=== PATIENT | female | born 1970 | race Caucasian/White ===

== ENCOUNTER 2022-06-24 16:17 | Outpatient (REF) | payer OTHER, MEDICAID, SELFPAY ==
[2022-06-24 16:35] LABS: MANUAL DIFF FLAG NO
[2022-06-24 17:33] LABS: Basophils Absolute Auto 0.1 X10*3/uL (0.0-0.2); Basophils Percent Auto 0.3 % (0-2); Eosinophils Absolute Auto 0.7 X10*3/uL (0.0-0.4); Eosinophils Percent Auto 4.9 % (0-4); Hematocrit 45.5 % (37.0-47.0); Hemoglobin 15.4 g/dl (12.0-16.0); Imm Gran Abs Auto 0.06 X10*3/uL (0.00-0.03); Imm Gran Pct Auto 0.4 % (0.0-0.4); Lymphocytes Percent Auto 20.5 % (20-40); Mean Corpuscular HGB Conc 33.8 g/dl (31.0-35.0); Mean Corpuscular Hemoglobin 30.1 pg (27.0-33.0); Mean Platelet Volume 10.8 fL (9.4-12.3); Monocytes Percent Auto 6.5 % (2-11); Neutrophils Absolute Auto 9.8 x10*3/uL (2.0-8.3); Neutrophils Percent Auto 67.4 % (45-73); Platelet Count 353 X10*3/uL (160-400); Red Blood Count 5.11 X10*6/uL (4.20-5.50); Red Cell Distribution Width 13.1 % (11.0-16.0); White Blood Count 14.6 X10*3/uL (4.8-10.8)
[2022-06-24 17:51] LABS: Alanine Aminotransferase 17 U/L (0-31); Albumin Level 4.6 g/dL (3.5-5.0); Alkaline Phosphatase 121 U/L (39-117); Anion Gap 20 (12-20); Aspartate Amino Transferase 21 U/L (5-31); Bilirubin Total 0.3 mg/dL (0.0-1.0); Blood Urea Nitrogen 13 mg/dL (9-16); Calcium 9.6 mg/dL (8.4-10.2); Carbon Dioxide 20 mmol/L (22-29); Chloride 105 mmol/L (96-108); Estimated Glomerular Filt Rate > 60; Glucose Random 93 mg/dL (60-115); Potassium 4.5 mmol/L (3.3-5.1); Sodium 140 mmol/L (135-145); Total Protein 7.5 g/dL (6.5-8.0)
== END 2022-06-24 16:18 | disposition home or self-care (01) ==
LOC: HO.LAB 16:17
PROVIDERS: PCP Registered Nurse; Visit Provider Nurse Practitioner
DX: Z12.11 Encounter for screening for malignant neoplasm of colon (principal)
CPT/HCPCS: 36415; 80053; 85025

== ENCOUNTER 2023-10-23 10:53 | Outpatient (AMB) | payer OTHER, MEDICAID, SELFPAY ==
[2023-10-23 10:59] VITALS: BMI 27.4
--- NOTE | 2023-10-23 10:59 | HO.NEPHOV_ITS ---
HPI HPI Comments History of Present Illness Details Padmaja was seen in follow-up by [facility] or nephrolithiasis. She has history of complex regional pain syndrome. She had a spinal cord stimulator put in. She does not have any blood in the urine, fever, loin pain, chills, rigor or dysuria. She has not passed any later gravel in the urine. She maintains good hydration. She tries to minimize his salt in the diet. [facility] Medical History (Updated 10/23/23 @ 11:22 by Amauri Vasquez MD) Primary insomnia Osteoarthritis Nerve injury Nephrolithiasis Migraine Fibromyositis Fibromyalgia Depressive disorder Anxiety Smoker Chronic knee pain GERD (gastroesophageal reflux disease) Closed left ankle fracture Surgical History Hx of repair of left rotator cuff Hx of repair of right rotator cuff History of total right knee replacement S/P rotator cuff repair History of hysterectomy Social History Alcohol intake: never Patient Tobacco Use Status: Current everyday Tobacco user Vital Signs 10/23/23 10:59 Height 5 ft 6 in Weight 170 lb BMI 27.4 Physical Exam Vital Signs: BMI result Body Mass Index 27.4 Assessment & Plan Assessment & Plan (1) Nephrolithiasis: Code(s): N20.0 - Calculus of kidney Plan Padmaja has longstanding nephrolithiasis. She has family history of renal calculus. She claims to be taking adequate amount of fluid. Her 24 hour urine collection in the past has shown a low citrate. She is on potassium citrate. She should minimize sodium in the diet and continue to maintain good hydration. She should cut back animal protein, increase fruits and vegetables in the diet. She should avoid nonsteroidal inflammatory medications. She may need hydrochlorothiazide and/or increase in potassium citrate. I did not make any medication changes today. Lab work ordered. Answered all questions. Follow-up given. Orders: Orders Electrolytes 10/23/23 N20.0 - Calculus of kidney Blood Urea Nitrogen 10/23/23 N20.0 - Calculus of kidney Calcium 10/23/23 N20.0 - Calculus of kidney Protein Creatinine Ratio, Ur 10/23/23 N20.0 - Calculus of kidney UA and rflx microscopic 10/23/23 N20.0 - Calculus of kidney Creatinine 10/23/23 N20.0 - Calculus of kidney Telehealth Telehealth Location of provider rendering services: practice address Location of patient: address on file Patient Identification confirmed using: Name, : Yes Telehealth method: voice only Patient verbally consented to treatment: Yes Patient verbally consented to billing insurance company: Yes Patient informed of any privacy concerns related to visit: No Minutes spent on Phone/Video with Pt.: 10 Coding Level of Care Code Tele Est Pt Level 2 (65669) Diagnoses Nephrolithiasis N20.0 Results Reviewed Nephrology Results: Hgb 15.4 g/dl (12.0-16.0) 06/24/22 WBC 14.6 X10*3/uL (4.8-10.8) H 06/24/22 Plt Count 353 X10*3/uL (160-400) 06/24/22 Sodium 140 mmol/L (135-145) 06/24/22 Potassium 4.5 mmol/L (3.3-5.1) 06/24/22 Chloride 105 mmol/L (96-108) 06/24/22 Carbon Dioxide 20 mmol/L (22-29) L 06/24/22 BUN 13 mg/dL (9-16) 06/24/22 Creatinine 0.94 mg/dL (0.5-1.4) 06/24/22 Calcium 9.6 mg/dL (8.4-10.2) 06/24/22
== END 2023-10-23 11:30 | disposition home or self-care (01) ==
PROVIDERS: PCP Registered Nurse; Visit Provider Internal Medicine Nephrology
DX: N20.0 Calculus of kidney (principal)
CPT/HCPCS: 99212

== ENCOUNTER → 2023-10-23 10:53 | Outpatient (BNVA) | payer OTHER, MEDICAID, SELFPAY | PROVIDERS: PCP Registered Nurse; Visit Provider Internal Medicine Nephrology ==

== ENCOUNTER 2024-04-26 16:00 | Outpatient (AMB) | payer OTHER, MEDICAID, SELFPAY ==
--- NOTE | 2024-04-26 16:08 | HO.NEPHOV ---
Vital Signs 04/26/24 16:10 Height 5 ft 6 in Weight 186 lb 8 oz BMI 30.1 BP 122/80 Blood Pressure Location Lt brachial Position Sitting Pulse 68 Pulse Source Pulse Oximeter Pulse Oximetry (%) 97 Oxygen Delivery Method Room Air Intake Visit Reasons: 6M follow up/ Conf Insurance Licensing Supervisor Required: No Accompanied by: Spouse Allergies amoxicillin Allergy (Mild, Verified 04/26/24 16:13) unknown cat dander Allergy (Mild, Verified 04/26/24 16:13) Unknown pollen extracts Allergy (Mild, Verified 04/26/24 16:13) unknown cephalexin [From Keflex] Allergy (Verified 04/26/24 16:13) Nausea and Vomiting erythromycin base Allergy (Verified 04/26/24 16:13) Nausea and Vomiting Penicillins Allergy (Verified 04/26/24 16:13) Itching NSAIDS (Non-Steroidal Anti-Inflamma Adverse Reaction (Mild, Verified 04/26/24 16:13) effects kidneys HPI Comments Details: Padmaja was seen in follow-up for her nephrolithiasis. She has history of complex regional pain syndrome. She had a spinal cord stimulator put in. She is on a low dose prednisone and her arthralgias are better. She does not have any blood in the urine, fever, loin pain, chills, rigor or dysuria. She has not passed any later gravel in the urine. She maintains good hydration. She tries to minimize his salt in the diet. She was accompanied by her in the office today [facility] Medical History (Updated 10/23/23 @ 11:22 by Amauri Vasquez MD) Primary insomnia Osteoarthritis Nerve injury Nephrolithiasis Migraine Fibromyositis Fibromyalgia Depressive disorder Anxiety Smoker Chronic knee pain GERD (gastroesophageal reflux disease) Closed left ankle fracture Surgical History Hx of repair of left rotator cuff Hx of repair of right rotator cuff History of total right knee replacement S/P rotator cuff repair History of hysterectomy Social History (Updated 04/26/24 @ 16:[address] [place]) Alcohol intake: never Patient Tobacco Use Status: Former Tobacco user Review of Systems Const All systems reviewed & are unremarkable except as noted in HPI and below Physical Exam Vital Signs: Last Vital Signs Pulse 68 04/26/24 16:10 BP 122/80 04/26/24 16:10 Pulse Ox 97 06/07/24 16:10 Oxygen Delivery Method Room Air 04/26/24 16:10 BMI result Body Mass Index 30.1 Const General: comfortable and no acute distress Orientation/consciousness: patient oriented x3 HEENT Head: Yes normocephalic Mouth: Normal oral and palatal mucosa present Eyes EOM: EOMs intact bilaterally Neck Neck: Yes supple Resp Auscultation: clear to auscultation bilaterally Cardio Jugular venous distension: no JVD Rate: regular rate GI Palpation (GI): Soft to palpation Auscultation: normal bowel sounds General: Yes no CVA tenderness Back/Spine/Pelvis Back: no CVA tenderness Skin General skin exam: no rashes or lesions noted Neuro General: patient oriented x3 and moves all extremities Assessment & Plan Assessment & Plan (1) Nephrolithiasis: Code(s): N20.0 - Calculus of kidney Category: Medical Plan Padmaja has longstanding nephrolithiasis. She has family history of renal calculus. She claims to be taking adequate amount of fluid. Her 24 hour urine collection in the past has shown a low citrate. She is on potassium citrate. She should minimize sodium in the diet and continue to maintain good hydration. She should cut back animal protein, increase fruits and vegetables in the diet. She should avoid nonsteroidal inflammatory medications. She may need hydrochlorothiazide and/or increase in potassium citrate. I did not make any medication changes today. Lab work ordered. Answered all questions. Follow-up given. Orders: Orders Blood Urea Nitrogen 04/26/24 N20.0 - Calculus of kidney Calcium 04/26/24 N20.0 - Calculus of kidney Creatinine 04/26/24 N20.0 - Calculus of kidney Electrolytes 04/26/24 N20.0 - Calculus of kidney Coding Level of Care Code Est Pt Level 4 (33880) Diagnoses Nephrolithiasis N20.0
[2024-04-26 16:10] VITALS: BP 122/80; PULSE 68; O2SAT 97; BMI 30.1
== END 2024-04-26 16:45 | disposition home or self-care (01) ==
PROVIDERS: PCP Registered Nurse; Visit Provider Internal Medicine Nephrology
DX: N20.0 Calculus of kidney (principal)
CPT/HCPCS: 99214

== ENCOUNTER → 2024-04-26 16:00 | Outpatient (BNVA) | payer OTHER, MEDICAID, SELFPAY | PROVIDERS: PCP Registered Nurse; Visit Provider Internal Medicine Nephrology ==

== ENCOUNTER 2024-12-27 09:40 | Outpatient (AMB) | payer OTHER, MEDICAID, SELFPAY ==
[2024-12-27 09:46] VITALS: BP 130/80; PULSE 86; O2SAT 93; BMI 34.4
--- NOTE | 2024-12-27 09:46 | HO.NEPHOV_ITS ---
Vital Signs 12/27/24 09:46 Height 5 ft 6 in Weight 213 lb 4 oz BMI 34.4 BP 130/80 Blood Pressure Location Rt brachial Position Sitting Pulse 86 Pulse Source Pulse Oximeter Pulse Oximetry (%) 93 Oxygen Delivery Method Room Air Intake Visit Reasons: Follow up leg edema Police Communications Dispatcher Required: No Accompanied by: Friend Allergies amoxicillin Allergy (Mild, Verified 12/27/24 09:50) unknown cat dander Allergy (Mild, Verified 12/27/24 09:50) Unknown pollen extracts Allergy (Mild, Verified 12/27/24 09:50) unknown cephalexin [From Keflex] Allergy (Verified 12/27/24 09:50) Nausea and Vomiting erythromycin base Allergy (Verified 12/27/24 09:50) Nausea and Vomiting Penicillins Allergy (Verified 12/27/24 09:50) Itching NSAIDS (Non-Steroidal Anti-Inflamma Adverse Reaction (Mild, Verified 12/27/24 09:50) effects kidneys HPI Comments Details: Padmaja was seen in follow-up for her nephrolithiasis. She has been having weight gain 27 lbs in close to 6 months. She has been on prednisone but currently is on 2.5 mg daily. She has history of complex regional pain syndrome. She had a spinal cord stimulator put in. Her arthralgias are better. She does not have any blood in the urine, fever, loin pain, chills, rigor or dysuria. She has not passed any later gravel in the urine. She maintains good hydration. She tries to minimize his salt in the diet. [facility] Medical History (Updated 12/27/24 @ 10:12 by Amauri Vasquez MD) Primary insomnia Osteoarthritis Nerve injury Nephrolithiasis Migraine Fibromyositis Fibromyalgia Depressive disorder Anxiety Smoker Chronic knee pain GERD (gastroesophageal reflux disease) Closed left ankle fracture Surgical History Hx of repair of left rotator cuff Hx of repair of right rotator cuff History of total right knee replacement S/P rotator cuff repair History of hysterectomy Social History Alcohol intake: never Patient Tobacco Use Status: Former Tobacco user Review of Systems Const All systems reviewed & are unremarkable except as noted in HPI and below Physical Exam Vital Signs: Last Vital Signs Pulse 86 12/27/24 09:46 BP 130/80 02/07/25 09:46 Pulse Ox 93 12/27/24 09:46 Oxygen Delivery Method Room Air 12/27/24 09:46 BMI result Body Mass Index 34.4 Const General: comfortable and no acute distress Orientation/consciousness: patient oriented x3 HEENT Head: Yes normocephalic Mouth: Normal oral and palatal mucosa present Eyes EOM: EOMs intact bilaterally Neck Neck: Yes supple Resp Auscultation: clear to auscultation bilaterally Cardio Jugular venous distension: no JVD Rate: regular rate GI Palpation (GI): Soft to palpation Auscultation: normal bowel sounds General: Yes no CVA tenderness Back/Spine/Pelvis Back: no CVA tenderness Skin General skin exam: no rashes or lesions noted Neuro General: patient oriented x3 and moves all extremities Extrem General: Yes no pedal edema Results Reviewed Nephrology Results: Hgb 15.4 g/dl (12.0-16.0) 06/24/22 WBC 14.6 X10*3/uL (4.8-10.8) H 06/24/22 Plt Count 353 X10*3/uL (160-400) 06/24/22 Sodium 140 mmol/L (135-145) 06/24/22 Potassium 4.5 mmol/L (3.3-5.1) 06/24/22 Chloride 105 mmol/L (96-108) 06/24/22 Carbon Dioxide 20 mmol/L (22-29) L 06/24/22 BUN 13 mg/dL (9-16) 06/24/22 Creatinine 0.94 mg/dL (0.5-1.4) 06/24/22 Calcium 9.6 mg/dL (8.4-10.2) 06/24/22 Assessment & Plan Assessment & Plan (1) Nephrolithiasis: Code(s): N20.0 - Calculus of kidney Category: Medical (2) Edema: Code(s): R60.9 - Edema, unspecified Category: Medical Qualifiers: Edema type: localized Qualified Code(s): R60.0 - Localized edema Plan Padmaja has longstanding nephrolithiasis. She has family history of renal calculus. She claims to be taking adequate amount of fluid. Her 24 hour urine collection in the past has shown a low citrate. She is on potassium citrate. She should minimize sodium in the diet and continue to maintain good hydration. She should cut back animal protein, increase fruits and vegetables in the diet. She should avoid nonsteroidal inflammatory medications. I ordered basic W/U for edema. She had liver USS and may need ECHO. She may need hydrochlorothiazide and/or increase in potassium citrate. I did not make any medication changes today. Lab work ordered. Answered all questions Orders: Orders Alanine Aminotransferase Today R60.0 - Localized edema Aspartate Amino Transferase Today R60.0 - Localized edema Albumin Level Today R60.0 - Localized edema Protein Creatinine Ratio, Ur Today R60.0 - Localized edema Other Ref Test - Misc Today R60.0 - Localized edema Coding Level of Care Code Est Pt Level 4 (00564) Diagnoses Nephrolithiasis N20.0 Localized edema R60.0 Edema type: localized
--- OUTSIDE RECORDS SUMMARY | 2024-12-27 10:23 | XMS_ITS | Encounter Summary ---
Author Organization [facility] Address [phone] [facility] [place] [address] Care Team Providers Care Senior Software Quality Analyst Name Role Phone Pcp, Unknown Primary Care Provider Unavailabl e Encounter Details Date Type Department Care Team (Late st Contact Info) Description 03/19/2013 Hospital Encounter [facility],Outside Imaging [address] [place], [place] [id number] System, Provider Not In, [place] [address] Social History Tobacco Use Types Packs/Day Years [...] Answer Date Recorded No 04/17/2023 No 04/17/2023 No 04/17/2023 Reliable internet access at home? Not on file 04/17/2023 Device with a working camera? Not on file Sex and Gender Information Value Date Recorded Sex Assigned at Female 05/03/2018 10:11 AM EDT Gender Identity Female 05/03/2018 10:11 AM [...] PACS storage only and not for interpretation. Provider Not In System PhD IMG OUTSIDE I MAGYANIRA W/OUT INTERPRETATION documented in this encounter Visit Diagnoses Not on filedocumented in this encounter Care Teams Senior Software Quality Analyst Relationship Specialty Start Date End Date Pcp, Unknown PCP - General 02/18/11 10/17/17 documented as of this encounter Additional Source Comments The information contained in this document represents components of the legal health record. It is not the complete legal health record.[facility]
--- OUTSIDE RECORDS SUMMARY | 2024-12-27 10:23 | XMS_ITS | Encounter Summary ---
Author Organization [facility] Address [phone] [facility] [place] [address] Care Team Providers Care Brush Head Maker Name Role Phone Carmen Flores CNP Unavailable Priscila GrimmP Unavailable Veronica Vega MD Unavailable Selam Flower MD Unavailable [phone] Pedro Valente MD Unavailable Maria Del Rosario Oleary NP Primary Care Provider + Encounter Details Date Type Department Care Team (Late st Contact Info) Description 11/05/2020 Procedure Pass [address] [place] [address] Social History Tobacco Use Types Packs/Day Years Used Date Smoking Tobacco: Former Cigarettes 0.3 16 0 08/01/2003 - 08/01/2019 Smokeless Tobacco: Never Alcohol Use Standard Drinks/Week Comments Not Currently 0 (1 standard drink = 0.6 oz pur e alcohol) Sex and Gender Information Value Date Recorded Sex Assigned at Female 05/03/2018 10:11 AM EDT Gender Identity Female 05/03/2018 10:11 AM EDT Sexual Orientation Not on file documented as of this encounter Last Filed Vital Signs Vital Sign Reading Time Taken Comments Blood Pressure - - Pulse - - Temperature - - Respiratory Rate - - Oxygen Saturation - - Inhaled Oxygen Concentration - - Weight 87.1 kg (192 lb) 11/06/2020 1:07 PM EST Height 167.6 cm (5' 6 ) 11/06/2020 1:07 PM EST Body Mass Index 30.99 11/06/2020 1:07 PM EST documented in this encounter Plan of Treatment Not on file documented as of this encounter Visit Diagnoses Not on filedocumented in this encounter Care Teams Brush Head Maker Relationship Specialty Start Date End Date Maria Del Rosario Oleary, PIG MACHINE OPERATOR HELPER [address] [place] [address] PCP - General Family Medicine 07/09/19 Carmen Flores, MOTOR BUILDER WINDER [address] [facility] [address], [address] [place] [address] Historical LMR Provider 09/06/17 11/27/21 Priscila Grimm FNP [address] [facility], [address], [address] [place] [address] Historical LMR Provider 09/06/17 11/27/21 Veronica Vega MD [address] [facility], [address], [address] [place] [address] Historical LMR Provider 09/06/17 11/27/21 Selam Flower MD [address] [place] [address] Historical LMR Provider 09/06/17 2 Pedro Valente MD [address] [place] [address] Historical LMR Provider 09/06/17 2 documented as of this encounter Additional Source Comments The information contained in this document represents components of the legal health record. It is not the complete legal health record.[facility]
--- OUTSIDE RECORDS SUMMARY | 2024-12-27 10:23 | XMS_ITS | Encounter Summary ---
Author Organization [facility] Address [phone] [facility] [place] [address] Care Team Providers Care Rubber Vulcanizing Machine Operator Name Role Phone Pcp, Unknown Primary Care Provider Unavailabl e Encounter Details Date Type Department Care Team (Late st Contact Info) Description 03/16/2011 Hospital Encounter [facility],Outside Imaging [address] [place], [place] [phone] System, Provider Not In, PhD [address] [address] Unknown, Unknown, Social History Tobacco Use Types [...] Not In System PhD IMG OUTSIDE I MAGING W/OUT INTERPRETATION documented in this encounter Visit Diagnoses Not on filedocumented in this encounter Care Teams Rubber Vulcanizing Machine Operator Relationship Specialty Start Date End Date Pcp, Unknown PCP - General 02/18/11 10/17/17 documented as of this encounter Additional Source Comments The information contained in this document represents components of the legal health record. It is not the complete legal health record.[facility]
--- OUTSIDE RECORDS SUMMARY | 2024-12-27 10:23 | XMS_ITS | Encounter Summary ---
Author Organization [facility] Address [phone] [place] [address] Care Team Providers Care Automotive Engineer Name Role Phone Pcp, Unknown Primary Care Provider Unavailabl e Encounter Details Date Type Department Care Team (Late st Contact Info) Description 03/15/2012 Hospital Encounter [facility],Outside Imaging [address] [place], [place] [phone] System, Provider Not In, PhD [address] [address] Unknown, Unknown, Social History Tobacco Use Types [...] on filedocumented in this encounter Care Teams Automotive Engineer Relationship Specialty Start Date End Date Pcp, Unknown PCP - General 02/18/11 10/17/17 documented as of this encounter Additional Source Comments The information contained in this document represents components of the legal health record. It is not the complete legal health record.[facility]
--- OUTSIDE RECORDS SUMMARY | 2024-12-27 10:23 | XMS_ITS | Encounter Summary ---
Author Organization [facility] Address [phone] [facility] [place] [address] Care Team Providers Care Circuits Engineer Name Role Phone Pcp, Unknown Primary Care Provider Unavailabl e Encounter Details Date Type Department Care Team (Late st Contact Info) Description 03/14/2011 Hospital Encounter [facility],Outside Imaging [address] [place], [place] [phone] System, Provider Not In, PhD [address] [address] Unknown, Unknown, Social History Tobacco Use Types [...] on filedocumented in this encounter Care Teams Circuits Engineer Relationship Specialty Start Date End Date Pcp, Unknown PCP - General 02/18/11 10/17/17 documented as of this encounter Additional Source Comments The information contained in this document represents components of the legal health record. It is not the complete legal health record.[facility]
--- OUTSIDE RECORDS SUMMARY | 2024-12-27 10:23 | XMS_ITS | Encounter Summary ---
Author Organization [facility] Address [phone] [facility] [place] [address] Care Team Providers Care Remarketing Manager Name Role Phone Carmen Flores CNP Unavailable [phone] Alfa Priscila Maricarmen CASKET UPHOLSTERER Unavailable Veronica Vega MD Unavailable Selam Flower MD Unavailable Pedro Valente MD Unavailable Maria Del Rosario Oleary NP Primary Care Provider + Reason for Referral * MRI/CAT Scan - Closed Specialty Diagnoses / Procedures Referred By Contac t Referred To Contact Radiology Diagnoses Right knee pain, unspecified chronicity Radiculopathy, lumbar region Complex regional pain syndrome i of right lower limb Procedures MRI Lumbar Spine Pedro Denise PA [address] [place] [address] Referral ID Status Reason Start Date Expiration Date Visits Re quested Visits Authorized [id number] Closed 11/04/2020 05/03/2021 1 1 Encounter Details Date Type Department Care Team (Late st Contact Info) Description 11/05/2020 Transcribe Orders Virtual Department [address] [place] [address] Chantel Denise MD [address] [place] [address] .[facility] Right knee pain, unspecified chronicity (Primary Dx); Radiculopathy, lumbar region; Complex regional pain syndrome i of right lower limb Social History Tobacco Use Types Packs/Day Years [...] on file documented as of this encounter Results * MRI LUMBAR SPINE (BONE) WITHOUT CONTRAST (11/10/2020 2:56 PM EST) Anatomical Region Laterality Modality L-spine Magnetic Resonan ce 11/10/2020 3:22 PM EST Impressions 11/10/2020 3:28 PM EST Mild progressive disc desiccation and degenerative facet arthropathy without focal disc protrusion, central canal stenosis, neural foraminal stenosis, or other significant interval change from 06/28/2012. POS - [id number] Narrative 11/10/2020 3:28 PM EST TECHNIQUE: Exam performed on a 1.5 Constanza high-field MRI scanner. ??Sagittal T1, T2 and STIR, axial T1 and T2 sequences were obtained. FINDINGS: Comparisons made with the prior MR of 06/28/2012. On the sagittal sequences no focal disc protrusion, central canal stenosis, or significant neural foraminal compromise are demonstrated at the T11-T12, T12-L1, or L1-2 levels. There is been slight progressive disc desiccation. L2-L3: Mild progressive disc desiccation without acute disc protrusion, central canal stenosis, or neural foraminal compromise. L3-L4: Progressive disc desiccation without focal disc protrusion, central canal stenosis, or significant neural foraminal compromise. Mild degenerative facet arthropathy. L4-L5: Progressive disc desiccation without acute disc protrusion, central canal stenosis, or neural foraminal compromise. Mild degenerative facet arthropathy. L5-S1: No acute disc protrusion, central canal stenosis, or neural foraminal compromise. No significant abnormality vertebral body marrow signal is noted. Visualized portions of the tip of the conus are unremarkable. No paraspinal soft tissue mass apparent. Procedure Note Zach Burkett MD - 11/10/2020 TECHNIQUE: Exam performed on a 1.5 Constanza high-field MRI scanner. SagittalT1, T2 and STIR, axial T1 and T2 sequences were obtained. FINDINGS: Comparisons made with the prior MR of 06/28/2012. On the sagittal sequences no focal disc protrusion, central canalstenosis, or significant neural foraminal compromise are demonstrated atthe T11-T12, T12-L1, or L1-2 levels. There is been slight progressive discdesiccation. L2-L3: Mild progressive disc desiccation without acute disc protrusion,central canal stenosis, or neural foraminal compromise. L3-L4: Progressive disc desiccation without focal disc protrusion, centralcanal stenosis, or significant neural foraminal compromise. Milddegenerative facet arthropathy. L4-L5: Progressive disc desiccation without acute disc protrusion, centralcanal stenosis, or neural foraminal compromise. Mild degenerative facetarthropathy. L5-S1: No acute disc protrusion, central canal stenosis, or neuralforaminal compromise. No significant abnormality vertebral body marrow signal is noted.Visualized portions of the tip of the conus are unremarkable. Noparaspinal soft tissue mass apparent. IMPRESSION: Mild progressive disc desiccation and degenerative facet arthropathywithout focal disc protrusion, central canal stenosis, neural foraminalstenosis, or other significant interval change from 06/28/2012. POS - [id number] Pedro MCNAIR Jeff MR XSPECIALTY documented in this encounter Visit Diagnoses Diagnosis Right knee pain, unspecified chronicity- Primary Radiculopathy, lumbar region Thoracic or lumbosacral neuritis or radiculitis, unspecified Complex regional pain syndrome i of right lower limb Right knee pain, unspecified chronicity Radiculopathy, lumbar region Thoracic or lumbosacral neuritis or radiculitis, unspecified Complex regional pain syndrome i of right lower limb documented in this encounter Care Teams Remarketing Manager Relationship Specialty Start Date End Date Maria Del Rosario Oleary, JOAQUIN [address] [place] [address] PCP - General Family Medicine 07/09/19 Carmen Flores, REBEKAH [address], [address] [place] [address] Historical LMR Provider 09/06/17 11/27/21 Priscila Grimm FNP [address], [address] [place] [address] Historical LMR Provider 09/06/17 11/27/21 Veronica Vega MD [address], [address] [place] [address] Historical LMR Provider 09/06/17 11/27/21 Selam Flower MD [address] [place] [address] Historical LMR Provider 09/06/17 2 Pedro Valente MD [address] [place] [address] Historical LMR Provider 09/06/17 2 documented as of this encounter Additional Source Comments The information contained in this document represents components of the legal health record. It is not the complete legal health record.[facility]
--- OUTSIDE RECORDS SUMMARY | 2024-12-27 10:24 | XMS_ITS ---
Author Organization [facility] Address [address] [place] [id number] Care Team Providers Care Twister Tender Name Role Phone KIRK LOZANO Primary Care Provider REASON FOR VISIT [employer] - fax request Encounters Encounter Location Date Provider Diagnosis [facility], [address] [phone] 12/15/2024 KIRK LOZANO PLAN OF TREATMENT No Information Progress Notes * ALEX HOOVER MDOB:[birth year] (54 yo F)Acc No.[id number]:12/15/2024 Patient:??ALEX HOOVER :1970?Age:54 Y?Sex:Fe male Phone: Address:[address] [place] [id number] * true * Date:??
--- OUTSIDE RECORDS SUMMARY | 2024-12-27 10:25 | XMS_ITS | Encounter Summary ---
Author Organization [facility] Address [phone] [place] [address] Care Team Providers Care Marine Engine Mechanic Name Role Phone Carmen Flores CNP Unavailable Alfa Priscila Maricarmen WORKERS' COMPENSATION MEDIATOR Unavailable Veronica Vega MD Unavailable Selam Flower MD Unavailable Pedro Valente MD Unavailable Scarlett Baird PA-C Primary Care Provider Maria Del Rosario Oleary NP Primary Care Provider + Encounter Details Date Type Department Care Team (Late st Contact Info) Description 05/07/2018 Ancillary Orders [facility] External Provider Virtual Department [address] [place] [address] Radha Kurtz MD [address] [place] [address] Abnormal mammogram Social History Tobacco Use Types Packs/Day Years Used Date Smoking Tobacco: Never Assessed Sex and Gender Information Value Date Recorded Sex Assigned at Female 05/03/2018 10:11 AM EDT Gender Identity Female 05/03/2018 10:11 AM EDT Sexual Orientation Not on file documented as of this encounter Plan of Treatment Not on file documented as of this encounter Results * BI MAMMOGRAM DIAGNOSTIC NO TOMOSYNTHESIS WITH CAD (LEFT) (05/14/2018 10:11 AM EDT) Anatomical Region Laterality Modality Breast Left Left Mammography 05/14/2018 1:09 PM EDT Impressions 05/14/2018 1:11 PM EDT No suspicious findings on callback imaging. ??Routine bilateral screening mammography is recommended. ??Results are relayed to the patient by the technologist. BI-RADS CATEGORY: 1 - Negative. DENSITY: ??There are scattered fibroglandular densities. POS - CDHMAMA Narrative 05/14/2018 1:11 PM EDT FINDINGS: Patient is recalled from a screening mammogram performed 05/03/2018 for additional imaging on the left. Magnification CC view is performed. No calcifications are identified in the area of concern. ??Therefore, the abnormality on the screening mammogram was artifactual. Procedure Note Jarret Chavez MD - 05/14/2018 FINDINGS: Patient is recalled from a screening mammogram dlojevnrr81/14/2018 for additional imaging on the left. Magnification CC view isperformed. No calcifications are identified in the area of concern. Therefore, theabnormality on the screening mammogram was artifactual. IMPRESSION: No suspicious findings on callback imaging. Routine bilateral screeningmammography is recommended. Results are relayed to the patient by thetechnologist. BI-RADS CATEGORY: 1 - Negative. DENSITY: There are scattered fibroglandular densities. POS - CDHMAMA Radha Kurtz MD IMG MG EXAMS documented in this encounter Visit Diagnoses Diagnosis Abnormal mammogram Abnormal mammogram, unspecified Abnormal mammogram Abnormal mammogram, unspecified documented in this encounter Care Teams Marine Engine Mechanic Relationship Specialty Start Date End Date Scarlett Baird PA-C [address] [place] [address] PCP - General Family Medicine 05/03/18 07/08/19 Maria Del Rosario Oleary JOAQUIN [address] [place] [address] PCP - General Family Medicine 07/09/19 Carmen Flores, REBEKAH [address], [address] [place] [address] Historical LMR Provider 09/06/17 11/27/21 Priscila Grimm FNP [address], [address] [place] [address] Historical LMR Provider 09/06/17 11/27/21 Veronica Vega MD [address], [address] [place] [address] Historical LMR Provider 09/06/17 11/27/21 Selam Flower MD [address] [place] [address] Historical LMR Provider 09/06/17 2 Pedro Valente MD [address] [place] [address] Historical LMR Provider 09/06/17 2 documented as of this encounter Additional Source Comments The information contained in this document represents components of the legal health record. It is not the complete legal health record.[facility]
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
--- OUTSIDE RECORDS SUMMARY | 2024-12-27 10:25 | XMS_ITS ---
Author Name [facility] Organization Unknown History of Medication Use Medication Directions Dispensed Refills Start Date End Date Stat cyclobenzaprine 10 mg tablet TAKE ONE TABLET BY MOUTH EVERY DAY AT BEDTIME NEEDED active prednisone 10 mg tablet TAKE 6 TABLETS FOR 2 DAYS TAKE 5 TABLETS FOR 2 DAYS TAKE 4 TABLETS FOR 2 DAYS TAKE 3 TABLETS FOR 2 DAYS TAKE 2 TABLETS FOR 2 DAYS THEN TAKE active prednisone 5 mg tablet TAKE ONE TABLET BY MOUTH ONCE DAILY active bupropion HCl XL 150 mg 24 hr tablet, extended release TAKE ONE TABLET BY MOUTH EVERY DAY IN THE MORNING active Qulipta 60 mg tablet TAKE 1 TABLET BY MOUTH ONCE DAILY IN THE MORNING DIRECTED active doxepin 10 mg capsule TAKE ONE CAPSULE BY MOUTH AT BEDTIME active potassium citrate ER 5 mEq (540 mg) tablet,extended release TAKE ONE TABLET BY MOUTH EVERY DAY active bupropion HCl XL 300 mg 24 hr tablet, extended release TAKE ONE TABLET BY MOUTH EVERY DAY active lorazepam 1 mg tablet TAKE ONE TABLET BY MOUTH THREE TIMES A DAY NEEDED FOR ANXIETY active Allergies Allergen Reaction Severity Comment Documented Date Source Statu s ERYTHROMYCIN BASE ENS_AONECT GLUTEN ENS_AONECT AMOXICILLIN ENS_AONECT KEFLEX ENS_AONECT LACTOSE ENS_AONECT PENICILLINS ENS_AONECT Problems Problem Status Onset Date Problem Type Date of Resoluti on Source History of total knee arthroplasty active 2024-02-01 ProblemAct ENS_AONECT Pain associated with prosthesis of knee joint active 2024-02-23 ProblemAct ENS _AONECT
--- OUTSIDE RECORDS SUMMARY | 2024-12-27 10:25 | XMS_ITS | Encounter Summary ---
Author Organization [facility] Address [phone] Formerly [facility], 1928–[address] [place] [address] Care Team Providers Care Rotary Driller Helper Name Role Phone Carmen Flores MARINE FUEL DOCK ATTENDANT Unavailable Priscila Grimm METAL CUT OFF SAW OPERATOR Unavailable Veronica Vega MD Unavailable Selam Flower MD Unavailable Pedro Valente MD Unavailable Selam Flower MD Primary Care Provider Scarlett Baird PA-C Primary Care Provider [phone] Maria Del Rosario Oleary NP Primary Care Provider + Encounter Details Date Type Department Care Team (Late st Contact Info) Description 04/20/2018 Ancillary Orders [facility],Outside Imaging [address] [place] [address] System, Provider Not In, PhD [address] [address] Social History Tobacco Use Types Packs/Day Years Used Date Smoking Tobacco: Never Assessed Sex and Gender Information Value Date Recorded Sex Assigned at Female 05/03/2018 10:11 AM EDT Gender Identity Female 05/03/2018 10:11 AM EDT Sexual Orientation Not on file documented as of this encounter Plan of Treatment Not on file documented as of this encounter Results * Mammogram Outside (No Interpretation) (05/14/2014 12:00 AM EDT) Narrative SYSTEMGENERATED, DOCUMENTATION - 04/20/2018 10:33 AM EDT This study is for PACS storage only and not for interpretation. Provider Not In System PhD IMG OUTSIDE I MAGING W/OUT INTERPRETATION documented in this encounter Visit Diagnoses Not on filedocumented in this encounter Care Teams Rotary Driller Helper Relationship Specialty Start Date End Date Selam Flower MD [address] [place] [address] PCP - General 11/23/17 05/02/18 Scarlett Baird PA-C [address] [place] [address] [email or web address] PCP - General Family Medicine 05/03/18 07/08/19 Maria Del Rosario Oleary, JOAQUIN [address] [place] [address] PCP - General Family Medicine 07/09/19 Carmen Flores CNP [address] [facility] [address], [address] [place] [address] Historical LMR Provider 09/06/17 11/27/21 Priscila Grimm FNP [address], [address] [place] [address] Historical LMR Provider 09/06/17 11/27/21 Veronica Vega MD [address], [address] [place] [address] Historical LMR Provider 09/06/17 11/27/21 Selam Flower MD [address] [place] [address] Historical LMR Provider 09/06/17 2 Pedro Valente MD [address] [place] [address] Historical LMR Provider 09/06/17 2 documented as of this encounter Additional Source Comments The information contained in this document represents components of the legal health record. It is not the complete legal health record.[facility]
--- OUTSIDE RECORDS SUMMARY | 2024-12-27 10:25 | XMS_ITS | Encounter Summary ---
Author Organization [facility] Address [phone] [facility] [employer] [place] [address] Care Team Providers Care Log Cooker Name Role Phone Carmen Flores CNP Unavailable [phone] [place] Priscila Maricarmen BUSINESS SERVICES TECH Unavailable Veronica Vega MD Unavailable Selam Flower MD Unavailable Pedro Valente MD Unavailable Scarlett Baird PA-C Primary Care Provider [phone] Maria Del Rosario Oleary NP Primary Care Provider + Encounter Details Date Type Department Care Team (Late st Contact Info) Description 07/16/2018 Ancillary Orders Virtual Department [address] [place] [address] Radha Kurtz MD [address] [place] [phone] [email or web address] Right knee pain, unspecified chronicity; Other instability, right knee Social History Tobacco Use Types Packs/Day Years Used Date Smoking Tobacco: Never Assessed Sex and Gender Information Value Date Recorded Sex Assigned at Female 05/03/2018 10:11 AM EDT Gender Identity Female 05/03/2018 10:11 AM EDT Sexual Orientation Not on file documented as of this encounter Plan of Treatment Not on file documented as of this encounter Results * MRI KNEE WITHOUT CONTRAST (RIGHT) (07/26/2018 2:20 PM EDT) Anatomical Region Laterality Modality Knee Right Magnetic Resonan ce 07/26/2018 2:28 PM EDT Impressions 07/26/2018 2:39 PM EDT New small zone of non-specific but possibly reactive marrow edema in the ventral aspect of the lateral femoral condyle which could be correlated with any prior history of trauma or current findings of pain at this location. ??Stable patellofemoral osteoarthritis and cystic foci in the dorsal tibial metaphysis. ??Small joint effusion. ??No meniscal or ligamentous tears apparent.. POS - [id number] Narrative 07/26/2018 2:39 PM EDT TECHNIQUE: Exam performed on a 1.5 Constanza high-field MRI scanner. ??Axial proton density with fat suppression, coronal proton density with fat suppression, sagittal T1, oblique sagittal proton density and proton density with fat suppression parallel to the plane of the ACL sequences were obtained. FINDINGS: Comparison is made with the prior MR of 07/06/2016. No discrete meniscal tear is demonstrated. ??Cruciate and collateral ligaments appear to be intact. ??Popliteus, infrapatellar, and visualized portions of the distal quadriceps tendons are intact and stable in appearance. ??Soft tissue edema previously evident in the region of the medial head of the gastrocnemius appears to have resolved. A small suprapatellar effusion is present, slightly larger than on the prior study, with moderate prepatellar edema soft tissue edema noted. ??Medial and lateral retinacula are stable in appearance. ??There is chronic diffuse thinning of patellar hyaline cartilage. ??No new osteochondral lesion apparent. There are chronic multi locular fluid intensity lesions in the dorsal aspect of the tibial metaphysis. ??There is a new patchy zone of marrow edema in the medial femoral condyle at the level of the lower pole of the patella. ??A 3 mm cystic focus in the dorsal marrow of the medial condyle is now seen in a region where mild marrow edema was present previously. ??No other significant skeletal pathology identified. Procedure Note Marty Sanchez MD - 07/26/2018 TECHNIQUE: Exam performed on a 1.5 Constanza high-field MRI scanner. Axialproton density with fat suppression, coronal proton density with fatsuppression, sagittal T1, oblique sagittal proton density and protondensity with fat suppression parallel to the plane of the ACL sequenceswere obtained. FINDINGS: Comparison is made with the prior MR of 07/06/2016. No discrete meniscal tear is demonstrated. Cruciate and collateralligaments appear to be intact. Popliteus, infrapatellar, and visualizedportions of the distal quadriceps tendons are intact and stable inappearance. Soft tissue edema previously evident in the region of themedial head of the gastrocnemius appears to have resolved. A small suprapatellar effusion is present, slightly larger than on theprior study, with moderate prepatellar edema soft tissue edema noted.Medial and lateral retinacula are stable in appearance. There is chronicdiffuse thinning of patellar hyaline cartilage. No new osteochondrallesion apparent. There are chronic multi locular fluid intensity lesions in the dorsalaspect of the tibial metaphysis. There is a new patchy zone of marrowedema in the medial femoral condyle at the level of the lower pole of thepatella. A 3 mm cystic focus in the dorsal marrow of the medial condyleis now seen in a region where mild marrow edema was present previously.No other significant skeletal pathology identified. IMPRESSION: New small zone of non-specific but possibly reactive marrow edema in theventral aspect of the lateral femoral condyle which could be correlatedwith any prior history of trauma or current findings of pain at thislocation. Stable patellofemoral osteoarthritis and cystic foci in thedorsal tibial metaphysis. Small joint effusion. No meniscal orligamentous tears apparent.. POS - [id number] Radha Kurtz MD IMG MR EXTREMITY documented in this encounter Visit Diagnoses Diagnosis Right knee pain, unspecified chronicity Other instability, right knee Right knee pain, unspecified chronicity Other instability, right knee documented in this encounter Care Teams Log Cooker Relationship Specialty Start Date End Date Scarlett Baird PA-C [address] [place] [address] [email or web address] PCP - General Family Medicine 05/03/18 07/08/19 Maria Del Rosario Oleary, MEDICAL ECONOMICS CONSULTANT [address] [place] [address] PCP - General Family Medicine 07/09/19 Carmen Flores, REBEKAH [address], [address] [place] [address] [email or web address] Historical LMR Provider 09/06/17 11/27/21 Priscila Grimm FNP [address], [address] [place] [address] [email or web address] Historical LMR Provider 09/06/17 11/27/21 Veronica Vega MD [address], [address] [place] [address] [email or web address] Historical LMR Provider 09/06/17 11/27/21 Selam Flower MD [address] [place] [address] Historical LMR Provider 09/06/17 2 Pedro Valente MD [address] [place] [address] Historical LMR Provider 09/06/17 2 documented as of this encounter Additional Source Comments The information contained in this document represents components of the legal health record. It is not the complete legal health record.[facility]
--- OUTSIDE RECORDS SUMMARY | 2024-12-27 10:25 | XMS_ITS | Encounter Summary ---
Author Organization [facility] Address [phone] [facility] [place] [address] Care Team Providers Care Precision Filer Hand Name Role Phone Carmen Flores TELEPHONE QUOTATION CLERK Unavailable Priscila Grimm DESKTOP SUPPORT CONSULTANT Unavailable Veronica Vega MD Unavailable Selam Flower MD Unavailable [phone] Pedro Valente MD Unavailable Selam Flower MD Primary Care Provider Scarlett Baird PA-C Primary Care Provider Maria Del Rosario Oleary NP Primary Care Provider + Encounter Details Date Type Department Care Team (Late st Contact Info) Description 04/20/2018 Ancillary Orders [facility],Outside Imaging [address] [place] [address] System, Provider Not In, PhD [address] [address] Social History Tobacco Use Types Packs/Day Years [...] on filedocumented in this encounter Care Teams Precision Filer Hand Relationship Specialty Start Date End Date Selam Flower MD [address] [place] [address] PCP - General 11/23/17 05/02/18 Scarlett Baird PA-C [address] [place] [address] [email or web address] PCP - General Family Medicine 05/03/18 07/08/19 Maria Del Rosario Oleary, JOAQUIN [address] [place] [address] PCP - General Family Medicine 07/09/19 Carmen Flores CNP [address] [facility] [address], [address] [place] [address] Historical LMR Provider 09/06/17 11/27/21 Priscila Grimm FNP [address], [address] [place] [address] Historical LMR Provider 09/06/17 11/27/21 Veornica Vega MD [address], [address] [place] [address] Historical LMR Provider 09/06/17 11/27/21 Selam Flower MD [address] [place] [address] Historical LMR Provider 09/06/17 2 Pedro Valente MD [address] [place] [address] Historical LMR Provider 09/06/17 2 documented as of this encounter Additional Source Comments The information contained in this document represents components of the legal health record. It is not the complete legal health record.[facility]
--- OUTSIDE RECORDS SUMMARY | 2024-12-27 10:25 | XMS_ITS | Encounter Summary ---
Author Organization [facility] Address [phone] [facility] [place] [address] Care Team Providers Care Desulfurizer Hand Name Role Phone Carmen Flores CNP Unavailable [phone] Priscila Grimm Unavailable [phone] Veronica Vega MD Unavailable Selam Flower MD Unavailable Pedro Valente MD Unavailable [phone] Maria Del Rosario Oleary NP Primary Care Provider + Encounter Details Date Type Department Care Team (Late st Contact Info) Description 08/26/2019 Procedure Pass OR Admitting Dept - [facility] Department [address] [place] [address] Social History Tobacco Use Types Packs/Day Years [...] on filedocumented in this encounter Care Teams Desulfurizer Hand Relationship Specialty Start Date End Date Maria Del Rosario Oleary, JOAQUIN [address] [place] [address] PCP - General Family Medicine 07/09/19 Carmen Flores CNP [address] [facility], [address], [address] [place] [address] [email or web address] Historical LMR Provider 09/06/17 11/27/21 Priscila Grimm FNP 38 [facility], [address], [address] [place] [address] [email or web address] Historical LMR Provider 09/06/17 11/27/21 Veronica Vega MD 38 [facility] [address], [address] [place] [address] Historical LMR Provider 09/06/17 11/27/21 Selam Flower MD [address] [place] [address] Historical LMR Provider 09/06/17 2 Pedro Valente MD [address] [place] [address] Historical LMR Provider 09/06/17 2 documented as of this encounter Additional Source Comments The information contained in this document represents components of the legal health record. It is not the complete legal health record.[facility]
--- OUTSIDE RECORDS SUMMARY | 2024-12-27 10:25 | XMS_ITS | Encounter Summary ---
Author Organization [facility] Address [phone] On license of [facility] [place] [address] Care Team Providers Care Egg Smeller Name Role Phone Carmen Flores BANANA GRADER Unavailable Priscila Grimm CANDY MIXER Unavailable Veronica Vega MD Unavailable Selam Flower MD Unavailable [phone] Pedro Valente MD Unavailable Selam Flower MD Primary Care Provider Scarlett Baird PA-C Primary Care Provider Maria Del Rosario Oleary NP Primary Care Provider + Encounter Details Date Type Department Care Team (Late st Contact Info) Description 04/20/2018 Ancillary Orders [facility],Outside Imaging [address] [place] [address] System, Provider Not In, PhD [address] [address] Social History Tobacco Use Types Packs/Day Years Used Date Smoking Tobacco: Never Assessed Sex and Gender Information Value Date Recorded Sex Assigned at Female 05/03/2018 10:11 AM EDT Gender Identity Female 05/03/2018 10:11 AM EDT Sexual Orientation Not on file documented as of this encounter Plan of Treatment Not on file documented as of this encounter Results * Mammogram Outside (No Interpretation) (05/22/2014 12:00 AM EDT) Narrative SYSTEMGENERATED, DOCUMENTATION - 04/20/2018 10:34 AM EDT This study is for PACS storage only and not for interpretation. Provider Not In System PhD IMG OUTSIDE I MAGING W/OUT INTERPRETATION documented in this encounter Visit Diagnoses Not on filedocumented in this encounter Care Teams Egg Smeller Relationship Specialty Start Date End Date Selam Flower MD [address] [place] [address] PCP - General 11/23/17 05/02/18 Scarlett Baird PA-C [address] [place] [address] [email or web address] PCP - General Family Medicine 05/03/18 07/08/19 Maria Del Rosario Oleary, JOAQUIN [address] [place] [address] PCP - General Family Medicine 07/09/19 Carmen Flores CNP [address] [facility] [address], [address] [place] [address] Historical LMR Provider 09/06/17 11/27/21 Priscila Grimm FNP [address], [address] [place] [address] Historical LMR Provider 09/06/17 11/27/21 Veronica Vega MD [address], [address] [place] [address] Historical LMR Provider 09/06/17 11/27/21 Selam Flower MD [address] [place] [address] Historical LMR Provider 09/06/17 2 Pedro Valente MD [address] [place] [address] Historical LMR Provider 09/06/17 2 documented as of this encounter Additional Source Comments The information contained in this document represents components of the legal health record. It is not the complete legal health record.[facility]
--- OUTSIDE RECORDS SUMMARY | 2024-12-27 10:25 | XMS_ITS | Encounter Summary ---
Author Organization [facility] Address [phone] [facility] [place] [address] Care Team Providers Care Coil Tier Name Role Phone Carmen Flores CNP Unavailable Priscila Grimm FLIGHT OPERATION COORDINATOR Unavailable [phone] Veronica Vega MD Unavailable [phone] Selam Flower MD Unavailable Pedro Valente MD Unavailable [phone] Scarlett Baird PA-C Primary Care Provider Maria Del Rosario Oleary NP Primary Care Provider + Encounter Details Date Type Department Care Team (Late st Contact Info) Description 07/16/2018 Procedure Pass [address] [place] [address] Social History Tobacco Use Types Packs/Day Years [...] on filedocumented in this encounter Care Teams Coil Tier Relationship Specialty Start Date End Date Scarlett Baird PA-C [address] [place] [address] [email or web address] PCP - General Family Medicine 05/03/18 07/08/19 Maria Del Rosario Oleary, HONING JOB SETTER [address] [place] [address] PCP - General Family Medicine 07/09/19 Carmen Flores, REBEKAH 38 [facility], [address], [address] [place] [address] Historical LMR Provider 09/06/17 11/27/21 Priscila Grimm FNP 38 [facility], [address], [address] [place] [address] [email or web address] Historical LMR Provider 09/06/17 11/27/21 Veronica Vega MD 38 [facility], [address], [address] [place] [address] Historical LMR Provider 09/06/17 11/27/21 Selam Flower MD [address] [place] [address] Historical LMR Provider 09/06/17 2 Pedro Valente MD [address] [place] [address] Historical LMR Provider 09/06/17 2 documented as of this encounter Additional Source Comments The information contained in this document represents components of the legal health record. It is not the complete legal health record.[facility]
--- OUTSIDE RECORDS SUMMARY | 2024-12-27 10:25 | XMS_ITS | Clinical Summary ---
Author Organization [facility] Address [phone] [facility] [place] [address] Care Team Providers Care Water Softener Servicer Name Role Phone Maria Del Rosario Oleary SKI GUIDE Primary Care Provider + Allergies Active Allergy Reactions Criticality Noted Date Comments Amoxicillin Other (See Comments),Nausea and/or Vomiting 07/04/2019 Abdominal pain Erythromycin 07/04/2019 Cephalexin 07/04/2019 Nsaids (Non-Steroidal Anti-Inflammatory Drug) Renal Toxicity 07/04/2019 Penicillins Hives 07/04/2019 Medications Medication Sig Dispensed Refills Start Date End Date Status metoclopramide HCl (REGLAN) 10 MG tablet 1 tablet 30 minutes before meals and at bedtime Orally Four times a day prn Active LORazepam (ATIVAN) 0.5 MG tablet 1 tablet Orally qhs and prn one other time Active bacillus coagulans-inulin 1 billion-250 cell-mg Cap Take 250 mg by mouth daily. Active erenumab-aooe (AIMOVIG AUTOINJECTOR) 70 mg/mL subcutaneous injection Inject 140 mg under the skin every 28 days. Active acetaminophen (TYLENOL) 325 mg tablet [The details of the medication are not available because there are pending changes by a home health clinician.] 0 08/28/2019 Active Additional Information Patient taking differently: 1 tabletOralEvery 6 hours PRN, mild pain or 1-3 (on a general 0-10 scale), DO NOT EXCEED 3000 MG TYLENOL (TOGETHER WITH PERCOCET) IN 24 HR PERIOD, Reported on 08/29/2019 oxyCODONE-acetamin ophen (PERCOCET) 5-325 mg per tablet Take 1 tablet by mouth every 6 (six) hours as needed for pain (specific location in comments) (right knee). 40 tablet 10/22/2019 Active UBRELVY 100 mg tablet TAKE 1 TABLET BY MOUTH ONCE DAILY FOR 15 DAYS 07/29/2020 Active cimetidine (TAGAMET) 800 MG tablet Take 800 mg by mouth nightly at bedtime. 08/24/2020 Active potassium citrate (UROCIT-K) 5 mEq SR tablet Take 5 mEq by mouth daily. 12/11/2020 Active albuterol 90 mcg/actuation inhaler USE 2 PUFFS EVERY 4-6 HOURS NEEDED 07/01/2021 Active Active Problems Problem Noted Date Diagnosed Date Complex regional pain syndrome i of right lower limb 02/02/2021 Chronic knee pain after tota l replacement of right knee joint 01/23/2020 Hx of total knee replacement, right 10/22/2019 Overview (10/22/2019): Revision from patellofemoral unicompartmental arthroplasty done at [facility] Resolved Problems Problem Noted Date Diagnosed Date Resolved Date Aftercare following right kn ee joint replacement surgery 08/26/2019 10/22/2019 Knee effusion, right 07/05/2019 019 Pain due to total right knee replacement 07/04/2019 10/22/2019 Overview (07/04/2019): Partial PFJ right knee replacement - not total Family History Medical History Relation Comments Diabetes mellitus Child CV disease Father Cancer Father Pneumothorax Father Prostate cancer Father Cancer Maternal Grandmother Aortic valve sclerosis Mother CV disease Mother Cancer Mother Hyperlipidemia Mother Hypertension Mother Lymphoma Mother Relation Status Comments Child Alive Father Alive Maternal Grandmother Mother Alive Social History Tobacco Use Types Packs/Day Years [...] AM EDT Sexual Orientation Not on file Last Filed Vital Signs Vital Sign Reading Time Taken Comments Blood Pressure 160/70 09/20/2019 9:15 AM EDT Pulse 82 09/20/2019 9:15 AM EDT Temperature 35.6 ??C (96 ??F) 09/17/2019 10:00 AM EDT Respiratory Rate 18 09/20/2019 9:15 AM EDT Oxygen Saturation 98% 09/17/2019 10:00 AM EDT Inhaled Oxygen Concentration - - Weight 89.4 kg (197 lb) 09/21/2021 2:46 PM EDT Height 169 cm (5' 6.54 ) 09/21/2021 2:46 PM EDT Body Mass Index 31.29 09/21/2021 2:46 PM EDT Plan of Treatment Health Maintenance Due Date Last Done Comments DEPRESSION SCREENING 1981 SMOKING Hx and SMOKELESS TOBACCO SCREENING 1982 HEPATITIS B SCREENING 1987 HEPATITIS C SCREENING 1987 HIV ONE-TIME SCREENING (18-65 YEARS) 1987 HEPATITIS B VACCINES (1 of 3 - 19+ 3-dose series) 02/16/1988 PAP SMEAR 1990 COLOGUARD 2014 COLONOSCOPY 2014 COLORECTAL CANCER SCREENING 2014 FIT TEST 2014 FOBT 2014 SIGMOIDOSCOPY 2014 VIRTUAL COLONOSCOPY 2014 PNEUMOCOCCAL VACCINES (50+ years) (1 of 1 - PCV) 2019 ZOSTER VACCINES (1 of 2) 2019 LIPID PANEL 04/10/2019 04/10/2014 MAMMOGRAM 05/03/2020 05/03/2018, 07/0 01/2014, 05/14/2014, Additional history exists Adult Td,Tdap Booster 07/10/2022 07/10/2012 INFLUENZA VACCINE (#1) 2024 0, 11/23/2013, 12/04/2012, Additional history exists COVID-19 VACCINE ( season) 2024 02/09/2021 HEPATITIS A VACCINES Aged Out No long er eligible based on patient's age to complete this topic HIB VACCINES Aged Out No longer eligi ble based on patient's age to complete this topic MENINGOCOCCAL VACCINES (ACWY) Aged Out No longer eligible based on patient's age to complete this topic Medical Devices Implanted Type Area Assessment Nurse Practitioner Device Identifier Shelf Expiration Date Model / Serial / Lot Knee Stem 65mm Vanguard Ssk 360 Revision Sy Right - [id number] Implanted:Qty: 1 on 08/26/2019 by Zach [place] MD at [facility] [employer] Right: Knee [employer] 05/20/2029 [id number] / [id number] / [id number] Right Shoulder Hardware Tray Beam 67mm Tibial Primary Vanguard Pollock I Revision Interlock Cemented - [id number] Implanted:Qty: 1 on 08/26/2019 by Zach [place] MD at [facility] Right: Knee [employer] 02/02/2029 [id number] / [id number] / [id number] Cement Bone Biomet Standard R 1x40 - [id number] Implanted:Qty: 2 on 08/26/2019 by Zach [place] MD at [facility] Knee [employer] 05/19/2021 [id number] / [id number] / [id number] Knee Bearing 10x63 To 67mm Vanguard Ssk Stabilized - [id number] Implanted:Qty: 1 on 08/26/2019 by Zach [place] MD at [facility] Right: Knee [employer] 04/04/2021 [id number] / [id number] / [id number] Implanted - Out of Service Type Area Assessment Nurse Practitioner Device Identifier Shelf Expiration Date Model / Serial / Lot Right Partial Knee Replacement Procedures Procedure Name Priority Date/Time Associated Diagnosis Comments BI MAMMOGRAM SCREENING WITH TOMOSYNTHESIS WITH CAD (BILATERAL) Routine 05/03/2018 10:29 AM EDT Breast screening OUTSIDE LDL Routine 04/10/2014 from Last 3 Months or Most Recently Relevant to Health Maintenance Results * (ABNORMAL) BI MAMMOGRAM SCREENING WITH TOMOSYNTHESIS WITH CAD (BILATERAL) (05/03/2018 10:29 AM EDT) Anatomical Region Laterality Modality Breast Left, Breast Right, Breast Bilateral Bila teral Mammography 05/03/2018 10:3 7 AM EDT Impressions 05/03/2018 3:32 PM EDT Recommend recalling the patient for questionable left breast calcifications. ??Radiology department will attempt to recall the patient. Recall views: Spot mag left cc view. BI-RADS CATEGORY: 0 - Incomplete. Need additional imaging evaluation. DENSITY: ??There are scattered fibroglandular densities. LEFT RECOMMENDATION DATE: ??1 Month Additional Imaging RIGHT RECOMMENDATION DATE: ??12 Months Mammography Screening POS - [email or web address] Narrative 05/03/2018 3:32 PM EDT 48-year-old female with no current breast symptoms. ??Comparison made to previous on 05/14/2014 and as far back as 03/09/2010. ??Interpretation made in conjunction with computer-aided detection and tomosynthesis. There are scattered areas of fibroglandular density. New questionable left retroareolar microcalcifications versus artifact on the cc view There are no suspicious masses, areas of architectural distortion, or suspicious clusters of microcalcifications. Procedure Note Ilene Hernandez MD - 05/03/2018 48-year-old female with no current breast symptoms. Comparison made toprevious on 05/14/2014 and as far back as 03/09/2010. Interpretation madein conjunction with computer-aided detection and tomosynthesis. There are scattered areas of fibroglandular density. New questionable leftretroareolar microcalcifications versus artifact on the cc view There are no suspicious masses, areas of architectural distortion, orsuspicious clusters of microcalcifications. IMPRESSION: Recommend recalling the patient for questionable left breastcalcifications. Radiology department will attempt to recall thepatient. Recall views: Spot mag left cc view. BI-RADS CATEGORY: 0 - Incomplete. Need additional imaging evaluation. DENSITY: There are scattered fibroglandular densities. LEFT RECOMMENDATION DATE: 1 Month Additional Imaging RIGHT RECOMMENDATION DATE: 12 Months Mammography Screening POS - CDHMAMA Scarlett Baird PAGerry IMG MG EXAMS * Outside LDL (04/10/2014) LDL - External 119 50 - 250 mg/ml Historical Provider LAB BLOOD ORDERAB LES from Last 3 Months or Most Recently Relevant to Health Maintenance Advance Directives * Full Code (Presumed) (Latest Code Status on File) Date Activated Date Inactivated Comments 08/26/2019 1:56 PM 08/28/2019 3:22 PM * Full Code (Presumed) Date Activated Date Inactivated Comments 08/26/2019 6:12 AM 08/26/2019 1:56 PM Care Teams Water Softener Servicer Relationship Specialty Start Date End Date Maria Del Rosario Oleary NP [address] [place] [id number] PCP - General Family Medicine 07/09/19 Additional Source Comments The information contained in this document represents components of the legal health record. It is not the complete legal health record.[facility]
--- OUTSIDE RECORDS SUMMARY | 2024-12-27 10:25 | XMS_ITS ---
Author Organization [facility], [facility] Address [address] [place] [id number] Care Team Providers Care Keno Writer / Runner Name Role Phone KIRK LOZANO Primary Care Provider [phone] REASON FOR VISIT Refill MEDICATIONS Medication SIG (Take, Route, Frequency, Duration) Notes Start Date End Date Status Qulipta 60 MG 1 tablet Orally Once a day for 90 days 06/25/2025 Active Ubrelvy 100 MG 1 tablet as needed, may take second dose at least 2 hours after first dose up to 2 tablets per day as needed Oral Once a day for 90 days Ubrelvy 100 mg tablet 08/30/2022 06/25/2025 Active Encounters Encounter Location Date Provider Diagnosis [address] [id number] 12/26/2024 KIRK LOZANO PLAN OF TREATMENT Medication Medication Name Sig Start Date Stop Date Notes Qulipta 60 MG 1 tablet Orally Once a day for 90 days 06/25/2025 Ubrelvy 100 MG 1 tablet as needed, may take second dose at least 2 hours after first dose up to 2 tablets per day as needed Oral Once a day for 90 days 08/30/2022 06/25/2025 Ubrelvy 100 mg table t Progress Notes * ALEX HOOVER MDOB:[birth year] (54 yo F)Acc No.[id number]:12/26/2024 Patient:??ALEX HOOVER :1970?Age:54 Y?Sex:Fe male Phone: Address:[address] [place] [address] * Refills?? Refill Qulipta Tablet, 60 MG, Orally, 90, 1 tablet, Once a day, 90 days, Refills=3 Refill Ubrelvy Tablet, 100 MG, Oral, 30, 1 tablet as needed, may take second dose at least 2 hours after first dose up to 2 tablets per day as needed, Once a day, 90 days, Refills=3 * true * Date:??
--- OUTSIDE RECORDS SUMMARY | 2024-12-27 10:25 | XMS_ITS | Encounter Summary ---
Author Organization [facility] Address [phone] [facility], [facility]–[address] [place] [address] Care Team Providers Care Moss Bleacher Name Role Phone Carmen Flores ZIGZAG STITCHER Unavailable Priscila Grimm BRIM FLEXER Unavailable Veronica Vega MD Unavailable Selam Flower MD Unavailable Pedro Valente MD Unavailable Selam Flower MD Primary Care Provider Scarlett Baird PA-C Primary Care Provider Maria Del Rosario Oleary NP Primary Care Provider + Encounter Details Date Type Department Care Team (Late st Contact Info) Description 04/20/2018 Ancillary Orders [facility],Outside Imaging [address] [place] [address] System, Provider Not In, PhD [address] [address] Social History Tobacco Use Types Packs/Day Years [...] on filedocumented in this encounter Care Teams Moss Bleacher Relationship Specialty Start Date End Date Selam Flower MD [address] [place] [address] PCP - General 11/23/17 05/02/18 Scarlett Baird PA-C [address] [place] [address] [email or web address] PCP - General Family Medicine 05/03/18 07/08/19 Maria Del Rosario Oleary, JOAQUIN [address] [place] [address] PCP - General Family Medicine 07/09/19 Carmen Flores CNP [address] [facility] [address] [place] [address] Historical LMR Provider 09/06/17 11/27/21 Priscila Grimm FNP [address] [place] [address] Historical LMR Provider 09/06/17 11/27/21 Veronica Vega MD [address], [address] [place] [address] Historical LMR Provider 09/06/17 11/27/21 Selam Flower MD [address] [place] [address] Historical LMR Provider 09/06/17 2 Pedro Valente MD [address] [place] [address] Historical LMR Provider 09/06/17 2 documented as of this encounter Additional Source Comments The information contained in this document represents components of the legal health record. It is not the complete legal health record.[facility]
--- OUTSIDE RECORDS SUMMARY | 2024-12-27 10:26 | XMS_ITS | Encounter Summary ---
Author Organization [facility] Address [phone] [facility] [place] [address] Care Team Providers Care Sustainable Products Marketing Manager Name Role Phone Carmen Flores CNP Unavailable Alfa Priscila Maricarmen ENGRAVER FLATWARE Unavailable [phone] Veronica Vega MD Unavailable Selam Flower MD Unavailable Pedro Valente MD Unavailable Scarlett Baird PA-C Primary Care Provider [phone] Maria Del Rosario Oleary NP Primary Care Provider + Encounter Details Date Type Department Care Team (Late st Contact Info) Description 06/10/2019 Ancillary Orders [facility], X-Ray - [address] [place] [address] Maria Del Rosario Oleary NP [address] [place] [phone] Right knee pain, unspecified chronicity Social History Tobacco Use Types Packs/Day Years Used Date Smoking Tobacco: Never Assessed Sex and Gender Information Value Date Recorded Sex Assigned at Female 05/03/2018 10:11 AM EDT Gender Identity Female 05/03/2018 10:11 AM EDT Sexual Orientation Not on file documented as of this encounter Plan of Treatment Not on file documented as of this encounter Results * XR KNEE 4 OR MORE VIEWS (RIGHT) (06/10/2019 5:08 PM EDT) Anatomical Region Laterality Modality Knee Right Radiographic Zelda ging 06/10/2019 5:16 PM EDT Impressions 06/10/2019 5:18 PM EDT 1. ??Moderate size joint effusion. 2. ??Mild osteoarthritis and postoperative changes. POS - [id number] Narrative 06/10/2019 5:18 PM EDT HISTORY: ??As above. ? COMPARISON: MRI right knee 07/26/2018. ??Right knee radiographs 01/21/2013. RIGHT KNEE RADIOGRAPH FINDINGS: Four views obtained including weightbearing. ??There is a new anterior medial femoral condyle hardware. ??No evidence of loosening. ??No fracture or malalignment. ??Mild medial compartment joint space narrowing and spurring. ??No bone lesions. ??Moderate size suprapatellar joint effusion. ??No soft tissue gas. Procedure Note Ilene Hernandez MD - 06/10/2019 HISTORY: As above. COMPARISON: MRI right knee 07/26/2018. Right knee [email or web address]/04/2013. RIGHT KNEE RADIOGRAPH FINDINGS: Four views obtained including weightbearing. There is a new anteriormedial femoral condyle hardware. No evidence of loosening. No fractureor malalignment. Mild medial compartment joint space narrowing andspurring. No bone lesions. Moderate size suprapatellar joint effusion.No soft tissue gas. IMPRESSION: 1. Moderate size joint effusion. 2. Mild osteoarthritis and postoperative changes. POS - [id number] Maria Del Rosario Oleary INVESTIGATION SPECIALIST IMG XR LOWER EXT REMITY documented in this encounter Visit Diagnoses Diagnosis Right knee pain, unspecified chronicity Right knee pain, unspecified chronicity documented in this encounter Care Teams Sustainable Products Marketing Manager Relationship Specialty Start Date End Date Scarlett Baird PA-C [address] [place] [address] [email or web address] PCP - General Family Medicine 05/03/18 07/08/19 Maria Del Rosario Oleary, JOAQUIN [address] [place] [address] PCP - General Family Medicine 07/09/19 Carmen Flores, REBEKAH [address] [facility], [address], [address] [place] [address] [email or web address] Historical LMR Provider 09/06/17 11/27/21 Priscila Grimm FNP [address] [facility] [address], [address] [place] [address] [email or web address] Historical LMR Provider 09/06/17 11/27/21 Veronica Vega MD [address] [facility] [address], [address] [place] [address] Historical LMR Provider 09/06/17 11/27/21 Selam Flower MD [address] [place] [address] Historical LMR Provider 09/06/17 2 Pedro Valente MD [address] [place] [address] Historical LMR Provider 09/06/17 2 documented as of this encounter Additional Source Comments The information contained in this document represents components of the legal health record. It is not the complete legal health record.[facility]
--- OUTSIDE RECORDS SUMMARY | 2024-12-27 10:26 | XMS_ITS | Encounter Summary ---
Author Organization [facility] Address [phone] [facility] [place] [address] Care Team Providers Care Exercise Rider Name Role Phone Carmen Flores HEAD WAITER/WAITRESS Unavailable Priscila Grimm ESCAPEMENT MAKER Unavailable Veronica Vega MD Unavailable Selam Flower MD Unavailable Pedro Valente MD Unavailable Selam Flower MD Primary Care Provider Scarlett Baird PA-C Primary Care Provider Maria Del Rosario Oleary NP Primary Care Provider + Encounter Details Date Type Department Care Team (Late st Contact Info) Description 04/20/2018 Ancillary Orders [facility],Outside Imaging [address] [place] [address] System, Provider Not In, PhD [address] [address] Social History Tobacco Use Types Packs/Day Years [...] on filedocumented in this encounter Care Teams Exercise Rider Relationship Specialty Start Date End Date Selam Flower MD [address] [place] [address] PCP - General 11/23/17 05/02/18 Scarlett Baird PA-C [address] [place] [address] [email or web address] PCP - General Family Medicine 05/03/18 07/08/19 Maria Del Rosario Oleary, JOAQUIN [address] [place] [address] PCP - General Family Medicine 07/09/19 Carmen Flores CNP [address] [facility] [place] [address] Historical LMR Provider 09/06/17 11/27/21 Priscila Grimm FNP [address], [address] [place] [address] Historical LMR Provider 09/06/17 11/27/21 Veronica Vega MD [address], [address] [place] [address] Historical LMR Provider 09/06/17 11/27/21 Selam Flower MD [address] [place] [address] Historical LMR Provider 09/06/17 2 Pedro Valente MD [address] [place] [address] Historical LMR Provider 09/06/17 2 documented as of this encounter Additional Source Comments The information contained in this document represents components of the legal health record. It is not the complete legal health record.[facility]
--- OUTSIDE RECORDS SUMMARY | 2024-12-27 10:26 | XMS_ITS | Encounter Summary ---
Author Organization [facility] Address [phone] [facility] [address] Care Team Providers Care Assembling Fabricator Name Role Phone Carmen Flores CREATIVE INTERN Unavailable Priscila Grimm SINGER BACK TENDER Unavailable [phone] Veronica Vega MD Unavailable Selam Flower MD Unavailable [phone] Pedro Valente MD Unavailable Selam Flower MD Primary Care Provider Scarlett Baird PA-C Primary Care Provider [phone] Maria Del Rosario Oleary NP Primary Care Provider + Encounter Details Date Type Department Care Team (Late st Contact Info) Description 04/20/2018 Ancillary Orders [facility],Outside Imaging [address] [place] [address] System, Provider Not In, PhD [address] [address] Social History Tobacco Use Types Packs/Day Years [...] on filedocumented in this encounter Care Teams Assembling Fabricator Relationship Specialty Start Date End Date Selam Flower MD [address] [place] [address] PCP - General 11/23/17 05/02/18 Scarlett Baird PA-C [address] [place] [address] [email or web address] PCP - General Family Medicine 05/03/18 07/08/19 Maria Del Rosario Oleary, JOAQUIN [address] [place] [address] PCP - General Family Medicine 07/09/19 Carmen Flores CNP [address] [facility] [address], [address] [place] [address] Historical LMR Provider 09/06/17 11/27/21 Priscila Grimm FNP [address], [address] [place] [address] Historical LMR Provider 09/06/17 11/27/21 Veronica Vega MD [address], [address] [place] [address] Historical LMR Provider 09/06/17 11/27/21 Selam Flower MD [address] [place] [address] Historical LMR Provider 09/06/17 2 Pedro Valente MD [address] [place] [address] Historical LMR Provider 09/06/17 2 documented as of this encounter Additional Source Comments The information contained in this document represents components of the legal health record. It is not the complete legal health record.[facility]
--- OUTSIDE RECORDS SUMMARY | 2024-12-27 10:26 | XMS_ITS ---
Author Organization [facility] Address [address] [place] [id number] Care Team Providers Care Rn [facility] Name Role Phone KIRK LOZANO Primary Care Provider REASON FOR VISIT Refills MEDICATIONS Medication SIG (Take, Route, Frequency, Duration) Notes Start Date End Date Status Cyclobenzaprine HCl 10 MG TAKE ONE TABLE T BY MOUTH EVERY DAY AT BEDTIME NEEDED Orally Once a day for 30 days 01/16/2025 Active Encounters Encounter Location Date Provider Diagnosis [address] [phone] 12/17/2024 KIRK LOZANO PLAN OF TREATMENT Medication Medication Name Sig Start Date Stop Date Notes Cyclobenzaprine HCl 10 MG TAKE ONE TABLE T BY MOUTH EVERY DAY AT BEDTIME NEEDED Orally Once a day for 30 days 01/16/2025 Progress Notes * ALEX HOOVER MDOB:[birth year] (54 yo F)Acc No.[id number]:12/17/2024 Patient:??ALEX HOOVER :1970?Age:54 Y?Sex:Fe male Phone: Address:[address] [place] [id number] * Refills?? Refill Cyclobenzaprine HCl Tablet, 10 MG, Orally, 30, TAKE ONE TABLET BY MOUTH EVERY DAY AT BEDTIME NEEDED, Once a day, 30 days, Refills=3 * true * Date:??
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
--- OUTSIDE RECORDS SUMMARY | 2024-12-27 10:26 | XMS_ITS | Encounter Summary ---
Author Organization [facility] Address [phone] [facility] [email or web address] [address] Care Team Providers Care Medical Administrative Name Role Phone Carmen Flores PRODUCT MGR Unavailable [phone] Priscila Grimm OPTICAL COATING TECHNICIAN Unavailable [phone] Veronica Vega MD Unavailable Selam Flower MD Unavailable [phone] Pedro Valente MD Unavailable Selam Flower MD Primary Care Provider Scarlett Baird PA-C Primary Care Provider Maria Del Rosario Oleary NP Primary Care Provider + Encounter Details Date Type Department Care Team (Late st Contact Info) Description 04/20/2018 Ancillary Orders [facility],Outside Imaging [address] [place] [address] System, Provider Not In, PhD [address] [address] Social History Tobacco Use Types Packs/Day Years [...] on filedocumented in this encounter Care Teams Medical Administrative Relationship Specialty Start Date End Date Selam Flower MD [address] [place] [phone] PCP - General 11/23/17 05/02/18 Scarlett Baird PA-C [address] [place] [id number] [email or web address] PCP - General Family Medicine 05/03/18 07/08/19 Maria Del Rosario Oleary, JOAQUIN [address] [place] [phone] PCP - General Family Medicine 07/09/19 Carmen Flores CNP [address] [facility] [address], [address] [place] [address] Historical LMR Provider 09/06/17 11/27/21 Priscila Girmm FNP [address], [address] [place] [address] Historical LMR Provider 09/06/17 11/27/21 Veronica Vega MD [address], [address] [place] [address] Historical LMR Provider 09/06/17 11/27/21 Selam Flower MD [address] [place] [address] Historical LMR Provider 09/06/17 2 Pedro Valente MD [address] [place] [address] Historical LMR Provider 09/06/17 2 documented as of this encounter Additional Source Comments The information contained in this document represents components of the legal health record. It is not the complete legal health record.[facility]
--- OUTSIDE RECORDS SUMMARY | 2024-12-27 10:26 | XMS_ITS | Encounter Summary ---
Author Organization [facility] Address [phone] [facility] [place] [address] Care Team Providers Care Principal Secretary Name Role Phone Carmen Flores CNP Unavailable Priscila Grimm ANIMAL DAMAGE CONTROL AGENT Unavailable Veronica Vega MD Unavailable Selam Flower MD Unavailable Pedro Valente MD Unavailable [phone] Scarlett Baird PA-C Primary Care Provider [phone] Maria Del Rosario Oleary NP Primary Care Provider + Reason for Referral * MRI/CAT Scan - Closed Specialty Diagnoses / Procedures [facility] Referred To Contact Radiology Diagnoses Dizziness Abnormal head movements Paresthesia of skin Procedures MRI Brain Scarlett Baird PA-C [address] [place] [address] Email: [email or web address] Referral ID Status Reason Start Date Expiration Date Visits Re quested Visits Authorized [id number] Closed 08/09/2018 10/08/2018 1 1 Encounter Details Date Type Department Care Team (Late st Contact Info) Description 08/09/2018 Ancillary Orders Virtual Department [address] [place] [phone] Scarlett Baird PA-C 1 [place] [address] [email or web address] Dizziness; Abnormal head movements; Paresthesia of skin Social History Tobacco Use Types Packs/Day Years Used Date Smoking Tobacco: Never Assessed Sex and Gender Information Value Date Recorded Sex Assigned at Female 05/03/2018 10:11 AM EDT Gender Identity Female 05/03/2018 10:11 AM EDT Sexual Orientation Not on file documented as of this encounter Plan of Treatment Not on file documented as of this encounter Results * MRI BRAIN WITH AND WITHOUT CONTRAST (08/21/2018 9:40 AM EDT) Anatomical Region Laterality Modality Head Magnetic Resonan ce 08/21/2018 9:14 AM EDT Impressions 08/21/2018 9:49 AM EDT No findings to account for the patient's symptoms. POS [id number] Narrative 08/21/2018 9:49 AM EDT COMPARISON: 12/10/2015. TECHNIQUE: Exam performed on a 1.5 Constanza high-field MRI scanner. ??Axial T1 with and without gadolinium, GRE, T2, FLAIR and diffusion-weighted imaging with ADC map, sagittal T1 with and without gadolinium and T2 FLAIR sequences were obtained. MRI BRAIN FINDINGS: No cerebellar tonsil herniation. ??Pituitary gland is not enlarged. ??No restricted diffusion to indicate acute or subacute ischemia. ??No intraparenchymal susceptibility artifact to indicate hemorrhage. ??There is no mass, midline shift, mass-effect or extra-axial fluid collections. ??Stable solitary sub-5 mm right frontal parietal lobe white matter T2 hyperintense lesion which is of doubtful significance. ??No new lesions. ??No abnormal enhancement. ??No hydrocephalus. ??Normal vascular flow-voids. ??Orbits are normal. ??Mastoids and paranasal sinuses are clear. ??Soft tissue and bone marrow are within normal limits. ? Procedure Note Ilene Hernandez MD - 08/21/2018 COMPARISON: 12/10/2015. TECHNIQUE: Exam performed on a 1.5 Constanza high-field MRI scanner. Axial T1with and without gadolinium, GRE, T2, FLAIR and diffusion-weighted imagingwith ADC map, sagittal T1 with and without gadolinium and T2 FLAIRsequences were obtained. MRI BRAIN FINDINGS: No cerebellar tonsil herniation. Pituitary gland is not enlarged. Norestricted diffusion to indicate acute or subacute ischemia. Nointraparenchymal susceptibility artifact to indicate hemorrhage. There isno mass, midline shift, mass-effect or extra-axial fluid collections.Stable solitary sub-5 mm right frontal parietal lobe white matter [id number] lesion which is of doubtful significance. No new lesions.No abnormal enhancement. No hydrocephalus. Normal vascular flow- voids.Orbits are normal. Mastoids and paranasal sinuses are clear. Soft tissueand bone marrow are within normal limits. IMPRESSION: No findings to account for the patient's symptoms. POS [id number] Scarlett Baird PA-C IMG MR HEAD/NECK documented in this encounter Visit Diagnoses Diagnosis Dizziness Dizziness and giddiness Abnormal head movements Paresthesia of skin Dizziness Dizziness and giddiness Abnormal head movements Paresthesia of skin documented in this encounter Care Teams Principal Secretary Relationship Specialty Start Date End Date Scarlett Baird PA-C [address] [place] [address] [email or web address] PCP - General Family Medicine 05/03/18 07/08/19 Maria Del Rosario Oleary NP [address] [place] [address] PCP - General Family Medicine 07/09/19 Carmen Flores CNP [address] [place] [address] [address], [address] [place] [address] [email or web address] Historical LMR Provider 09/06/17 11/27/21 Priscila Grimm FNP [address] [facility] [address], [address] [place] [address] [email or web address] Historical LMR Provider 09/06/17 11/27/21 Veronica Vega MD [address] [facility] [address], [address] [place] [address] [email or web address] Historical LMR Provider 09/06/17 11/27/21 Selam Flower MD [address] [place] [address] Historical LMR Provider 09/06/17 2 Pedro Valente MD [address] [place] [address] Historical LMR Provider 09/06/17 2 documented as of this encounter Additional Source Comments The information contained in this document represents components of the legal health record. It is not the complete legal health record.[facility]
--- OUTSIDE RECORDS SUMMARY | 2024-12-27 10:26 | XMS_ITS | Encounter Summary ---
Author Organization [facility] Address [phone] [facility] [place] [address] Care Team Providers Care Apprentice Funeral Director Name Role Phone Carmen Flores CNP Unavailable Priscila Grimm VIRTUALIZATION ENGINEER Unavailable [phone] Veronica Vega MD Unavailable [phone] Selam Flower MD Unavailable Pedro Valente MD Unavailable [phone] Scarlett Baird PA-C Primary Care Provider Maria Del Rosario Oleary NP Primary Care Provider + Encounter Details Date Type Department Care Team (Late st Contact Info) Description 08/09/2018 Procedure Pass [address] [place] [address] Social History Tobacco Use Types Packs/Day Years [...] on filedocumented in this encounter Care Teams Apprentice Funeral Director Relationship Specialty Start Date End Date Scarlett Baird PA-C [address] [place] [address] [email or web address] PCP - General Family Medicine 05/03/18 07/08/19 Maria Del Rosario Oleary, SHIPYARD LABORER [address] [place] [address] PCP - General Family Medicine 07/09/19 Carmen Flores, REBEKAH [address] [facility], [address], [address] [place] [address] Historical LMR Provider 09/06/17 11/27/21 Priscila Grimm FNP [address] [facility], [address], [address] [place] [address] [email or web address] Historical LMR Provider 09/06/17 11/27/21 Veronica Vega MD [address] [facility], [address], [address] [place] [address] Historical LMR Provider 09/06/17 11/27/21 Selam Flower MD [address] [place] [address] Historical LMR Provider 09/06/17 2 Pedro Valente MD [address] [place] [address] Historical LMR Provider 09/06/17 2 documented as of this encounter Additional Source Comments The information contained in this document represents components of the legal health record. It is not the complete legal health record.[facility]
--- OUTSIDE RECORDS SUMMARY | 2024-12-27 10:27 | XMS_ITS | Encounter Summary ---
Author Organization [facility] Address [address] [facility] [address] [facility] [address] [place] [address] Phone Care Team Providers Care Ecological Modeler Name Role Phone Maria Del Rosario Oleary DNP Primary Care Provider [phone] Reason for Visit * Reason Comments Med Refill Encounter Details Date Type Department Care Team (Late st Contact Info) Description 03/31/2023 Refill [facility] [address] [place] [address] Amauri Vasquez MD Social History Tobacco Use Types Packs/Day Years Used Date Smoking Tobacco: Never Smokeless Tobacco: Never Alcohol Use Standard Drinks/Week Comments No 0 (1 standard drink = 0.6 oz pur e alcohol) Comments Unknown Sex and Gender Information Value Date Recorded Sex Assigned at Not on file Legal Sex Female 4:52 PM EST Gender Identity Not on file Sexual Orientation Not on file documented as of this encounter Plan of Treatment Not on file documented as of this encounter Visit Diagnoses Not on filedocumented in this encounter Care Teams Ecological Modeler Relationship Specialty Start Date End Date Maria Del Rosario Oleary DNP [address] [facility] 3 [place] [address] PCP - General Nurse Practitioner 07/18/22 documented as of this encounter
--- OUTSIDE RECORDS SUMMARY | 2024-12-27 10:27 | XMS_ITS | Encounter Summary ---
Author Organization [facility] Address [phone] [facility] [place] [address] Care Team Providers Care Digital Strategist Name Role Phone Maria Del Rosario Oleary ZIPPER MEASURER Primary Care Provider + Encounter Details Date Type Department Care Team (Late st Contact Info) Description 11/22/2023 Transcribe Orders Virtual Department [address] [place] [address] Maria Del Rosario Oleary NP [address] [place], [place] [phone] Right knee pain, unspecified chronicity (Primary Dx) Social History Tobacco Use Types Packs/Day Years [...] of this encounter Results * XR KNEE 3 VIEW (RIGHT) (11/24/2023 12:54 PM EST) Anatomical Region Laterality Modality Knee Right Computed Radiogr aphy 11/26/2023 11:3 1 PM EST Impressions 11/26/2023 11:35 PM EST Prior right total knee arthroplasty. Increasing lucency at the patellofemoral component-bone interface, could reflect loosening or patellofemoral component dysfunction. Narrative 11/26/2023 11:35 PM EST XR KNEE 3 VIEW (RIGHT) Referring clinician's provided indication for this examination in [facility]: Outside Radiology Order; RIGHT KNEE PAIN COMPARISON: XR KNEE 3 VIEW (RIGHT) FINDINGS: RIGHT KNEE: Post surgical changes from right total knee arthroplasty with longstem femoral component. Hardware is intact and in unchanged alignment. New lucency along the patellofemoral bone-implant interface, best seen on the lateral view. No joint effusion. LEFT KNEE: Frontal radiograph only of the left knee show no acute displaced fracture or malalignment. Procedure Note Samara Donohue MD - 11/26/2023 XR KNEE 3 VIEW (RIGHT) Referring clinician's provided indication for this examination in [facility]:Outside Radiology Order; RIGHT KNEE PAIN COMPARISON: XR KNEE 3 VIEW (RIGHT) FINDINGS: RIGHT KNEE: Post surgical changes from right total knee arthroplasty with longstemfemoral component. Hardware is intact and in unchanged alignment. Newlucency along the patellofemoral bone-implant interface, best seen on thelateral view. No joint effusion. LEFT KNEE: Frontal radiograph only of the left knee show no acute displaced fractureor malalignment. IMPRESSION: Prior right total knee arthroplasty. Increasing lucency at the patellofemoral component-bone interface, couldreflect loosening or patellofemoral component dysfunction. Maria Del Rosario Oleary ZIPPER MEASURER IMG XR LOWER EXT REMITY documented in this encounter Visit Diagnoses Diagnosis Right knee pain, unspecified chronicity- Primary Right knee pain, unspecified chronicity documented in this encounter Care Teams Digital Strategist Relationship Specialty Start Date End Date Maria Del Rosario Oleary NP [address] [place] [address] PCP - General Family Medicine 07/09/19 documented as of this encounter Additional Source Comments The information contained in this document represents components of the legal health record. It is not the complete legal health record.[facility]
--- OUTSIDE RECORDS SUMMARY | 2024-12-27 10:27 | XMS_ITS | Encounter Summary ---
Author Organization [facility] Address [phone] [facility] [place] [address] Care Team Providers Care Electromechanical Assembler Name Role Phone Carmen Flores GOAT HERDER Unavailable Alfa Priscila Maricarmen CHEMICAL RESEARCH TECHNICIAN Unavailable Veronica Vega MD Unavailable Selam Flower MD Unavailable Pedro Valente MD Unavailable Selam Flower MD Primary Care Provider Scarlett Baird PA-C Primary Care Provider Maria Del Rosario Oleary NP Primary Care Provider + Encounter Details Date Type Department Care Team (Late st Contact Info) Description 04/12/2018 Ancillary Orders Virtual Department [address] [place] [address] Scarlett Baird PA-C [address] [place] [address] [email or web address] Breast screening Social History Tobacco Use Types Packs/Day Years Used Date Smoking Tobacco: Never Assessed Sex and Gender Information Value Date Recorded Sex Assigned at Female 05/03/2018 10:11 AM EDT Gender Identity Female 05/03/2018 10:11 AM EDT Sexual Orientation Not on file documented as of this encounter Plan of Treatment Not on file documented as of this encounter Results * (ABNORMAL) BI MAMMOGRAM SCREENING WITH [...] Mammography Screening POS - CDHMAMA Scarlett Baird PA-C IMG MG EXAMS documented in this encounter Visit Diagnoses Diagnosis Breast screening Breast screening, unspecified Breast screening Breast screening, unspecified documented in this encounter Care Teams Electromechanical Assembler Relationship Specialty Start Date End Date Selam Flower MD [address] [place] [address] PCP - General 11/23/17 05/02/18 Scarlett Baird PA-C [address] [place] [address] PCP - General Family Medicine 05/03/18 07/08/19 Maria Del Rosario Oleary NP [address] [place] [address] PCP - General Family Medicine 07/09/19 Carmen Flores CNP [address], [address] [place] [address] Historical LMR Provider 09/06/17 11/27/21 Priscila Grimm FNP [address], [address] [place] [address] Historical LMR Provider 09/06/17 11/27/21 Veronica Vega MD [address], [address] [place] [address] Historical LMR Provider 09/06/17 11/27/21 Selam Flower MD [address] [place] [address] Historical LMR Provider 09/06/17 2 Pedro Valente MD [address] [place] [address] Historical LMR Provider 09/06/17 2 documented as of this encounter Additional Source Comments The information contained in this document represents components of the legal health record. It is not the complete legal health record.[facility]
--- OUTSIDE RECORDS SUMMARY | 2024-12-27 10:27 | XMS_ITS | Encounter Summary ---
Author Organization [facility] Address [phone] [facility] [place] [address] Care Team Providers Care Malt Roaster Name Role Phone Carmen Flores NICK SETTER Unavailable AlfaPriscila COIL STRAPPER Unavailable Veronica Vega MD Unavailable Selam Flower MD Unavailable [phone] Pedro Valente MD Unavailable Pcp, Unknown Primary Care Provider Unavailabl e Selam Flower MD Primary Care Provider Scarlett Baird PA-C Primary Care Provider Maria Del Rosario Oleary NP Primary Care Provider + Reason for Referral * MRI/CAT Scan - Closed Specialty Diagnoses / Procedures Referred By Monica harvey Referred To Contact Radiology Diagnoses Acute left ankle pain Procedures MRI Ankle (Left) Saurav Shahid MD [address] [place] [address] Email: [email or web address] Referral ID Status Reason Start Date Expiration Date Visits Re quested Visits Authorized [id number] Closed 10/18/2017 12/17/2017 1 1 Encounter Details Date Type Department Care Team (Late st Contact Info) Description 10/18/2017 Ancillary Orders Virtual Department [address] [place] [address] Saurav Shahid MD [address] [place] [phone] [email or web address] Acute left ankle pain Social History Tobacco Use Types Packs/Day Years Used Date Smoking Tobacco: Never Assessed Sex and Gender Information Value Date Recorded Sex Assigned at Female 05/03/2018 10:11 AM EDT Gender Identity Female 05/03/2018 10:11 AM EDT Sexual Orientation Not on file documented as of this encounter Plan of Treatment Not on file documented as of this encounter Results * MRI ANKLE WITHOUT CONTRAST (LEFT) (10/24/2017 1:13 PM EST) Anatomical Region Laterality Modality Ankle Left Magnetic Resonan ce 10/24/2017 1:55 PM EST Impressions 10/24/2017 2:16 PM EST Intermediate grade anterior talofibular ligament sprain with associated predominantly lateral edema as well as posterior effusion. This may indicate recurrent sprains. No other regional disruptions identified. POS - [id number] Edited by: Sylwia Michael on 10/24/2017 2:14 PM Narrative 10/24/2017 2:16 PM EST HISTORY: ??Inversion injury. Pain anterolaterally. COMPARISON: Radiographs October 02 TECHNIQUE: Exam performed on a 1.5 Constanza high-field MRI scanner. ??Axial T1, T2 and STIR; coronal proton density with fat suppression, sagittal T1 and STIR sequences were obtained. FINDINGS: There is abnormal thickening and low signal in the anterior talofibular ligament consistent with ??acute or subacute sprain of intermediate grade. Calcaneofibular ligament is intact. Posterior talofibular ligament intact. There is edema in the soft tissues fairly extensively along the lateral aspect. Peroneal tendons appear intact. There is fluid posteriorly at the tibiotalar joint with a small os trigonal process probably cartilaginous effused. No marrow edema to suggest otherwise occult bony injury. No prominent edema about the plantar fascia although there is a small amount of edema and thickening adjacent to the medial fascicle. No other findings of concern is appreciated regionally. Procedure Note Estrellita Katz MD - 10/24/2017 HISTORY: Inversion injury. Pain anterolaterally. COMPARISON: Radiographs October 02 TECHNIQUE: Exam performed on a 1.5 Constanza high-field MRI scanner. AxialT1, T2 and STIR; coronal proton density with fat suppression, sagittal T1and STIR sequences were obtained. FINDINGS: There is abnormal thickening and low signal in the anterior talofibularligament consistent with acute or subacute sprain of intermediate grade.Calcaneofibular ligament is intact. Posterior talofibular ligament intact.There is edema in the soft tissues fairly extensively along the lateralaspect. Peroneal tendons appear intact. There is fluid posteriorly at thetibiotalar joint with a small os trigonal process probably cartilaginouseffused. No marrow edema to suggest otherwise occult bony injury. Noprominent edema about the plantar fascia although there is a small amountof edema and thickening adjacent to the medial fascicle. No other findingsof concern is appreciated regionally. IMPRESSION: Intermediate grade anterior talofibular ligament sprain with associatedpredominantly lateral edema as well as posterior effusion. This mayindicate recurrent sprains. No other regional disruptions identified. POS - [id number] Edited by: Sylwia Michale on 10/24/2017 2:14 PM Saurav Shahid MD IMG MR DEN Y documented in this encounter Visit Diagnoses Diagnosis Acute left ankle pain Acute left ankle pain documented in this encounter Care Teams Malt Roaster Relationship Specialty Start Date End Date Pcp, Unknown PCP - General 10/18/17 11/22/17 Selam Flower MD [address] [place] [address] PCP - General 11/23/17 05/02/18 Scarlett Baird PA-C [address] [place] [address] PCP - General Family Medicine 05/03/18 07/08/19 Maria Del Rosario Oleary, JOAQUIN [address] [place] [address] PCP - General Family Medicine 07/09/19 Carmen Flores, REBEKAH [address], [address] [place] [address] Historical LMR Provider 09/06/17 11/27/21 Priscila Grimm FNP [address], [address] [place] [address] Historical LMR Provider 09/06/17 11/27/21 Veronica Vega MD [address], [address] [place] [address] Historical LMR Provider 09/06/17 11/27/21 Selam Flower MD [address] [place] [address] Historical LMR Provider 09/06/17 2 Pedro Valente MD [address] [place] [address] Historical LMR Provider 09/06/17 2 documented as of this encounter Additional Source Comments The information contained in this document represents components of the legal health record. It is not the complete legal health record.[facility]
--- OUTSIDE RECORDS SUMMARY | 2024-12-27 10:27 | XMS_ITS | Encounter Summary ---
Author Organization [facility] Address [phone] [place] [address] Care Team Providers Care Learning And Development Manager Name Role Phone Carmen Flores WAFER CLEANER Unavailable [phone] Alfa Priscila Maricarmen SWING FRAME GRINDER OPERATOR Unavailable Veronica Vega MD Unavailable Selam Flower MD Unavailable [phone] Pedro Valente MD Unavailable Pcp, Unknown Primary Care Provider Unavailabl e Pcp, Unknown Primary Care Provider Unavailabl e Selam Flower MD Primary Care Provider Scarlett Baird PA-C Primary Care Provider Maria Del Rosario Oleary NP Primary Care Provider + Encounter Details Date Type Department Care Team (Late st Contact Info) Description 10/02/2017 Ancillary Orders [facility], X-Ray - [address] [place] [address] Kassandra Laura PAMaheshC [address] [facility], [address] [place] [address] [email or web address] Pain Social History Tobacco Use Types Packs/Day Years Used Date Smoking Tobacco: Never Assessed Sex and Gender Information Value Date Recorded Sex Assigned at Female 05/03/2018 10:11 AM EDT Gender Identity Female 05/03/2018 10:11 AM EDT Sexual Orientation Not on file documented as of this encounter Plan of Treatment Not on file documented as of this encounter Results * XR ANKLE 3 OR MORE VIEWS (LEFT) (10/02/2017 2:26 PM EST) Anatomical Region Laterality Modality Ankle Left Radiographic Zelda ging 10/02/2017 2:42 PM EST Impressions 10/02/2017 2:43 PM EST No evidence of fractures. POS - [id number] Narrative 10/02/2017 2:43 PM EST HISTORY: ??Lateral pain, multiple recent injuries. COMPARISON: None. FINDINGS: Three views. No evidence of fractures, subluxations or dislocations. ??Joint spaces well-maintained. ??No significant arthritic changes. ??Small plantar calcaneal spur. Procedure Note Mango Davis MD - 10/02/2017 HISTORY: Lateral pain, multiple recent injuries. COMPARISON: None. FINDINGS: Three views. No evidence of fractures, subluxations or dislocations. Joint spaceswell- maintained. No significant arthritic changes. Small plantarcalcaneal spur. IMPRESSION: No evidence of fractures. POS - [id number] Kassandra Laura PA-C IMG XR LOWER EXTREMI TY * XR Tibia Fibula 2 Views (Left) (10/02/2017 2:24 PM EST) Anatomical Region Laterality Modality Leg Left Radiographic Zelda ging 10/02/2017 2:43 PM EST Impressions 10/02/2017 2:45 PM EST No evidence of fractures. POS - [id number] Narrative 10/02/2017 2:45 PM EST HISTORY: ??Bilateral pain, multiple recent injuries. COMPARISON: None. FINDINGS: AP and lateral views. No evidence of acute fractures. ??No subluxations or dislocations. ??No suspicious lytic or blastic lesions within the bones. Procedure Note Mango Davis MD - 10/02/2017 HISTORY: Bilateral pain, multiple recent injuries. COMPARISON: None. FINDINGS: AP and lateral views. No evidence of acute fractures. No subluxations or dislocations. Nosuspicious lytic or blastic lesions within the bones. IMPRESSION: No evidence of fractures. POS - [id number] Kassandra Laura PA-C IMG XR LOWER EXTREMI TY documented in this encounter Visit Diagnoses Diagnosis Pain Generalized pain Pain Generalized pain Pain Generalized pain documented in this encounter Care Teams Learning And Development Manager Relationship Specialty Start Date End Date Pcp, Unknown PCP - General 02/18/11 10/17/17 Pcp, Unknown PCP - General 10/18/17 11/22/17 Selam Flower MD [address] [place] [address] PCP - General 11/23/17 05/02/18 Scarlett Baird PA-C [address] [place] [address] [email or web address] PCP - General Family Medicine 05/03/18 07/08/19 Maria Del Rosario Oleary, JOAQUIN [address] [place] [address] PCP - General Family Medicine 07/09/19 Carmen Flores, REBEKAH [address] [facility] [address], [address] [place] [address] [email or web address] Historical LMR Provider 09/06/17 11/27/21 Priscila Grimm FNP [address], [address] [place] [address] Historical LMR Provider 09/06/17 11/27/21 Veronica Vega MD [address] [facility], [address] [place] [address] [email or web address] Historical LMR Provider 09/06/17 11/27/21 Selam Flower MD [address] [place] [address] Historical LMR Provider 09/06/17 2 Pedro Valente MD [address] [place] [address] Historical LMR Provider 09/06/17 2 documented as of this encounter Additional Source Comments The information contained in this document represents components of the legal health record. It is not the complete legal health record.[facility]
--- OUTSIDE RECORDS SUMMARY | 2024-12-27 10:27 | XMS_ITS | Clinical Summary ---
Author Organization [facility] Address [address] [facility] [address] [place] [address] Phone Care Team Providers Care Scientific Publications Editor Name Role Phone Maria Del Rosario Oleary LAURA Primary Care Provider Allergies Active Allergy Reactions Criticality Noted Date Comments Amoxicillin 07/18/2022 Cephalexin Other (see comments) 07/04/2019 Erythromycin Other (see comments) 07/04/2019 Gluten Meal 07/18/2022 Lactose 07/18/2022 Nsaids Other (see comments) High 07/04/2019 Penicillins Hives,Nausea And Vomiting,Other (see comments) 07/04/2019 Abdominal pain Abdominal pain Medications LORazepam (ATIVAN) 1 MG tablet Take 1 tablet by mouth 2 (two) times a day Active oxyCODONE-aceta minophen (PERCOCET) 5-325 MG per tablet Take 1 tablet by mouth Active lansoprazole (PREVACID) [address] capsule Take 30 mg by mouth in the morning and 30 mg in the evening. 07/11/2022 Active sucralfate (CARAFATE) 1 GM/10ML suspension Take 30 mL by mouth at bed time 06/28/2022 Active Ubrogepant (Ubrelvy) 100 MG tablet if needed Active potassium citrate (UROCIT-K) 5 MEQ (540 MG) CR tablet TAKE 1 TABLET BY MOUTH EVERY DAY 90 tablet 1 04/04/2023 Active Active Problems Problem Noted Date Diagnosed Date Peripheral neuropathic pain 07/18/2022 Blood chemistry outside reference range 05/03/20 21 Renal stone 05/03/2021 Resolved Problems Problem Noted Date Diagnosed Date Resolved Date Anxiety state 07/18/2022 07/18/2022 Depressive disorder 07/18/2022 07/18/20 22 Fibromyositis 07/18/2022 07/18/2022 Osteoarthritis 07/18/2022 07/18/2022 Complex regional pain syndro me I of right lower limb 02/02/2021 07/18/2022 Pain in right knee 01/23/2020 History of right total knee replacement 10/22/2019 07/18/2022 Overview (05/03/2021): Revision from patellofemoral unicompartmental arthroplasty done at [facility] Revision from patellofemoral unicompartmental arthroplasty done at [facility] Generalized anxiety disorder 02/05/2014 07/18/2022 Primary insomnia 02/05/2014 07/18/2022 Immunizations Name Administration Dates Next Due Pneumococcal Polysaccharide 05/18/2011 Td, Unspecified 05/26/2003 Social History Tobacco Use Types Packs/Day Years Used Date Smoking Tobacco: Never Smokeless Tobacco: Never Alcohol Use Standard Drinks/Week Comments No 0 (1 standard drink = 0.6 oz pur e alcohol) Comments Unknown Sex and Gender Information Value Date Recorded Sex Assigned at Not on file Legal Sex Female 4:52 PM EST Gender Identity Not on file Sexual Orientation Not on file Last Filed Vital Signs Vital Sign Reading Time Taken Comments Blood Pressure 140/90 11/14/2019 12:00 PM EST Pulse 80 11/14/2019 12:00 PM EST Temperature - - Respiratory Rate - - Oxygen Saturation - - Inhaled Oxygen Concentration - - Weight 87.1 kg (192 lb) 07/18/2022 3:32 PM EDT Height 168.9 cm (5' 6.5 ) 05/11/2020 12:00 PM ED T Body Mass Index 30.53 05/11/2020 12:00 PM EDT Plan of Treatment Health Maintenance Due Date Last Done Comments Breast Cancer Screening 1970 Hepatitis B Vaccine (1 of 3 - 19+ 3-dose series) 02/15 Pneumococcal Vaccine: Pediat rics (0 to 5 Years) and At-Risk Patients (6 to 64 Years) (2 of 2 - PCV) 05/18/2012 05/18/2011 Colorectal Cancer Screening: Annual FOBT 2018 Colorectal Cancer Screening: Colonoscopy 2018 Colorectal Cancer Screening: Sigmoidoscopy 2018 Influenza Vaccine (#1) 2024 Insurance [facility] Member Subscriber Plan / Payer (Ef fective 2018-Present) Name:Monika Corcoran Relation to Subscriber:Self Name:Monika Corcoran Payer ID:Not on file Type:Not on file Address: [address] [id number] MEDICAID [place] [facility] Member Subscriber Plan / Payer (Ef fective 2018-Present) Name:Monika Corcoran Relation to Subscriber:Self Name:Monika Corcoran Payer ID:Not on file Type:Not on file Address: [address] [id number] MEDICAID [place] Care Teams Scientific Publications Editor Relationship Specialty Start Date End Date Maria Del Rosario Oleary DNP [address] [place] [address], [address] [address] PCP - General Nurse Practitioner 07/18/22
== END 2024-12-27 10:21 | disposition home or self-care (01) ==
PROVIDERS: PCP Registered Nurse; Visit Provider Internal Medicine Nephrology
DX: N20.0 Calculus of kidney (principal); R60.0 Localized edema
CPT/HCPCS: 99214

== ENCOUNTER 2025-01-10 09:43 | Outpatient (AMB) | payer OTHER, MEDICAID, SELFPAY ==
--- NOTE | 2025-01-10 09:47 | HO.NEPHOV_ITS ---
Vital Signs 01/10/25 09:48 Height 5 ft 6 in Weight 218 lb BMI 35.2 BP 132/78 Blood Pressure Location Rt brachial Position Sitting Intake Visit Reasons: Edema/ Conf Pipeline Dispatcher Required: No Accompanied by: Other Relationship Allergies amoxicillin Allergy (Mild, Verified 01/10/25 09:48) unknown cat dander Allergy (Mild, Verified 01/10/25 09:48) Unknown pollen extracts Allergy (Mild, Verified 01/10/25 09:48) unknown cephalexin [From Keflex] Allergy (Verified 01/10/25 09:48) Nausea and Vomiting erythromycin base Allergy (Verified 01/10/25 09:48) Nausea and Vomiting Penicillins Allergy (Verified 01/10/25 09:48) Itching NSAIDS (Non-Steroidal Anti-Inflamma Adverse Reaction (Mild, Verified 01/10/25 09:48) effects kidneys HPI Comments Details: Padmaja was seen in follow-up for her nephrolithiasis. She has been having weight gain 27 lbs in close to 6 months. She has been on prednisone but currently is on 2.5 mg daily. She has history of complex regional pain syndrome. She had a spinal cord stimulator put in. Her arthralgias are better. She does not have any blood in the urine, fever, loin pain, chills, rigor or dysuria. She has not passed any later gravel in the urine. She maintains good hydration. She tries to minimize his salt in the diet. [facility] Medical History (Updated 01/10/25 @ 09:55 by Amauri Vasquez MD) Primary insomnia Osteoarthritis Nerve injury Nephrolithiasis Migraine Fibromyositis Fibromyalgia Depressive disorder Anxiety Smoker Chronic knee pain GERD (gastroesophageal reflux disease) Closed left ankle fracture Surgical History Hx of repair of left rotator cuff Hx of repair of right rotator cuff History of total right knee replacement S/P rotator cuff repair History of hysterectomy Social History Alcohol intake: never Patient Tobacco Use Status: Former Tobacco user Review of Systems Const All systems reviewed & are unremarkable except as noted in HPI and below Physical Exam Vital Signs: Last Vital Signs BP 132/78 01/10/25 09:48 BMI result Body Mass Index 35.2 Const General: comfortable and no acute distress Orientation/consciousness: patient oriented x3 HEENT Head: Yes normocephalic Mouth: Normal oral and palatal mucosa present Eyes EOM: EOMs intact bilaterally Neck Neck: Yes supple Resp Auscultation: clear to auscultation bilaterally Cardio Jugular venous distension: no JVD Rate: regular rate GI Palpation (GI): Soft to palpation Auscultation: normal bowel sounds General: Yes no CVA tenderness Back/Spine/Pelvis Back: no CVA tenderness Skin General skin exam: no rashes or lesions noted Neuro General: patient oriented x3 and moves all extremities Extrem General: Yes no pedal edema Assessment & Plan Assessment & Plan (1) Edema: Code(s): R60.9 - Edema, unspecified Category: Medical Qualifiers: Edema type: localized Qualified Code(s): R60.0 - Localized edema (2) Nephrolithiasis: Code(s): N20.0 - Calculus of kidney Category: Medical (3) Proteinuria: Code(s): R80.9 - Proteinuria, unspecified Category: Medical Qualifiers: Proteinuria type: other Qualified Code(s): R80.8 - Other proteinuria Plan Padmaja has longstanding nephrolithiasis. She has family history of renal calculus. She claims to be taking adequate amount of fluid. Her 24 hour urine collection in the past has shown a low citrate. She is on potassium citrate. She should minimize sodium in the diet and continue to maintain good hydration. She should cut back animal protein, increase fruits and vegetables in the diet. She should avoid nonsteroidal inflammatory medications. She has proteinuria. I ordered 24 hour urine protein as well as renal USS & rest of the investigations. I started her on hydrochlorothiazide 12.5 mg daily. She may need potassium ci trate. She may need renal biopsy. I plan to start losartan 25 mg daily at the next visit. Answered all questions Orders: Orders CHANTEL Reflex Titer and Pattern Today N20.0 - Calculus of kidney, R60.0 - Localized edema, R80.8 - Other proteinuria Anti DNA DS Antibody Today N20.0 - Calculus of kidney, R60.0 - Localized edema, R80.8 - Other proteinuria Anti Glomerular Basement Memb Today N20.0 - Calculus of kidney, R60.0 - Localized edema, R80.8 - Other proteinuria Complement C4 Today N20.0 - Calculus of kidney, R60.0 - Localized edema, R80.8 - Other proteinuria Immunofixation Pnl, Serum Today N20.0 - Calculus of kidney, R60.0 - Localized edema, R80.8 - Other proteinuria SANTOS 1 Antibody Today N20.0 - Calculus of kidney, R60.0 - Localized edema, R80.8 - Other proteinuria Scleroderma 70 Antibody Today N20.0 - Calculus of kidney, R60.0 - Localized edema, R80.8 - Other proteinuria Sjogren's Antibodies Today N20.0 - Calculus of kidney, R60.0 - Localized edema, R80.8 - Other proteinuria Creatinine Today N20.0 - Calculus of kidney, R60.0 - Localized edema, R80.8 - Other proteinuria Electrolytes Today N20.0 - Calculus of kidney, R60.0 - Localized edema, R80.8 - Other proteinuria Calcium Today N20.0 - Calculus of kidney, R60.0 - Localized edema, R80.8 - Other proteinuria US renal BI Today R80.8 - Other proteinuria Complete Blood Count Auto Diff Today R80.8 - Other proteinuria Myeloperoxidase Antibody Today N20.0 - Calculus of kidney, R60.0 - Localized edema, R80.8 - Other proteinuria Proteinase 3 PR3 Antibodies Today N20.0 - Calculus of kidney, R60.0 - Localized edema, R80.8 - Other proteinuria Complement C3 Today N20.0 - Calculus of kidney, R60.0 - Localized edema, R80.8 - Other proteinuria Sm Sm/STEEL SHOT HEADER OPERATOR Antibodies Today N20.0 - Calculus of kidney, R60.0 - Localized edema, R80.8 - Other proteinuria Phospholipase A2 Receptor Pnl Today N20.0 - Calculus of kidney, R60.0 - Localized edema, R80.8 - Other proteinuria Blood Urea Nitrogen Today N20.0 - Calculus of kidney, R60.0 - Localized edema, R80.8 - Other proteinuria Protein, 24 Hr Urine Group Today N20.0 - Calculus of kidney, R60.0 - Localized edema, R80.8 - Other proteinuria Prothrombin Time INR Today R80.8 - Other proteinuria Medications: New hydrochlorothiazide 12.5 mg PO DAILY 30 tabs 6RF Coding Level of Care Code Est Pt Level 4 (89432) Diagnoses Localized edema R60.0 Edema type: localized Nephrolithiasis N20.0 Other proteinuria R80.8 Proteinuria type: other
[2025-01-10 09:48] VITALS: BP 132/78; BMI 35.2
--- OUTSIDE RECORDS SUMMARY | 2025-01-10 10:18 | XMS_ITS | Encounter Summary ---
Author Organization [facility] Address [phone] Formerly [facility] [place] [address] Care Team Providers Care Wood Flour Miller Name Role Phone Carmen Flores CNP Unavailable [phone] Priscila GrimmP Unavailable Veronica Vega MD Unavailable Selam Flower MD Unavailable Pedro Valente MD Unavailable Maria Del Rosario Oleary NP Primary Care Provider + Encounter Details Date Type Department Care Team (Late st Contact Info) Description 11/05/2020 Procedure Pass [address] [place] [address] Social History Tobacco Use Types Packs/Day Years [...] on filedocumented in this encounter Care Teams Wood Flour Miller Relationship Specialty Start Date End Date Maria Del Rosario Oleary, PULP MILL SUPERVISOR [address] [place] [address] PCP - General Family Medicine 07/09/19 Carmen Flores, SANDBLAST CARVER [address] [facility] [address], [address] [place] [address] Historical LMR Provider 09/06/17 11/27/21 Priscila Grimm FNP [address] [facility], [address] [place] [address] Historical LMR Provider 09/06/17 11/27/21 Veronica Vega MD [address] [facility], [address], [address] [place] [address] Historical LMR Provider 09/06/17 11/27/21 Selam Flower MD [address] [place] [address] Historical LMR Provider 09/06/17 2 Pedro Valente MD [address] [place] [address] Historical LMR Provider 09/06/17 2 documented as of this encounter Additional Source Comments The information contained in this document represents components of the legal health record. It is not the complete legal health record.[facility]
--- OUTSIDE RECORDS SUMMARY | 2025-01-10 10:18 | XMS_ITS | Encounter Summary ---
Author Organization [facility] Address [phone] [facility] [place] [address] Care Team Providers Care Boxing Instructor Name Role Phone Carmen Flores CNP Unavailable Alfa Priscila Maricarmen NUTRITION SERVICES WORKER Unavailable Veronica Vega MD Unavailable Selam Flower [...] MRI Lumbar Spine Pedro Denise PA [address] [place] [address] Referral ID Status Reason Start Date Expiration Date Visits Re quested Visits Authorized [id number] Closed 11/04/2020 05/03/2021 1 1 Encounter Details Date Type Department Care Team (Late st Contact Info) Description 11/05/2020 Transcribe Orders Virtual Department [address] [place] [address] Chantel Denise MD [address] [place] [address] [email or web address] Right knee pain, unspecified chronicity (Primary Dx); [...] limb documented in this encounter Care Teams Boxing Instructor Relationship Specialty Start Date End Date Maria Del Rosario Oleary, JOAQUIN [address] [place] [address] PCP - General Family Medicine 07/09/19 Carmen Flores, REBEKAH [address], [address] [place] [address] Historical LMR Provider 09/06/17 11/27/21 Priscila Grimm FNP [address], [address] [place] [address] Historical LMR Provider 09/06/17 11/27/21 Veronica Vega MD [address], [address] [place] [address] Historical LMR Provider 09/06/17 11/27/21 Selam Flower MD [address] [place] [address] Historical LMR Provider 09/06/17 2 Pedro Valente MD [address] [place] [address] Historical LMR Provider 09/06/17 2 documented as of this encounter Additional Source Comments The information contained in this document represents components of the legal health record. It is not the complete legal health record.[facility]
--- OUTSIDE RECORDS SUMMARY | 2025-01-10 10:18 | XMS_ITS | Data Portability ---
Author Organization [facility] [employer] Address [address] [place] [address] Care Team Providers Care Cell Tuber Hand Name Role Phone JOSELINE CORREA Primary Care [...] 04/11/2022 DATA REVIEW completed Francisco Johnson MD [address] [place], [place] [address] [place], [address], [facility] 04/11/2022 10:36:58 06/08/2021 DATA REVIEW completed Francisco Johnson MD [address] [place], [place] [address], [address], [facility] 06/08/2021 12:57:11 Imaging Results None [...] Code Diagnosis Note 1320 Francisco Johnson MD [facility] [address] [place] [address] [place] [address] 06/08/2021 12:31:37 06/08/2021 14:44:52 Migraine without aura [id number] G43.009 5141 Francisco Johnson MD [facility] [address] [place] [address] [place] [address] 04/11/2022 10:31:55 04/11/2022 11:17:34 Migraine without aura [id number] G43.009 Health Concerns Section Related Observation LastModified by Organization Detai ls LastModified Time None Recorded Concern Status LastModified by Organization Details LastModified Time None Recorded Advance Directives Directive None Recorded Payers Encounter Date Sequence Insurance Name Policy Number Policy Carlson Covered Member ID Carlson Member ID Guarantor Name 06/08/2021 1 [facility] [id number] Monika Medina Godbout [id number] Monika Medina Godbout 06/08/2021 2 [place] [facility] Monika Machadobolaz [id number] Monika Machadobout 04/11/2022 1 [facility] [id number] Monika Medina Godbout [id number] Monika Medina Godbout 04/11/2022 2 [place] [facility] Monika Medina Godbout [id number] Monika Corcoran Notes Date Note Type Note [...] started in ~2012 and amitriptyline was started ~2312-3000, 1.5-2 years ago. Bad migraines became about [...] is no spinning component. Francisco Johnson MD [address] [place] [address] [place], [phone], [facility] 06/08/2021 13:18:49 04/11/2022 text/html Follow [...] started in ~2012 and amitriptyline was started ~3411-4775, 1.5-2 years ago. Bad migraines became about [...] is no spinning component. Francisco Johnson MD [address] [place] [address] [place], [address], [facility] 04/11/2022 10:50:40 OBGyn Episode No OBEpisode recorded.
--- OUTSIDE RECORDS SUMMARY | 2025-01-10 10:18 | XMS_ITS | Clinical Summary ---
Author Organization [facility] Address [phone] [facility] [place] [address] Care Team Providers Care Putty Patcher Name Role Phone Maria Del Rosario Oleary BURGLAR ALARM SUPERINTENDENT Primary Care Provider + Allergies Active Allergy [...] Revision from patellofemoral unicompartmental arthroplasty done at [facility] Resolved Problems Problem Noted Date Diagnosed Date [...] this topic Medical Devices Implanted Type Area Photographic Process Attendant Device Identifier Shelf Expiration Date Model / Serial / Lot Knee Stem 65mm Vanguard Ssk 360 Revision Sy Right - [id number] Implanted:Qty: 1 on 08/26/2019 by Zach Grant MD at [facility] NODATA Right: Knee [employer] 05/20/2029 [id number] / [id number] / [id number] Right Shoulder Hardware Tray Beam 67mm Tibial Primary Vanguard Agency I Revision Interlock Cemented - [id number] Implanted:Qty: 1 on 08/26/2019 by Zach Grant MD at [facility] Right: Knee [employer] 02/02/2029 [id number] / [id number] / [id number] Cement Bone Biomet Standard R 1x40 - [id number] Implanted:Qty: 2 on 08/26/2019 by Zach Grant MD at [facility] Knee [employer]ZE[employer] / [employer] 05/19/2021 [id number] / [id number] / [id number] Knee Bearing 10x63 To 67mm Vanguard Ssk Stabilized - [id number] Implanted:Qty: 1 on 08/26/2019 by Zach Grant MD at [facility] Right: Knee [employer] 04/04/2021 [id number] / [id number] / [id number] Implanted - Out of Service Type Area Photographic Process Attendant Device Identifier Shelf Expiration Date Model / [...] 6:12 AM 08/26/2019 1:56 PM Care Teams Putty Patcher Relationship Specialty Start Date End Date Maria Del Rosario Oleary NP [address] [place] [address] PCP - General Family Medicine 07/09/19 Additional Source Comments The information contained in this document represents components of the legal health record. It is not the complete legal health record.[facility]
--- OUTSIDE RECORDS SUMMARY | 2025-01-10 10:18 | XMS_ITS ---
Author Organization [facility] Address [address] [place] [id number] Care Team Providers Care Antique Furniture Reproducer Name Role Phone KIRK LOZANO Primary Care Provider REASON FOR VISIT Refill MEDICATIONS Medication SIG (Take, Route, Fr equency, Duration) Notes Start Date End Date Status Sucralfate 1 GM/10ML TAKE 10 ML ONE HOUR BEFORE MEALS AND AT BEDTIME ON AN EMPTY STOMACH Orally as directed for 90 days 06/28/2025 Active Encounters Encounter Location Date Provider Diagnosis [address] [id number] 12/30/2024 KIRK LOZANO PLAN OF TREATMENT Medication Medication Name Sig Start Date Stop Date Notes Sucralfate 1 GM/10ML TAKE 10 ML ONE HOUR BEFORE MEALS AND AT BEDTIME ON AN EMPTY STOMACH Orally as directed for 90 days 06/28/2025 Progress Notes * ALEX HOOVER MDOB:[birth year] (54 yo F)Acc No.[id number]:12/30/2024 Patient:??ALEX HOOVER :1970?Age:54 Y?Sex:Fe male Phone: Address:[address] [place] [address] * Refills?? Refill Sucralfate Suspension, 1 GM/10ML, Orally, 1200, TAKE 10 ML ONE HOUR BEFORE MEALS AND AT BEDTIME ON AN EMPTY STOMACH, as directed, 90 days, Refills=2 * true * Date:??
--- OUTSIDE RECORDS SUMMARY | 2025-01-10 10:18 | XMS_ITS | Encounter Summary ---
Author Organization [facility] Address [phone] [facility] [place] [address] Care Team Providers Care Manufacturing Engineering Technologist Name Role Phone Carmen Flores CNP Unavailable Priscila Grimm BANK NOTE DESIGNER Unavailable Veronica Vega MD Unavailable Selam Flower MD Unavailable Pedro Valente MD Unavailable [phone] Scarlett Baird PA-C Primary Care Provider [phone] Maria Del Rosario Oleary NP Primary Care Provider + Reason for Referral * MRI/CAT Scan - Closed Specialty Diagnoses / Procedures [facility] To Contact Radiology Diagnoses Dizziness Abnormal head movements Paresthesia of skin Procedures MRI Brain Scarlett Baird PA-C [address] [place] [address] Email: [email or web address] Referral ID Status Reason Start Date Expiration Date Visits Re quested Visits Authorized [id number] Closed 08/09/2018 10/08/2018 1 1 Encounter Details Date Type Department Care Team (Late st Contact Info) Description 08/09/2018 Ancillary Orders Virtual Department [address] [place] [address] Scarlett Baird PA-C [address] [place] [address] [email or web address] Dizziness; Abnormal head movements; Paresthesia of skin [...] to account for the patient's symptoms. POS [id number] Narrative 08/21/2018 9:49 AM EDT COMPARISON: 12/10/2015. [...] mm right frontal parietal lobe white matter [id number] lesion which is of doubtful significance. No new lesions.No abnormal enhancement. No hydrocephalus. Normal vascular flow- voids.Orbits are normal. Mastoids and paranasal sinuses are clear. Soft tissueand bone marrow are within normal limits. IMPRESSION: No findings to account for the patient's symptoms. POS [id number] Scarlett Baird PA-C IMG MR HEAD/NECK documented in this encounter Visit Diagnoses Diagnosis Dizziness Dizziness and giddiness Abnormal head movements Paresthesia of skin Dizziness Dizziness and giddiness Abnormal head movements Paresthesia of skin documented in this encounter Care Teams Manufacturing Engineering Technologist Relationship Specialty Start Date End Date Scarlett Baird PA-C [address] [place] [address] [email or web address] PCP - General Family Medicine 05/03/18 07/08/19 Maria Del Rosario Oleary NP [address] [place] [address] PCP - General Family Medicine 07/09/19 Carmen Flores CNP [address] [place] [address] [address], [address] [place] [address] [email or web address] Historical LMR Provider 09/06/17 11/27/21 Priscila Grimm FNP [address] [facility] [address], [address] [place] [address] [email or web address] Historical LMR Provider 09/06/17 11/27/21 Veronica Vega MD 38 [facility] [address], [address] [place] [address] [email or web address] Historical LMR Provider 09/06/17 11/27/21 Selam Flower MD [address] [place] [address] Historical LMR Provider 09/06/17 2 Pedro Valente MD [address] [place] [address] Historical LMR Provider 09/06/17 2 documented as of this encounter Additional Source Comments The information contained in this document represents components of the legal health record. It is not the complete legal health record.[facility]
--- OUTSIDE RECORDS SUMMARY | 2025-01-10 10:18 | XMS_ITS | Encounter Summary ---
Author Organization [facility] Address [phone] [facility] [place] [address] Care Team Providers Care Assistant Producer Name Role Phone Maria Del Rosario Oleary SENIOR PROJECT ENGINEER Primary Care Provider + Encounter Details Date Type Department Care Team (Late st Contact Info) Description 11/22/2023 Transcribe Orders Virtual Department [address] [place] [address] Maira Del Rosario Oleary NP [address] [place], [place] [phone] Right knee pain, unspecified chronicity (Primary Dx) [...] clinician's provided indication for this examination in [facility]: Outside Radiology Order; RIGHT KNEE PAIN COMPARISON: [...] clinician's provided indication for this examination in [facility]:Outside Radiology Order; RIGHT KNEE PAIN COMPARISON: XR [...] patellofemoral component dysfunction. Maria Del Rosario Oleary SENIOR PROJECT ENGINEER IMG XR LOWER EXT REMITY documented in this encounter Visit Diagnoses Diagnosis Right knee pain, unspecified chronicity- Primary Right knee pain, unspecified chronicity documented in this encounter Care Teams Assistant Producer Relationship Specialty Start Date End Date Maria Del Rosario Oleary NP [address] [place] [address] PCP - General Family Medicine 07/09/19 documented as of this encounter Additional Source Comments The information contained in this document represents components of the legal health record. It is not the complete legal health record.[facility]
--- OUTSIDE RECORDS SUMMARY | 2025-01-10 10:18 | XMS_ITS | Encounter Summary ---
Author Organization [facility] Address [phone] [facility] [place] [address] Care Team Providers Care Route Contractor Name Role Phone Carmen Flores CNP Unavailable [phone] Priscila Grimm Unavailable [phone] Veronica Vega MD Unavailable Selam Flower MD Unavailable [phone] Pedro Valente MD Unavailable [phone] Maria Del Rosario Oleary NP Primary Care Provider + Encounter Details Date Type Department Care Team (Late st Contact Info) Description 08/26/2019 Procedure Pass OR Admitting Dept - [facility] Department [address] [place] [address] Social History Tobacco Use Types Packs/Day Years [...] on filedocumented in this encounter Care Teams Route Contractor Relationship Specialty Start Date End Date Maria Del Rosario Oleary, JOAQUIN [address] [place] [address] PCP - General Family Medicine 07/09/19 Carmen Flores CNP 38 [facility], [address], [address] [place] [address] [email or web address] Historical LMR Provider 09/06/17 11/27/21 Priscila Grimm FNP 38 [facility], [address], [address] [place] [address] [email or web address] Historical LMR Provider 09/06/17 11/27/21 Veronica Vega MD 38 [facility] [address], [address] [place] [address] Historical LMR Provider 09/06/17 11/27/21 Selam Flower MD [address] [place] [address] Historical LMR Provider 09/06/17 2 Pedro Valente MD [address] [place] [address] Historical LMR Provider 09/06/17 2 documented as of this encounter Additional Source Comments The information contained in this document represents components of the legal health record. It is not the complete legal health record.[facility]
--- OUTSIDE RECORDS SUMMARY | 2025-01-10 10:18 | XMS_ITS | Encounter Summary ---
Author Organization [facility] Address [phone] [facility] [email or web address] [address] Care Team Providers Care Oracle Financials Developer Name Role Phone Carmen Flores CNP Unavailable Priscila Grimm HOSPICE VOLUNTEER Unavailable [phone] Veronica Vega MD Unavailable [phone] Selam Flower MD Unavailable Pedro Valente MD Unavailable [phone] Scarlett Baird PA-C Primary Care Provider Maria Del Rosario Oleary NP Primary Care Provider + Encounter Details Date Type Department Care Team (Late st Contact Info) Description 08/09/2018 Procedure Pass [address] [place] [address] Social History Tobacco Use Types Packs/Day Years [...] on filedocumented in this encounter Care Teams [employer] Fin[employer] Developer Relationship Specialty Start Date End Date Scarlett Baird PA-C [address] [place] [address] [email or web address] PCP - General Family Medicine 05/03/18 07/08/19 Maria Del Rosario Oleary, SERVICE C[facility] APPRAISER [address] [place] [address] PCP - General Family Medicine 07/09/19 Carmen Flores, REBEKAH 38 [facility], [address], [address] [place] [address] Historical LMR Provider 09/06/17 11/27/21 Priscila Grimm FNP 38 [facility], [address], [address] [place] [address] [email or web address] Historical LMR Provider 09/06/17 11/27/21 Veronica Vega MD 38 [facility], [address], [address] [place] [address] Historical LMR Provider 09/06/17 11/27/21 Selam Flower MD [address] [place] [address] Historical LMR Provider 09/06/17 2 Pedro Valente MD [address] [place] [address] Historical LMR Provider 09/06/17 2 documented as of this encounter Additional Source Comments The information contained in this document represents components of the legal health record. It is not the complete legal health record.[facility]
--- OUTSIDE RECORDS SUMMARY | 2025-01-10 10:18 | XMS_ITS | Encounter Summary ---
Author Organization [facility] Address [phone] [facility] [place] [address] Care Team Providers Care Keno Terminal Operator Name Role Phone Pcp, Unknown Primary Care Provider Unavailabl e Encounter Details Date Type Department Care Team (Late st Contact Info) Description 03/15/2012 Hospital Encounter [facility],Outside Imaging [address] [place], [place] [phone] System, Provider Not In, PhD [address] [address] Unknown, Unknown, Social History Tobacco Use Types [...] on filedocumented in this encounter Care Teams Keno Terminal Operator Relationship Specialty Start Date End Date Pcp, Unknown PCP - General 02/18/11 10/17/17 documented as of this encounter Additional Source Comments The information contained in this document represents components of the legal health record. It is not the complete legal health record.[facility]
--- OUTSIDE RECORDS SUMMARY | 2025-01-10 10:18 | XMS_ITS | Encounter Summary ---
Author Organization [facility] Address [phone] [facility] [place] [address] Care Team Providers Care Property Management Specialist Name Role Phone Pcp, Unknown Primary Care Provider Unavailabl e Encounter Details Date Type Department Care Team (Late st Contact Info) Description 03/19/2013 Hospital Encounter [facility],Outside Imaging [address] [place], [place] [phone] System, Provider [place] In, [place] [address] Social History Tobacco Use Types Packs/Day Years [...] on filedocumented in this encounter Care Teams Property Management Specialist Relationship Specialty Start Date End Date Pcp, Unknown PCP - General 02/18/11 10/17/17 documented as of this encounter Additional Source Comments The information contained in this document represents components of the legal health record. It is not the complete legal health record.[facility]
--- OUTSIDE RECORDS SUMMARY | 2025-01-10 10:18 | XMS_ITS | Encounter Summary ---
Author Organization [facility] Address [phone] [facility] [place] [address] Care Team Providers Care Equipment Services Associate Name Role Phone Carmen Flores CNP Unavailable Alfa Priscila Maricarmen TIRE BUILDER Unavailable Veronica Vega MD Unavailable Selam Flower MD Unavailable Pedro Valente MD Unavailable Scarlett Baird PA-C Primary Care Provider Maria Del Rosario Oleary NP Primary Care Provider + Encounter Details Date Type Department Care Team (Late st Contact Info) Description 06/10/2019 Ancillary Orders [facility], X-Ray - [address] [place] [address] Maria Del Rosario Oleary NP [address] [place] [address] Right knee pain, unspecified chronicity Social History [...] ??Mild osteoarthritis and postoperative changes. POS - [id number] Narrative 06/10/2019 5:18 PM EDT HISTORY: ??As [...] COMPARISON: MRI right knee 07/26/2018. Right knee [id number]/04/2013. RIGHT KNEE RADIOGRAPH FINDINGS: Four views obtained including weightbearing. There is a new anteriormedial femoral condyle hardware. No evidence of loosening. No fractureor malalignment. Mild medial compartment joint space narrowing andspurring. No bone lesions. Moderate size suprapatellar joint effusion.No soft tissue gas. IMPRESSION: 1. Moderate size joint effusion. 2. Mild osteoarthritis and postoperative changes. POS - [id number] Maria Del Rosario Oleary [employer] WARDEN IMG XR LOWER EXT REMITY documented in this encounter Visit Diagnoses Diagnosis Right knee pain, unspecified chronicity Right knee pain, unspecified chronicity documented in this encounter Care Teams Equipment Services Associate Relationship Specialty Start Date End Date Scarlett Baird PA-C [address] [place] [address] [email or web address] PCP - General Family Medicine 05/03/18 07/08/19 Maria Del Rosario Oleary, JOAQUIN [address] [place] [address] PCP - General Family Medicine 07/09/19 Carmen Flores, REBEKAH 38 [facility], [address], [address] [place] [address] [email or web address] Historical LMR Provider 09/06/17 11/27/21 Priscila Grimm FNP 38 [facility] [address], [address] [place] [address] [email or web address] Historical LMR Provider 09/06/17 11/27/21 Veronica Vega MD 38 [facility] [address], [address] [place] [address] Historical LMR Provider 09/06/17 11/27/21 Selam Flower MD [address] [place] [address] Historical LMR Provider 09/06/17 2 Pedro Valente MD [address] [place] [address] Historical LMR Provider 09/06/17 2 documented as of this encounter Additional Source Comments The information contained in this document represents components of the legal health record. It is not the complete legal health record.[facility]
--- OUTSIDE RECORDS SUMMARY | 2025-01-10 10:18 | XMS_ITS | Encounter Summary ---
Author Organization [facility] Address [phone] [facility] [place] [address] Care Team Providers Care Hardening Machine Operator Helper Name Role Phone Unavailable Primary Care Provider Unavailabl e Encounter Details Date Type Department Care Team (Late st Contact Info) Description 03/09/2010 Hospital Encounter [facility],Outside Imaging [address] [place], [place] [phone] System, Provider [place] In, [place] [address] Social History Tobacco Use Types Packs/Day Years [...] Not on filedocumented in this encounter Additional Source Comments The information contained in this document represents components of the legal health record. It is not the complete legal health record.[facility]
--- OUTSIDE RECORDS SUMMARY | 2025-01-10 10:18 | XMS_ITS | Encounter Summary ---
Author Organization [facility] Address [phone] [facility] [place] [address] Care Team Providers Care Learning Disabilities Teacher Name Role Phone Pcp, Unknown Primary Care Provider Unavailabl e Encounter Details Date Type Department Care Team (Late st Contact Info) Description 03/16/2011 Hospital Encounter [facility],Outside Imaging [address] [place], [place] [phone] System, Provider Not In, PhD [address] [address] Unknown, Unknown, Social History Tobacco Use Types [...] on filedocumented in this encounter Care Teams Learning Disabilities Teacher Relationship Specialty Start Date End Date Pcp, Unknown PCP - General 02/18/11 10/17/17 documented as of this encounter Additional Source Comments The information contained in this document represents components of the legal health record. It is not the complete legal health record.[facility]
--- OUTSIDE RECORDS SUMMARY | 2025-01-10 10:18 | XMS_ITS | Encounter Summary ---
Author Organization [facility] Address [phone] [facility] [place] [address] Care Team Providers Care Exhibit Specialist Name Role Phone Pcp, Unknown Primary Care Provider Unavailabl e Encounter Details Date Type Department Care Team (Late st Contact Info) Description 03/14/2011 Hospital Encounter [facility],Outside Imaging [address] [place], [place] [phone] System, Provider Not In, PhD [address] [address] Unknown, Unknown, Social History Tobacco Use Types [...] on filedocumented in this encounter Care Teams Exhibit Specialist Relationship Specialty Start Date End Date Pcp, Unknown PCP - General 02/18/11 10/17/17 documented as of this encounter Additional Source Comments The information contained in this document represents components of the legal health record. It is not the complete legal health record.[facility]
--- OUTSIDE RECORDS SUMMARY | 2025-01-10 10:19 | XMS_ITS | Encounter Summary ---
Author Organization [facility] Address [phone] [facility] [place] [address] Care Team Providers Care Varnisher Plasticoater Name Role Phone Carmen Flores JEWELRY ENGRAVER Unavailable Priscila Grimm INTERIOR DESIGNER Unavailable [phone] Veronica Vega MD Unavailable Selam Flower MD Unavailable [phone] Pedro Valente MD Unavailable Selam Flower MD Primary Care Provider Scarlett Baird PA-C Primary Care Provider Maria Del Rosario Oleary NP Primary Care Provider + Encounter Details Date Type Department Care Team (Late st Contact Info) Description 04/20/2018 Ancillary Orders [facility],Outside Imaging [address] [place] [address] System, Provider Not In, PhD [address] [address] Social History Tobacco Use Types Packs/Day Years [...] on filedocumented in this encounter Care Teams Varnisher Plasticoater Relationship Specialty Start Date End Date Selam Flower MD [address] [place] [address] PCP - General 11/23/17 05/02/18 Scarlett Baird PA-C [address] [place] [address] [email or web address] PCP - General Family Medicine 05/03/18 07/08/19 Maria Del Rosario Oleary, JOAQUIN [address] [place] [address] PCP - General Family Medicine 07/09/19 Carmen Flores CNP 38 [facility]., [address], [address] [place] [address] Historical LMR Provider 09/06/17 11/27/21 Priscila Grimm FNP [address], [address] [place] [address] Historical LMR Provider 09/06/17 11/27/21 Veronica Vega MD [address], [address] [place] [address] Historical LMR Provider 09/06/17 11/27/21 Selam Flower MD [address] [place] [address] Historical LMR Provider 09/06/17 2 Pedro Valente MD [address] [place] [address] Historical LMR Provider 09/06/17 2 documented as of this encounter Additional Source Comments The information contained in this document represents components of the legal health record. It is not the complete legal health record.[facility]
--- OUTSIDE RECORDS SUMMARY | 2025-01-10 10:19 | XMS_ITS | Encounter Summary ---
Author Organization [facility] Address [phone] [facility] [place] [address] Care Team Providers Care Dramatic Agent Name Role Phone Carmen Flores CNP Unavailable Alfa Priscila Maricarmen SHRIMP PEELING MACHINE OPERATOR Unavailable Veronica Vega MD Unavailable Selam Flower MD Unavailable Pedro Valente MD Unavailable Scarlett Baird PA-C Primary Care Provider Maria Del Rosario Oleary NP Primary Care Provider + Encounter Details Date Type Department Care Team (Late st Contact Info) Description 07/16/2018 Ancillary Orders Virtual Department [address] [place] [address] Radha Kurtz MD [address] [place] [address] [email or web address] Right knee pain, unspecified chronicity; Other instability, [...] meniscal or ligamentous tears apparent.. POS - [id number] Narrative 07/26/2018 2:39 PM EDT TECHNIQUE: Exam [...] No meniscal orligamentous tears apparent.. POS - [id number] Radha Kurtz MD IMG MR EXTREMITY documented in this encounter Visit Diagnoses Diagnosis Right knee pain, unspecified chronicity Other instability, right knee Right knee pain, unspecified chronicity Other instability, right knee documented in this encounter Care Teams Dramatic Agent Relationship Specialty Start Date End Date Scarlett Baird PA-C [address] [place] [address] [email or web address] PCP - General Family Medicine 05/03/18 07/08/19 Maria Del Rosario Oleary, SPONGE BUFFER [address] [place] [address] PCP - General Family Medicine 07/09/19 Carmen Flores, REBEKAH [address], [address] [place] [address] [email or web address] Historical LMR Provider 09/06/17 11/27/21 Priscila Grimm FNP [address], [address] [place] [address] [email or web address] Historical LMR Provider 09/06/17 11/27/21 Veronica Vega MD [address], [address] [place] [address] [email or web address] Historical LMR Provider 09/06/17 11/27/21 Selam Flower MD [address] [place] [address] Historical LMR Provider 09/06/17 2 Pedro Valente MD [address] [place] [address] Historical LMR Provider 09/06/17 2 documented as of this encounter Additional Source Comments The information contained in this document represents components of the legal health record. It is not the complete legal health record.[facility]
--- OUTSIDE RECORDS SUMMARY | 2025-01-10 10:19 | XMS_ITS | Encounter Summary ---
Author Organization [facility] Address [phone] [facility] [place] [address] Care Team Providers Care Sales Vice President Name Role Phone Carmen Flores WATERFRONT DIRECTOR Unavailable [phone] Priscila Grimm HOOP CUTTER Unavailable [phone] Veronica Vega MD Unavailable Selam Flower MD Unavailable [phone] Pedro Valente MD Unavailable Selam Flower MD Primary Care Provider Scarlett Baird PA-C Primary Care Provider [phone] Maria Del Rosario Oleary NP Primary Care Provider + Encounter Details Date Type Department Care Team (Late st Contact Info) Description 04/20/2018 Ancillary Orders [facility],Outside Imaging [address] [place] [address] System, Provider Not In, PhD [address] [address] Social History Tobacco Use Types Packs/Day Years [...] on filedocumented in this encounter Care Teams Sales Vice President Relationship Specialty Start Date End Date Selam Flower MD [address] [place] [address] PCP - General 11/23/17 05/02/18 Scarlett Baird PA-C [address] [place] [address] [email or web address] PCP - General Family Medicine 05/03/18 07/08/19 Maria Del Rosario Oleary, JOAQUIN [address] [place] [address] PCP - General Family Medicine 07/09/19 Carmen Flores CNP [address] [facility] [address], [address] [place] [address] Historical LMR Provider 09/06/17 11/27/21 Priscila Grimm FNP [address], [address] [place] [address] Historical LMR Provider 09/06/17 11/27/21 Veronica Vega MD [address], [address] [place] [address] Historical LMR Provider 09/06/17 11/27/21 Selam Flower MD [address] [place] [address] Historical LMR Provider 09/06/17 2 Pedro Valente MD 41 [place] [address] Historical LMR Provider 09/06/17 2 documented as of this encounter Additional Source Comments The information contained in this document represents components of the legal health record. It is not the complete legal health record.[facility]
--- OUTSIDE RECORDS SUMMARY | 2025-01-10 10:19 | XMS_ITS ---
Author Organization [facility] Address [address] [place] [id number] Care Team Providers Care Tip Out Worker Name Role Phone KIRK LOZANO Primary Care [...] Active Encounters Encounter Location Date Provider Diagnosis [address] [id number] 12/26/2024 KIRK LOZANO PLAN OF TREATMENT Medication [...] ALEX [place]OVER MDOB:[birth year] (54 yo F)Acc No.[id number]:12/26/2024 Patient:??ALEX HOOVER :1970?Age:54 Y?Sex:Fe male Phone: Address:[address] [place] [address] * Refills?? Refill Qulipta Tablet, 60 MG, [...]
--- OUTSIDE RECORDS SUMMARY | 2025-01-10 10:19 | XMS_ITS ---
Author Organization [facility] Address [address] [place] [id number] Care Team Providers Care Card Decorator Name Role Phone KIRK LOZANO Primary Care Provider [phone] REASON FOR VISIT Refills MEDICATIONS Medication SIG (Take, Route, Frequency, Duration) Notes Start Date End Date Status Cyclobenzaprine HCl 10 MG TAKE ONE TABLE T BY MOUTH EVERY DAY AT BEDTIME NEEDED Orally Once a day for 30 days 01/16/2025 Active Encounters Encounter Location Date Provider Diagnosis [address] [id number] 12/17/2024 KIRK LOZANO PLAN OF TREATMENT Medication Medication Name Sig Start Date Stop Date Notes Cyclobenzaprine HCl 10 MG TAKE ONE TABLE T BY MOUTH EVERY DAY AT BEDTIME NEEDED Orally Once a day for 30 days 01/16/2025 Progress Notes * ALEX HOOVER MDOB:[birth year] (54 yo F)Acc No.[id number]:12/17/2024 Patient:??ALEX HOOVER :1970?Age:54 Y?Sex:Fe male Phone: Address:[address] [place] [address] * Refills?? Refill Cyclobenzaprine HCl Tablet, 10 MG, Orally, 30, TAKE ONE TABLET BY MOUTH EVERY DAY AT BEDTIME NEEDED, Once a day, 30 days, Refills=3 * true * Date:??
--- OUTSIDE RECORDS SUMMARY | 2025-01-10 10:19 | XMS_ITS | Encounter Summary ---
Author Organization [facility] Address [phone] Formerly [facility] [place] [address] Care Team Providers Care Planning Official Name Role Phone Carmen Flores CNP Unavailable Alfa Priscila Maricarmen AIRWAY CONTROLLER Unavailable Veronica Vega MD Unavailable Selam Flower MD Unavailable Pedro Valente MD Unavailable Scarlett Baird PA-C Primary Care Provider Maria Del Rosario Oleary NP Primary Care Provider + Encounter Details Date Type Department Care Team (Late st Contact Info) Description 05/07/2018 Ancillary Orders [facility] External Provider Virtual Department [address] [place] [address] Radha Kurtz MD [address] [place] [address] Abnormal mammogram Social History Tobacco Use Types [...] Patient is recalled from a screening mammogram etuyberet84/14/2018 for additional imaging on the left. Magnification [...] unspecified documented in this encounter Care Teams Planning Official Relationship Specialty Start Date End Date Scarlett Baird PA-C 1 [place] [address] PCP - General Family Medicine 05/03/18 07/08/19 Maria Del Rosario Oleary JOAQUIN [address] [place] [address] PCP - General Family Medicine 07/09/19 Carmen Flores, REBEKAH [address], [address] [place] [address] Historical LMR Provider 09/06/17 11/27/21 Priscila Grimm FNP [address], [address] [place] [address] Historical LMR Provider 09/06/17 11/27/21 Veronica Vega MD [address], [address] [place] [address] Historical LMR Provider 09/06/17 11/27/21 Selam Flower MD [address] [place] [address] Historical LMR Provider 09/06/17 2 Pedro Valente MD [address] [place] [address] Historical LMR Provider 09/06/17 2 documented as of this encounter Additional Source Comments The information contained in this document represents components of the legal health record. It is not the complete legal health record.[facility]
--- OUTSIDE RECORDS SUMMARY | 2025-01-10 10:19 | XMS_ITS | Encounter Summary ---
Author Organization [facility] Address [phone] [facility] [place] [address] Care Team Providers Care Customer Solutions Representative Name Role Phone Carmen Flores RECORDS SUPERVISOR Unavailable Priscila Grimm VETERANS CONTACT REPRESENTATIVE Unavailable Veronica Vega MD Unavailable Selam Flower MD Unavailable Pedro Valente MD Unavailable Selam Flower MD Primary Care Provider Scarlett Baird PA-C Primary Care Provider Maria Del Rosario Oleary NP Primary Care Provider + Encounter Details Date Type Department Care Team (Late st Contact Info) Description 04/20/2018 Ancillary Orders [facility],Outside Imaging 30 [place] [address] System, Provider Not In, PhD [address] [address] Social History Tobacco Use Types Packs/Day Years [...] on filedocumented in this encounter Care Teams Customer Solutions Representative Relationship Specialty Start Date End Date Selam Flower MD [address] [place] [address] PCP - General 11/23/17 05/02/18 Scarlett Baird PA-C [address] [place] [address] [email or web address] PCP - General Family Medicine 05/03/18 07/08/19 Maria Del Rosario Oleary, JOAQUIN [address] [place] [address] PCP - General Family Medicine 07/09/19 Carmen Flores CNP 38 [facility] [address], [address] [place] [address] Historical LMR Provider 09/06/17 11/27/21 Priscila Grimm FNP [address], [address] [place] [address] Historical LMR Provider 09/06/17 11/27/21 Veronica Vega MD [address], [address] [place] [address] Historical LMR Provider 09/06/17 11/27/21 Selam Flower MD [address] [place] [address] Historical LMR Provider 09/06/17 2 Pedro Valente MD 41 [place] [address] Historical LMR Provider 09/06/17 2 documented as of this encounter Additional Source Comments The information contained in this document represents components of the legal health record. It is not the complete legal health record.[facility]
--- OUTSIDE RECORDS SUMMARY | 2025-01-10 10:19 | XMS_ITS | Encounter Summary ---
Author Organization [facility] Address [phone] [facility] [place] [address] Care Team Providers Care Manager Inspection Name Role Phone Carmen Flores LITERACY CONSULTANT Unavailable Priscila Grimm SPRING REPAIRER HELPER HAND Unavailable Veronica Vega MD Unavailable Selam Flower MD Unavailable Pedro Valente MD Unavailable Selam Flower MD Primary Care Provider Scarlett Baird PA-C Primary Care Provider Maria Del Rosario Oleary NP Primary Care Provider + Encounter Details Date Type Department Care Team (Late st Contact Info) Description 04/20/2018 Ancillary Orders [facility],Outside Imaging [address] [place] [address] System, Provider Not In, PhD [address] [address] Social History Tobacco Use Types Packs/Day Years [...] on filedocumented in this encounter Care Teams Manager Inspection Relationship Specialty Start Date End Date Selam Flower MD [address] [place] [address] PCP - General 11/23/17 05/02/18 Scarlett Baird PA-C [address] [place] [address] [email or web address] PCP - General Family Medicine 05/03/18 07/08/19 Maria Del Rosario Oleary, JOAQUIN [address] [place] [address] PCP - General Family Medicine 07/09/19 Carmen Flores CNP 38 [facility] [address], [address] [place] [address] Historical LMR Provider 09/06/17 11/27/21 Priscila Grimm FNP [address], [address] [place] [address] Historical LMR Provider 09/06/17 11/27/21 Veronica Vega MD [address], [address] [place] [address] Historical LMR Provider 09/06/17 11/27/21 Selam Flower MD 143 [place] [address] Historical LMR Provider 09/06/17 2 Pedro Valente MD 41 [place] [address] Historical LMR Provider 09/06/17 2 documented as of this encounter Additional Source Comments The information contained in this document represents components of the legal health record. It is not the complete legal health record.[facility]
--- OUTSIDE RECORDS SUMMARY | 2025-01-10 10:19 | XMS_ITS | Encounter Summary ---
Author Organization [facility] Address [phone] [facility] [place] [address] Care Team Providers Care Spooler Operator Name Role Phone Carmen Flores CNP Unavailable Priscila Grimm BIOMASS FACILITATOR Unavailable [phone] Veronica Vega MD Unavailable [phone] Selam Flower MD Unavailable Pedro Valente MD Unavailable [phone] Scarlett Baird PA-C Primary Care Provider Maria Del Rosario Oleary NP Primary Care Provider + Encounter Details Date Type Department Care Team (Late st Contact Info) Description 07/16/2018 Procedure Pass [address] [place] [address] Social History Tobacco Use Types Packs/Day Years [...] on filedocumented in this encounter Care Teams Spooler Operator Relationship Specialty Start Date End Date Scarlett Baird PA-C [address] [place] [address] [email or web address] PCP - General Family Medicine 05/03/18 07/08/19 Maria Del Rosario Oleary, OIL DRILLING ENGINEER [address] [place] [address] PCP - General Family Medicine 07/09/19 Carmen Flores, REBEKAH 38 [facility], [address], [address] [place] [address] Historical LMR Provider 09/06/17 11/27/21 Priscila Grimm FNP 38 [facility], [address], [address] [place] [address] [email or web address] Historical LMR Provider 09/06/17 11/27/21 Veronica Vega MD 38 [facility], [address], [address] [place] [address] Historical LMR Provider 09/06/17 11/27/21 Selam Flower MD [address] [place] [address] Historical LMR Provider 09/06/17 2 Pedro Valente MD [address] [place] [address] Historical LMR Provider 09/06/17 2 documented as of this encounter Additional Source Comments The information contained in this document represents components of the legal health record. It is not the complete legal health record.[facility]
--- OUTSIDE RECORDS SUMMARY | 2025-01-10 10:20 | XMS_ITS | Encounter Summary ---
Author Organization [facility] Address [address] [facility] [address] [place] [address] Phone Care Team Providers Care Bullet Maker Name Role Phone Maria Del Rosario Oleary DNP Primary Care Provider [phone] Reason for Visit * Reason Comments Med Refill Encounter Details Date Type Department Care Team (Late st Contact Info) Description 03/31/2023 Refill [facility] [address] [place] [address] Amauri Vasquez MD Social History [...] on filedocumented in this encounter Care Teams Bullet Maker Relationship Specialty Start Date End Date Maria Del Rosario Oleary DNP 821 [facility] 3 [place] [address] PCP - General Nurse Practitioner 07/18/22 documented as of this encounter
--- OUTSIDE RECORDS SUMMARY | 2025-01-10 10:20 | XMS_ITS | Encounter Summary ---
Author Organization [facility] Address [phone] [place] [address] Care Team Providers Care Clinic Licensed Practical Nurse Name Role Phone Carmen Flores FOREIGN DIPLOMAT Unavailable Alfa Priscila Maricarmen PROCESS COORDINATOR Unavailable Veronica Vega MD Unavailable Selam Flower MD Unavailable Pedro Valente MD Unavailable Pcp, Unknown Primary Care Provider Unavailabl e Pcp, Unknown Primary Care Provider Unavailabl e Selam Flower MD Primary Care Provider Scarlett Baird PA-C Primary Care Provider Maria Del Rosario Oleary NP Primary Care Provider + Encounter Details Date Type Department Care Team (Late st Contact Info) Description 10/02/2017 Ancillary Orders [facility], X-Ray - [address] [place] [address] Kassandra Laura PAMaheshC [address] [facility], [address] [place] [address] [email or web address] Pain Social History Tobacco Use Types Packs/Day [...] EST No evidence of fractures. POS - [id number] Narrative 10/02/2017 2:43 PM EST HISTORY: ??Lateral [...] IMPRESSION: No evidence of fractures. POS - [id number] Kassandra Laura PA-C IMG XR LOWER EXTREMI TY * XR Tibia Fibula 2 Views (Left) (10/02/2017 2:24 PM EST) Anatomical Region Laterality Modality Leg Left Radiographic Zelda ging 10/02/2017 2:43 PM EST Impressions 10/02/2017 2:45 PM EST No evidence of fractures. POS - [id number] Narrative 10/02/2017 2:45 PM EST HISTORY: ??Bilateral [...] IMPRESSION: No evidence of fractures. POS - [id number] Kassandra Laura PA-C IMG XR LOWER EXTREMI TY documented in this encounter Visit Diagnoses Diagnosis Pain Generalized pain Pain Generalized pain Pain Generalized pain documented in this encounter Care Teams Clinic Licensed Practical Nurse Relationship Specialty Start Date End Date Pcp, Unknown PCP - General 02/18/11 10/17/17 Pcp, Unknown PCP - General 10/18/17 11/22/17 Selam Flower MD [address] [place] [address] PCP - General 11/23/17 05/02/18 Scarlett Baird PA-C [address] [place] [address] [email or web address] PCP - General Family Medicine 05/03/18 07/08/19 Maria Del Rosario Oleary, JOAQUIN [address] [place] [address] PCP - General Family Medicine 07/09/19 Carmen Flores, REBEKAH 38 [facility] [address], [address] [place] [address] [email or web address] Historical LMR Provider 09/06/17 11/27/21 Priscila Grimm FNP [address], [address] [place] [address] Historical LMR Provider 09/06/17 11/27/21 Veronica Vega MD 38 [facility]. [address], [address] [place] [address] [email or web address] Historical LMR Provider 09/06/17 11/27/21 Selam Flower MD [address] [place] [address] Historical LMR Provider 09/06/17 2 Pedro Valente MD [address] [place] [address] Historical LMR Provider 09/06/17 2 documented as of this encounter Additional Source Comments The information contained in this document represents components of the legal health record. It is not the complete legal health record.[facility]
--- OUTSIDE RECORDS SUMMARY | 2025-01-10 10:20 | XMS_ITS | Encounter Summary ---
Author Organization [facility] Address [phone] [facility]ly [facility] [place] [address] Care Team Providers Care Shoe Singer Name Role Phone Carmen Flores SHRIMP TRAWLER Unavailable Alfa Priscila Maricarmen PULP PRESS TENDER Unavailable Veronica Vega MD Unavailable Selam Flower MD Unavailable Pedro Valente MD Unavailable Selam Flower MD Primary Care Provider Scarlett Baird PA-C Primary Care Provider Maria Del Rosario Oleary NP Primary Care Provider + Encounter Details Date Type Department Care Team (Late st Contact Info) Description 04/12/2018 Ancillary Orders Virtual Department 30 [place] [address] Scarlett Baird PA-C [address] [place] [address] [email or web address] Breast screening Social History Tobacco Use Types [...] unspecified documented in this encounter Care Teams Shoe Singer Relationship Specialty Start Date End Date Selam Flower MD [address] [place] [address] PCP - General 11/23/17 05/02/18 Scarlett Baird PA-C [address] [place] [address] PCP - General Family Medicine 05/03/18 07/08/19 Maria Del Rosario Oleary NP [address] [place] [address] PCP - General Family Medicine 07/09/19 Carmen Flores CNP [address], [address] [place] [address] Historical LMR Provider 09/06/17 11/27/21 Priscila Grimm FNP [address], [address] [place] [address] Historical LMR Provider 09/06/17 11/27/21 Veronica Vega MD [address], [address] [place] [address] Historical LMR Provider 09/06/17 11/27/21 Selam Flower MD 143 [place] [address] Historical LMR Provider 09/06/17 2 Pedro Valente MD 41 [place] [address] Historical LMR Provider 09/06/17 2 documented as of this encounter Additional Source Comments The information contained in this document represents components of the legal health record. It is not the complete legal health record.[facility]
--- OUTSIDE RECORDS SUMMARY | 2025-01-10 10:20 | XMS_ITS | Encounter Summary ---
Author Organization [facility] Address [phone] [facility] [place] [address] Care Team Providers Care Conveyor Tender Name Role Phone Carmen Flores SELLING MANAGER Unavailable Priscila Grimm RETAIL ACCOUNT REPRESENTATIVE Unavailable Veronica Vega MD Unavailable Selam Flower MD Unavailable [phone] Pedro Valente MD Unavailable Selam Flower MD Primary Care Provider Scarlett Baird PA-C Primary Care Provider [phone] Maria Del Rosario Oleary NP Primary Care Provider + Encounter Details Date Type Department Care Team (Late st Contact Info) Description 04/20/2018 Ancillary Orders [facility],Outside Imaging 30 [place] [address] System, Provider Not In, PhD [address] [address] Social History Tobacco Use Types Packs/Day Years [...] on filedocumented in this encounter Care Teams Conveyor Tender Relationship Specialty Start Date End Date Selam Flower MD [address] [place] [address] PCP - General 11/23/17 05/02/18 Scarlett Baird PA-C [address] [place] [address] [email or web address] PCP - General Family Medicine 05/03/18 07/08/19 Maria Del Rosario Oleary, JOAQUIN [address] [place] [address] PCP - General Family Medicine 07/09/19 Carmen Flores CNP 38 [facility] [address], [address] [place] [address] Historical LMR Provider 09/06/17 11/27/21 Priscila Grimm FNP [address], [address] [place] [address] Historical LMR Provider 09/06/17 11/27/21 Veronica Vega MD [address], [address] [place] [address] Historical LMR Provider 09/06/17 11/27/21 Selam Flower MD 143 [place] [address] Historical LMR Provider 09/06/17 2 Pedro Valente MD 41 [place] [address] Historical LMR Provider 09/06/17 2 documented as of this encounter Additional Source Comments The information contained in this document represents components of the legal health record. It is not the complete legal health record.[facility]
--- OUTSIDE RECORDS SUMMARY | 2025-01-10 10:20 | XMS_ITS | Encounter Summary ---
Author Organization [facility] Address [phone] [facility] [place] [address] Care Team Providers Care Automotive Power Electronics Engineer Name Role Phone Carmen Flores CLINICAL LABORATORY AIDE Unavailable Priscila Grimm PLANT SCIENCES PROFESSOR Unavailable Veronica Vega MD Unavailable Selam Flower MD Unavailable [phone] Pedro Valente MD Unavailable Pcp, Unknown Primary Care Provider Unavailabl e Selam Flower MD Primary Care Provider Scarlett Baird PA-C Primary Care Provider Maria Del Rosario Oleary NP Primary Care Provider + Encounter Details Date Type Department Care Team (Late st Contact Info) Description 10/18/2017 Procedure Pass [address] [place] [address] Social History Tobacco Use Types Packs/Day Years [...] - Inhaled Oxygen Concentration - - Weight 74.8 kg (165 lb) 10/19/2017 1:12 PM EST Height 170.2 cm (5' 7 ) 10/19/2017 1:12 PM EST Body Mass Index 25.84 10/19/2017 1:12 PM EST documented in this encounter Plan of Treatment Not on file documented as of this encounter Visit Diagnoses Not on filedocumented in this encounter Care Teams Automotive Power Electronics Engineer Relationship Specialty Start Date End Date Pcp, Unknown PCP - General 10/18/17 11/22/17 Selam Flower MD [address] [place] [address] PCP - General 11/23/17 05/02/18 Scarlett Baird PA-C [address] [place] [address] [email or web address] PCP - General Family Medicine 05/03/18 07/08/19 Maria Del Rosario Oleary NP [address] [place] [address] PCP - General Family Medicine 07/09/19 Carmen Flores CNP 38 [facility] [address], [address] [place] [address] [email or web address] Historical LMR Provider 09/06/17 11/27/21 Priscila Grimm FNP [address], [address] [place] [address] Historical LMR Provider 09/06/17 11/27/21 Veronica Vega MD [address], [address] [place] [address] [email or web address] Historical LMR Provider 09/06/17 11/27/21 Selam Flower MD [address] [place] [address] Historical LMR Provider 09/06/17 2 Pedro Valente MD [address] [place] [address] Historical LMR Provider 09/06/17 2 documented as of this encounter Additional Source Comments The information contained in this document represents components of the legal health record. It is not the complete legal health record.[facility]
--- OUTSIDE RECORDS SUMMARY | 2025-01-10 10:20 | XMS_ITS | Clinical Summary ---
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 at [facility] Generalized anxiety disorder 02/05/2014 07/18/2022 Primary insomnia [...] Sigmoidoscopy 2018 Influenza Vaccine (#1) 2024 Insurance [facility] Member Subscriber Plan / Payer (Ef fective 2018-Present) Name:Monika Corcoran Relation to Subscriber:Self Name:Monika Corcoran Payer ID:Not on file Type:Not on file Address: [address] [id number] MEDICAID [place] [facility] Member Subscriber Plan / Payer (Ef fective 2018-Present) Name:Monika Corcoran Relation to Subscriber:Self Name:Monika Corcoran Payer ID:Not on file Type:Not on file Address: [address] [id number] MEDICAID [place] Care Teams Bonding Molder Relationship Specialty Start Date End Date Maria Del Rosario Oleary DNP [address] [place] [address], [address] [address] PCP - General Nurse Practitioner 07/18/22
--- OUTSIDE RECORDS SUMMARY | 2025-01-10 10:20 | XMS_ITS | Encounter Summary ---
Author Organization [facility] Address [phone] [facility] [place] [address] Care Team Providers Care Oil Distributor Name Role Phone Carmen Flores BEAM RACKER Unavailable [phone] Priscila Grimm YARN REWINDER Unavailable [phone] Veronica Vega MD Unavailable Selam Flwoer MD Unavailable Pedro Valente MD Unavailable Selam Flower MD Primary Care Provider Scarlett Baird PA-C Primary Care Provider [phone] Maria Del Rosario Oleary NP Primary Care Provider + Encounter Details Date Type Department Care Team (Late st Contact Info) Description 04/20/2018 Ancillary Orders [facility],Outside Imaging [address] [place] [address] System, Provider Not In, PhD [address] [address] Social History Tobacco Use Types Packs/Day Years [...] on filedocumented in this encounter Care Teams Oil Distributor Relationship Specialty Start Date End Date Selam Flower MD [address] [place] [address] PCP - General 11/23/17 05/02/18 Scarlett Baird PA-C [address] [place] [address] [email or web address] PCP - General Family Medicine 05/03/18 07/08/19 Maria Del Rosario Oleary, JOAQUIN [address] [place] [address] PCP - General Family Medicine 07/09/19 Carmen Flores CNP 38 [facility]., [address], [address] [place] [address] Historical LMR Provider 09/06/17 11/27/21 Priscila Grimm FNP [address], [address] [place] [address] Historical LMR Provider 09/06/17 11/27/21 Veronica Vega MD [address], [address] [place] [address] Historical LMR Provider 09/06/17 11/27/21 Selam Flower MD [address] [place] [address] Historical LMR Provider 09/06/17 2 Pedro Valente MD 41 [place] [address] Historical LMR Provider 09/06/17 2 documented as of this encounter Additional Source Comments The information contained in this document represents components of the legal health record. It is not the complete legal health record.[facility]
--- OUTSIDE RECORDS SUMMARY | 2025-01-10 10:20 | XMS_ITS | Encounter Summary ---
Author Organization [facility] Address [phone] Critical [place] [address] Care Team Providers Care Report Specialist Name Role Phone Carmen Flores GOLDSMITH APPRENTICE Unavailable Priscila Grimm COUNTERPERSON Unavailable [phone] Veronica Vega MD Unavailable Selam Flower MD Unavailable [phone] Pedro Valente MD Unavailable Selam Flower MD Primary Care Provider Scarlett Baird PA-C Primary Care Provider Maria Del Rosario Oleary NP Primary Care Provider + Encounter Details Date Type Department Care Team (Late st Contact Info) Description 04/20/2018 Ancillary Orders [facility],Outside Imaging 30 [place] [address] System, Provider Not In, PhD [address] [address] Social History Tobacco Use Types Packs/Day Years [...] on filedocumented in this encounter Care Teams Report Specialist Relationship Specialty Start Date End Date Selam Flower MD [address] [place] [address] PCP - General 11/23/17 05/02/18 Scarlett Baird PA-C [address] [place] [address] [email or web address] PCP - General Family Medicine 05/03/18 07/08/19 Maria Del Rosario Oleary, JOAQUIN [address] [place] [address] PCP - General Family Medicine 07/09/19 Carmen Flores CNP 38 [facility]., [address], [address] [place] [address] Historical LMR Provider 09/06/17 11/27/21 Priscila Grimm FNP [address], [address] [place] [address] Historical LMR Provider 09/06/17 11/27/21 Veronica Veag MD [address], [address] [place] [address] Historical LMR Provider 09/06/17 11/27/21 Selam Flower MD [address] [place] [address] Historical LMR Provider 09/06/17 2 Pedro [place]ente MD 41 [place] [address] Historical LMR Provider 09/06/17 2 documented as of this encounter Additional Source Comments The information contained in this document represents components of the legal health record. It is not the complete legal health record.[facility]
--- OUTSIDE RECORDS SUMMARY | 2025-01-10 10:20 | XMS_ITS | Encounter Summary ---
Author Organization [facility] Address [phone] [facility] [place] [address] Care Team Providers Care Glass Cutter Hand Name Role Phone Carmen Flores FIELD SOFTWARE ENGINEER Unavailable AlfaPriscila Maricarmen SCREEN PRINTING PASTER Unavailable Veronica Vega MD Unavailable Selam Flower [...] MRI Ankle (Left) Saurav Shahid MD [address] [place] [address] Email: [email or web address] Referral ID Status Reason Start Date Expiration Date Visits Re quested Visits Authorized [id number] Closed 10/18/2017 12/17/2017 1 1 Encounter Details Date Type Department Care Team (Late st Contact Info) Description 10/18/2017 Ancillary Orders Virtual Department 30 [place] [address] Saurav Shahid MD [address] [place] [id number] [email or web address] Social History Tobacco [...] No other regional disruptions identified. POS - [id number] Edited by: Sylwia Michael on 10/24/2017 2:14 [...] No other regional disruptions identified. POS - [id number] Edited by: Sylwia Michael on 10/24/2017 2:14 PM Saurav Shahid MD IMG MR DEN Y documented in this encounter Visit Diagnoses Diagnosis Acute left ankle pain Acute left ankle pain documented in this encounter Care Teams Glass Cutter Hand Relationship Specialty Start Date End Date Pcp, Unknown PCP - General 10/18/17 11/22/17 Selam Flower MD [address] [place] [address] PCP - General 11/23/17 05/02/18 Scarlett Baird PA-C [address] [place] [address] PCP - General Family Medicine 05/03/18 07/08/19 Maria Del Rosario Oleary, JOAQUIN [address] [place] [address] PCP - General Family Medicine 07/09/19 Carmen Flores, REBEKAH [address], [address] [place] [address] Historical LMR Provider 09/06/17 11/27/21 Priscila Grimm FNP [address], [address] [place] [address] Historical LMR Provider 09/06/17 11/27/21 Veronica Vega MD [address], [address] [place] [address] Historical LMR Provider 09/06/17 11/27/21 Selam Flower MD [address] [place] [address] Historical LMR Provider 09/06/17 2 Pedro [place] MD [address] [place] [address] Historical LMR Provider 09/06/17 2 documented as of this encounter Additional Source Comments The information contained in this document represents components of the legal health record. It is not the complete legal health record.[facility]
== END 2025-01-10 10:24 | disposition home or self-care (01) ==
PROVIDERS: PCP Registered Nurse; Visit Provider Internal Medicine Nephrology
DX: R60.0 Localized edema (principal); N20.0 Calculus of kidney; R80.8 Other proteinuria
CPT/HCPCS: 99214

== ENCOUNTER 2025-01-10 10:42 | Outpatient (REF) | payer OTHER, MEDICAID, SELFPAY ==
--- OUTSIDE RECORDS SUMMARY | 2025-01-10 11:45 | XMS_ITS | Encounter Summary ---
Author Organization [facility] Address [phone] [facility] [place] [address] Care Team Providers Care Double Cutter Name Role Phone Carmen Flores CNP Unavailable Priscila Grimm Unavailable [phone] Veronica Vega MD Unavailable Selam Flower MD Unavailable [phone] Pedro Valente MD Unavailable [phone] Maria Del Rosario Oleary NP Primary Care Provider + Encounter Details Date Type Department Care Team (Late st Contact Info) Description 08/26/2019 Procedure Pass OR Admitting Dept - [facility] Department [address] [place] [address] Social History Tobacco Use Types Packs/Day Years [...] on filedocumented in this encounter Care Teams Double Cutter Relationship Specialty Start Date End Date Maria Del Rosario Oleary, JOAQUIN [address] [place] [address] PCP - General Family Medicine 07/09/19 Carmen Flores CNP 38 [facility], [address], [address] [place] [address] [email or web address] Historical LMR Provider 09/06/17 11/27/21 Priscila Grimm FNP 38 [facility], [address], [address] [place] [address] [email or web address] Historical LMR Provider 09/06/17 11/27/21 Veronica Vega MD 38 [facility] [address], [address] [place] [address] Historical LMR Provider 09/06/17 11/27/21 Selam Flower MD [address] [place] [address] Historical LMR Provider 09/06/17 2 Pedro [place] MD [address] [place] [address] Historical LMR Provider 09/06/17 2 documented as of this encounter Additional Source Comments The information contained in this document represents components of the legal health record. It is not the complete legal health record.[facility]
--- OUTSIDE RECORDS SUMMARY | 2025-01-10 11:45 | XMS_ITS | Encounter Summary ---
Author Organization [facility] Address [phone] [facility] [place] [address] Care Team Providers Care Application Architect Manager Name Role Phone Pcp, Unknown Primary Care Provider Unavailabl e Encounter Details Date Type Department Care Team (Late st Contact Info) Description 03/15/2012 Hospital Encounter [facility],Outside Imaging 30 [place], [place] [phone] System, Provider Not In, PhD [address] [address] Unknown, Unknown, Social History Tobacco Use Types [...] on filedocumented in this encounter Care Teams Application Architect Manager Relationship Specialty Start Date End Date Pcp, Unknown PCP - General 02/18/11 10/17/17 documented as of this encounter Additional Source Comments The information contained in this document represents components of the legal health record. It is not the complete legal health record.[facility]
--- OUTSIDE RECORDS SUMMARY | 2025-01-10 11:45 | XMS_ITS | Encounter Summary ---
Author Organization [facility] Address [phone] [facility] [place] [address] Care Team Providers Care Carnallite Plant Operator Name Role Phone Unavailable Primary Care Provider Unavailabl e Encounter Details Date Type Department Care Team (Late st Contact Info) Description 03/09/2010 Hospital Encounter [facility],Outside Imaging 30 [place], [place] [phone] System, Provider [place] In, [place] [address] Social History Tobacco Use Types Packs/Day Years [...] is not the complete legal health record.[facility]
--- OUTSIDE RECORDS SUMMARY | 2025-01-10 11:45 | XMS_ITS | Encounter Summary ---
Author Organization [facility] Address [phone] Critical [place] [address] Care Team Providers Care Food Supervisor Name Role Phone Pcp, Unknown Primary Care Provider Unavailabl e Encounter Details Date Type Department Care Team (Late st Contact Info) Description 03/14/2011 Hospital Encounter [facility],Outside Imaging 30 [place], [place] [address] System, Provider Not In, PhD [address] [address] Unknown, Unknown, Social History Tobacco Use Types [...] on filedocumented in this encounter Care Teams Food Supervisor Relationship Specialty Start Date End Date Pcp, Unknown PCP - General 02/18/11 10/17/17 documented as of this encounter Additional Source Comments The information contained in this document represents components of the legal health record. It is not the complete legal health record.[facility]
--- OUTSIDE RECORDS SUMMARY | 2025-01-10 11:45 | XMS_ITS | Encounter Summary ---
Author Organization [facility] Address [phone] [facility] [place] [address] Care Team Providers Care Certified Professional Midwife Name Role Phone Pcp, Unknown Primary Care Provider Unavailabl e Encounter Details Date Type Department Care Team (Late st Contact Info) Description 03/19/2013 Hospital Encounter [facility],Outside Imaging 30 [place], [place] [phone] System, Provider [place] In, [place] [address] Social History Tobacco Use Types Packs/Day Years [...] on filedocumented in this encounter Care Teams Certified Professional Midwife Relationship Specialty Start Date End Date Pcp, Unknown PCP - General 02/18/11 10/17/17 documented as of this encounter Additional Source Comments The information contained in this document represents components of the legal health record. It is not the complete legal health record.[facility]
--- OUTSIDE RECORDS SUMMARY | 2025-01-10 11:45 | XMS_ITS | Encounter Summary ---
Author Organization [facility] Address [phone] [facility] [place] [address] Care Team Providers Care Department Head College Or University Name Role Phone Pcp, Unknown Primary Care Provider Unavailabl e Encounter Details Date Type Department Care Team (Late st Contact Info) Description 03/16/2011 Hospital Encounter [facility],Outside Imaging 30 [place], [place] [phone] System, Provider Not In, PhD [address] [address] Unknown, Unknown, Social History Tobacco Use Types [...] on filedocumented in this encounter Care Teams Department Head College Or University Relationship Specialty Start Date End Date Pcp, Unknown PCP - General 02/18/11 10/17/17 documented as of this encounter Additional Source Comments The information contained in this document represents components of the legal health record. It is not the complete legal health record.[facility]
--- OUTSIDE RECORDS SUMMARY | 2025-01-10 11:46 | XMS_ITS | Encounter Summary ---
Author Organization [facility] Address [phone] [facility] [place] [address] Care Team Providers Care Lining Parts Sewer Name Role Phone Carmen Flores CNP Unavailable Priscila Grimm CASTER HELPER Unavailable [phone] Veronica Vega MD Unavailable Selam Flower MD Unavailable Pedro Valente MD Unavailable [phone] Scarlett Baird PA-C Primary Care Provider [phone] Maria Del Rosario Oleary NP Primary Care Provider + Reason for Referral * MRI/CAT Scan - Closed Specialty Diagnoses / Procedures [facility]erred To Contact Radiology Diagnoses Dizziness Abnormal head movements Paresthesia of skin Procedures MRI Brain Scarlett Baird PA-C [address] [place] [address] Email: [email or web address] Referral ID Status Reason Start Date Expiration Date Visits Re quested Visits Authorized [id number] Closed 08/09/2018 10/08/2018 1 1 Encounter Details Date Type Department Care Team (Late st Contact Info) Description 08/09/2018 Ancillary Orders Virtual Department [address] [place] [address] Scarlett Baird PA-C 1 [place] [address] [email or web address] Dizziness; Abnormal head movements; Paresthesia of skin [...] to account for the patient's symptoms. POS [id number] Narrative 08/21/2018 9:49 AM EDT COMPARISON: 12/10/2015. [...] mm right frontal parietal lobe white matter [id number] lesion which is of doubtful significance. No new lesions.No abnormal enhancement. No hydrocephalus. Normal vascular flow- voids.Orbits are normal. Mastoids and paranasal sinuses are clear. Soft tissueand bone marrow are within normal limits. IMPRESSION: No findings to account for the patient's symptoms. POS [id number] Scarlett Baird PA-C IMG MR HEAD/NECK documented in this encounter Visit Diagnoses Diagnosis Dizziness Dizziness and giddiness Abnormal head movements Paresthesia of skin Dizziness Dizziness and giddiness Abnormal head movements Paresthesia of skin documented in this encounter Care Teams Lining Parts Sewer Relationship Specialty Start Date End Date Scarlett Baird PA-C [address] [place] [address] [email or web address] PCP - General Family Medicine 05/03/18 07/08/19 Maria Del Rosario Oleary NP [address] [place] [address] PCP - General Family Medicine 07/09/19 Carmen Flores CNP [address] [place] [address] 204, [address] [place] [address] [email or web address] Historical LMR Provider 09/06/17 11/27/21 Priscila Grimm FNP 38 [facility] [address], [address] [place] [address] [email or web address] Historical LMR Provider 09/06/17 11/27/21 Veronica Vega MD 38 [facility] [address], [address] [place] [address] [email or web address] Historical LMR Provider 09/06/17 11/27/21 Selam Flower MD [address] [place] [address] Historical LMR Provider 09/06/17 2 Pedro Valente MD [address] [place] [address] Historical LMR Provider 09/06/17 2 documented as of this encounter Additional Source Comments The information contained in this document represents components of the legal health record. It is not the complete legal health record.[facility]
--- OUTSIDE RECORDS SUMMARY | 2025-01-10 11:46 | XMS_ITS | Encounter Summary ---
Author Organization [facility] Address [phone] [facility] [place] [address] Care Team Providers Care Butt Welder Name Role Phone Carmen Flores CNP Unavailable Priscila Grimm PROGRAM REVIEW DIRECTOR Unavailable [phone] Veronica Vega MD Unavailable [phone] Selam Flower MD Unavailable [phone] Pedro Valente MD Unavailable [phone] Scarlett Baird PA-C Primary Care Provider Maria Del Rosario Oleray NP Primary Care Provider + Encounter Details Date Type Department Care Team (Late st Contact Info) Description 08/09/2018 Procedure Pass [address] [place] [address] Social History Tobacco Use Types Packs/Day Years [...] on filedocumented in this encounter Care Teams Butt Welder Relationship Specialty Start Date End Date Scarlett Baird PA-C [address] [place] [address] [email or web address] PCP - General Family Medicine 05/03/18 07/08/19 Maria Del Rosario Oleary, FILLING AND STAPLING MACHINE OPERATOR [address] [place] [address] PCP - General Family Medicine 07/09/19 Carmen Flores, REBEKAH 38 [facility], [address], [address] [place] [address] Historical LMR Provider 09/06/17 11/27/21 Priscila Grimm FNP 38 [facility], [address], [address] [place] [address] [email or web address] Historical LMR Provider 09/06/17 11/27/21 Veronica Vega MD 38 [facility], [address], [address] [place] [address] Historical LMR Provider 09/06/17 11/27/21 Selam Flower MD [address] [place] [address] Historical LMR Provider 09/06/17 2 Pedro Valente MD [address] [place] [address] Historical LMR Provider 09/06/17 2 documented as of this encounter Additional Source Comments The information contained in this document represents components of the legal health record. It is not the complete legal health record.[facility]
--- OUTSIDE RECORDS SUMMARY | 2025-01-10 11:46 | XMS_ITS | Encounter Summary ---
Author Organization [facility] Address [phone] [facility] [place] [address] Care Team Providers Care Paving Crew Foreman Name Role Phone Carmen Flores CNP Unavailable [employer] Priscila Maricarmen SUPPLEMENTAL NURSE Unavailable Veronica Vega MD Unavailable Selam Flower MD Unavailable Pedro Valente MD Unavailable Scarlett Baird PA-C Primary Care Provider Maria Del Rosario Oleary NP Primary Care Provider + Encounter Details Date Type Department Care Team (Late st Contact Info) Description 06/10/2019 Ancillary Orders [facility], X-Ray - [address] [place] [address] Maria Del Rosario Oleary NP [address] [place] [address] Right knee pain, unspecified chronicity Social History [...] ??Mild osteoarthritis and postoperative changes. POS - [id number] Narrative 06/10/2019 5:18 PM EDT HISTORY: ??As [...] COMPARISON: MRI right knee 07/26/2018. Right knee [id number]/04/2013. RIGHT KNEE RADIOGRAPH FINDINGS: Four views obtained including weightbearing. There is a new anteriormedial femoral condyle hardware. No evidence of loosening. No fractureor malalignment. Mild medial compartment joint space narrowing andspurring. No bone lesions. Moderate size suprapatellar joint effusion.No soft tissue gas. IMPRESSION: 1. Moderate size joint effusion. 2. Mild osteoarthritis and postoperative changes. POS - [id number] Maria Del Rosario Oleary REPORT DEVELOPER IMG XR LOWER EXT REMITY documented in this encounter Visit Diagnoses Diagnosis Right knee pain, unspecified chronicity Right knee pain, unspecified chronicity documented in this encounter Care Teams Paving Crew Foreman Relationship Specialty Start Date End Date Scarlett Baird PA-C [address] [place] [address] [email or web address] PCP - General Family Medicine 05/03/18 07/08/19 Maria Del Rosario Oleary, JOAQUIN [address] [place] [address] PCP - General Family Medicine 07/09/19 Carmen Flores, REBEKAH 38 [facility], [address], [address] [place] [address] [email or web address] Historical LMR Provider 09/06/17 11/27/21 Priscila Grimm FNP 38 [facility] [address], [address] [place] [address] [email or web address] Historical LMR Provider 09/06/17 11/27/21 Veronica Vega MD 38 [facility] [address], [address] [place] [address] Historical LMR Provider 09/06/17 11/27/21 Selam Flower MD [address] [place] [address] Historical LMR Provider 09/06/17 2 Pedro Valente MD [address] [place] [address] Historical LMR Provider 09/06/17 2 documented as of this encounter Additional Source Comments The information contained in this document represents components of the legal health record. It is not the complete legal health record.[facility]
--- OUTSIDE RECORDS SUMMARY | 2025-01-10 11:46 | XMS_ITS | Encounter Summary ---
Author Organization [facility] Address [phone] [facility] [employer] [place] [address] Care Team Providers Care Escrow Closer Name Role Phone Maria Del Rosario Oleary GAUGE INSPECTOR Primary Care Provider + Encounter Details Date Type Department Care Team (Late st Contact Info) Description 11/22/2023 Transcribe Orders Virtual Department 30 [place] [address] Maria Del Rosario Oleary NP [address] [place], [place] [id number] Right knee pain, unspecified chronicity (Primary Dx) [...] clinician's provided indication for this examination in [facility]: Outside Radiology Order; RIGHT KNEE PAIN [...] clinician's provided indication for this examination in [facility]:Outside Radiology Order; RIGHT KNEE PAIN COMPARISON: [...] patellofemoral component dysfunction. Maria Del Rosario Oleary GAUGE INSPECTOR IMG XR LOWER EXT REMITY documented in this encounter Visit Diagnoses Diagnosis Right knee pain, unspecified chronicity- Primary Right knee pain, unspecified chronicity documented in this encounter Care Teams Escrow Closer Relationship Specialty Start Date End Date Maria Del Rosario Oleary NP [address] [place] [address] PCP - General Family Medicine 07/09/19 documented as of this encounter Additional Source Comments The information contained in this document represents components of the legal health record. It is not the complete legal health record.[facility]
--- OUTSIDE RECORDS SUMMARY | 2025-01-10 11:46 | XMS_ITS | Encounter Summary ---
Author Organization [facility] Address [phone] Pending sale to [place] [address] Care Team Providers Care Health Type Technician Name Role Phone Carmen Flores CNP Unavailable [phone] Priscila GrimmP Unavailable [phone] Veronica Vega MD Unavailable Selam Flower MD Unavailable Pedro Valente MD Unavailable [phone] Maria Del Rosario Oleary NP Primary Care Provider + Encounter Details Date Type Department Care Team (Late st Contact Info) Description 11/05/2020 Procedure Pass [address] [place] [address] Social History Tobacco Use Types Packs/Day Years [...] on filedocumented in this encounter Care Teams Health Type Technician Relationship Specialty Start Date End Date Maria Del Rosario Oleary, ROOM SERVICE WAITER [address] [place] [address] PCP - General Family Medicine 07/09/19 Carmen Flores, PICTURE ENGRAVER 38 [facility] [address], [address] [place] [address] Historical LMR Provider 09/06/17 11/27/21 Priscila Grimm FNP 38 [facility], [address], [address] [place] [address] Historical LMR Provider 09/06/17 11/27/21 Veronica Vega MD 38 [facility], [address], [address] [place] [address] Historical LMR Provider 09/06/17 11/27/21 Selam Flower MD [address] [place] [address] Historical LMR Provider 09/06/17 2 Pedro Valente MD [address] [place] [address] Historical LMR Provider 09/06/17 2 documented as of this encounter Additional Source Comments The information contained in this document represents components of the legal health record. It is not the complete legal health record.[facility]
--- OUTSIDE RECORDS SUMMARY | 2025-01-10 11:47 | XMS_ITS | Encounter Summary ---
Author Organization [facility] Address [phone] Formerly [facility] [place] [address] Care Team Providers Care Drying Machine Receiver Name Role Phone Carmen Flores CNP Unavailable [phone] Priscila Grimm PROTOZOOLOGIST Unavailable [phone] Veronica Vega MD Unavailable [phone] Selam Flower MD Unavailable Pedro Valente MD Unavailable [phone] Scarlett Baird PA-C Primary Care Provider Maria Del Rosario Oleary NP Primary Care Provider + Encounter Details Date Type Department Care Team (Late st Contact Info) Description 07/16/2018 Procedure Pass [address] [place] [address] Social History Tobacco Use Types Packs/Day Years [...] on filedocumented in this encounter Care Teams Drying Machine Receiver Relationship Specialty Start Date End Date Scarlett Baird PA-C [address] [place] [address] [email or web address] PCP - General Family Medicine 05/03/18 07/08/19 Maria Del Rosario Oleary, PARTS PRODUCT ANALYST [address] [place] [address] PCP - General Family Medicine 07/09/19 Carmen Flores, REBEKAH 38 [facility], [address], [address] [place] [address] Historical LMR Provider 09/06/17 11/27/21 Priscila Grimm FNP 38 [facility], [address], [address] [place] [address] [email or web address] Historical LMR Provider 09/06/17 11/27/21 Veronica Vega MD 38 [facility], [address], [address] [place] [address] Historical LMR Provider 09/06/17 11/27/21 Selam Flower MD [address] [place] [address] Historical LMR Provider 09/06/17 2 Pedro Valente MD [address] [place] [address] Historical LMR Provider 09/06/17 2 documented as of this encounter Additional Source Comments The information contained in this document represents components of the legal health record. It is not the complete legal health record.[facility]
--- OUTSIDE RECORDS SUMMARY | 2025-01-10 11:47 | XMS_ITS | Encounter Summary ---
Author Organization [facility] Address [phone] [facility] [place] [place] [address] Care Team Providers Care Circus Laborer Name Role Phone Carmen Flores RATING EXAMINER Unavailable Priscila Grimm VACUUM PAN TENDER Unavailable Veronica Vega MD Unavailable Selam Flower MD Unavailable [phone] Pedro Valente MD Unavailable Selam Flower MD Primary Care Provider Scarlett Baird PA-C Primary Care Provider Maria Del Rosario Oleary NP Primary Care Provider + Encounter Details Date Type Department Care Team (Late st Contact Info) Description 04/20/2018 Ancillary Orders [facility],Outside Imaging 30 [place] [address] System, Provider Not In, PhD [address] [address] Social History Tobacco Use Types Packs/Day Years [...] on filedocumented in this encounter Care Teams Circus Laborer Relationship Specialty Start Date End Date Selam Flower MD [address] [place] [address] PCP - General 11/23/17 05/02/18 Scarlett Baird PA-C [address] [place] [address] [email or web address] PCP - General Family Medicine 05/03/18 07/08/19 Maria Del Rosario Oleary, JOAQUIN [address] [place] [address] PCP - General Family Medicine 07/09/19 Carmen Flores CNP 38 [facility]., [address], [address] [place] [address] Historical LMR Provider 09/06/17 11/27/21 Priscila Grimm FNP [address], [address] [place] [address] Historical LMR Provider 09/06/17 11/27/21 Veronica Vega MD [address], [address] [place] [address] Historical LMR Provider 09/06/17 11/27/21 Selam Flower MD [address] [place] [address] Historical LMR Provider 09/06/17 2 Pedro Valente MD [address] [place] [address] Historical LMR Provider 09/06/17 2 documented as of this encounter Additional Source Comments The information contained in this document represents components of the legal health record. It is not the complete legal health record.[facility]
--- OUTSIDE RECORDS SUMMARY | 2025-01-10 11:47 | XMS_ITS | Encounter Summary ---
Author Organization [facility] Address [phone] [facility] [place] [address] Care Team Providers Care Leasing Associate Name Role Phone Carmen Flores GROUP SALES REPRESENTATIVE Unavailable Alaf Priscila Maricarmen CLIENT ONBOARDING ANALYST Unavailable Veronica Vega MD Unavailable Selam Flower MD Unavailable Pedro Valente MD Unavailable Selam Flower MD Primary Care Provider Scarlett Baird PA-C Primary Care Provider Maria Del Rosario Oleary NP Primary Care Provider + Encounter Details Date Type Department Care Team (Late st Contact Info) Description 04/12/2018 Ancillary Orders Virtual Department 30 [place] [address] Scarlett Baird PA-C [address] [place] [address] [email or web address] Breast screening Social History Tobacco Use Types [...] unspecified documented in this encounter Care Teams Leasing Associate Relationship Specialty Start Date End Date Selam Flower MD [address] [place] [address] PCP - General 11/23/17 05/02/18 Scarlett Baird PA-C [address] [place] [address] PCP - General Family Medicine 05/03/18 07/08/19 Maria Del Rosario Oleary NP [address] [place] [address] PCP - General Family Medicine 07/09/19 Carmen Flores CNP [address], [address] [place] [address] Historical LMR Provider 09/06/17 11/27/21 Priscila Grimm FNP [address], [address] [place] [address] Historical LMR Provider 09/06/17 11/27/21 Veronica Vega MD [address], [address] [place] [address] Historical LMR Provider 09/06/17 11/27/21 Selam Flower MD [address] [place] [address] Historical LMR Provider 09/06/17 2 Pedro Valente MD [address] [place] [address] Historical LMR Provider 09/06/17 2 documented as of this encounter Additional Source Comments The information contained in this document represents components of the legal health record. It is not the complete legal health record.[facility]
--- OUTSIDE RECORDS SUMMARY | 2025-01-10 11:47 | XMS_ITS | Encounter Summary ---
Author Organization [facility] Address [phone] [facility] [place] [address] Care Team Providers Care Dip Filler Name Role Phone Carmen Flores ACLS NURSE Unavailable AlfaPriscila Maricarmen DIRECTOR OF INSTITUTIONAL GIVING Unavailable [phone] Veronica Vega MD Unavailable Selam Flower MD Unavailable [phone] Pedro Valente MD Unavailable Pcp, Unknown Primary Care Provider Unavailabl e Selam Flower MD Primary Care Provider Scarlett Baird PA-C Primary Care Provider [phone] Maria Del Rosario Oleary NP Primary Care Provider + Reason for Referral * MRI/CAT Scan - Closed Specialty Diagnoses / Procedures Referred By Monica harvey Referred To Contact Radiology Diagnoses Acute left ankle pain Procedures MRI Ankle (Left) Saurav Shahid MD [address] [place] [address] Email: [email or web address] Referral ID Status Reason Start Date Expiration Date Visits Re quested Visits Authorized [id number] Closed 10/18/2017 12/17/2017 1 1 Encounter Details Date Type Department Care Team (Late st Contact Info) Description 10/18/2017 Ancillary Orders Virtual Department [address] [place] [address] Saurav Shahid MD [address] [place] [phone] [email or web address] Acute left ankle pain Social History Tobacco [...] No other regional disruptions identified. POS - [id number] Edited by: Sylwia Michael on 10/24/2017 2:14 [...] No other regional disruptions identified. POS - [id number] Edited by: Sylwia Michael on 10/24/2017 2:14 PM Saurav Shahid MD IMG MR DEN Y documented in this encounter Visit Diagnoses Diagnosis Acute left ankle pain Acute left ankle pain documented in this encounter Care Teams Dip Filler Relationship Specialty Start Date End Date Pcp, Unknown PCP - General 10/18/17 11/22/17 Selam Flower MD [address] [place] [address] PCP - General 11/23/17 05/02/18 Scarlett Baird PA-C [address] [place] [address] PCP - General Family Medicine 05/03/18 07/08/19 Maria Del Rosario Oleary, JOAQUIN [address] [place] [address] PCP - General Family Medicine 07/09/19 Carmen Flores, REBEKAH [address], [address] [place] [address] Historical LMR Provider 09/06/17 11/27/21 Priscila Grimm FNP [address], [address] [place] [address] Historical LMR Provider 09/06/17 11/27/21 Veronica Vega MD [address], [address] [place] [address] Historical LMR Provider 09/06/17 11/27/21 Selam Flower MD [address] [place] [address] Historical LMR Provider 09/06/17 2 Pedro Valente MD [address] [place] [address] Historical LMR Provider 09/06/17 2 documented as of this encounter Additional Source Comments The information contained in this document represents components of the legal health record. It is not the complete legal health record.[facility]
--- OUTSIDE RECORDS SUMMARY | 2025-01-10 11:47 | XMS_ITS | Encounter Summary ---
Author Organization [facility] Address [phone] [facility] [place] [place] [address] Care Team Providers Care Infrastructure Architect Name Role Phone Carmen Flores PHARMACOLOGY TEACHER Unavailable Priscila Grimm ASSEMBLY ROOM SUPERVISOR Unavailable [phone] Veronica Vega MD Unavailable Selam Flower MD Unavailable Pedro Valente MD Unavailable Selam Flower MD Primary Care Provider Scarlett Baird PA-C Primary Care Provider [phone] Maria Del Rosario Oleary NP Primary Care Provider + Encounter Details Date Type Department Care Team (Late st Contact Info) Description 04/20/2018 Ancillary Orders [facility],Outside Imaging [address] [place] [address] System, Provider Not In, PhD [address] [address] Social History Tobacco Use Types Packs/Day Years [...] on filedocumented in this encounter Care Teams Infrastructure Architect Relationship Specialty Start Date End Date Selam Flower MD [address] [place] [address] PCP - General 11/23/17 05/02/18 Scarlett Baird PA-C [address] [place] [address] [email or web address] PCP - General Family Medicine 05/03/18 07/08/19 Maria Del Rosario Oleary, JOAQUIN [address] [place] [address] PCP - General Family Medicine 07/09/19 Carmen Flores CNP 38 [facility] [address], [address] [place] [address] Historical LMR Provider 09/06/17 11/27/21 Priscila Grimm FNP [address], [address] [place] [address] Historical LMR Provider 09/06/17 11/27/21 Veronica Vega MD [address], [address] [place] [address] Historical LMR Provider 09/06/17 11/27/21 Selam Flower MD [address] [place] [address] Historical LMR Provider 09/06/17 2 Pedro Valente MD [address] [place] [address] Historical LMR Provider 09/06/17 2 documented as of this encounter Additional Source Comments The information contained in this document represents components of the legal health record. It is not the complete legal health record.[facility]
--- OUTSIDE RECORDS SUMMARY | 2025-01-10 11:47 | XMS_ITS | Encounter Summary ---
Author Organization [facility] Address [phone] [place] [address] Care Team Providers Care Dressmaker Helper Name Role Phone Carmen Flores GELATIN POWDER MIXER Unavailable Alfa Priscila Maricarmen MEDICAL LOGISTICS SPECIALIST Unavailable Veronica Vega MD Unavailable Selam Flower MD Unavailable [phone] Pedro Valente MD Unavailable Pcp, Unknown Primary Care Provider Unavailabl e Pcp, Unknown Primary Care Provider Unavailabl e Selam Flower MD Primary Care Provider Scarlett Baird PA-C Primary Care Provider Maria Del Rosario Oleary NP Primary Care Provider + Encounter Details Date Type Department Care Team (Late st Contact Info) Description 10/02/2017 Ancillary Orders [facility], X-Ray - [address] [place] [address] Kassandra Laura PAMaheshC 170 [facility], [address] [place] [address] [email or web address] Pain Social History Tobacco Use Types Packs/Day [...] EST No evidence of fractures. POS - [id number] Narrative 10/02/2017 2:43 PM EST HISTORY: ??Lateral [...] IMPRESSION: No evidence of fractures. POS - [id number] Kassandra Laura PA-C IMG XR LOWER EXTREMI TY * XR Tibia Fibula 2 Views (Left) (10/02/2017 2:24 PM EST) Anatomical Region Laterality Modality Leg Left Radiographic Zelda ging 10/02/2017 2:43 PM EST Impressions 10/02/2017 2:45 PM EST No evidence of fractures. POS - [id number] Narrative 10/02/2017 2:45 PM EST HISTORY: ??Bilateral [...] IMPRESSION: No evidence of fractures. POS - [id number] Kassandra Laura PA-C IMG XR LOWER EXTREMI TY documented in this encounter Visit Diagnoses Diagnosis Pain Generalized pain Pain Generalized pain Pain Generalized pain documented in this encounter Care Teams Dressmaker Helper Relationship Specialty Start Date End Date Pcp, Unknown PCP - General 02/18/11 10/17/17 Pcp, Unknown PCP - General 10/18/17 11/22/17 Selam Flower MD [address] [place] [address] PCP - General 11/23/17 05/02/18 Scarlett Baird PA-C [address] [place] [address] [email or web address] PCP - General Family Medicine 05/03/18 07/08/19 Maria Del Rosario Oleary, JOAQUIN [address] [place] [address] PCP - General Family Medicine 07/09/19 Carmen Flores, REBEKAH 38 [facility] [address], [address] [place] [address] [email or web address] Historical LMR Provider 09/06/17 11/27/21 Priscila Grimm FNP [address], [address] [place] [address] Historical LMR Provider 09/06/17 11/27/21 Veronica Vega MD 38 [facility] [place] [facility]. 204, [address] [place] [address] [email or web address] Historical LMR Provider 09/06/17 11/27/21 Selam Flower MD [address] [place] [address] Historical LMR Provider 09/06/17 2 Pedro Valente MD [address] [place] [address] Historical LMR Provider 09/06/17 2 documented as of this encounter Additional Source Comments The information contained in this document represents components of the legal health record. It is not the complete legal health record.[facility]
--- OUTSIDE RECORDS SUMMARY | 2025-01-10 11:47 | XMS_ITS | Encounter Summary ---
Author Organization [facility] Address [phone] [facility] [place] [address] Care Team Providers Care Demurrage Worker Name Role Phone Carmen Flores CNP Unavailable [phone] Alfa Priscila Maricarmen NISSAN SALES CONSULTANT Unavailable Veronica Vega MD Unavailable Selam Flower MD Unavailable [phone] Pedro Valente MD Unavailable Maria Del Rosario Oleary NP Primary Care Provider + Reason for Referral * MRI/CAT Scan - Closed Specialty Diagnoses / Procedures Referred By Contac t Referred To Contact Radiology Diagnoses Right knee pain, unspecified chronicity Radiculopathy, lumbar region Complex regional pain syndrome i of right lower limb Procedures MRI Lumbar Spine Pedro Denise PA [address] [place] [address] Referral ID Status Reason Start Date Expiration Date Visits Re quested Visits Authorized [id number] Closed 11/04/2020 05/03/2021 1 1 Encounter Details Date Type Department Care Team (Late st Contact Info) Description 11/05/2020 Transcribe Orders Virtual Department [address] [place] [address] Chantel Denise MD [address] [place] [address] [email or web address] Right knee pain, unspecified chronicity (Primary Dx); [...] limb documented in this encounter Care Teams Demurrage Worker Relationship Specialty Start Date End Date Maria Del Rosario Oleary, JOAQUIN [address] [place] [address] PCP - General Family Medicine 07/09/19 Carmen Flores, REBEKAH [address], [address] [place] [address] Historical LMR Provider 09/06/17 11/27/21 Priscila Grimm FNP [address], [address] [place] [address] Historical LMR Provider 09/06/17 11/27/21 Veronica Vega MD [address], [address] [place] [address] Historical LMR Provider 09/06/17 11/27/21 Selam Flower MD [address] [place] [address] Historical LMR Provider 09/06/17 2 Pedro Valente MD [address] [place] [address] Historical LMR Provider 09/06/17 2 documented as of this encounter Additional Source Comments The information contained in this document represents components of the legal health record. It is not the complete legal health record.[facility]
--- OUTSIDE RECORDS SUMMARY | 2025-01-10 11:47 | XMS_ITS | Clinical Summary ---
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 at [facility] Generalized anxiety disorder 02/05/2014 07/18/2022 Primary [...] Sigmoidoscopy 2018 Influenza Vaccine (#1) 2024 Insurance [facility] Member Subscriber Plan / Payer (Ef fective 2018-Present) Name:Monika Corcoran Relation to Subscriber:Self Name:Monika Corcoran Payer ID:Not on file Type:Not on file Address: [address] [phone] MEDICAID [place] [facility] Member Subscriber Plan / Payer (Ef fective 2018-Present) Name:Monika Corcoran Relation to Subscriber:Self Name:Monika Corcoran Payer ID:Not on file Type:Not on file Address: [address] [phone] MEDICAID [place] Care Teams Music Orchestrator Relationship Specialty Start Date End Date Maria Del Rosario Oleary DNP [address] [place] [address], [address] [address] PCP - General Nurse Practitioner 07/18/22
--- OUTSIDE RECORDS SUMMARY | 2025-01-10 11:47 | XMS_ITS | Encounter Summary ---
Author Organization [facility] Address [phone] [facility] [place] [address] Care Team Providers Care Broadcast Chief Engineer Name Role Phone Carmen Flores PETROLEUM PLANT OPERATOR Unavailable [phone] Priscila Grimm PAVING FOREMAN Unavailable [phone] Veronica Vega MD Unavailable Selam Flower MD Unavailable Pedro Valente MD Unavailable Selam Flower MD Primary Care Provider Scarlett Baird PA-C Primary Care Provider Maria Del Rosario Oleary NP Primary Care Provider + Encounter Details Date Type Department Care Team (Late st Contact Info) Description 04/20/2018 Ancillary Orders [facility],Outside Imaging [address] [place] [address] System, Provider Not In, PhD [address] [address] Social History Tobacco Use Types Packs/Day Years [...] on filedocumented in this encounter Care Teams Broadcast Chief Engineer Relationship Specialty Start Date End Date Selam Flower MD [address] [place] [address] PCP - General 11/23/17 05/02/18 Scarlett Baird PA-C [address] [place] [address] [email or web address] PCP - General Family Medicine 05/03/18 07/08/19 Maria Del Rosario Oleary, JOAQUIN [address] [place] [address] PCP - General Family Medicine 07/09/19 Carmen Flores CNP [address] [facility] [address], [address] [place] [address] Historical LMR Provider 09/06/17 11/27/21 Priscila Grimm FNP [address], [address] [place] [address] Historical LMR Provider 09/06/17 11/27/21 Veronica Vega MD [address], [address] [place] [address] Historical LMR Provider 09/06/17 11/27/21 Selam Flower MD [address] [place] [address] Historical LMR Provider 09/06/17 2 Pedro Valente MD 41 [place] [address] Historical LMR Provider 09/06/17 2 documented as of this encounter Additional Source Comments The information contained in this document represents components of the legal health record. It is not the complete legal health record.[facility]
--- OUTSIDE RECORDS SUMMARY | 2025-01-10 11:47 | XMS_ITS | Encounter Summary ---
Author Organization [facility] Address [phone] [facility] [place] [address] Care Team Providers Care Edging Machine Feeder Name Role Phone Carmen Flores PHOTONIC LABORATORY TECHNICIAN Unavailable [phone] Priscila Grimm PLASTIC FRAME INSERTER Unavailable Veronica Vega MD Unavailable Selam Flower MD Unavailable [phone] Pedro Valente MD Unavailable Selam Flower MD Primary Care Provider Scarlett Baird PA-C Primary Care Provider Maria Del Rosario Oleary NP Primary Care Provider + Encounter Details Date Type Department Care Team (Late st Contact Info) Description 04/20/2018 Ancillary Orders [facility],Outside Imaging [address] [place] [address] System, Provider Not In, PhD [address] [address] Social History Tobacco Use Types Packs/Day Years [...] on filedocumented in this encounter Care Teams Edging Machine Feeder Relationship Specialty Start Date End Date Selam Flower MD [address] [place] [address] PCP - General 11/23/17 05/02/18 Scarlett Baird PA-C [address] [place] [address] [email or web address] PCP - General Family Medicine 05/03/18 07/08/19 Maria Del Rosario Oleary, JOAQUIN [address] [place] [address] PCP - General Family Medicine 07/09/19 Carmen Flores CNP [address] [facility], [address] [place] [address] Historical LMR Provider 09/06/17 11/27/21 Priscila Grimm FNP [address], [address] [place] [address] Historical LMR Provider 09/06/17 11/27/21 Veronica Vega MD [address], [address] [place] [address] Historical LMR Provider 09/06/17 11/27/21 Selam Flower MD [address] [place] [address] Historical LMR Provider 09/06/17 2 Pedro Valente MD 41 [place] [address] Historical LMR Provider 09/06/17 2 documented as of this encounter Additional Source Comments The information contained in this document represents components of the legal health record. It is not the complete legal health record.[facility]
--- OUTSIDE RECORDS SUMMARY | 2025-01-10 11:47 | XMS_ITS | Encounter Summary ---
Author Organization [facility] Address [address] [facility] [address] [place] [address] Phone Care Team Providers Care Refund Specialist Name Role Phone Maria Del Rosario Oleary DNP Primary Care Provider [phone] Reason for Visit * Reason Comments Med Refill Encounter Details Date Type Department Care Team (Late st Contact Info) Description 03/31/2023 Refill [facility] [address] [place] [address] Amauri Vasquez MD Social History [...] on filedocumented in this encounter Care Teams Refund Specialist Relationship Specialty Start Date End Date Maria Del Rosario Oleary DNP [address] [facility] 3 [place] [address] PCP - General Nurse Practitioner 07/18/22 documented as of this encounter
--- OUTSIDE RECORDS SUMMARY | 2025-01-10 11:47 | XMS_ITS | Encounter Summary ---
Author Organization [facility] Address [phone] [facility] [place] [address] Care Team Providers Care Primary Class Teacher Name Role Phone Carmen Flores CNP Unavailable Alfa Priscila Maricarmen [employer] INTERMODAL TRUCK DRIVER Unavailable [phone] Veronica Vega MD Unavailable Selam Flower MD Unavailable Pedro Valente MD Unavailable Scarlett Baird PA-C Primary Care Provider Maria Del Rosario Oleary NP Primary Care Provider + Encounter Details Date Type Department Care Team (Late st Contact Info) Description 05/07/2018 Ancillary Orders [facility] External Provider Virtual Department 30 [place] [address] Radha Kurtz MD [address] [place] [address] Abnormal mammogram Social History Tobacco Use Types [...] Patient is recalled from a screening mammogram tgcxfoasy10/14/2018 for additional imaging on the left. Magnification [...] unspecified documented in this encounter Care Teams Primary Class Teacher Relationship Specialty Start Date End Date Scarlett Baird PA-C 1 [place] [address] PCP - General Family Medicine 05/03/18 07/08/19 Maria Del Rosario Oleary JOAQUIN [address] [place] [address] PCP - General Family Medicine 07/09/19 Carmen Flores, REBEKAH [address], [address] [place] [address] Historical LMR Provider 09/06/17 11/27/21 Priscila Grimm FNP [address], [address] [place] [address] Historical LMR Provider 09/06/17 11/27/21 Veronica Vega MD [address], [address] [place] [address] Historical LMR Provider 09/06/17 11/27/21 Selam Flower MD [address] [place] [address] Historical LMR Provider 09/06/17 2 Pedro Valente MD [address] [place] [address] Historical LMR Provider 09/06/17 2 documented as of this encounter Additional Source Comments The information contained in this document represents components of the legal health record. It is not the complete legal health record.[facility]
--- OUTSIDE RECORDS SUMMARY | 2025-01-10 11:47 | XMS_ITS | Encounter Summary ---
Author Organization [facility] Address [phone] Count includes the [facility] [place] [address] Care Team Providers Care Cannery Tender Engineer Name Role Phone Carmen Flores CNP Unavailable Alfa Priscila Maricarmen DRAIN TECHNICIAN Unavailable [phone] Veronica Vega MD Unavailable Selam Flower MD Unavailable [phone] Pedro Valente MD Unavailable Scarlett Baird PA-C Primary Care Provider Maria Del Rosario Oleary NP Primary Care Provider + Encounter Details Date Type Department Care Team (Late st Contact Info) Description 07/16/2018 Ancillary Orders Virtual Department 30 [place] [address] Radha Kurtz MD [address] [place] [address] [email or web address] Right knee pain, unspecified chronicity; Other instability, [...] meniscal or ligamentous tears apparent.. POS - [id number] Narrative 07/26/2018 2:39 PM EDT TECHNIQUE: Exam [...] No meniscal orligamentous tears apparent.. POS - [id number] Radha Kurtz MD IMG MR EXTREMITY documented in this encounter Visit Diagnoses Diagnosis Right knee pain, unspecified chronicity Other instability, right knee Right knee pain, unspecified chronicity Other instability, right knee documented in this encounter Care Teams Cannery Tender Engineer Relationship Specialty Start Date End Date Scarlett Baird PA-C [address] [place] [address] [email or web address] PCP - General Family Medicine 05/03/18 07/08/19 Maria Del Rosario Oleary, HIRED HELP [address] [place] [address] PCP - General Family Medicine 07/09/19 Carmen Flores, REBEKAH [address], [address] [place] [address] [email or web address] Historical LMR Provider 09/06/17 11/27/21 Priscila Grimm FNP [address], [address] [place] [address] [email or web address] Historical LMR Provider 09/06/17 11/27/21 Veronica Vega MD [address], [address] [place] [address] [email or web address] Historical LMR Provider 09/06/17 11/27/21 Selam Flower MD [address] [place] [address] Historical LMR Provider 09/06/17 2 Pedro Valente MD [address] [place] [address] Historical LMR Provider 09/06/17 2 documented as of this encounter Additional Source Comments The information contained in this document represents components of the legal health record. It is not the complete legal health record.[facility]
--- OUTSIDE RECORDS SUMMARY | 2025-01-10 11:47 | XMS_ITS | Encounter Summary ---
Author Organization [facility] Address [phone] [facility] [place] [address] Care Team Providers Care Visitor Services Assistant Name Role Phone Carmen Flores EMPLOYMENT OFFICER Unavailable Priscila Grimm PORTFOLIO SPECIALIST Unavailable Veronica Vega MD Unavailable Selam Flower MD Unavailable [phone] Pedro Valente MD Unavailable Selam Flower MD Primary Care Provider Scarlett Baird PA-C Primary Care Provider Maria Del Rosario Oleary NP Primary Care Provider + Encounter Details Date Type Department Care Team (Late st Contact Info) Description 04/20/2018 Ancillary Orders [facility],Outside Imaging [address] [place] [address] System, Provider Not In, PhD [address] [address] Social History Tobacco Use Types Packs/Day Years [...] on filedocumented in this encounter Care Teams Visitor Services Assistant Relationship Specialty Start Date End Date Selam Flower MD [address] [place] [address] PCP - General 11/23/17 05/02/18 Scarlett Baird PA-C [address] [place] [address] [email or web address] PCP - General Family Medicine 05/03/18 07/08/19 Maria Del Rosario Oleary, JOAQUIN [address] [place] [address] PCP - General Family Medicine 07/09/19 Carmen Flores CNP 38 [facility] [address], [address] [place] [address] Historical LMR Provider 09/06/17 11/27/21 Priscila Grimm FNP [address], [address] [place] [address] Historical LMR Provider 09/06/17 11/27/21 Veronica Vega MD [address], [address] [place] [address] Historical LMR Provider 09/06/17 11/27/21 Selam Flower MD 143 [place] [address] Historical LMR Provider 09/06/17 2 Pedro Valente MD 41 [place] [address] Historical LMR Provider 09/06/17 2 documented as of this encounter Additional Source Comments The information contained in this document represents components of the legal health record. It is not the complete legal health record.[facility]
--- OUTSIDE RECORDS SUMMARY | 2025-01-10 11:47 | XMS_ITS | Encounter Summary ---
Author Organization [facility] Address [phone] [facility] [place] [address] Care Team Providers Care Tablet Tester Name Role Phone Carmen Flores PULVERIZER OPERATOR Unavailable Priscila Grimm JACKHAMMER SPLITTER OPERATOR Unavailable Veronica Vega MD Unavailable Selam Flower MD Unavailable Pedro Valente MD Unavailable Selam Flower MD Primary Care Provider Scarlett Baird PA-C Primary Care Provider Maria Del Rosario Oleary NP Primary Care Provider + Encounter Details Date Type Department Care Team (Late st Contact Info) Description 04/20/2018 Ancillary Orders [facility],Outside Imaging [address] [place] [address] System, Provider Not In, PhD [address] [address] Social History Tobacco Use Types Packs/Day Years [...] on filedocumented in this encounter Care Teams Tablet Tester Relationship Specialty Start Date End Date Selam Flower MD [address] [place] [address] PCP - General 11/23/17 05/02/18 Scarlett Baird PA-C [address] [place] [address] [email or web address] PCP - General Family Medicine 05/03/18 07/08/19 Maria Del Rosario Oleary, JOAQUIN [address] [place] [address] PCP - General Family Medicine 07/09/19 Carmen Flores CNP 38 [facility] [address], [address] [place] [address] Historical LMR Provider 09/06/17 11/27/21 Priscila Grimm FNP [address], [address] [place] [address] Historical LMR Provider 09/06/17 11/27/21 Veronica Vega MD [address], [address] [place] [address] Historical LMR Provider 09/06/17 11/27/21 Selam Flower MD 143 [place] [address] Historical LMR Provider 09/06/17 2 Pedro Valente MD 41 [place] [address] Historical LMR Provider 09/06/17 2 documented as of this encounter Additional Source Comments The information contained in this document represents components of the legal health record. It is not the complete legal health record.[facility]
--- OUTSIDE RECORDS SUMMARY | 2025-01-10 11:47 | XMS_ITS | Encounter Summary ---
Author Organization [facility] Address [phone] [facility] [place] [address] Care Team Providers Care Head Of Data Name Role Phone Carmen Flores SR ACCOUNT EXECUTIVE Unavailable Priscila Grimm MANAGER CONTINUOUS IMPROVEMENT Unavailable Veronica Vega MD Unavailable Selam Flower MD Unavailable [phone] Pedro Valente MD Unavailable Selam Flower MD Primary Care Provider Scarlett Baird PA-C Primary Care Provider [phone] Maria Del Rosario Oleary NP Primary Care Provider + Encounter Details Date Type Department Care Team (Late st Contact Info) Description 04/20/2018 Ancillary Orders [facility],Outside Imaging 30 [place] [address] System, Provider Not In, PhD [address] [address] Social History Tobacco Use Types Packs/Day Years [...] on filedocumented in this encounter Care Teams Head Of Data Relationship Specialty Start Date End Date Selam Flower MD [address] [place] [address] PCP - General 11/23/17 05/02/18 Scarlett Baird PA-C [address] [place] [address] [email or web address] PCP - General Family Medicine 05/03/18 07/08/19 Maria Del Rosario Oleary, JOAQUIN [address] [place] [address] PCP - General Family Medicine 07/09/19 Carmen Flores CNP 38 [facility] [address], [address] [place] [address] Historical LMR Provider 09/06/17 11/27/21 Priscila Grimm FNP [address], [address] [place] [address] Historical LMR Provider 09/06/17 11/27/21 Veronica Vega MD [address], [address] [place] [address] Historical LMR Provider 09/06/17 11/27/21 Selam Flower MD 143 [place] [address] Historical LMR Provider 09/06/17 2 Pedro Valente MD 41 [place] [address] Historical LMR Provider 09/06/17 2 documented as of this encounter Additional Source Comments The information contained in this document represents components of the legal health record. It is not the complete legal health record.[facility]
--- OUTSIDE RECORDS SUMMARY | 2025-01-10 11:47 | XMS_ITS | Encounter Summary ---
Author Organization [facility] Address [phone] [facility] [place] [address] Care Team Providers Care Corporate Trainer Name Role Phone Carmen Flores OLIVING MACHINE OPERATOR Unavailable Priscila Grimm SOFTWARE TEST ANALYST Unavailable Veronica Vega MD Unavailable Selam Flower MD Unavailable Pedro Valente MD Unavailable Pcp, Unknown Primary Care Provider Unavailabl e Selam Flower MD Primary Care Provider Scarlett Baird PA-C Primary Care Provider Maria Del Rosario Oleary NP Primary Care Provider + Encounter Details Date Type Department Care Team (Late st Contact Info) Description 10/18/2017 Procedure Pass [address] [place] [address] Social History Tobacco Use Types Packs/Day Years [...] on filedocumented in this encounter Care Teams Corporate Trainer Relationship Specialty Start Date End Date Pcp, Unknown PCP - General 10/18/17 11/22/17 Selam Flower MD [address] [place] [address] PCP - General 11/23/17 05/02/18 Scarlett Baird PA-C [address] [place] [address] [email or web address] PCP - General Family Medicine 05/03/18 07/08/19 Maria Del Rosario Oleary NP [address] [place] [address] PCP - General Family Medicine 07/09/19 Carmen Flores CNP [address] [facility], [address] [place] [address] [email or web address] Historical LMR Provider 09/06/17 11/27/21 Priscila Grimm FNP [address], [address] [place] [address] Historical LMR Provider 09/06/17 11/27/21 Veronica Vega MD [address], [address] [place] [address] [email or web address] Historical LMR Provider 09/06/17 11/27/21 Selam Flower MD [address] [place] [address] Historical LMR Provider 09/06/17 2 Pedro Valente MD [address] [place] [address] Historical LMR Provider 09/06/17 2 documented as of this encounter Additional Source Comments The information contained in this document represents components of the legal health record. It is not the complete legal health record.[facility]
--- OUTSIDE RECORDS SUMMARY | 2025-01-10 11:47 | XMS_ITS | Patient Health Record ---
Author Organization [email or web address] Address [address] [place] [id number] Care Team Providers Care Founder Name Role Phone MARTA KIRK Primary Care Provider [phone] PierceMagdalenaie Unavailable [phone] ALLERGIES Allergen (clinical drug ingredient) Drug/Non Drug [...] Active RESULTS Component Value Reference Range Notes ALBUMIN, RANDOM URINE W/CREA PB (6517) Reviewed date:04/10/2024 09:58:41 AM Interpretation: Performing Lab:NL2, [facility] [id number] [place], [place] [address] Dmitri Blanton Notes/Report: FASTING:NO FASTING: NO CREATININE, [...] patient to be within a diagnostic category. COMPREHENSIVE METABOLIC PANE L (81286) Reviewed date:04/09/2024 09:23:22 AM Interpretation: Performing Lab:NL2, [facility] [id number] [facility] Sherinelucia Ayala Blanton Notes/Report: FASTING:NO FASTING: NO GLUCOSE 104 [...] 19 10-35 U/L ALT 15 6-29 U/L CBC (INCLUDES DIFF/PLT) (639 9) Reviewed date:04/09/2024 09:23:22 AM Interpretation: Performing Lab:JOEY2, [facility] [id number] [facility] Sherinelucia Ayala Blanton Notes/Report: FASTING:NO FASTING: NO WHITE BLOOD CELL COUNT 8.2 3.8-10.8 Thousand/ uL RED BLOOD CELL COUNT 4.71 3.80-5.10 Million/uL HEMOGLOBIN 13.3 11.7-15.5 g/dL HEMATOCRIT 41.2 35.0-45.0 % MCV 87.5 80.0-100.0 fL MCH 28.2 27.0-33.0 pg MCHC 32.3 32.0-36.0 g/dL RDW 13.9 11.0-15.0 % PLATELET COUNT 289 140-400 Thousand/uL MPV 10.5 7.5-12.5 fL ABSOLUTE NEUTROPHILS 5412 4086-1681 cells/uL ABSOLUTE LYMPHOCYTES 2001 850-3900 cells/uL ABSOLUTE MONOCYTES 590 200-950 cells/uL ABSOLUTE EOSINOPHILS 164 15-500 cells/uL ABSOLUTE BASOPHILS 33 0-200 cells/uL NEUTROPHILS 66 LYMPHOCYTES 24.4 MONOCYTES 7.2 EOSINOPHILS 2.0 BASOPHILS 0.4 URINALYSIS MICROSCOPIC (2363 ) Reviewed date:04/09/2024 09:23:22 AM Interpretation: Performing Lab:NL2, [facility] Huzdtnpk121 [facility] [place]ia Ayala Blanton Notes/Report: FASTING:NO FASTING: NO WBC NONE [...] elements. Only those elements seen were reported. 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 Evaluation and treatment of right thumb. Treated for De Quervain tenosynovitis. Feels like tendon gets stuck and causes severe shooting pain. Diagnosis 1 Pain of right thumb (M79.644) Referral Organization [facility] Referring Provider First Name Alejandrina Referring Provider Last Name Stan Referring Provider Speciality Nurse Vern palomares Referred Organization [facility] Referred Address [address], [place],[id number], Referred Provider Specialty Orthopedic S urgery General Notes ZA RANDLE 0 08/08/2024 09:58:11 AM >demographics, insurance info, referral and office note faxed to [facility] [phone] Referral Priority Routine Reason Please see order for COLOGUARD Diagnosis 1 Encounter for screen ing for malignant neoplasm of colon (Z12.11) Referral Organization [facility] Referring Provider First Name KIRK Referring Provider Last Name MARTA Referring Provider Randall palomares Referred Organization [facility] Referred Address [address], [place],[id number], Referred Provider Specialty Colorectal S urgery General Notes ADDISON DENT 08/20 09:53:34 AM >Request for Cologuard and patient demographics faxed to [employer] [phone] Referral Priority Routine Reason Please See order for mammogram would like to go to [place] Diagnosis 1 Encounter for screen ing mammogram for malignant neoplasm of breast (Z12.31) Referral Organization [facility] Referring Provider First Name KIRK Referring Provider Last Name GEPP Referring Provider Speciality Nurse Vern palomares Referred Organization [facility] Referred Address [address], [place],[id number] Referred Provider Specialty Mammography Screening Center General Notes ADDISON DENT 07/2024 03:24:58 PM >Referral and insurance information faxed to [facility] requesting in [place] [phone]. Referral Priority Routine Reason Please refer to Dr. Mj Junior for nerve testing and surgical consult, thank you! Diagnosis 1 Carpal tunnel syndro me of left wrist (G56.02) Referral Organization [facility] Referring Provider First Name KIRK Referring Provider Last Name GEPP Referring Provider Speciality Nurse Vern palomares Referred Organization [facility] Referred Address [address], [place],[id number] Referred Provider Specialty Hand Surgery General Notes ZA RANDLE 1 12/07/2023 09:18:08 AM >Appt request form, demographics, insurance info, referral, office note and xray faxed to [facility] [phone], ZA RANDLE 11/27/2024 09:23:05 AM >Correspondence from [facility]: Patient is scheduled with on 01/14/25 at 11:20am Referral Priority Routine Reason Please see order for DEXA would like to have done at the same day of her mammogram on 10/08/24 at [place] Diagnosis 1 Age-related osteopor osis without current pathological fracture (M81.0) [facility] Referring Provider First Name KIRK Referring Provider Last Name GEPP Referring Provider Speciality Nurse Vern palomares [facility] Referred Address [address], [place],[id number],[place] Referred Provider Specialty Radiology General Notes ADDISON DENT 08/21 09:24:09 AM >BH Form, Referral for DEXA and insurance information faxed to [facility] requesting Wing [phone], ZA RANDLE 09/11/2024 02:32:03 PM >Per recent responses from facilities on orders with ICD Z13.820- this code will need to be corrected by provider and vladislav, ADDISON DENT 09/12/2024 09:20:44 AM >Referral refaxed to [facility] [phone] Referral Priority Routine MEDICATIONS Medication SIG (Take, Route, Frequency, Duration) Notes Start Date End Date Status Sucralfate 1 GM/10ML TAKE 10 ML ONE HOUR BEFORE MEALS AND AT BEDTIME ON AN EMPTY STOMACH Orally as directed for 90 days 5 Active Potassium 5 mg/d Active LORAZEPAM 1 MG TABS LORAZEPAM 1 MG TABS *Reorder from [facility] for eRx and Interaction Alerts* 05/23/2022 Not-Taking buPROPion HCl ER (XL) 150 MG 1 tablet in the morning Orally Once a day 150mg Active Creon 47922-74506 UNIT TAKE ONE CAPSULE BY MOUTH FOUR [...] 1 tablet Orally Once a day Active Cyclobenzaprine HCl 10 MG TAKE ONE TABLET BY MOUTH EVERY DAY AT BEDTIME NEEDED Orally Once a day for 30 days 5 Active Nystatin 436192 UNIT/GM 1 application Externally Twice a day for 10 days 08/07/2024 Not-Taking Nystatin 564124 UNIT/GM 1 application Externally Twice a day [...] smoker (10-19 cigs/day) Section Notes: Lives in [facility] & 2 sons. Lives in [facility] & 2 sons. Lives in [facility] [place] 2 sons. Lives in [facility] [place] 2 sons. Lives in [facility] [place] 2 sons. Lives in [facility] [place] 2 sons. Lives in [facility] [place] 2 sons. Lives in [facility] [place] 2 sons. Lives in [facility] [place] 2 sons. Lives in [facility] [place] 2 sons. Lives in [facility] & 2 sons. Lives in [facility] & 2 sons. Lives in [facility] & 2 sons. PROBLEMS Problem Type ICD Code Onset Dates Problem Status W/U Status Risk SNOMED Code Notes Problem Migraine with aura, intractable, with status migrainosus (G43.111) Active confirmed Refractory migr ganga with aura (534899007) Problem Gastritis, unspecified, without bleeding (K29.70) Active confirmed Gastroduodeniti s (519642767) Problem Age-related osteoporosis without current pathological fracture (M81.0) Active confirmed Age-related osteoporosis (860769358) Problem Presence of right artificial knee joint (Z96.651) Active confirmed Artificial k nee joint present (455717508378) Problem Hip pain, left (M25.552) Active confirmed Arthralgia of t he pelvic region and thigh (437009265) Problem Arthritis (M19.90) Active confirmed Arthritis (2818374) Problem Positive CHANTEL (antinuclear antibody) (R76.8) Active confirmed Raised antinucl ear antibody (088297198) Problem Right knee pain, unspecified chronicity (M25.561) Active confirmed Problem Carpal tunnel syndrome of left wrist (G56.02) Active confirmed Carpal tunnel syndrome of left wrist (181014275452698) VITAL SIGNS Heart Rate 76 /min 11/19/2024 Height-cm 170.18 cm 11/19/2024 Oximetry 96 % 11/19/2024 Blood pressure diastolic 92 mm Hg 11/19/2024 Weight-kg 97.34 kg 11/19/2024 Height 67 in 11/19/2024 Blood pressure systolic 156 mm Hg 11/19/2024 Weight 214.6 lbs 11/19/2024 BMI 33.61 kg/m2 11/19/2024 Encounters Encounter Location Date Provider Diagnosis [address] [id number] 06/06/2024 Alejandrina Pierce [address] [id number] 11/26/2024 KIRK LOZANO [address] [id number] 06/17/2024 KIRK LOZANO Gastritis, unspecified, without bleeding K29.70 ; Right knee pain, unspecified chronicity M25.561 and Migraine with aura, intractable, with status migrainosus G43.[address] [id number] 08/07/2024 Alejandrina Pierce Fungal infection of the groin B35.6 and Pain of right thumb M79.[address] [id number] 08/28/2024 KIRK LOZANO Annual visit for general adult medical [...] M25.561 and Elevated blood pressure reading R03.0 [facility] [address] [facility] [place] [id number] 11/19/2024 KIRK MARTA Medial epicondylitis , right elbow M77.01 and Depression, unspecified F32.A [facility] [address] [facility] [place] [id number] 01/23/2024 [facility], [address] [id number] 02/19/2024 [facility], [facility] [address] [facility] [place] [id number] 02/23/2024 [facility], [facility] [address] [place], [place] [id number] 04/08/2024 [facility] [place] Chronic kidney disease (CKD), active medical management without dialysis, stage 1 N18.1 [facility] [address] [facility] [place] [id number] 08/22/2024 [facility], [facility] [address] [facility] [place] [id number] 08/28/[facility] Carpal tunnel syndrome of left wrist G56.02 [facility] [address] [facility] [place] [id number] 09/05/2024 [facility], [facility] [address] [facility] [place] [id number] 09/10/2024 [facility] [place] Encounter for screening for osteoporosis Z13.820 [facility], [facility] [address] [facility] [place] [id number] 09/10/2024 [facility], [facility] [address] [facility] [place] [id number] 09/11/2024 [facility], [facility] [address] [facility] [place] [id number] 10/11/2024 [facility], [facility] [address] [facility] [place] [id number] 11/08/2024 [facility], [facility] [address] [facility] [place] [id number] 12/15/[address] [facility] [address] [place] [id number] 12/17/[address] [place] [id number] 12/26/[address] [id number] 12/30/2024 KIRK MARTA ASSESSMENTS Encounter Date Diagnosis Assessment Notes Treatment Notes Treatment Clinical Notes Section Notes 04/08/2024 Chronic kidney disease (CKD), active medical management without dialysis, stage 1 (ICD-10 - N18.1) 08/28/2024 Carpal tunnel syndrome of left wrist (ICD-10 - G56.02) 09/10/2024 Encounter for screening for osteoporosis (ICD-10 - Z13.820) 11/19/2024 Medial epicondylitis, right elbow (ICD-10 - [...] is explained and return precautions are given., Golfer's Elbow: Care Instructions material was published 11/19/2024 [...] to hand surgeon- may need steroid injection 06/17/2024 Gastritis, unspecified, without bleeding (ICD-10 - K29.70) Condition is stable and well controlled on current treatment. No changes made, medication(s) refilled as indicated 08/28/2024 Annual visit for general adult medical [...] major depressive disorder-state not at all difficult 06/17/2024 Right knee pain, unspecified chronicity (ICD-10 - M25.561) Condition is stable and well controlled on current treatment. No changes made, medication(s) refilled as indicated 08/28/2024 Encounter for screening for other disorder [...] or to get rid of a hangover (eye-talent management specialist)? N Total Score: 0 Scoring: Item responses on the CAGE questions are scored 0 for no and 1 for yes answers, with a higher score being an indication of alcohol problems. A total score of two or greater is considered clinically significant. 06/17/2024 Migraine with aura, intractable, with status [...] Date HNE [address] [facility] [address] [facility] [place] M[place]Z [phone] [id number] ALEX HOOVER Self - [facility] is the [facility] [address] [place] [address] [id number] ALEX HOOVER Self - patient is the insured MEDICAL [...] 2019 Rt. Rotator cuff surgery x 3 3835-0981 Lt shoulder surgery x 2 - NEOS 7350-2312 DRG Stimulator 2020 Oral surgery (rest of teeth removed) 202 2
[2025-01-10 13:22] LABS: MANUAL DIFF FLAG NO
[2025-01-10 13:27] LABS: Basophils Percent Auto 0.5 % (0-2); Eosinophils Absolute Auto 0.2 X10*3/uL (0.0-0.4); Eosinophils Percent Auto 2.5 % (0-4); Hemoglobin 13.1 g/dl (12.0-16.0); Imm Gran Abs Auto 0.04 X10*3/uL (0.00-0.03); Imm Gran Pct Auto 0.5 % (0.0-0.4); Lymphocytes Absolute Auto 1.7 X10*3/uL (1.2-4.9); Lymphocytes Percent Auto 19.9 % (20-40); Mean Corpuscular HGB Conc 32.8 g/dl (31.0-35.0); Mean Corpuscular Hemoglobin 27.9 pg (27.0-33.0); Mean Corpuscular Volume 85.1 fL (80.0-98.0); Mean Platelet Volume 9.6 fL (9.4-12.3); Monocytes Absolute Auto 0.6 X10*3/uL (0.1-1.2); Monocytes Percent Auto 6.7 % (2-11); Neutrophils Absolute Auto 5.8 x10*3/uL (2.0-8.3); Neutrophils Percent Auto 69.9 % (45-73); Platelet Count 297 X10*3/uL (160-400); Red Cell Distribution Width 14.4 % (11.0-16.0); White Blood Count 8.3 X10*3/uL (4.8-10.8)
[2025-01-10 13:36] LABS: Prothrombin Time 11.8 SEC (10.9-12.4)
[2025-01-10 14:04] LABS: Anion Gap 11 (12-20); Blood Urea Nitrogen 16 mg/dL (9-16); Calcium 9.4 mg/dL (8.4-10.2); Carbon Dioxide 28 mmol/L (22-29); Chloride 105 mmol/L (96-108); Estimated Glomerular Filt Rate > 60; Sodium 139 mmol/L (135-145)
[2025-01-12 14:18] LABS: Anti Nuclear Antibody Screen NEGATIVE (NEGATIVE)
[2025-01-13 09:44] LABS: Complement C3 159 mg/dL (83-193)
[2025-01-14 11:59] LABS: IgA 327 mg/dL (47-310); IgG 1182 mg/dL (600-1640); IgM 57 mg/dL (50-300)
[2025-01-14 19:03] LABS: Anti DNA DS Antibody <1 IU/mL; Anti Glomerular Basement Memb <1.0 AI; Antibody to SS-A Antigen <1.0 NEG AI (<1.0 NEG); Antibody to SS-B Antigen <1.0 NEG AI (<1.0 NEG); JO 1 Antibody <1.0 NEG AI (<1.0 NEG); Myeloperoxidase Antibody <1.0 AI; Proteinase 3 PR3 Antibodies <1.0 AI; SM/Ribonucleoprotein Ab <1.0 NEG AI (<1.0 NEG); Scleroderma 70 Antibody <1.0 NEG AI (<1.0 NEG); Smith Protein <1.0 NEG AI (<1.0 NEG)
[2025-01-15 21:43] LABS: Phospholipase A2 IgG ELISA 4 RU/mL; Phospholipase A2 IgG IFA NEGATIVE (NEGATIVE)
== END 2025-01-10 10:43 | disposition home or self-care (01) ==
LOC: HO.10HDL 10:42
PROVIDERS: Visit Provider Internal Medicine Nephrology
DX: R80.8 Other proteinuria (principal); R60.0 Localized edema; N20.0 Calculus of kidney
CPT/HCPCS: 36415; 80051; 82310; 82565; 82784; 83520; 84520; 85025; 85610; 86021; 86038; 86160; 86225; 86235; 86255; 86334

== ENCOUNTER 2025-01-14 11:19 | Outpatient (REF) | payer OTHER, MEDICAID, SELFPAY ==
[2025-01-14 12:27] LABS: Creatinine, mg/dL 38.08; Protein mg/dL < 7 mg/dL
[2025-01-14 13:32] LABS: Creatinine, 24Hr Urine 1.2 G/Day (1.0-2.0); Protein 24 Hr Urine < 224 mg/Day (<150); Total Volume 24 Hour Urine 3200 mL
--- OUTSIDE RECORDS SUMMARY | 2025-01-14 13:53 | XMS_ITS | Encounter Summary ---
Author Organization [facility] Address [phone] [facility] [place] [address] Care Team Providers Care Client Support Administrator Name Role Phone Unavailable Primary Care Provider Unavailabl e Encounter Details Date Type Department Care Team (Late st Contact Info) Description 03/09/2010 Hospital Encounter [facility],Outside Imaging [address] [place], [place] [phone] System, Provider Not In, [place] [address] Social History Tobacco Use Types Packs/Day Years [...] It is not the complete legal health record.[facility]
--- OUTSIDE RECORDS SUMMARY | 2025-01-14 13:53 | XMS_ITS | Encounter Summary ---
Author Organization [facility] Address [phone] [facility] [place] [address] Care Team Providers Care Voltage Tester Name Role Phone Carmen Flores CNP Unavailable [phone] Priscila Grimm Unavailable [phone] Veronica Vega MD Unavailable [phone] Selam Flower MD Unavailable [phone] Pedro Valente MD Unavailable [phone] Maria Del Rosario Oleary NP Primary Care Provider + Encounter Details Date Type Department Care Team (Late st Contact Info) Description 08/26/2019 Procedure Pass [place] Admitting Dept - [facility] Department [address] [place] [address] Social History Tobacco Use Types Packs/Day Years [...] on filedocumented in this encounter Care Teams Voltage Tester Relationship Specialty Start Date End Date Maria Del Rosario Oleary, JOAQUIN [address] [place] [address] PCP - General Family Medicine 07/09/19 Carmen Flores CNP [address] [facility], [address] [place] [address] [email or web address] Historical LMR Provider 09/06/17 11/27/21 Priscila Grimm FNP [address] [facility], [address] [place] [address] [email or web address] Historical LMR Provider 09/06/17 11/27/21 Veronica Vega MD [address] [facility] [address], [address] [place] [address] Historical LMR Provider 09/06/17 11/27/21 Selam Flower MD [address] [place] [address] Historical LMR Provider 09/06/17 2 Pedro Valente MD [address] [place] [address] Historical LMR Provider 09/06/17 2 documented as of this encounter Additional Source Comments The information contained in this document represents components of the legal health record. It is not the complete legal health record.[facility]
--- OUTSIDE RECORDS SUMMARY | 2025-01-14 13:53 | XMS_ITS | Encounter Summary ---
Author Organization [facility] Address [phone] [facility] [place] [address] Care Team Providers Care Motor Teacher Name Role Phone Pcp, Unknown Primary Care Provider Unavailabl e Encounter Details Date Type Department Care Team (Late st Contact Info) Description 03/16/2011 Hospital Encounter [facility],Outside Imaging [address] [place], [place] [phone] System, Provider Not In, PhD [address] [address] Unknown, Unknown, Social History Tobacco Use Types [...] on filedocumented in this encounter Care Teams Motor Teacher Relationship Specialty Start Date End Date Pcp, Unknown PCP - General 02/18/11 10/17/17 documented as of this encounter Additional Source Comments The information contained in this document represents components of the legal health record. It is not the complete legal health record.[facility]
--- OUTSIDE RECORDS SUMMARY | 2025-01-14 13:53 | XMS_ITS | Encounter Summary ---
Author Organization [facility] Address [phone] [facility] [place] [address] Care Team Providers Care Detective And Intelligence Analyst Name Role Phone Pcp, Unknown Primary Care Provider Unavailabl e Encounter Details Date Type Department Care Team (Late st Contact Info) Description 03/15/2012 Hospital Encounter [facility],Outside Imaging [address] [place], [place] [phone] System, Provider Not In, PhD [address] [address] Unknown, Unknown, Social History Tobacco Use Types [...] on filedocumented in this encounter Care Teams Detective And Intelligence Analyst Relationship Specialty Start Date End Date Pcp, Unknown PCP - General 02/18/11 10/17/17 documented as of this encounter Additional Source Comments The information contained in this document represents components of the legal health record. It is not the complete legal health record.[facility]
--- OUTSIDE RECORDS SUMMARY | 2025-01-14 13:53 | XMS_ITS | Encounter Summary ---
Author Organization [facility] Address [phone] [place] [address] Care Team Providers Care Customer Service Attendant Name Role Phone Pcp, Unknown Primary Care Provider Unavailabl e Encounter Details Date Type Department Care Team (Late st Contact Info) Description 03/14/2011 Hospital Encounter [facility],Outside Imaging [address] [place], [place] [phone] System, Provider Not In, PhD [address] [address] Unknown, Unknown, Social History Tobacco Use Types [...] filedocumented in this encounter Care Teams Customer Service Attendant Relationship Specialty Start Date End Date Pcp, Unknown PCP - General 02/18/11 10/17/17 documented as of this encounter Additional Source Comments The information contained in this document represents components of the legal health record. It is not the complete legal health record.[facility]
--- OUTSIDE RECORDS SUMMARY | 2025-01-14 13:53 | XMS_ITS | Encounter Summary ---
Author Organization [facility] Address [phone] [place] [address] Care Team Providers Care Ophthalmic Photographer Name Role Phone Pcp, Unknown Primary Care Provider Unavailabl e Encounter Details Date Type Department Care Team (Late st Contact Info) Description 03/19/2013 Hospital Encounter [facility],Outside Imaging [address] [place], [place] [phone] System, Provider [place] In, [place] [address] Social History Tobacco Use Types Packs/Day Years [...] on filedocumented in this encounter Care Teams Ophthalmic Photographer Relationship Specialty Start Date End Date Pcp, Unknown PCP - General 02/18/11 10/17/17 documented as of this encounter Additional Source Comments The information contained in this document represents components of the legal health record. It is not the complete legal health record.[facility]
--- OUTSIDE RECORDS SUMMARY | 2025-01-14 13:55 | XMS_ITS | Encounter Summary ---
Author Organization [facility] Address [phone] [facility] [place] [address] Care Team Providers Care Mobility Engineer Name Role Phone Carmen Flores CNP Unavailable Priscila Grimm POWER SHOVEL MECHANIC Unavailable Veronica Vega MD Unavailable Selam Flower MD Unavailable Pedro Valente MD Unavailable [phone] Scarlett Baird PA-C Primary Care Provider [phone] Maria Del Rosario Oleary NP Primary Care Provider + Reason for Referral * MRI/CAT Scan - Closed Specialty Diagnoses / Procedures [facility] To Contact Radiology Diagnoses Dizziness Abnormal head movements Paresthesia of skin Procedures MRI Brain Scarlett Baird PA-C [address] [place] [address] Email: [email or web address] Referral ID Status Reason Start Date Expiration Date Visits Re quested Visits Authorized [id number] Closed 08/09/2018 10/08/2018 1 1 Encounter Details Date Type Department Care Team (Late st Contact Info) Description 08/09/2018 Ancillary Orders Virtual Department [address] [place] [address] Scarlett Baird PA-C [address] [place] [address] [email or web address] Dizziness; Abnormal head movements; Paresthesia of skin [...] to account for the patient's symptoms. POS [id number] Narrative 08/21/2018 9:49 AM EDT COMPARISON: 12/10/2015. [...] mm right frontal parietal lobe white matter [id number] lesion which is of doubtful significance. No new lesions.No abnormal enhancement. No hydrocephalus. Normal vascular flow- voids.Orbits are normal. Mastoids and paranasal sinuses are clear. Soft tissueand bone marrow are within normal limits. IMPRESSION: No findings to account for the patient's symptoms. POS [id number] Scarlett Baird PA-C IMG MR HEAD/NECK documented in this encounter Visit Diagnoses Diagnosis Dizziness Dizziness and giddiness Abnormal head movements Paresthesia of skin Dizziness Dizziness and giddiness Abnormal head movements Paresthesia of skin documented in this encounter Care Teams Mobility Engineer Relationship Specialty Start Date End Date Scarlett Baird PA-C [address] [place] [address] [email or web address] PCP - General Family Medicine 05/03/18 07/08/19 Maria Del Rosario Oleary NP [address] [place] [address] PCP - General Family Medicine 07/09/19 Carmen Flores CNP [address] [place] [address] [address] [place] [address] [email or web address] Historical LMR Provider 09/06/17 11/27/21 Priscila Grimm FNP [address] [facility] [address], [address] [place] [address] [email or web address] Historical LMR Provider 09/06/17 11/27/21 Veronica Vega MD [address] [facility] [address], [address] [place] [address] [email or web address] Historical LMR Provider 09/06/17 11/27/21 Selam Flower MD [address] [place] [address] Historical LMR Provider 09/06/17 2 Pedro Valente MD [address] [place] [address] Historical LMR Provider 09/06/17 2 documented as of this encounter Additional Source Comments The information contained in this document represents components of the legal health record. It is not the complete legal health record.[facility]
--- OUTSIDE RECORDS SUMMARY | 2025-01-14 13:55 | XMS_ITS | Patient Health Record ---
Author Organization [employer] Address [address] [place] [id number] Care Team Providers Care Marine Engineer Cpvec Name Role Phone MARTA KIRK Primary Care Provider [phone] PierceMagdalenaie Unavailable [phone] ALLERGIES Allergen (clinical drug ingredient) Drug/Non Drug [...] Reviewed date:04/10/2024 09:58:41 AM Interpretation: Performing Lab:NL2, [facility] [address] [place], [place] [address] Dmitri Blanton Notes/Report: FASTING:NO FASTING: NO CREATININE, [...] a diagnostic category. COMPREHENSIVE METABOLIC PANE L (60861) Reviewed date:04/09/2024 09:23:22 AM Interpretation: Performing Lab:NL2, [facility] [id number] [facility] Sherinelucia Ayala Blanton Notes/Report: FASTING:NO FASTING: NO [...] Reviewed date:04/09/2024 09:23:22 AM Interpretation: Performing Lab:JOEY2, [facility] [id number] [facility] Sherinelucia Ayala Blanton Notes/Report: FASTING:NO FASTING: NO WHITE BLOOD CELL COUNT 8.2 3.8-10.8 Thousand/ uL RED BLOOD CELL COUNT 4.71 3.80-5.10 Million/uL HEMOGLOBIN 13.3 11.7-15.5 g/dL HEMATOCRIT 41.2 35.0-45.0 % MCV 87.5 80.0-100.0 fL MCH 28.2 27.0-33.0 pg MCHC 32.3 32.0-36.0 g/dL RDW 13.9 11.0-15.0 % PLATELET COUNT 289 140-400 Thousand/uL MPV 10.5 7.5-12.5 fL ABSOLUTE NEUTROPHILS 5412 1656-8772 cells/uL ABSOLUTE LYMPHOCYTES 2001 850-3900 cells/uL ABSOLUTE MONOCYTES 590 200-950 cells/uL ABSOLUTE EOSINOPHILS 164 15-500 cells/uL ABSOLUTE BASOPHILS 33 0-200 cells/uL NEUTROPHILS 66 LYMPHOCYTES 24.4 MONOCYTES 7.2 EOSINOPHILS 2.0 BASOPHILS 0.4 URINALYSIS MICROSCOPIC (9763 ) Reviewed date:04/09/2024 09:23:22 AM Interpretation: Performing Lab:NL2, [facility] [id number] [facility] Sherinelucia Ayala Blanton Notes/Report: FASTING:NO FASTING: NO [...] Pain of right thumb (M79.644) Referral Organization [facility] Referring Provider First Name Alejandrina Referring Provider Last Name Stan Referring Provider Speciality Nurse Vern palomares Referred Organization [facility] Referred Address [address], [id number], Referred Provider Specialty Orthopedic S urgery General Notes ZA RANDLE 0 08/08/2024 09:58:11 AM >demographics, insurance info, referral and office note faxed to [facility] [phone] Referral Priority Routine Reason Please see order for COLOGUARD Diagnosis 1 Encounter for screen ing for malignant neoplasm of colon (Z12.11) Referral Organization [facility] Referring Provider First Name KIRK Referring Provider Last Name MARTA Referring Provider Randall palomares Referred Organization [facility] Referred Address [address], [place],[id number], Referred Provider Specialty Colorectal S urgery General Notes ADDISON DENT 08/20 09:53:34 AM >Request for Cologuard and patient demographics faxed to [employer] [phone] Referral Priority Routine Reason Please See order for mammogram would like to go to [facility] 1 Encounter for screen ing mammogram for malignant neoplasm of breast (Z12.31) Referral Organization [facility] Referring Provider First Name KIRK Referring Provider Last Name MORIAH CENTER Referring Provider Speciality Nurse Vern palomares Referred Organization [facility] Referred Address [address], [place],[id number] Referred Provider Specialty Mammography Screening Center General Notes ADDISON DENT 07/2024 03:24:58 PM >Referral and insurance information faxed to [facility] requesting in [place] [phone]. Referral Priority Routine Reason Please refer to Dr. Mj Junior for nerve testing and surgical consult, thank you! Diagnosis 1 Carpal tunnel syndro me of left wrist (G56.02) Referral Organization [facility] Referring Provider First Name KIRK Referring Provider Last Name MORIAH CENTER Referring Provider Speciality Nurse Vern palomares Referred Organization [facility] Referred Address [address], [place],[id number] Referred Provider Specialty Hand Surgery General Notes ZA RANDLE 1 12/07/2023 09:18:08 AM >Appt request form, demographics, insurance info, referral, office note and xray faxed to [facility] [phone], ZA RANDLE 11/27/2024 09:23:05 AM >Correspondence from [facility]: Patient is scheduled with on 01/14/25 at 11:20am Referral Priority Routine Reason Please see order for DEXA would like to have done at the same day of her mammogram on 10/08/24 at [facility] Diagnosis 1 Age-related osteopor osis without current pathological fracture (M81.0) [facility] Referring Provider First Name KIRK Referring Provider Last Name MORIAH CENTER Referring Provider Speciality Nurse Vern palomares [facility] Referred Address [address], [place] Referred Provider Specialty Radiology General Notes ADDISON DENT 08/21 09:24:09 AM >BH Form, Referral for DEXA and insurance information faxed to [facility] requesting Wing [phone], ZA RANDLE 09/11/2024 02:32:03 PM >Per recent responses from facilities on orders with ICD Z13.820- this code will need to be corrected by provider and vladislav, ADDISON DENT 09/12/2024 09:20:44 AM >Referral refaxed to [facility] [phone] Referral Priority Routine MEDICATIONS Medication SIG (Take, Route, Frequency, Duration) Notes Start Date End Date Status Sucralfate 1 GM/10ML TAKE 10 ML ONE HOUR BEFORE MEALS AND AT BEDTIME ON AN EMPTY STOMACH Orally as directed for 90 days 5 Active Potassium 5 mg/d Active LORAZEPAM 1 MG TABS LORAZEPAM 1 MG TABS *Reorder from [facility] for eRx and Interaction Alerts* 05/23/2022 Not-Taking buPROPion HCl ER (XL) 150 MG 1 tablet in the morning Orally Once a day 150mg Active Creon 50691-19102 UNIT TAKE ONE CAPSULE BY MOUTH FOUR [...] day for 30 days 5 Active Nystatin 565116 UNIT/GM 1 application Externally Twice a day for 10 days 08/07/2024 Not-Taking Nystatin 347787 UNIT/GM 1 application Externally Twice a day [...] smoker (10-19 cigs/day) Section Notes: Lives in [facility] & 2 sons. Lives in [facility] & 2 sons. Lives in [facility] & 2 sons. Lives in [facility] & 2 sons. Lives in [facility] & 2 sons. Lives in [facility] & 2 sons. Lives in [facility] & 2 sons. Lives in [facility] & 2 sons. Lives in [facility] & 2 sons. Lives in [facility] & 2 sons. Lives in [facility] & 2 sons. Lives in [facility] & 2 sons. Lives in [facility] & 2 sons. PROBLEMS Problem Type ICD Code Onset Dates Problem Status W/U Status Risk SNOMED Code Notes Problem Migraine with aura, intractable, with status migrainosus (G43.111) Active confirmed Refractory migr ganga with aura (739871867) Problem Gastritis, unspecified, without bleeding (K29.70) Active confirmed Gastroduodeniti s (696506633) Problem Age-related osteoporosis without current pathological fracture (M81.0) Active confirmed Age-related osteoporosis (182280594) Problem Presence of right artificial knee joint (Z96.651) Active confirmed Artificial k nee joint present (179240090395) Problem Hip pain, left (M25.552) Active confirmed Arthralgia of t he pelvic region and thigh (669926989) Problem Arthritis (M19.90) Active confirmed Arthritis (2191896) Problem Positive CHANTEL (antinuclear antibody) (R76.8) Active confirmed Raised antinucl ear antibody (933924118) Problem Right knee pain, unspecified chronicity (M25.561) Active confirmed Problem Carpal tunnel syndrome of left wrist (G56.02) Active confirmed Carpal tunnel syndrome of left wrist (433121661661831) VITAL SIGNS Heart Rate 76 /min 11/19/2024 Height-cm 170.18 cm 11/19/2024 Oximetry 96 % 11/19/2024 Blood pressure diastolic 92 mm Hg 11/19/2024 Weight-kg 97.34 kg 11/19/2024 Height 67 in 11/19/2024 Blood pressure systolic 156 mm Hg 11/19/2024 Weight 214.6 lbs 11/19/2024 BMI 33.61 kg/m2 11/19/2024 Encounters Encounter Location Date Provider Diagnosis [address] [id number] 06/06/2024 Alejandrina Pierce [address] [id number] 11/26/2024 KRIK LOZANO [address] [id number] 06/17/2024 KIRK LOZANO Gastritis, unspecified, without bleeding K29.70 ; Right knee pain, unspecified chronicity M25.561 and Migraine with aura, intractable, with status migrainosus G43.[address] [id number] 08/07/2024 Alejandrina Pierce Fungal infection of the groin B35.6 and Pain of right thumb M79.[address] [id number] 08/28/2024 KIRK LOZANO Annual visit for general [...] M25.561 and Elevated blood pressure reading R03.0 [facility] [address] [facility] [place] [id number] 11/19/2024 KIRK MARTA Medial epicondylitis , right elbow M77.01 and Depression, unspecified F32.A [facility] [address] [facility] [place] [id number] 01/23/2024 [facility], [address] [id number] 02/19/2024 [facility] [address] [facility] [place] [id number] 02/23/2024 [facility] [address] [place], [place] [id number] 04/08/[facility] Chronic kidney disease (CKD), active medical management without dialysis, stage 1 N18.1 [facility] [address] [facility] [place] [id number] 08/22/2024 [facility] [address] [facility] [place] [id number] 08/28/20[facility] Carpal tunnel syndrome of left wrist G56.02 [facility] [address] [facility] [place] [id number] 09/05/2024 [facility] [address] [facility] [place] [id number] 09/10/2024 [facility] Encounter for screening for osteoporosis Z13.820 [facility] [address] [facility] [place] [id number] 09/10/2024 [facility] [address] [facility] [place] [id number] 09/11/2024 [facility] [address] [facility] [place] [id number] 10/11/2024 [facility] [address] [facility] [place] [id number] 11/08/2024 [facility] [address] [facility] [place] [id number] 12/15/2024 KIRK [facility], [address] [place] [id number] 12/17/[address] [place] [id number] 12/26/[address] [id number] 12/30/2024 KIRK LOZANO ASSESSMENTS Encounter Date Diagnosis Assessment Notes Treatment Notes Treatment Clinical Notes Section Notes 04/08/2024 Chronic kidney disease (CKD), active medical management without dialysis, stage 1 (ICD-10 - N18.1) 09/10/2024 Encounter for screening for osteoporosis (ICD-10 [...] syndrome of left wrist (ICD-10 - G56.02) 06/17/2024 Right knee pain, unspecified chronicity (ICD-10 [...] or to get rid of a hangover (eye-cam maker)? N Total Score: 0 Scoring: Item responses on the CAGE questions are scored 0 for no and 1 for yes answers, with a higher score being an indication of alcohol problems. A total score of two or greater is considered clinically significant. 08/28/2024 Encounter for screening for malignant neoplasm of colon (ICD-10 - Z12.11) Schedule colonoscopy for colorectal cancer screening 06/17/2024 Migraine with aura, intractable, with status migrainosus (ICD-10 - G43.111) Condition is stable and well controlled on current treatment. No changes made, medication(s) refilled as indicated 08/28/2024 Encounter for screening mammogram for malignant [...] Date HNE [address] [facility]E[place] [address] [facility] [place]ARTINEZ [phone] ALEX HOOVER Self - patient is the insured [employer] [address] [place] [id number] ALEX HOOVER Self - patient is the [...] 2019 Rt. Rotator cuff surgery x 3 6365-7379 Lt shoulder surgery x 2 - NEOS 9053-4994 DRG Stimulator 2020 Oral surgery (rest of teeth removed) 202 2
--- OUTSIDE RECORDS SUMMARY | 2025-01-14 13:55 | XMS_ITS | Encounter Summary ---
Author Organization [facility] Address [phone] [facility] [place] [address] Care Team Providers Care Band Tacker Name Role Phone Carmen Flores CNP Unavailable Priscila GrimmP Unavailable Veronica Vega MD Unavailable Selam Flower MD Unavailable Pedro Valente MD Unavailable Maria Del Rosario Oleary NP Primary Care Provider + Encounter Details Date Type Department Care Team (Late st Contact Info) Description 11/05/2020 Procedure Pass [address] [place] [address] Social History Tobacco Use Types Packs/Day Years [...] on filedocumented in this encounter Care Teams Band Tacker Relationship Specialty Start Date End Date Maria Del Rosario Oleary, CAPTAIN WAITER/WAITRESS [address] [place] [address] PCP - General Family Medicine 07/09/19 Carmen Flores, COMMUNITY SUPPORT SPECIALIST [address] [facility], [address] [place] [address] Historical LMR Provider 09/06/17 11/27/21 Priscila Grimm FNP 38 [facility], [address], [address] [place] [address] Historical LMR Provider 09/06/17 11/27/21 Veronica Vega MD 38 [facility], [address], [address] [place] [address] Historical LMR Provider 09/06/17 11/27/21 Selam Flower MD [address] [place] [address] Historical LMR Provider 09/06/17 2 Pedro Valente MD [address] [place] [address] Historical LMR Provider 09/06/17 2 documented as of this encounter Additional Source Comments The information contained in this document represents components of the legal health record. It is not the complete legal health record.[facility]
--- OUTSIDE RECORDS SUMMARY | 2025-01-14 13:55 | XMS_ITS | Encounter Summary ---
Author Organization [facility] Address [phone] [facility] [place] [address] Care Team Providers Care Licensed Nursing Assistant Name Role Phone Maria Del Rosario Oleary ENGINEER EXHAUSTER Primary Care Provider + Encounter Details Date Type Department Care Team (Late st Contact Info) Description 11/22/2023 Transcribe Orders Virtual Department [address] [place] [address] Maria Del Rosario Oleary NP [address] [place], [place] [phone] Right knee pain, unspecified chronicity (Primary Dx) [...] clinician's provided indication for this examination in [facility]: Outside Radiology Order; RIGHT KNEE PAIN [...] clinician's provided indication for this examination in [facility]:Outside Radiology Order; RIGHT KNEE PAIN COMPARISON: [...] patellofemoral component dysfunction. Maria Del Rosario Oleary ENGINEER EXHAUSTER IMG XR LOWER EXT REMITY documented in this encounter Visit Diagnoses Diagnosis Right knee pain, unspecified chronicity- Primary Right knee pain, unspecified chronicity documented in this encounter Care Teams Licensed Nursing Assistant Relationship Specialty Start Date End Date Maria Del Rosario Oleary NP [address] [place] [address] PCP - General Family Medicine 07/09/19 documented as of this encounter Additional Source Comments The information contained in this document represents components of the legal health record. It is not the complete legal health record.[facility]
--- OUTSIDE RECORDS SUMMARY | 2025-01-14 13:55 | XMS_ITS | Encounter Summary ---
Author Organization [facility] Address [phone] [facility] [place] [address] Care Team Providers Care Sample Examiner Name Role Phone Carmen Flores CNP Unavailable Alfa Priscila Maricarmen CLINIC OFFICE MANAGER Unavailable [phone] Veronica Vega MD Unavailable Selam Flower MD Unavailable Pedro Valente MD Unavailable Scarlett Baird PA-C Primary Care Provider [phone] Maria Del Rosario Oleary NP Primary Care Provider + Encounter Details Date Type Department Care Team (Late st Contact Info) Description 06/10/2019 Ancillary Orders [facility], X-Ray - [address] [place] [address] Maria Del Rosario Oleary NP [address] [place] [address] Right knee pain, unspecified chronicity Social History [...] ??Mild osteoarthritis and postoperative changes. POS - [id number] Narrative 06/10/2019 5:18 PM EDT HISTORY: ??As [...] COMPARISON: MRI right knee 07/26/2018. Right knee [id number]/04/2013. RIGHT KNEE RADIOGRAPH FINDINGS: Four views obtained including weightbearing. There is a new anteriormedial femoral condyle hardware. No evidence of loosening. No fractureor malalignment. Mild medial compartment joint space narrowing andspurring. No bone lesions. Moderate size suprapatellar joint effusion.No soft tissue gas. IMPRESSION: 1. Moderate size joint effusion. 2. Mild osteoarthritis and postoperative changes. POS - [id number] Maria Del Rosario Oleary HORTICULTURAL FARMWORKER IMG XR LOWER EXT REMITY documented in this encounter Visit Diagnoses Diagnosis Right knee pain, unspecified chronicity Right knee pain, unspecified chronicity documented in this encounter Care Teams Sample Examiner Relationship Specialty Start Date End Date Scarlett Baird PA-C [address] [place] [address] [email or web address] PCP - General Family Medicine 05/03/18 07/08/19 Maria Del Rosario Oleary, JOAQUIN [address] [place] [address] PCP - General Family Medicine 07/09/19 Carmen Flores, REBEKAH [address] [facility], [address], [address] [place] [address] [email or web address] Historical LMR Provider 09/06/17 11/27/21 Priscila Grimm FNP [address] [facility] [address], [address] [place] [address] [email or web address] Historical LMR Provider 09/06/17 11/27/21 Veronica Vega MD 38 [facility] [address], [address] [place] [address] Historical LMR Provider 09/06/17 11/27/21 Selam Flower MD [address] [place] [address] Historical LMR Provider 09/06/17 2 Pedro Valente MD [address] [place] [address] Historical LMR Provider 09/06/17 2 documented as of this encounter Additional Source Comments The information contained in this document represents components of the legal health record. It is not the complete legal health record.[facility]
--- OUTSIDE RECORDS SUMMARY | 2025-01-14 13:55 | XMS_ITS | Encounter Summary ---
Author Organization [facility] Address [phone] [facility] [place] [address] Care Team Providers Care Thrill Performer Name Role Phone Carmen Flores CNP Unavailable Priscila Grimm SLUBBER RUNNER Unavailable [phone] Veronica Vega MD Unavailable [phone] Selam Flower MD Unavailable Pedro Valente MD Unavailable [phone] Scarlett Baird PA-C Primary Care Provider Maria Del Rosario Oleary NP Primary Care Provider + Encounter Details Date Type Department Care Team (Late st Contact Info) Description 08/09/2018 Procedure Pass [address] [place] [address] Social History Tobacco Use Types Packs/Day Years [...] on filedocumented in this encounter Care Teams Thrill Performer Relationship Specialty Start Date End Date Scarlett Baird PA-C [address] [place] [address] [email or web address] PCP - General Family Medicine 05/03/18 07/08/19 Maria Del Rosario Oleary, OPERATIONS MANAGER/COORDINATOR [address] [place] [address] PCP - General Family Medicine 07/09/19 Carmen Flores, REBEKAH [address] [facility], [address], [address] [place] [address] Historical LMR Provider 09/06/17 11/27/21 Priscila Grimm FNP 38 [facility], [address], [address] [place] [address] [email or web address] Historical LMR Provider 09/06/17 11/27/21 Veronica Vega MD 38 [facility], [address], [address] [place] [address] Historical LMR Provider 09/06/17 11/27/21 Selam Flower MD [address] [place] [address] Historical LMR Provider 09/06/17 2 Pedro Valente MD [address] [place] [address] Historical LMR Provider 09/06/17 2 documented as of this encounter Additional Source Comments The information contained in this document represents components of the legal health record. It is not the complete legal health record.[facility]
--- OUTSIDE RECORDS SUMMARY | 2025-01-14 13:55 | XMS_ITS | Data Portability ---
Author Organization [facility] [employer] Address [address] [place] [address] Care Team Providers Care Leather Scraper Name Role Phone JOSELINE CORREA Primary Care Provider JOSELINE CORREA Referring Provider [phone] KIRK LOZANO Primary Care Provider Assessment Encounter [...] 04/11/2022 DATA REVIEW completed Francisco Johnson MD [address] [place], [place] [address] [place], [address], [facility] 04/11/2022 10:36:58 06/08/2021 DATA REVIEW completed Francisco Johnson MD [address] [place], [place] [address] [place], [address], [facility] 06/08/2021 12:57:11 Imaging Results None [...] Code Diagnosis Note 1320 Francisco Johnson MD [facility] [address] [place] [address] [place] [address] 06/08/2021 12:31:37 06/08/2021 14:44:52 Migraine without aura [id number] G43.009 5141 Francisco Johnson MD [facility] [address] [place] [address] [place] [address] 04/11/2022 10:31:55 04/11/2022 11:17:34 Migraine without aura 86106718 G43.009 Health Concerns Section Related Observation LastModified by Organization Detai ls LastModified Time None Recorded Concern Status LastModified by Organization Details LastModified Time None Recorded Advance Directives Directive None Recorded Payers Encounter Date Sequence Insurance Name Policy Number Policy Carlson Covered Member ID Carlson Member ID Guarantor Name 06/08/2021 1 [facility] [id number] Monika Medina Godbout [id number] Monika Medina Godbout 06/08/2021 2 [place] [employer] [facility] Monika Machadobolaz [id number] Monika Machadobout 04/11/2022 1 [facility] [id number] Monika Medina Godbout [id number] Monika Medina Godbout 04/11/2022 2 [place] [employer] Monika Medina Godbout [id number] Monika Corcoran Notes Date Note Type Note [...] started in ~2012 and amitriptyline was started ~4004-7283, 1.5-2 years ago. Bad migraines became about [...] is no spinning component. Francisco Johnson MD [address] [place] [address] [place], [address], [facility] 06/08/2021 13:18:49 04/11/2022 text/html Follow [...] started in ~2012 and amitriptyline was started ~7147-7195, 1.5-2 years ago. Bad migraines became about [...] is no spinning component. Francisco Johnson MD [address] [place] [address] [place], [address], [facility] 04/11/2022 10:50:40 OBGyn Episode No OBEpisode recorded.
--- OUTSIDE RECORDS SUMMARY | 2025-01-14 13:55 | XMS_ITS | Clinical Summary ---
Author Organization [facility] Address [phone] [facility] [place] [address] Care Team Providers Care Geological Specialist Name Role Phone Maria Del Rosario Oleary BACTERIOLOGIST SOIL Primary Care Provider + Allergies Active Allergy [...] Revision from patellofemoral unicompartmental arthroplasty done at [facility] Resolved Problems Problem Noted Date Diagnosed Date [...] this topic Medical Devices Implanted Type Area Logging Specialist Device Identifier Shelf Expiration Date Model / Serial / Lot Knee Stem 65mm Vanguard Ssk 360 Revision Sy Right - [id number] Implanted:Qty: 1 on 08/26/2019 by Zach Grant MD at [facility] NODATA Right: Knee [employer] 05/20/2029 [id number] / [id number] / [id number] Right Shoulder Hardware Tray Beam 67mm Tibial Primary Vanguard Mcintyre I Revision Interlock Cemented - [id number] Implanted:Qty: 1 on 08/26/2019 by Zach Grant MD at [facility] Right: Knee [employer] 02/02/2029 [id number] / [id number] / [id number] Cement Bone Biomet Standard R 1x40 - [id number] Implanted:Qty: 2 on 08/26/2019 by Zach Grant MD at [facility] Knee GRZE[employer]ORZ / [employer] 05/19/2021 [id number] / [id number] / [id number] Knee Bearing 10x63 To 67mm Vanguard Ssk Stabilized - [id number] Implanted:Qty: 1 on 08/26/2019 by Zach Grant MD at [facility] Right: Knee [employer] 04/04/2021 [id number] / [id number] / [id number] Implanted - Out of Service Type Area Logging Specialist Device Identifier Shelf Expiration Date Model / [...] 6:12 AM 08/26/2019 1:56 PM Care Teams Geological Specialist Relationship Specialty Start Date End Date Maria Del Rosario Oleary NP [address] [place] [address] PCP - General Family Medicine 07/09/19 Additional Source Comments The information contained in this document represents components of the legal health record. It is not the complete legal health record.[facility]
--- OUTSIDE RECORDS SUMMARY | 2025-01-14 13:55 | XMS_ITS | Encounter Summary ---
Author Organization [facility] Address [phone] [facility] [place] [address] Care Team Providers Care Local Operator Name Role Phone Carmen Flores CNP Unavailable Alfa Priscila Maricarmen CRM SYSTEM ADMINISTRATOR Unavailable Veronica Vega MD Unavailable Selam Flower MD Unavailable [phone] Pedro Valente MD Unavailable Scarlett Baird PA-C Primary Care Provider Maria Del Rosario Oleary NP Primary Care Provider + Encounter Details Date Type Department Care Team (Late st Contact Info) Description 07/16/2018 Ancillary Orders Virtual Department [address] [place] [address] Radha Kurtz MD [address] [place] [address] [email or web address] Right knee pain, unspecified chronicity; Other instability, [...] meniscal or ligamentous tears apparent.. POS - [id number] Narrative 07/26/2018 2:39 PM EDT TECHNIQUE: Exam [...] No meniscal orligamentous tears apparent.. POS - [id number] Radha Kurtz MD IMG MR EXTREMITY documented in this encounter Visit Diagnoses Diagnosis Right knee pain, unspecified chronicity Other instability, right knee Right knee pain, unspecified chronicity Other instability, right knee documented in this encounter Care Teams Local Operator Relationship Specialty Start Date End Date Scarlett Baird PA-C [address] [place] [address] [email or web address] PCP - General Family Medicine 05/03/18 07/08/19 Maria Del Rosario Oleary, SPORTS EQUIPMENT REPAIRER [address] [place] [address] PCP - General Family Medicine 07/09/19 Carmen Flores, REBEKAH [address], [address] [place] [address] [email or web address] Historical LMR Provider 09/06/17 11/27/21 Priscila Grimm FNP [address], [address] [place] [address] [email or web address] Historical LMR Provider 09/06/17 11/27/21 Veronica Vega MD [address], [address] [place] [address] [email or web address] Historical LMR Provider 09/06/17 11/27/21 Selam Flower MD [address] [place] [address] Historical LMR Provider 09/06/17 2 Pedro Valente MD [address] [place] [address] Historical LMR Provider 09/06/17 2 documented as of this encounter Additional Source Comments The information contained in this document represents components of the legal health record. It is not the complete legal health record.[facility]
--- OUTSIDE RECORDS SUMMARY | 2025-01-14 13:55 | XMS_ITS | Encounter Summary ---
Author Organization [facility] Address [phone] [facility] [employer] [place] [address] Care Team Providers Care Sticker On Name Role Phone Carmen Flores CNP Unavailable [phone] Alfa Priscila Maricarmen REMEDIATION CONSULTANT Unavailable [phone] Veronica Vega MD Unavailable Selam Flower MD Unavailable [phone] Pedro Valente MD Unavailable Maria Del Rosario Oleary NP Primary Care Provider + Reason for Referral * MRI/CAT Scan - Closed Specialty Diagnoses / Procedures Referred By Contac t Referred To Contact Radiology Diagnoses Right knee pain, unspecified chronicity Radiculopathy, lumbar region Complex regional pain syndrome i of right lower limb Procedures MRI Lumbar Spine Pedro Denise PA [address] [place] [address] Referral ID Status Reason Start Date Expiration Date Visits Re quested Visits Authorized [id number] Closed 11/04/2020 05/03/2021 1 1 Encounter Details Date Type Department Care Team (Late st Contact Info) Description 11/05/2020 Transcribe Orders Virtual Department [address] [place] [address] Chantel Denise MD [address] [place] [address] [email or web address] Right knee pain, unspecified chronicity (Primary Dx); [...] limb documented in this encounter Care Teams Sticker On Relationship Specialty Start Date End Date Maria Del Rosario lOeary, JOAQUIN [address] [place] [address] PCP - General Family Medicine 07/09/19 Carmen Flores, REBEKAH [address], [address] [place] [address] Historical LMR Provider 09/06/17 11/27/21 Priscila Grimm FNP [address], [address] [place] [address] Historical LMR Provider 09/06/17 11/27/21 Veronica Vega MD [address], [address] [place] [address] Historical LMR Provider 09/06/17 11/27/21 Selam Flower MD [address] [place] [address] Historical LMR Provider 09/06/17 2 Pedro Valente MD [address] [place] [address] Historical LMR Provider 09/06/17 2 documented as of this encounter Additional Source Comments The information contained in this document represents components of the legal health record. It is not the complete legal health record.[facility]
--- OUTSIDE RECORDS SUMMARY | 2025-01-14 13:55 | XMS_ITS | Encounter Summary ---
Author Organization [facility] Address [phone] [facility] [place] [address] Care Team Providers Care Product Architect Name Role Phone Carmen Flores CNP Unavailable Priscila Grimm FACILITY DESIGNER Unavailable [phone] Veronica Vega MD Unavailable [phone] Selam Flower MD Unavailable [phone] Pedro Valente MD Unavailable [phone] Scarlett Baird PA-C Primary Care Provider Maria Del Rosario Oleary NP Primary Care Provider + Encounter Details Date Type Department Care Team (Late st Contact Info) Description 07/16/2018 Procedure Pass [address] [place] [address] Social History Tobacco Use Types Packs/Day Years [...] on filedocumented in this encounter Care Teams Product Architect Relationship Specialty Start Date End Date Scarlett Baird PA-C [address] [place] [address] [email or web address] PCP - General Family Medicine 05/03/18 07/08/19 Maria Del Rosario Oleary, BILLING AND INSURANCE COORDINATOR [address] [place] [address] PCP - General Family Medicine 07/09/19 Carmen Flores, REBEKAH [address] [facility] [place] [address] Historical LMR Provider 09/06/17 11/27/21 Priscila Grimm FNP [address] [facility], [address] [place] [address] [email or web address] Historical LMR Provider 09/06/17 11/27/21 Veronica Vega MD [address] [facility], [address] [place] [address] Historical LMR Provider 09/06/17 11/27/21 Selam Flower MD [address] [place] [address] Historical LMR Provider 09/06/17 2 Pedro Valente MD [address] [place] [address] Historical LMR Provider 09/06/17 2 documented as of this encounter Additional Source Comments The information contained in this document represents components of the legal health record. It is not the complete legal health record.[facility]
--- OUTSIDE RECORDS SUMMARY | 2025-01-14 13:55 | XMS_ITS ---
Author Organization [facility], [facility] Address [address] [place] [id number] Care Team Providers Care Certified Coding Specialist Name Role Phone KIRK LOZANO Primary Care [...] Active Encounters Encounter Location Date Provider Diagnosis [address] [id number] 12/26/2024 KIRK LOZANO PLAN OF TREATMENT Medication [...] ALEX HOOVER MDOB:[birth year] (54 yo F)Acc No.[id number]:12/26/2024 Patient:??ALEX HOOVER :1970?Age:54 Y?Sex:Fe male Phone: Address:[address] [place] [address] * Refills?? Refill Qulipta Tablet, 60 MG, [...]
--- OUTSIDE RECORDS SUMMARY | 2025-01-14 13:55 | XMS_ITS | Encounter Summary ---
Author Organization [facility] Address [phone] [facility] [place] [address] Care Team Providers Care Living Coach Name Role Phone Carmen Flores CNP Unavailable Alfa Priscila Maricarmen CERAMIC SAW TENDER Unavailable [phone] Veronica Vega MD Unavailable Selam Flower MD Unavailable Pedro Valente MD Unavailable Scarlett Baird PA-C Primary Care Provider Maria Del Rosario Oleary NP Primary Care Provider + Encounter Details Date Type Department Care Team (Late st Contact Info) Description 05/07/2018 Ancillary Orders [facility] External Provider Virtual Department [address] [place] [address] Radha Kurtz MD [address] [place] [address] Abnormal mammogram Social History Tobacco Use Types [...] Patient is recalled from a screening mammogram jnrylyhpu21/14/2018 for additional imaging on the left. Magnification [...] unspecified documented in this encounter Care Teams Living Coach Relationship Specialty Start Date End Date Scarlett Baird PA-C [address] [place] [address] PCP - General Family Medicine 05/03/18 07/08/19 Maria Del Rosario Oleary JOAQUIN [address] [place] [address] PCP - General Family Medicine 07/09/19 Carmen Flores, REEBKAH [address], [address] [place] [address] Historical LMR Provider 09/06/17 11/27/21 Priscila Grimm FNP [address], [address] [place] [address] Historical LMR Provider 09/06/17 11/27/21 Veronica Vega MD [address], [address] [place] [address] Historical LMR Provider 09/06/17 11/27/21 Selam Flower MD [address] [place] [address] Historical LMR Provider 09/06/17 2 Pedro Valente MD [address] [place] [address] Historical LMR Provider 09/06/17 2 documented as of this encounter Additional Source Comments The information contained in this document represents components of the legal health record. It is not the complete legal health record.[facility]
--- OUTSIDE RECORDS SUMMARY | 2025-01-14 13:55 | XMS_ITS ---
Author Organization [facility], [facility] Address [address] [place] [id number] Care Team Providers Care Agricultural Appraiser Name Role Phone KIRK LOZANO Primary Care Provider REASON FOR VISIT Refill MEDICATIONS Medication SIG (Take, Route, Fr equency, Duration) Notes Start Date End Date Status Sucralfate 1 GM/10ML TAKE 10 ML ONE HOUR BEFORE MEALS AND AT BEDTIME ON AN EMPTY STOMACH Orally as directed for 90 days 06/28/2025 Active Encounters Encounter Location Date Provider Diagnosis [address] [id number] 12/30/2024 KIRK LOZANO PLAN OF TREATMENT Medication Medication Name Sig Start Date Stop Date Notes Sucralfate 1 GM/10ML TAKE 10 ML ONE HOUR BEFORE MEALS AND AT BEDTIME ON AN EMPTY STOMACH Orally as directed for 90 days 06/28/2025 Progress Notes * ALEX HOOVER MDOB:[birth year] (54 yo F)Acc No.[id number]:12/30/2024 Patient:??ALEX HOOVER :1970?Age:54 Y?Sex:Fe male Phone: Address:[address] [place] [address] * Refills?? Refill Sucralfate Suspension, 1 GM/10ML, Orally, 1200, TAKE 10 ML ONE HOUR BEFORE MEALS AND AT BEDTIME ON AN EMPTY STOMACH, as directed, 90 days, Refills=2 * true * Date:??
--- OUTSIDE RECORDS SUMMARY | 2025-01-14 13:56 | XMS_ITS ---
Author Organization [facility] Address [address] [place] [phone] Care Team Providers Care Anode Adjuster Name Role Phone KIRK LOZANO Primary Care Provider [phone] REASON FOR VISIT Refills MEDICATIONS Medication SIG (Take, Route, Frequency, Duration) Notes Start Date End Date Status Cyclobenzaprine HCl 10 MG TAKE ONE TABLE T BY MOUTH EVERY DAY AT BEDTIME NEEDED Orally Once a day for 30 days 01/16/2025 Active Encounters Encounter Location Date Provider Diagnosis [address] [id number] 12/17/2024 KIRK LOZANO PLAN OF TREATMENT Medication Medication Name Sig Start Date Stop Date Notes Cyclobenzaprine HCl 10 MG TAKE ONE TABLE T BY MOUTH EVERY DAY AT BEDTIME NEEDED Orally Once a day for 30 days 01/16/2025 Progress Notes * ALEX HOOVER MDOB:[birth year] (54 yo F)Acc No.[id number]:12/17/2024 Patient:??ALEX HOOVER :1970?Age:54 Y?Sex:Fe male Phone: Address:[address] [place] [address] * Refills?? Refill Cyclobenzaprine HCl Tablet, 10 MG, Orally, 30, TAKE ONE TABLET BY MOUTH EVERY DAY AT BEDTIME NEEDED, Once a day, 30 days, Refills=3 * true * Date:??
--- OUTSIDE RECORDS SUMMARY | 2025-01-14 13:56 | XMS_ITS | Encounter Summary ---
Author Organization [facility] Address [phone] [facility] [employer] [address] Care Team Providers Care Web Manager Name Role Phone Carmen Flores DRAFTER AUTOMOTIVE DESIGN Unavailable Priscila Grimm ENAMEL SHADER Unavailable Veronica Vega MD Unavailable Selam Flower MD Unavailable Pedro Valente MD Unavailable Selam Flower MD Primary Care Provider Scarlett Baird PA-C Primary Care Provider Maria Del Rosario Oleary NP Primary Care Provider + Encounter Details Date Type Department Care Team (Late st Contact Info) Description 04/20/2018 Ancillary Orders [facility] [address] [place] [address] System, Provider Not In, PhD [address] [address] Social History Tobacco Use Types Packs/Day Years [...] on filedocumented in this encounter Care Teams Web Manager Relationship Specialty Start Date End Date Selam Flower MD [address] [place] [address] PCP - General 11/23/17 05/02/18 Scarlett Baird PA-C [address] [place] [address] [email or web address] PCP - General Family Medicine 05/03/18 07/08/19 Maria Del Rosario Oleary, JOAQUIN [address] [place] [address] PCP - General Family Medicine 07/09/19 Carmen Flores CNP [address] [facility] [address], [address] [place] [address] Historical LMR Provider 09/06/17 11/27/21 Priscila Grimm FNP [address], [address] [place] [address] Historical LMR Provider 09/06/17 11/27/21 Veronica Vega MD [address], [address] [place] [address] Historical LMR Provider 09/06/17 11/27/21 Selam Flower MD [address] [place] [address] Historical LMR Provider 09/06/17 2 Pedro Valente MD [address] [place] [address] Historical LMR Provider 09/06/17 2 documented as of this encounter Additional Source Comments The information contained in this document represents components of the legal health record. It is not the complete legal health record.[facility]
--- OUTSIDE RECORDS SUMMARY | 2025-01-14 13:56 | XMS_ITS | Encounter Summary ---
Author Organization [facility] Address [phone] [facility] [place] [address] Care Team Providers Care Chart Collector Name Role Phone Carmen Flores METER TECHNICIAN Unavailable Alfa Priscila Maricarmen SUPERVISOR GROVE Unavailable [phone] Veronica Vega MD Unavailable Selam Flower MD Unavailable Pedro Valente MD Unavailable Selam Flower MD Primary Care Provider Scarlett Baird PA-C Primary Care Provider [phone] Maria Del Rosario Oleary NP Primary Care Provider + Encounter Details Date Type Department Care Team (Late st Contact Info) Description 04/12/2018 Ancillary Orders Virtual Department [address] [place] [address] Scarlett Baird PA-C [address] [place] [address] [email or web address] Breast screening Social History Tobacco Use Types [...] unspecified documented in this encounter Care Teams Chart Collector Relationship Specialty Start Date End Date Selam Flower MD [address] [place] [address] PCP - General 11/23/17 05/02/18 Scarlett Baird PA-C [address] [place] [address] PCP - General Family Medicine 05/03/18 07/08/19 Maria Del Rosario Oleary NP [address] [place] [address] PCP - General Family Medicine 07/09/19 Carmen Flores CNP [address], [address] [place] [address] Historical LMR Provider 09/06/17 11/27/21 Priscila Grimm FNP [address], [address] [place] [address] Historical LMR Provider 09/06/17 11/27/21 Veronica Vega MD [address], [address] [place] [address] Historical LMR Provider 09/06/17 11/27/21 Selam Flower MD [address] [place] [address] Historical LMR Provider 09/06/17 2 Pedro Valente MD [address] [place] [address] Historical LMR Provider 09/06/17 2 documented as of this encounter Additional Source Comments The information contained in this document represents components of the legal health record. It is not the complete legal health record.[facility]
--- OUTSIDE RECORDS SUMMARY | 2025-01-14 13:56 | XMS_ITS | Encounter Summary ---
Author Organization [facility] Address [phone] [facility] [place] [address] Care Team Providers Care Med Dir Name Role Phone Carmen Flores FRENCH FOLDER Unavailable [phone] Priscila Grimm COLOR STRAINING BAG WASHER Unavailable Veronica Vega MD Unavailable Selam Flower MD Unavailable Pedro Valente MD Unavailable Pcp, Unknown Primary Care Provider Unavailabl e Selam Flower MD Primary Care Provider Scarlett Baird PA-C Primary Care Provider Maria Del Rosario Oleary NP Primary Care Provider + Encounter Details Date Type Department Care Team (Late st Contact Info) Description 10/18/2017 Procedure Pass [address] [place] [address] Social History Tobacco Use Types Packs/Day Years [...] on filedocumented in this encounter Care Teams Med Dir Relationship Specialty Start Date End Date Pcp, Unknown PCP - General 10/18/17 11/22/17 Selam Flower MD [address] [place] [address] PCP - General 11/23/17 05/02/18 Scarlett Baird PA-C [address] [place] [address] [email or web address] PCP - General Family Medicine 05/03/18 07/08/19 Maria Del Rosario Oleary NP [address] [place] [address] PCP - General Family Medicine 07/09/19 Carmen Flores CNP [address] [facility], [address] [place] [address] [email or web address] Historical LMR Provider 09/06/17 11/27/21 Priscila Grimm FNP [address], [address] [place] [address] Historical LMR Provider 09/06/17 11/27/21 Veronica Vega MD [address], [address] [place] [address] [email or web address] Historical LMR Provider 09/06/17 11/27/21 Selam Flower MD [address] [place] [address] Historical LMR Provider 09/06/17 2 Pedro Valente MD [address] [place] [address] Historical LMR Provider 09/06/17 2 documented as of this encounter Additional Source Comments The information contained in this document represents components of the legal health record. It is not the complete legal health record.[facility]
--- OUTSIDE RECORDS SUMMARY | 2025-01-14 13:56 | XMS_ITS | Clinical Summary ---
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 [facility] Generalized anxiety disorder 02/05/2014 07/18/2022 [...] Sigmoidoscopy 2018 Influenza Vaccine (#1) 2024 Insurance [facility] Member Subscriber Plan / Payer (Ef fective 2018-Present) Name:Monika Corcoran Relation to Subscriber:Self Name:Monika Corcoran Payer ID:Not on file Type:Not on file Address: [address] [phone] MEDICAID [place] [facility] Member Subscriber Plan / Payer (Ef fective 2018-Present) Name:Monika Corcoran Relation to Subscriber:Self Name:Monika Corcoran Payer ID:Not on file Type:Not on file Address: [address] [phone] MEDICAID [place] Care Teams Roofing Layer Relationship Specialty Start Date End Date Maria Del Rosario Oleary DNP [address] [place] [address], [address] [address] PCP - General Nurse Practitioner 07/18/22
--- OUTSIDE RECORDS SUMMARY | 2025-01-14 13:56 | XMS_ITS | Encounter Summary ---
Author Organization [facility] Address [phone] [facility] [place] [address] Care Team Providers Care Developing Machine Operator Name Role Phone Carmen Flores STAFF TECHNOLOGIST Unavailable [phone] Priscila Grimm AVIATION NEUROPSYCHOLOGIST Unavailable Veronica Vega MD Unavailable Selam Flower MD Unavailable [phone] Pedro Valente MD Unavailable Selam Flower MD Primary Care Provider Scarlett Baird PA-C Primary Care Provider [phone] Maria Del Rosario Oleary NP Primary Care Provider + Encounter Details Date Type Department Care Team (Late st Contact Info) Description 04/20/2018 Ancillary Orders [facility],Outside Imaging 30 [place] [address] System, Provider Not In, PhD [address] [address] Social History Tobacco Use Types Packs/Day Years [...] on filedocumented in this encounter Care Teams Developing Machine Operator Relationship Specialty Start Date End Date Selam Flower MD [address] [place] [address] PCP - General 11/23/17 05/02/18 Scarlett Baird PA-C [address] [place] [address] [email or web address] PCP - General Family Medicine 05/03/18 07/08/19 Maria Del Rosario Oleary, JOAQUIN [address] [place] [address] PCP - General Family Medicine 07/09/19 Carmen Flores CNP [address] [facility], [address] [place] [address] Historical LMR Provider 09/06/17 11/27/21 Priscila Grimm FNP [address], [address] [place] [address] Historical LMR Provider 09/06/17 11/27/21 Veronica Vega MD [address], [address] [place] [address] Historical LMR Provider 09/06/17 11/27/21 Selam Flower MD [address] [place] [address] Historical LMR Provider 09/06/17 2 Pedro Valente MD [address] [place] [address] Historical LMR Provider 09/06/17 2 documented as of this encounter Additional Source Comments The information contained in this document represents components of the legal health record. It is not the complete legal health record.[facility]
--- OUTSIDE RECORDS SUMMARY | 2025-01-14 13:56 | XMS_ITS | Encounter Summary ---
Author Organization [facility] Address [phone] [facility] [place] [address] Care Team Providers Care Ethylbenzene Cracking Supervisor Name Role Phone Carmen Flores BRAZING MACHINE OPERATOR AUTOMATIC Unavailable Priscila Grimm DRYLAND FARMER Unavailable Veronica eVga MD Unavailable Selam Flower MD Unavailable Pedro Valente MD Unavailable Selam Flower MD Primary Care Provider Scarlett Baird PA-C Primary Care Provider Maria Del Rosario Oleary NP Primary Care Provider + Encounter Details Date Type Department Care Team (Late st Contact Info) Description 04/20/2018 Ancillary Orders [facility],Outside Imaging 30 [place] [address] System, Provider Not In, PhD [address] [address] Social History Tobacco Use Types Packs/Day Years [...] on filedocumented in this encounter Care Teams Ethylbenzene Cracking Supervisor Relationship Specialty Start Date End Date Selam Flower MD [address] [place] [address] PCP - General 11/23/17 05/02/18 Scarlett Baird PA-C [address] [place] [address] [email or web address] PCP - General Family Medicine 05/03/18 07/08/19 Maria Del Rosario Oleary, JOAQUIN [address] [place] [address] PCP - General Family Medicine 07/09/19 Carmen Flores CNP [address] [facility] [address], [address] [place] [address] Historical LMR Provider 09/06/17 11/27/21 Priscila Grimm FNP [address], [address] [place] [address] Historical LMR Provider 09/06/17 11/27/21 Veronica Vega MD [address], [address] [place] [address] Historical LMR Provider 09/06/17 11/27/21 Selam Flower MD 143 [place] [address] Historical LMR Provider 09/06/17 2 Pedro Valente MD 41 [place] [address] Historical LMR Provider 09/06/17 2 documented as of this encounter Additional Source Comments The information contained in this document represents components of the legal health record. It is not the complete legal health record.[facility]
--- OUTSIDE RECORDS SUMMARY | 2025-01-14 13:56 | XMS_ITS | Encounter Summary ---
Author Organization [facility] Address [phone] [facility] [place] [address] Care Team Providers Care Floor Broker Name Role Phone Carmen Flores COMMUNITY RELATIONS ADVISOR Unavailable Priscila Grimm HAIR STYLIST Unavailable Veronica Vega MD Unavailable Selam Flower MD Unavailable [phone] Pedor Valente MD Unavailable Selam Flower MD Primary Care Provider Scarlett Baird PA-C Primary Care Provider Maria Del Rosario Oleary NP Primary Care Provider + Encounter Details Date Type Department Care Team (Late st Contact Info) Description 04/20/2018 Ancillary Orders [facility],Outside Imaging 30 [place] [address] System, Provider Not In, PhD [address] [address] Social History Tobacco Use Types Packs/Day Years [...] on filedocumented in this encounter Care Teams Floor Broker Relationship Specialty Start Date End Date Selam Flower MD [address] [place] [address] PCP - General 11/23/17 05/02/18 Scarlett Baird PA-C [address] [place] [address] PCP - General Family Medicine 05/03/18 07/08/19 Maria Del Rosario Oleary, JOAQUIN [address] [place] [address] PCP - General Family Medicine 07/09/19 Carmen Flores CNP 38 [facility] [address], [address] [place] [address] Historical LMR Provider 09/06/17 11/27/21 Priscila Grimm FNP [address], [address] [place] [address] Historical LMR Provider 09/06/17 11/27/21 Veronica Vega MD [address], [address] [place] [address] Historical LMR Provider 09/06/17 11/27/21 Selam Flower MD [address] [place] [address] Historical LMR Provider 09/06/17 2 Pedro Valente MD 41 [place] [address] Historical LMR Provider 09/06/17 2 documented as of this encounter Additional Source Comments The information contained in this document represents components of the legal health record. It is not the complete legal health record.[facility]
--- OUTSIDE RECORDS SUMMARY | 2025-01-14 13:56 | XMS_ITS | Encounter Summary ---
Author Organization [facility] Address [address] [facility] [address] [place] [address] Phone Care Team Providers Care Gas Station Operator Name Role Phone Maria Del Rosario Oleary DNP Primary Care Provider [phone] Reason for Visit * Reason Comments Med Refill Encounter Details Date Type Department Care Team (Late st Contact Info) Description 03/31/2023 Refill [facility] [address] [place] [address] Amauri Vasquez MD Social History [...] on filedocumented in this encounter Care Teams Gas Station Operator Relationship Specialty Start Date End Date Maria Del Rosario Oleary DNP 8[address] [facility] 3 [place] [address] PCP - General Nurse Practitioner 07/18/22 documented as of this encounter
--- OUTSIDE RECORDS SUMMARY | 2025-01-14 13:56 | XMS_ITS | Encounter Summary ---
Author Organization [facility] Address [phone] [facility] [place] [address] Care Team Providers Care Preschool Teacher'S Assistant Name Role Phone Carmen Flores MARKETING ANALYTICS LEAD Unavailable AlfaPriscila Maricarmen ENVIRONMENTAL TECHNICIAN Unavailable [phone] Veronica Vega MD Unavailable Selam Flower MD Unavailable [phone] Pedro Valente MD Unavailable Pcp, Unknown Primary [...] MRI Ankle (Left) Saurav Shahid MD [address] [place] [address] Email: [email or web address] Referral ID Status Reason Start Date Expiration Date Visits Re quested Visits Authorized [id number] Closed 10/18/2017 12/17/2017 1 1 Encounter Details Date Type Department Care Team (Late st Contact Info) Description 10/18/2017 Ancillary Orders Virtual Department 30 [place] [address] Saurav Shahid MD [address] [place] [phone] [email or web address] Acute left ankle pain Social History Tobacco [...] No other regional disruptions identified. POS - [id number] Edited by: Sylwia Michael on 10/24/2017 2:14 [...] No other regional disruptions identified. POS - [id number] Edited by: Sylwia Michael on 10/24/2017 2:14 PM Saurav Shahid MD IMG MR DEN Y documented in this encounter Visit Diagnoses Diagnosis Acute left ankle pain Acute left ankle pain documented in this encounter Care Teams Preschool Teacher'S Assistant Relationship Specialty Start Date End Date Pcp, Unknown PCP - General 10/18/17 11/22/17 Selam Flower MD [address] [place] [address] PCP - General 11/23/17 05/02/18 Scarlett Baird PA-C [address] [place] [address] PCP - General Family Medicine 05/03/18 07/08/19 Maria Del Rosario Oleary, JOAQUIN [address] [place] [address] PCP - General Family Medicine 07/09/19 Carmen Flores, REBEKAH [address], [address] [place] [address] Historical LMR Provider 09/06/17 11/27/21 Priscila Grimm FNP [address], [address] [place] [address] Historical LMR Provider 09/06/17 11/27/21 Veronica Vega MD [address], [address] [place] [address] Historical LMR Provider 09/06/17 11/27/21 Selam Flower MD [address] [place] [address] Historical LMR Provider 09/06/17 2 Pedro Valente MD [address] [place] [address] Historical LMR Provider 09/06/17 2 documented as of this encounter Additional Source Comments The information contained in this document represents components of the legal health record. It is not the complete legal health record.[facility]
--- OUTSIDE RECORDS SUMMARY | 2025-01-14 13:56 | XMS_ITS | Encounter Summary ---
Author Organization [facility] Address [phone] [facility] [place] [address] Care Team Providers Care Vending Enterprises Supervisor Name Role Phone Carmen Flores AIRPORT RAMP ATTENDANT Unavailable Priscila Grimm BODY BUILDER APPRENTICE Unavailable Veronica Vega MD Unavailable Selam Flower MD Unavailable Pedro Valente MD Unavailable Selam Flower MD Primary Care Provider Scarlett Baird PA-C Primary Care Provider Maria Del Rosario Oleary NP Primary Care Provider + Encounter Details Date Type Department Care Team (Late st Contact Info) Description 04/20/2018 Ancillary Orders [facility],Outside Imaging [address] [place] [address] System, Provider Not In, PhD [address] [address] Social History Tobacco Use Types Packs/Day Years [...] on filedocumented in this encounter Care Teams [employer]ending Enterprises Supervisor Relationship Specialty Start Date End Date Selam Flower MD [address] [place] [address] PCP - General 11/23/17 05/02/18 Scarlett Baird PA-C [address] [place] [address] [email or web address] PCP - General Family Medicine 05/03/18 07/08/19 Maria Del Rosario Oleary, JOAQUIN [address] [place] [address] PCP - General Family Medicine 07/09/19 Carmen Flores CNP [address] [facility] [address], [address] [place] [address] Historical LMR Provider 09/06/17 11/27/21 Priscila Grimm FNP [address], [address] [place] [address] Historical LMR Provider 09/06/17 11/27/21 Veronica Vega MD [address], [address] [place] [address] Historical LMR Provider 09/06/17 11/27/21 Selam Flower MD [address] [place] [address] Historical LMR Provider 09/06/17 2 Pedro Valente MD 41 [place] [address] Historical LMR Provider 09/06/17 2 documented as of this encounter Additional Source Comments The information contained in this document represents components of the legal health record. It is not the complete legal health record.[facility]
--- OUTSIDE RECORDS SUMMARY | 2025-01-14 13:56 | XMS_ITS | Encounter Summary ---
Author Organization [facility] Address [phone] [facility] [place] [address] Care Team Providers Care Misdraw Hand Name Role Phone Carmen Flores PLANE TENDER Unavailable Priscila Grimm CHAIRMAN AND CHIEF EXECUTIVE OFFICER Unavailable [phone] Veronica Vega MD Unavailable Selam Flower MD Unavailable Pedro Valente MD Unavailable Selam Flower MD Primary Care Provider Scarlett Baird PA-C Primary Care Provider Maria Del Rosario Oleary NP Primary Care Provider + Encounter Details Date Type Department Care Team (Late st Contact Info) Description 04/20/2018 Ancillary Orders [facility],Outside Imaging [address] [place] [address] System, Provider Not In, PhD [address] [address] Social History Tobacco Use Types Packs/Day Years [...] on filedocumented in this encounter Care Teams Misdraw Hand Relationship Specialty Start Date End Date Selam Flower MD [address] [place] [address] PCP - General 11/23/17 05/02/18 Scarlett Baird PA-C [address] [place] [address] [email or web address] PCP - General Family Medicine 05/03/18 07/08/19 Maria Del Rosario Oleary, JOAQUIN [address] [place] [address] PCP - General Family Medicine 07/09/19 Carmen Flores CNP 38 [facility] [address], [address] [place] [address] Historical LMR Provider 09/06/17 11/27/21 Priscila Grimm FNP [address], [address] [place] [address] Historical LMR Provider 09/06/17 11/27/21 Veronica Vega MD [address], [address] [place] [address] Historical LMR Provider 09/06/17 11/27/21 Selam Flower MD 143 [place] [address] Historical LMR Provider 09/06/17 2 Pedro Valente MD 41 [place] [address] Historical LMR Provider 09/06/17 2 documented as of this encounter Additional Source Comments The information contained in this document represents components of the legal health record. It is not the complete legal health record.[facility]
--- OUTSIDE RECORDS SUMMARY | 2025-01-14 13:56 | XMS_ITS | Encounter Summary ---
Author Organization [facility] Address [phone] [place] [address] Care Team Providers Care Supervisor [employer] Name Role Phone Carmen Flores EP TECHNOLOGIST Unavailable [employer] Priscila Maricarmen DATASTAGE DEVELOPER Unavailable [phone] Veronica Vega MD Unavailable Selam Flower MD Unavailable Pedro Valente MD Unavailable Pcp, Unknown Primary Care Provider Unavailabl e Pcp, Unknown Primary Care Provider Unavailabl e Selam Flower MD Primary Care Provider Scarlett Baird PA-C Primary Care Provider Maria Del Rosario Oleary NP Primary Care Provider + Encounter Details Date Type Department Care Team (Late st Contact Info) Description 10/02/2017 Ancillary Orders [facility], X-Ray - [address] [place] [address] Kassandra Laura PAMaheshC [address] [facility], [address] [place] [address] [email or web address] Pain Social History Tobacco Use Types Packs/Day [...] EST No evidence of fractures. POS - [id number] Narrative 10/02/2017 2:43 PM EST HISTORY: ??Lateral [...] IMPRESSION: No evidence of fractures. POS - [id number] Kassandra Laura PA-C IMG XR LOWER EXTREMI TY * XR Tibia Fibula 2 Views (Left) (10/02/2017 2:24 PM EST) Anatomical Region Laterality Modality Leg Left Radiographic Zelda ging 10/02/2017 2:43 PM EST Impressions 10/02/2017 2:45 PM EST No evidence of fractures. POS - [id number] Narrative 10/02/2017 2:45 PM EST HISTORY: ??Bilateral [...] IMPRESSION: No evidence of fractures. POS - [id number] Kassandra Laura PA-C IMG XR LOWER EXTREMI TY documented in this encounter Visit Diagnoses Diagnosis Pain Generalized pain Pain Generalized pain Pain Generalized pain documented in this encounter Care Teams Supervisor Malt [employer] Relationship Specialty Start Date End Date Pcp, Unknown PCP - General 02/18/11 10/17/17 Pcp, Unknown PCP - General 10/18/17 11/22/17 Selam Flower MD [address] [place] [address] PCP - General 11/23/17 05/02/18 Scarlett Baird PA-C [address] [place] [address] [email or web address] PCP - General Family Medicine 05/03/18 07/08/19 Maria Del Rosario Oleary, JOAQUIN [address] [place] [address] PCP - General Family Medicine 07/09/19 Carmen Folres, REBEKAH [address] [facility], [address] [place] [address] [email or web address] Historical LMR Provider 09/06/17 11/27/21 Priscila Grimm FNP [address], [address] [place] [address] Historical LMR Provider 09/06/17 11/27/21 Veronica Vega MD 38 [facility]. 204, [address] [place] [address] [email or web address] Historical LMR Provider 09/06/17 11/27/21 Selam Flower MD [address] [place] [address] Historical LMR Provider 09/06/17 2 Pedro Valente MD [address] [place] [address] Historical LMR Provider 09/06/17 2 documented as of this encounter Additional Source Comments The information contained in this document represents components of the legal health record. It is not the complete legal health record.[facility]
--- OUTSIDE RECORDS SUMMARY | 2025-01-14 13:56 | XMS_ITS | Encounter Summary ---
Author Organization [facility] Address [phone] [facility] [place] [address] Care Team Providers Care Director [employer] Name Role Phone Carmen Flores TINSMITH APPRENTICE Unavailable Priscila Grimm SAFETY TRAINER Unavailable Veronica Vega MD Unavailable Selam Flower MD Unavailable Pedro Valente MD Unavailable Selam Flower MD Primary Care Provider Scarlett Baird PA-C Primary Care Provider Maria Del Rosario Oleary NP Primary Care Provider + Encounter Details Date Type Department Care Team (Late st Contact Info) Description 04/20/2018 Ancillary Orders [facility],Outside Imaging [address] [place] [address] System, Provider Not In, PhD [address] [address] Social History Tobacco Use Types Packs/Day Years [...] on filedocumented in this encounter Care Teams Director [employer] Relationship Specialty Start Date End Date Selam Flower MD [address] [place] [address] PCP - General 11/23/17 05/02/18 Scarlett Baird PA-C [address] [place] [address] [email or web address] PCP - General Family Medicine 05/03/18 07/08/19 Maria Del Rosario Oleary, JOAQUIN [address] [place] [address] PCP - General Family Medicine 07/09/19 Carmen Flores CNP 38 [facility] [address], [address] [place] [address] Historical LMR Provider 09/06/17 11/27/21 Priscila Grimm FNP [address], [address] [place] [address] Historical LMR Provider 09/06/17 11/27/21 Veronica Vega MD [address], [address] [place] [address] Historical LMR Provider 09/06/17 11/27/21 Selam Flower MD [address] [place] [address] Historical LMR Provider 09/06/17 2 Pedro Valente MD 41 [place] [address] Historical LMR Provider 09/06/17 2 documented as of this encounter Additional Source Comments The information contained in this document represents components of the legal health record. It is not the complete legal health record.[facility]
== END 2025-01-14 11:20 | disposition home or self-care (01) ==
LOC: HO.LNP 11:19
PROVIDERS: Visit Provider Internal Medicine Nephrology
DX: R80.8 Other proteinuria (principal); R60.0 Localized edema; N20.0 Calculus of kidney
CPT/HCPCS: 84156

== ENCOUNTER 2025-02-07 10:14 | Outpatient (AMB) | payer OTHER, MEDICAID, SELFPAY ==
[2025-02-07 10:32] VITALS: BP 130/90; PULSE 79; O2SAT 94; BMI 34.7
--- NOTE | 2025-02-07 10:32 | HO.NEPHOV_ITS ---
Vital Signs 02/07/25 10:32 Height 5 ft 6 in Weight 215 lb 4 oz BMI 34.7 BP 130/90 H Blood Pressure Location Lt brachial Position Sitting Pulse 79 Pulse Source Pulse Oximeter Pulse Oximetry (%) 94 Oxygen Delivery Method Room Air Intake Visit Reasons: Edema Rural Electrification Engineer Required: No Accompanied by: Other Relationship Allergies amoxicillin Allergy (Mild, Verified 02/07/25 10:32) unknown cat dander Allergy (Mild, Verified 02/07/25 10:32) Unknown pollen extracts Allergy (Mild, Verified 02/07/25 10:32) unknown cephalexin [From Keflex] Allergy (Verified 02/07/25 10:32) Nausea and Vomiting erythromycin base Allergy (Verified 02/07/25 10:32) Nausea and Vomiting Penicillins Allergy (Verified 02/07/25 10:32) Itching NSAIDS (Non-Steroidal Anti-Inflamma Adverse Reaction (Mild, Verified 02/07/25 10:32) effects kidneys HPI Comments Details: Padmaja was seen in follow-up for her nephrolithiasis. She had weight gain 27 lbs in close to 6 months. She has been on prednisone but currently is on 2.5 mg daily. She has history of complex regional pain syndrome. She had a spinal cord stimulator put in. Her arthralgias are better. She does not have any blood in the urine, fever, loin pain, chills, rigor or dysuria. She has not passed any later gravel in the urine. She maintains good hydration. She tries to minimize his salt in the diet. [facility] Medical History (Updated 01/10/25 @ 09:55 by Amauri Vasquez MD) Primary insomnia Osteoarthritis Nerve injury Nephrolithiasis Migraine Fibromyositis Fibromyalgia Depressive disorder Anxiety Smoker Chronic knee pain GERD (gastroesophageal reflux disease) Closed left ankle fracture Surgical History Hx of repair of left rotator cuff Hx of repair of right rotator cuff History of total right knee replacement S/P rotator cuff repair History of hysterectomy Social History Alcohol intake: never Patient Tobacco Use Status: Former Tobacco user Review of Systems Const All systems reviewed & are unremarkable except as noted in HPI and below Physical Exam Const General: comfortable and no acute distress Orientation/consciousness: patient oriented x3 HEENT Head: Yes normocephalic Mouth: Normal oral and palatal mucosa present Eyes EOM: EOMs intact bilaterally Neck Neck: Yes supple Resp Auscultation: clear to auscultation bilaterally Cardio Jugular venous distension: no JVD Rate: regular rate GI Palpation (GI): Soft to palpation Auscultation: normal bowel sounds General: Yes no CVA tenderness Back/Spine/Pelvis Back: no CVA tenderness Skin General skin exam: no rashes or lesions noted Neuro General: patient oriented x3 and moves all extremities Extrem General: Yes no pedal edema Results Reviewed Nephrology Results: Hgb 13.1 g/dl (12.0-16.0) 01/10/25 WBC 8.3 X10*3/uL (4.8-10.8) 01/10/25 Plt Count 297 X10*3/uL (160-400) 01/10/25 Sodium 139 mmol/L (135-145) 01/10/25 Potassium 5.0 mmol/L (3.3-5.1) 01/10/25 Chloride 105 mmol/L (96-108) 01/10/25 Carbon Dioxide 28 mmol/L (22-29) 01/10/25 BUN 16 mg/dL (9-16) 01/10/25 Creatinine 0.91 mg/dL (0.5-1.4) 01/10/25 Calcium 9.4 mg/dL (8.4-10.2) 01/10/25 Assessment & Plan Assessment & Plan (1) Nephrolithiasis: Code(s): N20.0 - Calculus of kidney Category: Medical (2) Proteinuria: Code(s): R80.9 - Proteinuria, unspecified Category: Medical Qualifiers: Proteinuria type: other Qualified Code(s): R80.8 - Other proteinuria Plan Padmaja has longstanding nephrolithiasis. She has family history of renal calculus. She claims to be taking adequate amount of fluid. Her 24 hour urine collection in the past has shown a low citrate. She is on potassium citrate. She should minimize sodium in the diet and continue to maintain good hydration. She should cut back animal protein, increase fruits and vegetables in the diet. She should avoid nonsteroidal inflammatory medications. She has proteinuria. Her 24 hour urine protein as well as renal imaging & rest of the investigations were reviewed . She should continue on hydrochlorothiazide 12.5 mg every other day. I increased her K citrate to 10 MEq daily. I will started her on losartan 25 mg at next visit. She may need renal biopsy. Answered all questions Orders: Orders Blood Urea Nitrogen 6 Weeks N20.0 - Calculus of kidney, R80.8 - Other proteinuria Electrolytes 6 Weeks N20.0 - Calculus of kidney, R80.8 - Other proteinuria Creatinine 6 Weeks N20.0 - Calculus of kidney, R80.8 - Other proteinuria Medications: Changed From potassium citrate ER 5 mEq PO DAILY 90 tabs 4RF To potassium citrate ER 10 mEq PO DAILY 90 tabs 4RF From hydrochlorothiazide 12.5 mg PO DAILY 30 tabs 6RF To hydrochlorothiazide 12.5 mg PO Q OTHER DAY 30 tabs 6RF Coding Level of Care Code Est Pt Level 4 (38309) Diagnoses Nephrolithiasis N20.0 Other proteinuria R80.8 Proteinuria type: other
--- OUTSIDE RECORDS SUMMARY | 2025-02-07 12:07 | XMS_ITS | Clinical Summary ---
Author Organization [facility] Address [address] [facility] [address] [place] [address] Phone Care Team Providers Care Plumbing Hardware Assembler Name Role Phone Maria Del Rosario Oelary LAURA Primary Care Provider [phone] Allergies Active Allergy Reactions Criticality Noted Date [...] Revision from patellofemoral unicompartmental arthroplasty done at [facility] Revision from patellofemoral unicompartmental arthroplasty done at [facility] Generalized anxiety disorder 02/05/2014 07/18/2022 [...] Sigmoidoscopy 2018 Influenza Vaccine (#1) 2024 Insurance [facility] Member Subscriber Plan / Payer (Ef fective 2018-Present) Name:Monika Corcoran Relation to Subscriber:Self Name:Monika Corcoran Payer ID:Not on file Type:Not on file Address: [address] [id number] MEDICAID [place] [facility] Member Subscriber Plan / Payer (Ef fective 2018-Present) Name:Monika Corcoran Relation to Subscriber:Self Name:Monika Corcoran Payer ID:Not on file Type:Not on file Address: [address] [phone] MEDICAID [place] Care Teams Plumbing Hardware Assembler Relationship Specialty Start Date End Date Maria Del Rosario Oleary DNP [address] [place] [address], [address] [address] PCP - General Nurse Practitioner 07/18/22
--- OUTSIDE RECORDS SUMMARY | 2025-02-07 12:07 | XMS_ITS | Data Portability ---
Author Organization [facility], [facility] Address [address] [place] [address] Care Team Providers Care Supervisor Sanding Name Role Phone JOSELINE CORREA Primary Care Provider JOSELINE CORREA Referring Provider [phone] KIRK LOZANO Primary Care Provider Assessment Encounter [...] 04/11/2022 DATA REVIEW completed Francisco Johnson MD [address] [place], [place] [address], [phone], [facility] 04/11/2022 10:36:58 06/08/2021 DATA REVIEW completed Francisco Johnson MD [address] [place], [place] [address], [address], [facility] 06/08/2021 12:57:11 Imaging Results None recorded. Procedure [...] Code Diagnosis Note 1320 Francisco Johnson MD [facility] [address] [place] [address] [place] [address] 06/08/2021 12:31:37 06/08/2021 14:44:52 Migraine without aura [id number] G43.009 5141 Francisco Johnson MD [facility] [address] [place] [address] [place] [address] 04/11/2022 10:31:55 04/11/2022 11:17:34 Migraine without aura [id number] G43.009 Health Concerns Section Related Observation LastModified by Organization Detai ls LastModified Time None Recorded Concern Status LastModified by Organization Details LastModified Time None Recorded Advance Directives Directive None Recorded Payers Encounter Date Sequence Insurance Name Policy Number Policy Carlson Covered Member ID Carlson Member ID Guarantor Name 06/08/2021 1 [facility] [id number] Monika Medina Godbout [id number] Monika Medina Godbout 06/08/2021 2 [place] [facility] [place] Monika Machadobolaz [id number] Monika Machadobout 04/11/2022 1 [facility] [id number] Monika Medina Godbout [id number] Monika Medina Godbout 04/11/2022 2 [place] [facility] [place] Monika Medina Godbout [id number] Monika Corcoran Notes Date Note Type Note [...] started in ~2012 and amitriptyline was started ~9842-2834, 1.5-2 years ago. Bad migraines became about [...] is no spinning component. Francisco Johnson MD [address] [place] [address] [place], [address], [facility] 06/08/2021 13:18:49 04/11/2022 text/html Follow up of [...] started in ~2012 and amitriptyline was started ~7095-5574, 1.5-2 years ago. Bad migraines became about [...] is no spinning component. Francisco Johnson MD [address] [place] [address] [place], [address], [facility] 04/11/2022 10:50:40 OBGyn Episode No OBEpisode recorded.
--- OUTSIDE RECORDS SUMMARY | 2025-02-07 12:07 | XMS_ITS ---
Author Organization [facility], [facility] Address [address] [place] [phone] Care Team Providers Care Repairer Screen Crusher Name Role Phone KIRK LOZANO Primary Care Provider [phone] REASON FOR VISIT Refill MEDICATIONS Medication SIG (Take, Route, Fr equency, Duration) Notes Start Date End Date Status Sucralfate 1 GM/10ML TAKE 10 ML ONE HOUR BEFORE MEALS AND AT BEDTIME ON AN EMPTY STOMACH Orally as directed for 90 days 06/28/2025 Active Encounters Encounter Location Date Provider Diagnosis [address] [id number] 12/30/2024 KIRK LOZANO PLAN OF TREATMENT Medication Medication Name Sig Start Date Stop Date Notes Sucralfate 1 GM/10ML TAKE 10 ML ONE HOUR BEFORE MEALS AND AT BEDTIME ON AN EMPTY STOMACH Orally as directed for 90 days 06/28/2025 Progress Notes * ALEX HOOVER MDOB:[birth year] (54 yo F)Acc No.[id number]:12/30/2024 Patient:??ALEX HOOVER :1970?Age:54 Y?Sex:Fe male Phone: Address:[address] [place] [address] * Refills?? Refill Sucralfate Suspension, 1 GM/10ML, Orally, 1200, TAKE 10 ML ONE HOUR BEFORE MEALS AND AT BEDTIME ON AN EMPTY STOMACH, as directed, 90 days, Refills=2 * true * Date:??
--- OUTSIDE RECORDS SUMMARY | 2025-02-07 12:07 | XMS_ITS ---
Author Organization [facility], [facility] Address [address] [place] [phone] Care Team Providers Care Grain Broker And Market Operator Name Role Phone KIRK LOZANO Primary Care [...] Active Encounters Encounter Location Date Provider Diagnosis [address] [id number] 12/26/2024 KIRK LOZANO PLAN OF TREATMENT Medication [...] ALEX HOOVER MDOB:[birth year] (54 yo F)Acc No.[id number]:12/26/2024 Patient:??ALEX HOOVER :1970?Age:54 Y?Sex:Fe male Phone: Address:[address] [place] [address] * Refills?? Refill Qulipta Tablet, 60 MG, [...]
--- OUTSIDE RECORDS SUMMARY | 2025-02-07 12:07 | XMS_ITS ---
Author Organization [facility], [facility] Address [address] [place] [phone] Care Team Providers Care Shop Repairer Name Role Phone KIRK LOZANO Primary Care Provider REASON FOR VISIT Refills MEDICATIONS Medication SIG (Take, Route, Frequency, Duration) Notes Start Date End Date Status Cyclobenzaprine HCl 10 MG TAKE ONE TABLE T BY MOUTH EVERY DAY AT BEDTIME NEEDED Orally Once a day for 30 days 01/16/2025 Active Encounters Encounter Location Date Provider Diagnosis [address] [id number] 12/17/2024 KIRK LOZANO PLAN OF TREATMENT Medication Medication Name Sig Start Date Stop Date Notes Cyclobenzaprine HCl 10 MG TAKE ONE TABLE T BY MOUTH EVERY DAY AT BEDTIME NEEDED Orally Once a day for 30 days 01/16/2025 Progress Notes * ALEX HOOVER MDOB:[birth year] (54 yo F)Acc No.[id number]:12/17/2024 Patient:??ALEX HOOVER :1970?Age:54 Y?Sex:Fe male Phone: Address:[address] [place] [address] * Refills?? Refill Cyclobenzaprine HCl Tablet, 10 MG, Orally, 30, TAKE ONE TABLET BY MOUTH EVERY DAY AT BEDTIME NEEDED, Once a day, 30 days, Refills=3 * true * Date:??
--- OUTSIDE RECORDS SUMMARY | 2025-02-07 12:07 | XMS_ITS | Encounter Summary ---
Author Organization [facility] Address [address] [facility] [address] [place] [address] Phone Care Team Providers Care Brothel Keeper Name Role Phone Maria Del Rosario Oleary DNP Primary Care Provider [phone] Reason for Visit * Reason Comments Med Refill Encounter Details Date Type Department Care Team (Late st Contact Info) Description 03/31/2023 Refill [facility] [address] [facility] [address] [place] [address] Amauri Vasquez MD Social History [...] on filedocumented in this encounter Care Teams Brothel Keeper Relationship Specialty Start Date End Date Maria Del Rosario Oleary DNP [address] [facility] [address] [place] [address] PCP - General Nurse Practitioner 07/18/22 documented as of this encounter
== END 2025-02-07 11:00 | disposition home or self-care (01) ==
LOC: HO.HKA 10:15
PROVIDERS: PCP Registered Nurse; Visit Provider Internal Medicine Nephrology
DX: N20.0 Calculus of kidney (principal); R80.8 Other proteinuria
CPT/HCPCS: 99214

== ENCOUNTER 2025-04-11 09:20 | Outpatient (AMB) | payer MEDICAID, SELFPAY ==
--- NOTE | 2025-04-11 09:28 | HO.NEPHOV_ITS ---
Vital Signs 04/11/25 09:31 Height 5 ft 6 in Weight 216 lb BMI 34.9 BP 132/88 Blood Pressure Location Lt brachial Position Sitting Pulse 78 Pulse Source Pulse Oximeter Pulse Oximetry (%) 97 Oxygen Delivery Method Room Air Intake Visit Reasons: 2 MO FU-Conf Cytometry Technologist Required: No Accompanied by: Other Relationship Allergies amoxicillin Allergy (Mild, Verified 04/11/25 09:31) unknown cat dander Allergy (Mild, Verified 04/11/25 09:31) Unknown pollen extracts Allergy (Mild, Verified 04/11/25 09:31) unknown cephalexin [From Keflex] Allergy (Verified 04/11/25 09:31) Nausea and Vomiting erythromycin base Allergy (Verified 04/11/25 09:31) Nausea and Vomiting Penicillins Allergy (Verified 04/11/25 09:31) Itching NSAIDS (Non-Steroidal Anti-Inflamma Adverse Reaction (Mild, Verified 04/11/25 09:31) effects kidneys HPI Comments Details: Padmaja was seen in follow-up for her nephrolithiasis. She had weight gain . She has been on prednisone but currently is on 2.5 mg daily. She has history of complex regional pain syndrome. She had a spinal cord stimulator put in. Her arthralgias are better. She does not have any blood in the urine, fever, loin pain, chills, rigor or dysuria. She has not passed any later gravel in the urine. She maintains good hydration. She tries to minimize his salt in the diet. [facility] Medical History (Updated 01/10/25 @ 09:55 by Amauri Vasquez MD) Primary insomnia Osteoarthritis Nerve injury Nephrolithiasis Migraine Fibromyositis Fibromyalgia Depressive disorder Anxiety Smoker Chronic knee pain GERD (gastroesophageal reflux disease) Closed left ankle fracture Surgical History Hx of repair of left rotator cuff Hx of repair of right rotator cuff History of total right knee replacement S/P rotator cuff repair History of hysterectomy Social History Alcohol intake: never Patient Tobacco Use Status: Former Tobacco user Review of Systems Const All systems reviewed & are unremarkable except as noted in HPI and below Physical Exam Const General: comfortable and no acute distress Orientation/consciousness: patient oriented x3 HEENT Head: Yes normocephalic Mouth: Normal oral and palatal mucosa present Eyes EOM: EOMs intact bilaterally Neck Neck: Yes supple Resp Auscultation: clear to auscultation bilaterally Cardio Jugular venous distension: no JVD Rate: regular rate GI Palpation (GI): Soft to palpation Auscultation: normal bowel sounds General: Yes no CVA tenderness Back/Spine/Pelvis Back: no CVA tenderness Skin General skin exam: no rashes or lesions noted Neuro General: patient oriented x3 and moves all extremities Extrem General: Yes no pedal edema Assessment & Plan Assessment & Plan (1) Proteinuria: Code(s): R80.9 - Proteinuria, unspecified Category: Medical Qualifiers: Proteinuria type: other Qualified Code(s): R80.8 - Other proteinuria (2) Edema: Code(s): R60.9 - Edema, unspecified Category: Medical Qualifiers: Edema type: localized Qualified Code(s): R60.0 - Localized edema (3) Nephrolithiasis: Code(s): N20.0 - Calculus of kidney Category: Medical Plan Padmaja has longstanding nephrolithiasis. She has family history of renal calculus. She claims to be taking adequate amount of fluid. Her 24 hour urine collection in the past has shown a low citrate. She is on potassium citrate. She should minimize sodium in the diet and continue to maintain good hydration. She should cut back animal protein, increase fruits and vegetables in the diet. She should avoid nonsteroidal inflammatory medications. She has proteinuria. Her 24 hour urine protein showed less than 224 Gram. I increased his hydrochlorothiazide to 12.5 mg daily. She may need potassium citrate. She may need renal biopsy. I plan to start losartan/lisinopril daily at the next visit. Answered all questions Orders: Orders Myeloperoxidase Antibody 4 Months N20.0 - Calculus of kidney, R60.0 - Localized edema, R80.8 - Other proteinuria Phospholipase A2 Receptor Pnl 4 Months N20.0 - Calculus of kidney, R60.0 - Localized edema, R80.8 - Other proteinuria Creatinine 4 Months N20.0 - Calculus of kidney, R60.0 - Localized edema, R80.8 - Other proteinuria Blood Urea Nitrogen 4 Months N20.0 - Calculus of kidney, R60.0 - Localized edema, R80.8 - Other proteinuria Protein Creatinine Ratio, Ur 4 Months N20.0 - Calculus of kidney, R60.0 - Localized edema, R80.8 - Other proteinuria Hemoglobin A1c 4 Months N20.0 - Calculus of kidney, R60.0 - Localized edema, R80.8 - Other proteinuria Immunofixation Pnl, Serum 4 Months N20.0 - Calculus of kidney, R60.0 - Localized edema, R80.8 - Other proteinuria Proteinase 3 PR3 Antibodies 4 Months N20.0 - Calculus of kidney, R60.0 - Localized edema, R80.8 - Other proteinuria Anti Glomerular Basement Memb 4 Months N20.0 - Calculus of kidney, R60.0 - Localized edema, R80.8 - Other proteinuria Complement C3 4 Months N20.0 - Calculus of kidney, R60.0 - Localized edema, R80.8 - Other proteinuria Complement C4 4 Months N20.0 - Calculus of kidney, R60.0 - Localized edema, R80.8 - Other proteinuria Electrolytes 4 Months N20.0 - Calculus of kidney, R60.0 - Localized edema, R80.8 - Other proteinuria Calcium 4 Months N20.0 - Calculus of kidney, R60.0 - Localized edema, R80.8 - Other proteinuria Coding Level of Care Code Est Pt Level 4 (28692) Diagnoses Other proteinuria R80.8 Proteinuria type: other Localized edema R60.0 Edema type: localized Nephrolithiasis N20.0
[2025-04-11 09:31] VITALS: BP 132/88; PULSE 78; O2SAT 97; BMI 34.9
--- OUTSIDE RECORDS SUMMARY | 2025-04-11 09:34 | XMS_ITS | Data Portability ---
Author Organization [facility] [place] Address [address] [place] [address] [place] [address] Care Team Providers Care Actuarial Assistant Name Role Phone JOSELINE CORREA Primary Care Provider JOSELINE CORREA Referring Provider KIRK LOZANO Primary Care Provider [phone] Assessment Encounter Date Assessment Date Assessment LastModified [...] 04/11/2022 DATA REVIEW completed Francisco Johnson MD [address] [place], [place] [address], [address], [facility] 04/11/2022 10:36:58 06/08/2021 DATA REVIEW completed Francisco Johnson MD [address] [place], [place] [address], [address], [facility] 06/08/2021 12:57:11 Imaging Results None recorded. [...] Code Diagnosis Note 1320 Francisco Johnson MD [facility] [address] [place] [address] [place] [address] 06/08/2021 12:31:37 06/08/2021 14:44:52 Migraine without aura [id number] G43.009 5141 Francisco Johnson MD [facility] [address] [place] [address] [place] [address] 04/11/2022 10:31:55 04/11/2022 11:17:34 Migraine without aura [id number] G43.009 Health Concerns Section Related Observation LastModified by Organization Detai ls LastModified Time None Recorded Concern Status LastModified by Organization Details LastModified Time None Recorded Advance Directives Directive None Recorded Payers Encounter Date Sequence Insurance Name Policy Number Policy Carlson Covered Member ID Carlson Member ID Guarantor Name 06/08/2021 1 [facility] [id number] Monika Medina Godbout [id number] Monika Medina Godbout 06/08/2021 2 [place]: [facility] Monika Machadobolaz [id number] Moinka Machadobout 04/11/2022 1 [facility] [id number] Monika Medina Godbout [id number] Monika Medina Godbout 04/11/2022 2 [place] [facility] Monika Medina Godbout [id number] Monika Corcoran Notes Date Note Type Note [...] started in ~2012 and amitriptyline was started ~4762-6297, 1.5-2 years ago. Bad migraines became about [...] is no spinning component. Francisco Johnson MD [address] [place] [address] [place], [address], [facility] 06/08/2021 13:18:49 04/11/2022 text/html Follow up [...] started in ~2012 and amitriptyline was started ~9343-6913, 1.5-2 years ago. Bad migraines became about [...] is no spinning component. Francisco Johnson MD [address] [place] [address] [place], [address], [facility] 04/11/2022 10:50:40 OBGyn Episode No OBEpisode recorded.
== END 2025-04-11 10:01 | disposition home or self-care (01) ==
LOC: HO.HKA 09:21
PROVIDERS: PCP Registered Nurse; Visit Provider Internal Medicine Nephrology
DX: R80.8 Other proteinuria (principal); R60.0 Localized edema; N20.0 Calculus of kidney
CPT/HCPCS: 99214

== ENCOUNTER → 2025-04-11 09:20 | Outpatient (BNVA) | payer MEDICAID, SELFPAY | PROVIDERS: PCP Registered Nurse; Visit Provider Internal Medicine Nephrology | DX: R80.8 Other proteinuria (principal); R60.0 Localized edema; N20.0 Calculus of kidney; Z96.89 Presence of other specified functional implants | CPT/HCPCS: 99212 ==

== ENCOUNTER 2025-08-13 09:47 | Outpatient (AMB) | payer MEDICAID, SELFPAY ==
--- OUTSIDE RECORDS SUMMARY | 2010-03-09 | XMS_ITS | Encounter Summary ---
Author Organization [facility] Address [address] [place] [phone] Phone Care Team Providers Care Molder Pipe Covering Name Role Phone Unavailable Primary Care Provider Unavailabl e Encounter Details Date Type Department Care Team (Late st Contact Info) Description 03/09/2010 Hospital Encounter [facility],Outside Imaging [address] [place], [place] [phone] System, Provider Not In, PhD [address] [address] Social History Tobacco Use Types Packs/Day Years [...] as of this encounter Plan of Treatment Not on file documented as of this encounter Procedures Procedure [...] It is not the complete legal health record.[facility]
--- OUTSIDE RECORDS SUMMARY | 2011-03-14 | XMS_ITS | Encounter Summary ---
Author Organization [facility] Address [address] [place] [address] Phone Care Team Providers Care Circulation Director Name Role Phone Pcp, Unknown Primary Care Provider Unavailabl e Encounter Details Date Type Department Care Team (Late st Contact Info) Description 03/14/2011 Hospital Encounter [facility],Outside Imaging [address] [place], [place] [phone] System, Provider Not In, PhD Partners [address] [address] Unknown, Unknown, Social History Tobacco Use Types [...] documented as of this encounter Care Teams Circulation Director Relationship Specialty Start Date End Date Pcp, Unknown PCP - General 02/18/11 10/17/17 documented as of this encounter Additional Source Comments The information contained in this document represents components of the legal health record. It is not the complete legal health record.[facility]
--- OUTSIDE RECORDS SUMMARY | 2011-03-16 | XMS_ITS | Encounter Summary ---
Author Organization [facility] Address [address] [place] [address] Phone Care Team Providers Care Openstack Developer Name Role Phone Pcp, Unknown Primary Care Provider Unavailabl e Encounter Details Date Type Department Care Team (Late st Contact Info) Description 03/16/2011 Hospital Encounter [facility],Outside Imaging [address] [place], [place] [phone] System, Provider Not In, PhD Partners [address] [address] Unknown, Unknown, Social History Tobacco Use Types [...] documented as of this encounter Care Teams Openstack Developer Relationship Specialty Start Date End Date Pcp, Unknown PCP - General 02/18/11 10/17/17 documented as of this encounter Additional Source Comments The information contained in this document represents components of the legal health record. It is not the complete legal health record.[facility]
--- OUTSIDE RECORDS SUMMARY | 2012-03-15 | XMS_ITS | Encounter Summary ---
Author Organization [facility] Address [address] [place] [address] Phone Care Team Providers Care Jacquard Card Cutter Name Role Phone Pcp, Unknown Primary Care Provider Unavailabl e Encounter Details Date Type Department Care Team (Late st Contact Info) Description 03/15/2012 Hospital Encounter [facility],Outside Imaging [address] [place], [place] [phone] System, Provider Not In, PhD Partners [address] [address] Unknown, Unknown, Social History Tobacco Use Types [...] documented as of this encounter Care Teams Jacquard Card Cutter Relationship Specialty Start Date End Date Pcp, Unknown PCP - General 02/18/11 10/17/17 documented as of this encounter Additional Source Comments The information contained in this document represents components of the legal health record. It is not the complete legal health record.[facility]
--- OUTSIDE RECORDS SUMMARY | 2013-03-19 | XMS_ITS | Encounter Summary ---
Author Organization [facility] Address [address] [place] [address] Phone Care Team Providers Care Instructional Material Director Name Role Phone Pcp, Unknown Primary Care Provider Unavailabl e Encounter Details Date Type Department Care Team (Late st Contact Info) Description 03/19/2013 Hospital Encounter [facility],Outside Imaging [address] [place] [address] System, Provider Not In, PhD Partners [address] [address] Social History Tobacco Use Types Packs/Day Years [...] documented as of this encounter Care Teams Instructional Material Director Relationship Specialty Start Date End Date Pcp, Unknown PCP - General 02/18/11 10/17/17 documented as of this encounter Additional Source Comments The information contained in this document represents components of the legal health record. It is not the complete legal health record.[facility]
--- NOTE | 2025-08-13 09:54 | HO.NEPHOV ---
Vital Signs 08/13/25 09:56 Height 5 ft 6 in Weight 219 lb BMI 35.3 BP 110/70 Blood Pressure Location Rt brachial Position Sitting Pulse 82 Pulse Source Pulse Oximeter Pulse Oximetry (%) 97 Oxygen Delivery Method Room Air Intake Visit Reasons: 4 MO FU-Conf Plumber'S Assistant Required: No Accompanied by: Other Relationship Allergies amoxicillin Allergy (Mild, Verified 08/13/25 09:56) unknown cat dander Allergy (Mild, Verified 08/13/25 09:56) Unknown pollen extracts Allergy (Mild, Verified 08/13/25 09:56) unknown cephalexin (From Keflex) Allergy (Verified 08/13/25 09:56) Nausea and Vomiting erythromycin base Allergy (Verified 08/13/25 09:56) Nausea and Vomiting Penicillins Allergy (Verified 08/13/25 09:56) Itching NSAIDS (Non-Steroidal Anti-Inflamma Adverse Reaction (Mild, Verified 08/13/25 09:56) effects kidneys HPI Comments Details: Padmaja was seen in follow-up for her nephrolithiasis. She has been on prednisone but currently is on 2.5 mg daily. She has history of complex regional pain syndrome. She had a spinal cord stimulator put in. Her arthralgias are better. She does not have any blood in the urine, fever, loin pain, chills, rigor or dysuria. She has not passed any later gravel in the urine. She maintains good hydration. She tries to minimize his salt in the diet.She had proteinuria and marginally high MPO antibody [facility] Medical History (Updated 01/10/25 @ 09:55 by Amauri Vasquez MD) Primary insomnia Osteoarthritis Nerve injury Nephrolithiasis Migraine Fibromyositis Fibromyalgia Depressive disorder Anxiety Smoker Chronic knee pain GERD (gastroesophageal reflux disease) Closed left ankle fracture Surgical History Hx of repair of left rotator cuff Hx of repair of right rotator cuff History of total right knee replacement S/P rotator cuff repair History of hysterectomy Social History Alcohol intake: never Patient Tobacco Use Status: Former Tobacco user Review of Systems Const All systems reviewed & are unremarkable except as noted in HPI and below Physical Exam Vital Signs: Last Vital Signs Pulse 82 08/13/25 09:56 BP 110/70 08/13/25 09:56 Pulse Ox 97 08/13/25 09:56 Oxygen Delivery Method Room Air 08/13/25 09:56 BMI result Body Mass Index 35.3 Const General: comfortable and no acute distress Orientation/consciousness: patient oriented x3 HEENT Head: Yes normocephalic Mouth: Normal oral and palatal mucosa present Eyes EOM: EOMs intact bilaterally Neck Neck: Yes supple Resp Auscultation: clear to auscultation bilaterally Cardio Jugular venous distension: no JVD Rate: regular rate GI Palpation (GI): Soft to palpation Auscultation: normal bowel sounds General: Yes no CVA tenderness Back/Spine/Pelvis Back: no CVA tenderness Skin General skin exam: no rashes or lesions noted Neuro General: patient oriented x3 and moves all extremities Extrem General: Yes no pedal edema Results Reviewed Nephrology Results: Hgb, (12.0-16.0) 13.1 g/dl 01/10/25 WBC, (4.8-10.8) 8.3 X10*3/uL 01/10/25 Plt Count, (160-400) 297 X10*3/uL 01/10/25 Sodium, (135-145) 139 mmol/L 01/10/25 Potassium, (3.3-5.1) 5.0 mmol/L 01/10/25 Chloride, (96-108) 105 mmol/L 01/10/25 Carbon Dioxide, (22-29) 28 mmol/L 01/10/25 BUN, (9-16) 16 mg/dL 01/10/25 Creatinine, (0.5-1.4) 0.91 mg/dL 01/10/25 Calcium, (8.4-10.2) 9.4 mg/dL 01/10/25 Assessment & Plan Assessment & Plan (1) Nephrolithiasis: Code(s): N20.0 - Calculus of kidney Category: Medical (2) Proteinuria: Code(s): R80.9 - Proteinuria, unspecified Category: Medical Qualifiers: Proteinuria type: other Qualified Code(s): R80.8 - Other proteinuria Plan Padmaja has longstanding nephrolithiasis. She has family history of renal calculus. She claims to be taking adequate amount of fluid. Her 24 hour urine collection in the past has shown a low citrate. She is on potassium citrate. She should minimize sodium in the diet and continue to maintain good hydration. She should cut back animal protein, increase fruits and vegetables in the diet. She should avoid nonsteroidal inflammatory medications. She has proteinuria. Her last 24 hour urine protein showed less than 224 Gram. She should continue hydrochlorothiazide 12.5 mg daily. She is on potassium citrate. She may need renal biopsy if she continues to have urine protein and MPO positivity . I plan to start losartan/lisinopril daily with time, if needed. Answered all questions Orders: Orders Protein Creatinine Ratio, Ur 6 Months N20.0 - Calculus of kidney, R80.8 - Other proteinuria Myeloperoxidase Antibody 6 Months N20.0 - Calculus of kidney, R80.8 - Other proteinuria Albumin Level 6 Months N20.0 - Calculus of kidney, R80.8 - Other proteinuria UA and rflx microscopic 6 Months N20.0 - Calculus of kidney, R80.8 - Other proteinuria Electrolytes 6 Months N20.0 - Calculus of kidney, R80.8 - Other proteinuria Blood Urea Nitrogen 6 Months N20.0 - Calculus of kidney, R80.8 - Other proteinuria Creatinine 6 Months N20.0 - Calculus of kidney, R80.8 - Other proteinuria Coding Level of Care Code Est Pt Level 4 (61992) Diagnoses Nephrolithiasis N20.0 Other proteinuria R80.8 Proteinuria type: other
[2025-08-13 09:56] VITALS: BP 110/70; PULSE 82; O2SAT 97; BMI 35.3
--- OUTSIDE RECORDS SUMMARY | 2025-08-13 11:50 | XMS_ITS | Encounter Summary ---
Author Organization [facility] Address [address] [place] [address] Phone Care Team Providers Care Sky Line Yarder Name Role Phone Carmen Flores NP Unavailable Priscila Grimm PSYCHIATRIC SECURITY NURSE Unavailable Veronica Vega MD Unavailable Selam Flower MD Unavailable Pedro Valente MD Unavailable [phone] Maria Del Rosario Oleary KEYING MACHINE OPERATOR Primary Care Provider + Ashwin Zurita NP Primary Care Provide r Encounter Details Date Type Department Care Team (Late st Contact Info) Description 08/26/2019 Procedure Pass OR Admitting Dept - Virtual Department [address] [place] [phone] Social History Tobacco Use Types Packs/Day Years Used Date Smoking Tobacco: Former Cigarettes 0.3 16 0 08/01/2003 - 08/01/2019 Smokeless Tobacco: Never Alcohol Use Standard Drinks/Week Comments Not Currently 0 (1 standard drink = 0.6 oz pur e alcohol) Comments No Sex and Gender Information Value [...] documented as of this encounter Care Teams Sky Line Yarder Relationship Specialty Start Date End Date Maria Del Rosario Oleary, KEYING MACHINE OPERATOR [address] [place] [address] PCP - General Family Medicine 07/09/19 06/18/25 Ashwin Zurita, JOAQUIN [address] [place] [address] PCP - General Nurse Practitioner 06/19/25 Carmen Flores, JOAQUIN [address] [place] [address] [email or web address] Historical LMR Provider 09/06/17 Priscila Grimm FNP 38 [facility] 204, [address] [place] [address] [email or web address] Historical LMR Provider 09/06/17 11/27/21 Veronica Vega MD 38 [facility] 204, [address] [place] [address] Historical LMR Provider 09/06/17 11/27/21 Selam Flower MD [address] [place] [address] Historical LMR Provider 09/06/17 2 Pedro Valente MD [address] [place] [address] Historical LMR Provider 09/06/17 2 documented as of this encounter Additional Source Comments The information contained in this document represents components of the legal health record. It is not the complete legal health record.[facility]
--- OUTSIDE RECORDS SUMMARY | 2025-08-13 11:50 | XMS_ITS ---
Author Name [facility] Organization Unknown History of Medication Use Medication Directions Dispensed Refills Start Date End Date Stat us bupropion HCl XL 150 mg 24 hr tablet, extended release TAKE ONE TABLET BY MOUTH EVERY DAY IN THE MORNING active bupropion HCl XL 300 mg 24 hr tablet, extended release TAKE ONE TABLET BY MOUTH EVERY DAY active cyclobenzaprine 10 mg tablet TAKE ONE TABLET BY MOUTH EVERY DAY AT BEDTIME NEEDED active doxepin 10 mg capsule TAKE ONE CAPSULE BY MOUTH AT BEDTIME active lorazepam 1 mg tablet TAKE ONE TABLET BY MOUTH THREE TIMES A DAY NEEDED FOR ANXIETY active potassium citrate ER 5 mEq (540 mg) tablet,extended release TAKE ONE TABLET BY MOUTH EVERY DAY active prednisone 10 mg tablet TAKE 6 TABLETS FOR 2 DAYS TAKE 5 TABLETS FOR 2 DAYS TAKE 4 TABLETS FOR 2 DAYS TAKE 3 TABLETS FOR 2 DAYS TAKE 2 TABLETS FOR 2 DAYS THEN TAKE active prednisone 5 mg tablet TAKE ONE TABLET BY MOUTH ONCE DAILY active Qulipta 60 mg tablet TAKE 1 TABLET BY MOUTH ONCE DAILY IN THE MORNING DIRECTED active Allergies Allergen Reaction Severity Comment Documented Date Source Statu s AMOXICILLIN E[facility] ERYTHROMYCIN BASE E[facility] GLUTEN E[facility] KEFLEX E[facility] LACTOSE E[facility] PENICILLINS [facility] Problems Problem Status Onset Date Problem Type Date of Resoluti on Source History of total knee arthroplasty active 2024-02-01 ProblemAct [facility] Pain associated with prosthesis of knee joint active 2024-02-23 ProblemAct E[facility] Encounters Encounter Type Encounter Reason Primary Diagnosis Location Date Ambulatory [facility] 02/26/2024 Ambulatory [facility] 02/23/2024 Ambulatory [facility] 02/23/2024 Ambulatory [facility] 02/23/2024 Ambulatory [facility] 02/23/2024 Ambulatory [facility] 02/23/2024 Ambulatory [facility] 01/25/2024
--- OUTSIDE RECORDS SUMMARY | 2025-08-13 11:50 | XMS_ITS | Encounter Summary ---
Author Organization [facility] Address [address] [place] [address] Phone Care Team Providers Care Network Support Administrator Name Role Phone Carmen Flores NP Unavailable Priscila Grimm HABILITATION SPECIALIST Unavailable Veronica Vega MD Unavailable Selam Flower MD Unavailable [phone] Pedro Valente MD Unavailable Maria Del Rosario Oleary WINDOW SHADE CUTTER AND MOUNTER Primary Care Provider + Ashwin Zurita NP Primary Care Provide r Encounter Details Date Type Department Care Team (Late st Contact Info) Description 11/05/2020 Procedure Pass [address] [place] [address] Social History Tobacco Use Types Packs/Day Years [...] documented as of this encounter Care Teams Network Support Administrator Relationship Specialty Start Date End Date Mraia Del Rosario Oleary NP [address] [place] [address] PCP - General Family Medicine 07/09/19 06/18/25 Ashwin Zurita NP [address] [place] [address] PCP - General Nurse Practitioner 06/19/25 Carmen Flores NP [address] [place] [address] [email or web address] Historical LMR Provider 09/06/17 Priscila Grimm FNP 38 [facility] [address], [address] [place] [address] Historical LMR Provider 09/06/17 11/27/21 Veronica Vega MD 38 [facility] [address], [address] [place] [address] Historical LMR Provider 09/06/17 11/27/21 Selam Flower MD [address] [place] [address] Historical LMR Provider 09/06/17 2 Pedro Valente MD [address] [place] [address] Historical LMR Provider 09/06/17 2 documented as of this encounter Additional Source Comments The information contained in this document represents components of the legal health record. It is not the complete legal health record.[facility]
--- OUTSIDE RECORDS SUMMARY | 2025-08-13 11:50 | XMS_ITS | Encounter Summary ---
Author Organization [facility] Address [address] [place] [address] Phone Care Team Providers Care Zinc Etcher Name Role Phone Carmen Flores NP Unavailable [phone] Priscila Grimm AUTOCAD DRAFTSMAN Unavailable Veronica Vega MD Unavailable Selam Flower MD Unavailable Pedro Valente MD Unavailable Scarlett BairdC Primary Care Provider Maria Del Rosario Oleary ACCOUNTS EXECUTIVE Primary Care Provider + Ashwin Zurita ACCOUNTS EXECUTIVE Primary Care Provide r Encounter Details Date Type Department Care Team (Late st Contact Info) Description 05/07/2018 Ancillary Orders [facility] External Provider Virtual Department [address] [place] [address] Radha Kurtz MD [address] [place] [address] [email or web address] Abnormal mammogram Social History Tobacco Use Types Packs/Day Years Used Date Smoking Tobacco: Never Assessed Comments No Sex and Gender Information Value [...] EDT No suspicious findings on callback imaging. Routine bilateral screening mammography is recommended. Results are relayed to the patient by the technologist. BI-RADS CATEGORY: 1 - Negative. DENSITY: There are scattered fibroglandular densities. POS - CDHMAMA Narrative 05/14/2018 1:11 PM EDT FINDINGS: Patient is recalled from a screening mammogram performed 05/03/2018 for additional imaging on the left. Magnification CC view is performed. No calcifications are identified in the area of concern. Therefore, the abnormality on the screening mammogram was artifactual. Procedure Note Jarret Chavez MD - 05/14/2018 FINDINGS: Patient is recalled from a screening mammogram [id number]/14/2018 for additional imaging on the left. Magnification CC view isperformed. No calcifications are identified in the area of concern. Therefore, theabnormality on the screening mammogram was artifactual. IMPRESSION: No suspicious findings on callback imaging. Routine bilateral screeningmammography is recommended. Results are relayed to the patient by thetechnologist. BI-RADS CATEGORY: 1 - Negative. DENSITY: There are scattered fibroglandular densities. POS - CDHMAMA us Radha Kurtz MD IMG MG EXAMS Final Re sult documented in this encounter Visit Diagnoses Diagnosis Abnormal mammogram Abnormal mammogram, unspecified Abnormal mammogram Abnormal mammogram, unspecified documented in this encounter Additional Health Concerns Infection Onset Date Last Indicated Resolved Time CoV-Risk 01/21/2025 01/21/2025 02/01/2025 1:21 AM EDT documented as of this encounter Care Teams Zinc Etcher Relationship Specialty Start Date End Date Scarlett Baird PA-C [address] [place] [address] PCP - General Family Medicine 05/03/18 07/08/19 Maria Del Rosario Oleary, ACCOUNTS EXECUTIVE [address] [place] [address] PCP - General Family Medicine 07/09/19 06/18/25 Ashwin Zurita, JOAQUIN [address] [place] [address] PCP - General Nurse Practitioner 06/19/25 Carmen Flores, JOAQUIN [address] [place] [address] [email or web address] Historical LMR Provider 09/06/17 Priscila Grimm FNP 38 [facility] 204, [address] [place] [address] [email or web address] Historical LMR Provider 09/06/17 11/27/21 Veronica Vega MD 38 [facility], [address], [address] [place] [address] Historical LMR Provider 09/06/17 11/27/21 Selam Flower MD [address] [place] [address] Historical LMR Provider 09/06/17 2 Pedro Valente MD [address] [place] [address] Historical LMR Provider 09/06/17 2 documented as of this encounter Additional Source Comments The information contained in this document represents components of the legal health record. It is not the complete legal health record.[facility]
--- OUTSIDE RECORDS SUMMARY | 2025-08-13 11:50 | XMS_ITS | Encounter Summary ---
Author Organization [facility] Address [address] [place] [address] Phone Care Team Providers Care Bus Washer Name Role Phone Carmen Flores NP Unavailable Priscila Grimm JOINERS SUPERVISOR Unavailable Veronica Vega MD Unavailable Selam Flower MD Unavailable [phone] Pedro Valente MD Unavailable [phone] Scarlett BairdC Primary Care Provider Maria Del Rosario Oleary MULTIPLE NEEDLE STITCHER Primary Care Provider + Ashwin Zurita MULTIPLE NEEDLE STITCHER Primary Care Provide r Encounter Details Date Type Department Care Team (Late st Contact Info) Description 07/16/2018 Ancillary Orders Virtual Department [address] [place] [address] Radha Kurtz MD [address] [place] [address] Right knee pain, unspecified chronicity; Other instability, [...] current findings of pain at this location. Stable patellofemoral osteoarthritis and cystic foci in the dorsal tibial metaphysis. Small joint effusion. No meniscal or ligamentous tears apparent.. POS - [id number] Narrative 07/26/2018 2:39 PM EDT TECHNIQUE: Exam performed on a 1.5 Constanza high-field MRI scanner. Axial proton density with fat suppression, coronal proton density with fat suppression, sagittal T1, oblique sagittal proton density and proton density with fat suppression parallel to the plane of the ACL sequences were obtained. FINDINGS: Comparison is made with the prior MR of 07/06/2016. No discrete meniscal tear is demonstrated. Cruciate and collateral ligaments appear to be intact. Popliteus, infrapatellar, and visualized portions of the distal quadriceps tendons are intact and stable in appearance. Soft tissue edema previously evident in the region of the medial head of the gastrocnemius appears to have resolved. A small suprapatellar effusion is present, slightly larger than on the prior study, with moderate prepatellar edema soft tissue edema noted. Medial and lateral retinacula are stable in appearance. There is chronic diffuse thinning of patellar hyaline cartilage. No new osteochondral lesion apparent. There are chronic multi locular fluid intensity lesions in the dorsal aspect of the tibial metaphysis. There is a new patchy zone of marrow edema in the medial femoral condyle at the level of the lower pole of the patella. A 3 mm cystic focus in the dorsal marrow of the medial condyle is now seen in a region where mild marrow edema was present previously. No other significant skeletal pathology identified. Procedure Note [...] No meniscal orligamentous tears apparent.. POS - [id number] Radha Kurtz MD IMG MR EXTREMITY Final R esult documented in this encounter Visit Diagnoses Diagnosis Right knee pain, unspecified chronicity Other instability, right knee Right knee pain, unspecified chronicity Other instability, right knee documented in this encounter Additional Health Concerns Infection Onset Date Last Indicated Resolved Time CoV-Risk 01/21/2025 01/21/2025 02/01/2025 1:21 AM EDT documented as of this encounter Care Teams Bus Washer Relationship Specialty Start Date End Date Scarlett Baird PA-C [address] [place] [address] PCP - General Family Medicine 05/03/18 07/08/19 Maria Del Rosario Oleary, MULTIPLE NEEDLE STITCHER [address] [place] [address] PCP - General Family Medicine 07/09/19 06/18/25 Ashwin Zurita, JOAQUIN [address] [place] [address] PCP - General Nurse Practitioner 06/19/25 Carmen Flores, JOAQUIN [address] [place] [address] [email or web address] Historical LMR Provider 09/06/17 Priscila Grimm FNP 38 [facility] [address], [address] [place] [address] [email or web address] Historical LMR Provider 09/06/17 11/27/21 Veronica Vega MD 38 [facility] [address], [address] [place] [address] Historical LMR Provider 09/06/17 11/27/21 Selam Flower MD [address] [place] [address] Historical LMR Provider 09/06/17 2 Pedro Valente MD [address] [place] [address] Historical LMR Provider 09/06/17 2 documented as of this encounter Additional Source Comments The information contained in this document represents components of the legal health record. It is not the complete legal health record.[facility]
--- OUTSIDE RECORDS SUMMARY | 2025-08-13 11:50 | XMS_ITS | Encounter Summary ---
Author Organization [facility] Address [address] [place] [address] Phone Care Team Providers Care Global Climate Change Researcher Name Role Phone Carmen Flores NP Unavailable Priscila Grimm FOLDER MACHINE Unavailable Veronica Vega MD Unavailable Selam Flower MD Unavailable Pedro Valente MD Unavailable Scarlett Baird PA-C Primary Care Provider Maria Del Rosario Oleary HANDBAG FRAMER Primary Care Provider + Ashwin Zurita HANDBAG FRAMER Primary Care Provide r Encounter Details Date Type Department Care Team (Late st Contact Info) Description 07/16/2018 Procedure Pass [address] [place] [address] Social History Tobacco Use Types Packs/Day Years [...] documented as of this encounter Care Teams Global Climate Change Researcher Relationship Specialty Start Date End Date Scarlett Baird PA-C [address] [place] [address] PCP - General Family Medicine 05/03/18 07/08/19 Maria Del Rosario Oleary, HANDBAG FRAMER [address] [place] [address] PCP - General Family Medicine 07/09/19 06/18/25 Ashwin Zurita, JOAQUIN [address] [place] [address] PCP - General Nurse Practitioner 06/19/25 Carmen Flores, JOAQUIN [address] [place] [address] [email or web address] Historical LMR Provider 09/06/17 Priscila Grimm FNP 38 [facility] [address], [address] [place] [address] [email or web address] Historical LMR Provider 09/06/17 11/27/21 Veronica Vega MD 38 [facility]. [address], [address] [place] [address] Historical LMR Provider 09/06/17 11/27/21 Selam Flower MD [address] [place] [address] Historical LMR Provider 09/06/17 2 Pedro Valente MD [address] [place] [address] Historical LMR Provider 09/06/17 2 documented as of this encounter Additional Source Comments The information contained in this document represents components of the legal health record. It is not the complete legal health record.[facility]
--- OUTSIDE RECORDS SUMMARY | 2025-08-13 11:50 | XMS_ITS | Encounter Summary ---
Author Organization [facility] Address [address] [place] [address] Phone Care Team Providers Care Sports Manager Name Role Phone Carmen Flores NP Unavailable Priscila Grimm Unavailable Veronica Vega MD Unavailable Selam Flower MD Unavailable Pedro Valente MD Unavailable Maria Del Rosario Oleary DEFENCE FORCE SENIOR OFFICER Primary Care Provider + Ashwin Zurita DEFENCE FORCE SENIOR OFFICER Primary Care Provide r Reason for Referral * MRI/CAT Scan - Closed Specialty Diagnoses / Procedures Referred By Contac t Referred To Contact Radiology Diagnoses Right knee pain, unspecified chronicity Radiculopathy, lumbar region Complex regional pain syndrome i of right lower limb Procedures MRI Lumbar Spine Rach Denise PA Phone: tel: fax: [email or web address] Referral ID Status Reason Start Date Expiration Date Visits Re quested Visits Authorized [id number] Closed 11/04/2020 05/03/2021 1 1 Encounter Details Date Type Department Care Team (Late st Contact Info) Description 11/05/2020 Transcribe Orders Virtual Department [address] [place] [address] Chantel Denise MD [address] [place] [address] [email or web address] Right knee pain, unspecified chronicity (Primary Dx); [...] on a 1.5 Constanza high-field MRI scanner. Sagittal T1, T2 and STIR, axial T1 and [...] interval change from 06/28/2012. POS - [id number] Rach MCNAIR IMG MR XSPECIALTY Final Res ult documented in this encounter Visit Diagnoses Diagnosis Right knee pain, unspecified chronicity- Primary Radiculopathy, lumbar region Thoracic or lumbosacral neuritis or radiculitis, unspecified Complex regional pain syndrome i of right lower limb Right knee pain, unspecified chronicity Radiculopathy, lumbar region Thoracic or lumbosacral neuritis or radiculitis, unspecified Complex regional pain syndrome i of right lower limb documented in this encounter Additional Health Concerns Infection Onset Date Last Indicated Resolved Time CoV-Risk 01/21/2025 01/21/2025 02/01/2025 1:21 AM EDT documented as of this encounter Care Teams Sports Manager Relationship Specialty Start Date End Date Maria Del Rosario Oleary, DEFENCE FORCE SENIOR OFFICER [address] [place] [address] PCP - General Family Medicine 07/09/19 06/18/25 Ashwin Zurita, JOAQUIN [address] [place] [address] PCP - General Nurse Practitioner 06/19/25 Carmen Flores, JOAQUIN [address] [place] [address] [email or web address] Historical LMR Provider 09/06/17 Priscila Grimm FNP 38 [facility] 204, [address] [place] [address] [email or web address] Historical LMR Provider 09/06/17 11/27/21 Veronica Vega MD 38 [facility]. 204, [address] [place] [address] Historical LMR Provider 09/06/17 11/27/21 Selam Flower MD [address] [place] [address] Historical LMR Provider 09/06/17 2 Pedro Valente MD 41 [place] [address] Historical LMR Provider 09/06/17 2 documented as of this encounter Additional Source Comments The information contained in this document represents components of the legal health record. It is not the complete legal health record.[facility]
--- OUTSIDE RECORDS SUMMARY | 2025-08-13 11:51 | XMS_ITS | Clinical Summary ---
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 done at [facility] Generalized anxiety disorder 02/05/2014 07/18/2022 Primary insomnia 02/05/2014 07/18/2022 Immunizations Immunization Administration Dates Next Due Pneumococcal Polysaccharide 05/18/2011 [...] of 3 - 19+ 3-dose series) 02/15 Colorectal Cancer Screening: Annual FOBT 2018 Colorectal Cancer Screening: Colonoscopy 2018 Colorectal Cancer Screening: Sigmoidoscopy 2018 Pneumococcal Vaccine: 50+ Years (2 of 2 - PCV) 019 05/18/2011 Influenza Vaccine (#1) 2025 Pneumococcal Vaccine: Peds ( 0 to 5 Years) and At-Risk Patients (6 to 49 Years) Discontinued 05/18/2011 Insurance [facility] [place] [facility] [place] Care Teams Bedspread Inspector Relationship Specialty Start Date End Date Maria Del Rosario Oleary DNP [address] [place] [address], [facility] 3 [place] [address] PCP - General Nurse Practitioner 07/18/22
--- OUTSIDE RECORDS SUMMARY | 2025-08-13 11:51 | XMS_ITS | Encounter Summary ---
Author Organization [facility] Address [address] [place] [address] Phone Care Team Providers Care Repairer And Checker Name Role Phone Carmen Flores NP Unavailable Priscila Grimm Unavailable Veronica Vega MD Unavailable Selam Flower MD Unavailable Pedro Valente MD Unavailable [phone] Selam Flower MD Primary Care Provider Scarlett Baird PA-C Primary Care Provider [phone] Maria Del Rosario Oleary STUDENT ACCOUNTS COORDINATOR Primary Care Provider + Ashwin Zurita STUDENT ACCOUNTS COORDINATOR Primary Care Provide r Encounter Details Date Type Department Care Team (Late st Contact Info) Description 04/12/2018 Ancillary Orders Virtual Department [address] [place] [address] Scarlett Baird PA-C [address] [place] [address] [email or web address] Breast screening Social History Tobacco Use Types Packs/Day Years Used Date Smoking Tobacco: Never Assessed Comments Unknown Sex and Gender Information Value [...] the patient for questionable left breast calcifications. Radiology department will attempt to recall the patient. Recall views: Spot mag left cc view. BI-RADS CATEGORY: 0 - Incomplete. Need additional imaging evaluation. DENSITY: There are scattered fibroglandular densities. LEFT RECOMMENDATION DATE: 1 Month Additional Imaging RIGHT RECOMMENDATION DATE: 12 Months Mammography Screening POS - CDHMAMA Narrative 05/03/2018 3:32 PM EDT 48-year-old female with no current breast symptoms. Comparison made to previous on 05/14/2014 and as far back as 03/09/2010. Interpretation made in conjunction with computer-aided detection and [...] CDHMAMA Scarlett Baird PA-C IMG MG EXAMS Final Result documented in this encounter Visit Diagnoses Diagnosis Breast screening Breast screening, unspecified Breast screening Breast screening, unspecified documented in this encounter Additional Health Concerns Infection Onset Date Last Indicated Resolved Time CoV-Risk 01/21/2025 01/21/2025 02/01/2025 1:21 AM EDT documented as of this encounter Care Teams Repairer And Checker Relationship Specialty Start Date End Date Selam Flower MD [address] [place] [address] PCP - General 11/23/17 05/02/18 Scarlett Baird PA-C [address] [place] [address] [email or web address] PCP - General Family Medicine 05/03/18 07/08/19 Maria Del Rosario Oleary NP [address] [place] [address] PCP - General Family Medicine 07/09/19 06/18/25 Ashwin Zurita NP [address] [place] [address] PCP - General Nurse Practitioner 06/19/25 Carmen Flores NP [address] [place] [address] [email or web address] Historical LMR Provider 09/06/17 Alfa Priscila MaricarmenDAPHNIE 38 [facility]. 204, [address] [place] [address] [email or web address] Historical LMR Provider 09/06/17 11/27/21 Veronica Vega MD 38 [facility]. 204, [address] [place] [address] [email or web address] Historical LMR Provider 09/06/17 11/27/21 Selam Flower MD [address] [place] [address] Historical LMR Provider 09/06/17 2 Pedro Valente MD [address] [place] [address] Historical LMR Provider 09/06/17 2 documented as of this encounter Additional Source Comments The information contained in this document represents components of the legal health record. It is not the complete legal health record.[facility]
--- OUTSIDE RECORDS SUMMARY | 2025-08-13 11:51 | XMS_ITS | Encounter Summary ---
Author Organization [facility] Address [address] [place] [address] Phone Care Team Providers Care Cipher Expert Name Role Phone Carmen Flores NP Unavailable Priscila Grimm CASTING TRUCKER Unavailable Veronica Vega MD Unavailable Selam Flower MD Unavailable [phone] Pedro Valente MD Unavailable Selam Flower MD Primary Care Provider Scarlett Baird PA-C Primary Care Provider Maria Del Rosario Oleary MIDWIFE Primary Care Provider + Ashwin Zurita MIDWIFE Primary Care Provide r Encounter Details Date Type Department Care Team (Late st Contact Info) Description 04/20/2018 Ancillary Orders [facility],Outside Imaging [address] [place], [place] [phone] System, Provider Not In, [facility] [address] [address] Social History Tobacco Use Types Packs/Day Years [...] documented as of this encounter Care Teams Cipher Expert Relationship Specialty Start Date End Date Selam Flower MD [address] [place] [address] PCP - General 11/23/17 05/02/18 Scarlett Baird PA-C [address] [place] [address] PCP - General Family Medicine 05/03/18 07/08/19 Maria Del Rosario Oleary NP [address] [place] [address] PCP - General Family Medicine 07/09/19 06/18/25 Ashwin Zurita NP [address] [place] [address] PCP - General Nurse Practitioner 06/19/25 Carmen Flores NP [address] [place] [address] [email or web address] Historical LMR Provider 09/06/17 Priscila Grimm FNP 38 [facility]. 204, [address] [place] [address] [email or web address] Historical LMR Provider 09/06/17 11/27/21 Veronica Vega MD 38 [facility]. 204, [address] [place] [address] [email or web address] Historical LMR Provider 09/06/17 11/27/21 Selam Flower MD [address] [place] [address] Historical LMR Provider 09/06/17 2 Pedro Valente MD [address] [place] [address] Historical LMR Provider 09/06/17 2 documented as of this encounter Additional Source Comments The information contained in this document represents components of the legal health record. It is not the complete legal health record.[facility]
--- OUTSIDE RECORDS SUMMARY | 2025-08-13 11:51 | XMS_ITS | Encounter Summary ---
Author Organization [facility] Address [address] [place] [address] Phone Care Team Providers Care Fruit Canner Name Role Phone Carmen Flores NP Unavailable Priscila Grimm PIPE WASHER Unavailable [phone] Veronica Vega MD Unavailable Selam Flower MD Unavailable [phone] Pedro Valente MD Unavailable Scarlett Baird PA-C Primary Care Provider Maria Del Rosario Oleary POULTRY SERVICE TECHNICIAN Primary Care Provider + Ashwin Zurita POULTRY SERVICE TECHNICIAN Primary Care Provide r Encounter Details Date Type Department Care Team (Late st Contact Info) Description 08/09/2018 Procedure Pass [address] [place] [address] Social History Tobacco Use Types Packs/Day Years [...] documented as of this encounter Care Teams Fruit Canner Relationship Specialty Start Date End Date Scarlett Baird PA-C [address] [place] [address] PCP - General Family Medicine 05/03/18 07/08/19 Maria Del Rosario Oleary, POULTRY SERVICE TECHNICIAN [address] [place] [address] PCP - General Family Medicine 07/09/19 06/18/25 Ashwin Zurita, JOAQUIN [address] [place] [address] PCP - General Nurse Practitioner 06/19/25 Carmen Flores, JOAQUIN [address] [place] [address] [email or web address] Historical LMR Provider 09/06/17 Priscila Grimm FNP 38 [facility]. 204, [address] [place] [address] [email or web address] Historical LMR Provider 09/06/17 11/27/21 Veronica Vega MD 38 [facility]. 204, [address] [place] [address] Historical LMR Provider 09/06/17 11/27/21 Selam Flower MD [address] [place] [address] Historical LMR Provider 09/06/17 2 Pedro Valente MD [address] [place] [address] Historical LMR Provider 09/06/17 2 documented as of this encounter Additional Source Comments The information contained in this document represents components of the legal health record. It is not the complete legal health record.[facility]
--- OUTSIDE RECORDS SUMMARY | 2025-08-13 11:51 | XMS_ITS | Clinical Summary ---
Author Organization [facility] Address [address] [place] [address] Phone Care Team Providers Care Angiographer Name Role Phone Ashwin Zurita NP Primary Care Provide r Allergies Active Allergy Reactions Criticality Noted Date Comments Amoxicillin Other (See Comments),Nausea and/or Vomiting 07/04/2019 Abdominal pain Erythromycin 07/04/2019 Cephalexin 07/04/2019 Nsaids (Non-Steroidal Anti-Inflammatory Drug) Renal Toxicity 07/04/2019 Penicillins Hives 07/04/2019 Medications bacillus coagulans-inul in 1 billion-250 cell-mg Cap Take 250 mg by mouth daily. Active acetaminophen (TYLENOL) 325 mg tablet Take 3 tablets (975 mg total) by mouth every 8 (eight) hours. 0 08/28/20 19 Active Additional Information Patient taking differently: 1 tabletOralEvery 6 hours PRN, mild pain or 1-3 (on a general 0-10 scale), DO NOT EXCEED 3000 MG TYLENOL (TOGETHER WITH PERCOCET) IN 24 HR PERIOD, Reported on 01/21/2025 UBRELVY 100 mg tablet TAKE 1 TABLET BY MOUTH ONCE DAILY FOR 15 DAYS 07/29/20 20 Active potassium citrate (UROCIT-K) 5 mEq SR tablet Take 10 mEq by mouth daily. 12/11/19 21 Active WELLBUTRIN XL 150 mg ER 24 hr tablet Take 150 mg by mouth. 01/07/20 25 Active cyclobenzaprin e (FLEXERIL) 10 MG tablet TAKE 1 TABLET BY MOUTH EVERY DAY AT BEDTIME NEEDED -USE SPARINGLY 01/14/20 25 Active hydroCHLOROthi azide 12.5 MG tablet Take 1 tablet by mouth every morning. 01/10/20 25 Active predniSONE (DELTASONE) 2.5 MG tablet Take 1 tablet by mouth every morning. Takes half (1.25 mg) 01/07/20 25 Active sodium-potassi um-magnesium sulfates (SUPREP BOWEL PREP KIT) 17.5-3.13-1.6 gram SolR See Instructions, Please drink 1 6-ounc bottle of SUPREP liquid in a mixing container and add cool drinking water to 16-ounce line. Drink whole container and then drink 2 more 16-ounce containers of water over the next hour., # 1 each, 0 Refills, Nava... 10/31/20 22 Active sucralfate (CARAFATE) 100 mg/mL suspension TAKE 10ML BY MOUTH ONE HOUR BEFORE MEALS AND AT BEDTIME ON AN EMPTY STOMACH Active albuterol 90 mcg/actuation inhalerIndicat ions:Acute cough Inhale 2 puffs into the lungs every 4 (four) hours as needed for wheezing or shortness of breath/dyspnea. 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 01/23/2020 Hx of total knee replacement, right 10/22/2019 Overview (10/22/2019): Revision from patellofemoral unicompartmental arthroplasty done at [facility] Resolved Problems Problem Noted Date Diagnosed Date Resolved Date Aftercare following right kn ee joint replacement surgery 08/26/2019 10/22/2019 Knee effusion, right 07/05/2019 019 Pain due to total right knee replacement 07/04/2019 10/22/2019 Overview (07/04/2019): Partial PFJ right knee replacement - not total Encounters Date Type Department Care Team Description 06/30/2025 Transcribe Orders [facility] [address] [place] [address] Ashwin Zurita NP 06/19/2025 2:00 PM EDT Office Visit [facility] [address] [place] [address] Willie Lawler PA-C Pain (Primary Dx); Complex regional pain syndrome i of right lower limb; Hx of total knee replacement, right 06/10/2025 Telephone [facility] [address] [place] [address] [phone] Destiny Ramey RN Medication Management from Last 3 Months Family History Medical History Relation Comments Diabetes [...] 0 08/01/2003 - 08/01/2019 Smokeless Tobacco: Never Tobacco Cessation:Counseling Given: Not Answered Alcohol Use Standard Drinks/Week Comments Not Currently [...] Sign Reading Time Taken Comments Blood Pressure 127/84 01/21/2025 12:06 PM EST Pulse 74 01/21/2025 12:06 PM EST Temperature 36.3 C (97.4 F) 01/21/2025 12:06 PM EST Respiratory Rate 20 01/21/2025 12:06 PM EST Oxygen Saturation 100% 01/21/2025 12:06 PM EST Inhaled Oxygen Concentration - - Weight 95.3 kg (210 lb) 01/21/2025 12:06 PM EST Height 170.2 cm (5' 7 ) 01/21/2025 12:06 PM EST Body Mass Index 32.89 01/21/2025 12:06 PM EST Plan of Treatment Health Maintenance Due Date Last Done Comments DEPRESSION SCREENING 1981 HEPATITIS C SCREENING 1987 HIV ONE-TIME SCREENING (18-65 YEARS) 1987 PAP SMEAR 1990 COLOGUARD 2014 COLONOSCOPY 2014 COLORECTAL CANCER SCREENING 2014 FIT TEST 2014 FOBT 2014 SIGMOIDOSCOPY 2014 VIRTUAL COLONOSCOPY 2014 PNEUMOCOCCAL VACCINES (50+ years) (2 of 2 - PCV) 2019 05/18/2011 ZOSTER VACCINES (1 of 2) 2019 LIPID PANEL 04/10/2019 04/10/2014 MAMMOGRAM 05/03/2020 05/03/2018, 07/0 01/2014, 05/14/2014, Additional history exists POTASSIUM LEVEL 08/27/2020 08/27/2019, 07/09/2019 Adult Td,Tdap Booster 07/10/2022 07/10/2012 SCREENING FOR DIABETES 08/27/2022 08/27/2019 INFLUENZA VACCINE (#1) 2025 , 11/23/2013, 12/04/2012, Additional history exists COVID-19 VACCINE ( season) 2025 03/02/2021, 02/09/2021 SMOKING STATUS SCREENING (Every 5 Years) 01/21/2030 01/21/2025 HEPATITIS A VACCINES Aged Out No long er eligible based on patient's age to complete this topic HIB VACCINES Aged Out No longer eligi ble based on patient's age to complete this topic MENINGOCOCCAL VACCINES (ACWY) Aged Out No longer eligible based on patient's age to complete this topic MENINGOCOCCAL VACCINES (B) Aged Out N o longer eligible based on patient's age to complete this topic Medical Devices Implanted Type Area Student Financial Services Counselor Device Identifier Shelf Expiration Date Model / Serial / Lot Knee Stem 65mm Vanguard Ssk 360 Revision Sy Right - [id number] Implanted:Qty: 1 on 08/26/2019 by Zach Grant MD at [facility] NODATA Right: Knee [employer] 05/20/2029 [id number] / [id number] / [id number] Right Shoulder Hardware Tray Beam 67mm Tibial Primary Vanguard Council I Revision Interlock Cemented - [id number] Implanted:Qty: 1 on 08/26/2019 by Zach Grant MD at [facility] Right: Knee [employer] 02/02/2029 [id number] / [id number] / [id number] Cement Bone Biomet Standard R 1x40 - [id number] Implanted:Qty: 2 on 08/26/2019 by Zach Grant MD at [facility] Knee [employer]ZE[employer]ORZ / DIV OF [employer] 05/19/2021 [id number] / [id number] / [id number] Knee Bearing 10x63 To 67mm Vanguard Ssk Stabilized - [id number] Implanted:Qty: 1 on 08/26/2019 by Zach Grant MD at [facility] Right: Knee [employer] 04/04/2021 [id number] / [id number] / [id number] Implanted - Out of Service Type Area Student Financial Services Counselor Device Identifier Shelf Expiration Date Model / Serial / Lot Right Partial Knee Replacement Procedures Procedure Name Priority Date/Time Associated Diagnosis Comments BASIC METABOLIC PANEL Routine 08/27/2019 6:09 AM EDT BI MAMMOGRAM SCREENING WITH TOMOSYNTHESIS WITH CAD (BILATERAL) Routine 05/03/2018 10:29 AM EDT Breast screening OUTSIDE LDL Routine 04/10/2014 from Last 3 Months or Most Recently Relevant to Health Maintenance Results * Basic metabolic panel (08/27/2019 6:09 AM EDT) SODIUM 139 133 - 146 mmol/L [facility] CHLORIDE 104 96 - 108 mmol/L [facility] POTASSIUM 4.3 3.3 - 5.1 mmol/L [facility] CO2 26 21 - 35 mmol/L [facility] BUN 17 6 - 19 mg/dL [facility] CREATININE 0.90 0.5 - 1.5 mg/dL [facility] GLUCOSE 94 70 - 99 mg/dL [facility] CALCIUM 8.7 8.4 - 10.3 mg/dL [facility] EGFR 75 >59 mL/min/1.7 3m2 [facility] Comment:If patient is black, multiply result by 1.159. Estimated glomerular filtration rate calculated using the CKD-EPI equation. ANION GAP 13 10 - 20 mmol/L [facility] Blood 08/27/2019 6:09 AM EDT 08/27/2019 6:30 AM EDT us Zach Grant MD LAB BLOOD ORDERABLES Final R esult [facility] [address] [place] [address] * (ABNORMAL) BI MAMMOGRAM SCREENING WITH TOMOSYNTHESIS [...] 12 Months Mammography Screening POS - CDHMAMA [facility] Oli MURCIA IMG MG EXAMS Final Result * Outside LDL (04/10/2014) LDL - External 119 50 - 250 mg/ml [facility] Provider LAB BLOOD ORDERABLES Jessy l Result from Last 3 Months or Most Recently Relevant to Health Maintenance Insurance [facility] PARTNER[facility]IP ACO [facility] PARTNERSHIP ACO HEALTHY PARTNERSHIP ACO [facility] ACO HEALTHY PARTNERSHIP ACO [facility] ACO Member Subscriber Plan / Payer (Ef fective 2025-Present) Name:Monika Corcoran Relation to Subscriber:Self Name:Monika Corcoran Payer ID:Not on file Type:Medicaid Address: [place] [id number] Advance Directives For more information, please contact: [phone] (9AM - 5PM [place]/[facility], Monday-Monday) * Full Code (Presumed) (Latest Code Status on File) Date Activated Date Inactivated Comments 08/26/2019 1:56 PM 08/28/2019 3:22 PM * Full Code (Presumed) Date Activated Date Inactivated Comments 08/26/2019 6:12 AM 08/26/2019 1:56 PM Care Teams Angiographer Relationship Specialty Start Date End Date Ashwin Zurita NP [address] [place] [address] PCP - General Nurse Practitioner 06/19/25 Additional Source Comments The information contained in this document represents components of the legal health record. It is not the complete legal health record.[facility]
--- OUTSIDE RECORDS SUMMARY | 2025-08-13 11:51 | XMS_ITS | Encounter Summary ---
Author Organization [facility] Address [address] [place] [address] Phone Care Team Providers Care Analysis Engineer Name Role Phone Carmen Flores NP Unavailable Priscila Grimm BUCKLE FRAME SHAPER Unavailable Veronica Vega MD Unavailable Selam Flower MD Unavailable Pedro Valente MD Unavailable Selam Flower MD Primary Care Provider Scarlett Baird PA-C Primary Care Provider Maria Del Rosario Oleary PACKAGING LINE ATTENDANT Primary Care Provider + Ashwin Zurita PACKAGING LINE ATTENDANT Primary Care Provide r Encounter Details Date Type Department Care Team (Late st Contact Info) Description 04/20/2018 Ancillary Orders [facility],Outside Imaging 30 [place], [place] [phone] System, Provider Not In, PhD Partners [address] [address] Social History Tobacco Use Types Packs/Day Years [...] documented as of this encounter Care Teams Analysis Engineer Relationship Specialty Start Date End Date Selam Flower MD 41 [place] [address] PCP - General 11/23/17 05/02/18 Scarlett Baird PA-C [address] [place] [address] PCP - General Family Medicine 05/03/18 07/08/19 Maria Del Rosario Oleary NP [address] [place] [address] PCP - General Family Medicine 07/09/19 06/18/25 Ashwin Zurita NP [address] [place] [address] PCP - General Nurse Practitioner 06/19/25 Carmen Flores NP [address] [place] [address] [email or web address] Historical LMR Provider 09/06/17 Priscila Grimm FNP 38 [facility]. 204, [address] [place] [address] [email or web address] Historical LMR Provider 09/06/17 11/27/21 Veronica Vega MD 38 [facility]. 204, [address] [place] [address] [email or web address] Historical LMR Provider 09/06/17 11/27/21 Selam Flower MD [address] [place] [address] Historical LMR Provider 09/06/17 2 Pedro Valente MD [address] [place] [address] Historical LMR Provider 09/06/17 2 documented as of this encounter Additional Source Comments The information contained in this document represents components of the legal health record. It is not the complete legal health record.[facility]
--- OUTSIDE RECORDS SUMMARY | 2025-08-13 11:51 | XMS_ITS | Encounter Summary ---
Author Organization [facility] Address [address] [place] [address] Phone Care Team Providers Care Sales And Service Specialist Name Role Phone Carmen Flores NP Unavailable Priscila Grimm COMMERCIAL SOLAR SALES CONSULTANT Unavailable Veronica Vega MD Unavailable Selam Flower MD Unavailable Pedro Valente MD Unavailable Selam Flower MD Primary Care Provider Scarlett Baird PA-C Primary Care Provider Maria Del Rosario Oleary HEELER Primary Care Provider + Ashwin Zurita HEELER Primary Care Provide r Encounter Details Date Type Department Care Team (Late st Contact Info) Description 04/20/2018 Ancillary Orders [facility],Outside Imaging 30 [place], [place] [phone] System, Provider Not In, PhD Partners [address] [address] Social History Tobacco Use Types Packs/Day Years [...] documented as of this encounter Care Teams Sales And Service Specialist Relationship Specialty Start Date End Date Selam Flower MD 41 [place] [address] PCP - General 11/23/17 05/02/18 Scarlett Baird PA-C [address] [place] [address] PCP - General Family Medicine 05/03/18 07/08/19 Maria Del Rosario Oleary NP [address] [place] [address] PCP - General Family Medicine 07/09/19 06/18/25 Ashwin Zurita NP [address] [place] [address] PCP - General Nurse Practitioner 06/19/25 Carmen Flores NP [address] [place] [address] [email or web address] Historical LMR Provider 09/06/17 Priscila Grimm FNP 38 [facility]. 204, [address] [place] [address] [email or web address] Historical LMR Provider 09/06/17 11/27/21 Veronica Vega MD 38 [facility] [place]. 204, [address] [place] [address] [email or web address] Historical LMR Provider 09/06/17 11/27/21 Selam Flower MD [address] [place] [address] Historical LMR Provider 09/06/17 2 Pedro Valente MD [address] [place] [address] Historical LMR Provider 09/06/17 2 documented as of this encounter Additional Source Comments The information contained in this document represents components of the legal health record. It is not the complete legal health record.[facility]
--- OUTSIDE RECORDS SUMMARY | 2025-08-13 11:51 | XMS_ITS | Encounter Summary ---
Author Organization [facility] Address [address] [facility] [address] [place] [address] Phone Care Team Providers Care Irrigationist Designer Name Role Phone Maria Del Rosario Oleary DNP Primary Care Provider [phone] Reason for Visit * Reason Comments Med Refill Encounter Details Date Type Department Care Team (Late st Contact Info) Description 03/31/2023 Refill [facility] [address] [place] [address] Amauri Vasquez MD Social History [...] on filedocumented in this encounter Care Teams Irrigationist Designer Relationship Specialty Start Date End Date Maria Del Rosario Oleary DNP 821 [facility] 3 [place] [address] PCP - General Nurse Practitioner 07/18/22 documented as of this encounter
--- OUTSIDE RECORDS SUMMARY | 2025-08-13 11:51 | XMS_ITS | Encounter Summary ---
Author Organization [facility] Address [address] [place] [address] Phone Care Team Providers Care Maintenance Service Technician Name Role Phone Carmen Flores NP Unavailable Priscila Grimm DISPENSARY TECHNICIAN Unavailable [phone] Veronica Vega MD Unavailable [phone] Selam Flower MD Unavailable Pedro Valente MD Unavailable [phone] Scarlett Baird PA-C Primary Care Provider Maria Del Rosario Oleary JIG GRINDER Primary Care Provider + Ashwin Zurita JIG GRINDER Primary Care Provide r Reason for Referral * MRI/CAT Scan - Closed Specialty Diagnoses / Procedures Referred By Monica harvey Referred To Contact Radiology Diagnoses Dizziness Abnormal head movements Paresthesia of skin Procedures MRI Brain Scarlett Baird PA-C Phone: tel: fax: mailto: Referral ID Status Reason Start Date Expiration Date Visits Re quested Visits Authorized [id number] Closed 08/09/2018 10/08/2018 1 1 Encounter Details Date Type Department Care Team (Late st Contact Info) Description 08/09/2018 Ancillary Orders Virtual Department [address] [place] [address] Scralett Baird PA-C [address] [place] [address] [email or web address] Dizziness; Abnormal head movements; Paresthesia of skin [...] to account for the patient's symptoms. POS [id number] Narrative 08/21/2018 9:49 AM EDT COMPARISON: 12/10/2015. TECHNIQUE: Exam performed on a 1.5 Constanza high-field MRI scanner. Axial T1 with and without gadolinium, GRE, T2, FLAIR and diffusion-weighted imaging with ADC map, sagittal T1 with and without gadolinium and T2 FLAIR sequences were obtained. MRI BRAIN FINDINGS: No cerebellar tonsil herniation. Pituitary gland is not enlarged. No restricted diffusion to indicate acute or subacute ischemia. No intraparenchymal susceptibility artifact to indicate hemorrhage. There is no mass, midline shift, mass-effect or extra-axial fluid collections. Stable solitary sub-5 mm right frontal parietal lobe white matter T2 hyperintense lesion which is of doubtful significance. No new lesions. No abnormal enhancement. No hydrocephalus. Normal vascular flow-voids. Orbits are normal. Mastoids and paranasal sinuses are clear. Soft tissue and bone marrow are within normal limits. Procedure Note Ilene Hernandez MD - 08/21/2018 [...] mm right frontal parietal lobe white matter [id number] lesion which is of doubtful significance. No new lesions.No abnormal enhancement. No hydrocephalus. Normal vascular flow- voids.Orbits are normal. Mastoids and paranasal sinuses are clear. Soft tissueand bone marrow are within normal limits. IMPRESSION: No findings to account for the patient's symptoms. POS [id number] Scarlett Baird PA-C IMG MR HEAD/NECK Final Resul t documented in this encounter Visit Diagnoses Diagnosis Dizziness Dizziness and giddiness Abnormal head movements Paresthesia of skin Dizziness Dizziness and giddiness Abnormal head movements Paresthesia of skin documented in this encounter Additional Health Concerns Infection Onset Date Last Indicated Resolved Time CoV-Risk 01/21/2025 01/21/2025 02/01/2025 1:21 AM EDT documented as of this encounter Care Teams Maintenance Service Technician Relationship Specialty Start Date End Date Scarlett Baird PA-C [address] [place] [address] [email or web address] PCP - General Family Medicine 05/03/18 07/08/19 Maria Del Rosario Oleary NP [address] [place] [address] PCP - General Family Medicine 07/09/19 06/18/25 Ashwin Zurita NP [address] [place] [address] PCP - General Nurse Practitioner 06/19/25 Carmen Flores, JOAQUIN [address] [place] [address] [email or web address] Historical LMR Provider 09/06/17 Priscila Grimm FNP 38 [facility]. 204, [address] [place] [address] [email or web address] Historical LMR Provider 09/06/17 11/27/21 Veronica Vega MD 38 [facility]. 204, [address] [place] [address] [email or web address] Historical LMR Provider 09/06/17 11/27/21 Selam Flower MD [address] [place] [address] Historical LMR Provider 09/06/17 2 Pedro Valente MD [address] [place] [address] Historical LMR Provider 09/06/17 2 documented as of this encounter Additional Source Comments The information contained in this document represents components of the legal health record. It is not the complete legal health record.[facility]
--- OUTSIDE RECORDS SUMMARY | 2025-08-13 11:51 | XMS_ITS | Encounter Summary ---
Author Organization [facility] Address [address] [place] [address] Phone Care Team Providers Care Relations Specialist Name Role Phone Carmen Flores NP Unavailable [phone] Priscila Grimm OPTICAL EFFECTS LINE UP PERSON Unavailable Veronica Vega MD Unavailable Selam Flower MD Unavailable Pedro Valente MD Unavailable Selam Flower MD Primary Care Provider Scarlett Baird PA-C Primary Care Provider [phone] Maria Del Rosario Oleary FLIGHT FOLLOWER Primary Care Provider + Ashwin Zurita FLIGHT FOLLOWER Primary Care Provide r Encounter Details Date Type Department Care Team (Late st Contact Info) Description 04/20/2018 Ancillary Orders [facility],Outside Imaging 30 [place], [place] [phone] System, Provider Not In, PhD Partners [address] [address] Social History Tobacco Use Types Packs/Day Years [...] documented as of this encounter Care Teams Relations Specialist Relationship Specialty Start Date End Date Selam Flower MD 41 [place] [address] PCP - General 11/23/17 05/02/18 Scarlett Baird PA-C [address] [place] [address] PCP - General Family Medicine 05/03/18 07/08/19 Maria Del Rosario Oleary NP [address] [place] [address] PCP - General Family Medicine 07/09/19 06/18/25 Ashwin Zurita NP [address] [place] [address] PCP - General Nurse Practitioner 06/19/25 Carmen Flores NP [address] [place] [address] [email or web address] Historical LMR Provider 09/06/17 Priscila Grimm FNP 38 [facility]. 204, [address] [place] [address] [email or web address] Historical LMR Provider 09/06/17 11/27/21 Veronica Vega MD 38 [facility]. 204, [address] [place] [address] [email or web address] Historical LMR Provider 09/06/17 11/27/21 Selam Flower MD [address] [place] [address] Historical LMR Provider 09/06/17 2 Pedro Valente MD [address] [place] [address] Historical LMR Provider 09/06/17 2 documented as of this encounter Additional Source Comments The information contained in this document represents components of the legal health record. It is not the complete legal health record.[facility]
--- OUTSIDE RECORDS SUMMARY | 2025-08-13 11:51 | XMS_ITS | Encounter Summary ---
Author Organization [facility] Address [address] [place] [address] Phone Care Team Providers Care Cabinet Abrasive Sandblaster Name Role Phone Carmen Flores NP Unavailable Priscila Grimm HEATING ELEMENT WINDER Unavailable Veronica Vega MD Unavailable Selam Flower MD Unavailable [phone] Pedro Valente MD Unavailable Selam Flower MD Primary Care Provider Scarlett Baird PA-C Primary Care Provider Maria Del Rosario Oleary MANAGING BROKER Primary Care Provider + Ashwin Zurita MANAGING BROKER Primary Care Provide r Encounter Details Date Type Department Care Team (Late st Contact Info) Description 04/20/2018 Ancillary Orders [facility],Outside Imaging 30 [place], [place] [phone] System, Provider Not In, PhD Partners [address] [address] Social History Tobacco Use Types Packs/Day Years [...] documented as of this encounter Care Teams Cabinet Abrasive Sandblaster Relationship Specialty Start Date End Date Selam Flower MD 41 [place] [address] PCP - General 11/23/17 05/02/18 Scarlett Baird PA-C [address] [place] [address] PCP - General Family Medicine 05/03/18 07/08/19 Maria Del Rosario Oleary NP [address] [place] [address] PCP - General Family Medicine 07/09/19 06/18/25 Ashwin Zurita NP [address] [place] [address] PCP - General Nurse Practitioner 06/19/25 Carmen Flores NP [address] [place] [address] [email or web address] Historical LMR Provider 09/06/17 Priscila Grimm FNP 38 [facility]. 204, [address] [place] [address] [email or web address] Historical LMR Provider 09/06/17 11/27/21 Veronica Vega MD 38 [facility]. 204, [address] [place] [address] [email or web address] Historical LMR Provider 09/06/17 11/27/21 Selam Flower MD [address] [place] [address] Historical LMR Provider 09/06/17 2 Pedro Valente MD [address] [place] [address] Historical LMR Provider 09/06/17 2 documented as of this encounter Additional Source Comments The information contained in this document represents components of the legal health record. It is not the complete legal health record.[facility]
--- OUTSIDE RECORDS SUMMARY | 2025-08-13 11:51 | XMS_ITS | Encounter Summary ---
Author Organization [facility] Address [address] [place] [address] Phone Care Team Providers Care Commercial Drone Pilot Name Role Phone Carmen Flores NP Unavailable [phone] Priscila Grimm METAL MACHINIST Unavailable [phone] Veronica Vega MD Unavailable Selam Flower MD Unavailable [phone] Pedro Valente MD Unavailable Selam Flower MD Primary Care Provider Scarlett Baird PA-C Primary Care Provider Maria Del Rosario Oleary BOOSTER ASSEMBLER Primary Care Provider + Ashwin Zurita BOOSTER ASSEMBLER Primary Care Provide r Encounter Details Date Type Department Care Team (Late st Contact Info) Description 04/20/2018 Ancillary Orders [facility],Outside Imaging 30 [place], [place] [phone] System, Provider Not In, PhD Partners [address] [address] Social History Tobacco Use Types Packs/Day Years [...] documented as of this encounter Care Teams Commercial Drone Pilot Relationship Specialty Start Date End Date Selam Flower MD 41 [place] [address] PCP - General 11/23/17 05/02/18 Scarlett Baird PA-C [address] [place] [address] PCP - General Family Medicine 05/03/18 07/08/19 Maria Del Rosario Oleary NP [address] [place] [address] PCP - General Family Medicine 07/09/19 06/18/25 Ashwin Zurita NP [address] [place] [address] PCP - General Nurse Practitioner 06/19/25 Carmen Flores NP [address] [place] [address] [email or web address] Historical LMR Provider 09/06/17 Priscila Grimm FNP 38 [facility]. 204, [address] [place] [address] [email or web address] Historical LMR Provider 09/06/17 11/27/21 Veronica Vega MD 38 [facility]. 204, [address] [place] [address] [email or web address] Historical LMR Provider 09/06/17 11/27/21 Selam Flower MD [address] [place] [address] Historical LMR Provider 09/06/17 2 Pedro Valente MD [address] [place] [address] Historical LMR Provider 09/06/17 2 documented as of this encounter Additional Source Comments The information contained in this document represents components of the legal health record. It is not the complete legal health record.[facility]
--- OUTSIDE RECORDS SUMMARY | 2025-08-13 11:51 | XMS_ITS | Encounter Summary ---
Author Organization [facility] Address [address] [place] [address] Phone Care Team Providers Care Customer Servicer Name Role Phone Carmen Flores NP Unavailable Priscila Grimm AERIAL LINEMAN Unavailable [phone] Veronica Vega MD Unavailable Selam Flower MD Unavailable [phone] Pedro Valente MD Unavailable Scarlett Baird PA-C Primary Care Provider Maria Del Rosario Oleary NP Primary Care Provider + Ashwin Zurita IN CLASS SPECIAL EDUCATION TEACHER Primary Care Provide r Encounter Details Date Type Department Care Team (Late st Contact Info) Description 06/10/2019 Ancillary Orders [facility], X-Ray - [address] [place] [address] Maria Del Rosario Oleary, JOAQUIN [address] [place] [address] Right knee pain, unspecified chronicity Social History [...] EDT Impressions 06/10/2019 5:18 PM EDT 1. Moderate size joint effusion. 2. Mild osteoarthritis and postoperative changes. POS - [id number] Narrative 06/10/2019 5:18 PM EDT HISTORY: As above. COMPARISON: MRI right knee 07/26/2018. Right knee radiographs 01/21/2013. RIGHT KNEE RADIOGRAPH FINDINGS: Four views obtained including weightbearing. There is a new anterior medial femoral condyle hardware. No evidence of loosening. No fracture or malalignment. Mild medial compartment joint space narrowing and spurring. No bone lesions. Moderate size suprapatellar joint effusion. No soft tissue gas. Procedure Note Ilene Hernandez MD - 06/10/2019 HISTORY: As above. COMPARISON: MRI right knee 07/26/2018. Right knee [id number]/04/2013. RIGHT KNEE RADIOGRAPH FINDINGS: Four views obtained including weightbearing. There is a new anteriormedial femoral condyle hardware. No evidence of loosening. No fractureor malalignment. Mild medial compartment joint space narrowing andspurring. No bone lesions. Moderate size suprapatellar joint effusion.No soft tissue gas. IMPRESSION: 1. Moderate size joint effusion. 2. Mild osteoarthritis and postoperative changes. POS - [id number] Maria Del Rosario Oleary IN CLASS SPECIAL EDUCATION TEACHER IMG XR LOWER EXTREMITY F inal Result documented in this encounter Visit Diagnoses Diagnosis Right knee pain, unspecified chronicity Right knee pain, unspecified chronicity documented in this encounter Additional Health Concerns Infection Onset Date Last Indicated Resolved Time CoV-Risk 01/21/2025 01/21/2025 02/01/2025 1:21 AM EDT documented as of this encounter Care Teams Customer Servicer Relationship Specialty Start Date End Date Scarlett Baird PA-C [address] [place] [address] PCP - General Family Medicine 05/03/18 07/08/19 Maria Del Rosario Oleary, IN CLASS SPECIAL EDUCATION TEACHER [address] [place] [address] PCP - General Family Medicine 07/09/19 06/18/25 Ashwin Zurita, JOAQUIN [address] [place] [address] PCP - General Nurse Practitioner 06/19/25 Carmen Flores NP [address] [place] [address] [email or web address] Historical LMR Provider 09/06/17 Priscila Grimm FNP 38 [facility]. 204, [address] [place] [address] [email or web address] Historical LMR Provider 09/06/17 11/27/21 Veronica Vega MD 38 [facility]. 204, [address] [place] [address] Historical LMR Provider 09/06/17 11/27/21 Selam Flower MD [address] [place] [address] Historical LMR Provider 09/06/17 2 Pedro Valente MD 41 [place] [address] Historical LMR Provider 09/06/17 2 documented as of this encounter Additional Source Comments The information contained in this document represents components of the legal health record. It is not the complete legal health record.[facility]
--- OUTSIDE RECORDS SUMMARY | 2025-08-13 11:51 | XMS_ITS | Encounter Summary ---
Author Organization [facility] Address [address] [place] [address] Phone Care Team Providers Care Tight Barrel Inspector Name Role Phone Carmen Flores NP Unavailable [phone] Priscila Grimm MIRROR SPECIALIST Unavailable Veronica Vega MD Unavailable Selam Flower MD Unavailable Pedro Valente MD Unavailable Selam Flower MD Primary Care Provider Scarlett Baird PA-C Primary Care Provider Maria Del Rosario Oleary SCOW DERRICK OPERATOR Primary Care Provider + Ashwin Zurita SCOW DERRICK OPERATOR Primary Care Provide r Encounter Details Date Type Department Care Team (Late st Contact Info) Description 04/20/2018 Ancillary Orders [facility],Outside Imaging 30 [place], [place] [phone] System, Provider Not In, PhD Partners [address] [address] Social History Tobacco Use Types Packs/Day Years [...] documented as of this encounter Care Teams Tight Barrel Inspector Relationship Specialty Start Date End Date Selam Flower MD 41 [place] [address] PCP - General 11/23/17 05/02/18 Scarlett Baird PA-C [address] [place] [address] PCP - General Family Medicine 05/03/18 07/08/19 Maria Del Rosario Oleary NP [address] [place] [address] PCP - General Family Medicine 07/09/19 06/18/25 Ashwin Zurita NP [address] [place] [address] PCP - General Nurse Practitioner 06/19/25 Carmen Flores NP [address] [place] [address] [email or web address] Historical LMR Provider 09/06/17 Priscila Grimm FNP 38 [facility]. 204, [address] [place] [address] [email or web address] Historical LMR Provider 09/06/17 11/27/21 Veronica Vega MD 38 [facility]. 204, [address] [place] [address] [email or web address] Historical LMR Provider 09/06/17 11/27/21 Selam Flower MD [address] [place] [address] Historical LMR Provider 09/06/17 2 Pedro Valente MD [address] [place] [address] Historical LMR Provider 09/06/17 2 documented as of this encounter Additional Source Comments The information contained in this document represents components of the legal health record. It is not the complete legal health record.[facility]
--- OUTSIDE RECORDS SUMMARY | 2025-08-13 11:52 | XMS_ITS | Encounter Summary ---
Author Organization [facility] Address [address] [place] [address] Phone Care Team Providers Care Sales Estimator Name Role Phone Carmen Flores NP Unavailable Priscila Grimm ARBORICULTURIST Unavailable Veronica Vega MD Unavailable [phone] Selam Flower MD Unavailable [phone] Pedro Valente MD Unavailable Pcp, Unknown Primary Care Provider Unavailabl e Selam Flower MD Primary Care Provider Scarlett Baird PA-C Primary Care Provider Maria Del Rosario Oleary TYPESETTING SUPERVISOR Primary Care Provider + Ashwin Zurita TYPESETTING SUPERVISOR Primary Care Provide r Encounter Details Date Type Department Care Team (Late st Contact Info) Description 10/18/2017 Procedure Pass [facility], [facility] - [address] [place] [address] Social History Tobacco Use Types Packs/Day Years [...] as of this encounter Care Teams Sales Estimator Relationship Specialty Start Date End Date Pcp, Unknown PCP - General 10/18/17 11/22/17 Selam Flower MD PCP - General 11/23/17 05/02/18 Scarlett Baird PA-C [address] [place] [address] [email or web address] PCP - General Family Medicine 05/03/18 07/08/19 Maria Del Rosario Oleary NP [address] [place] [address] PCP - General Family Medicine 07/09/19 06/18/25 Ashwin Zurita NP [address] [place] [address] PCP - General Nurse Practitioner 06/19/25 Carmen Flores NP [address] [place] [address] [email or web address] Historical LMR Provider 09/06/17 Alfa Priscila HernadezDAPHNIE [address] [facility] [address], [address] [place] [address] [email or web address] Historical LMR Provider 09/06/17 11/27/21 Veronica Vega MD 38 [facility], [address], [address] [place] [address] [email or web address] Historical LMR Provider 09/06/17 11/27/21 Selam Flower MD [address] [place] [address] Historical LMR Provider 09/06/17 2 Pedro Valente MD [address] [place] [address] Historical LMR Provider 09/06/17 2 documented as of this encounter Additional Source Comments The information contained in this document represents components of the legal health record. It is not the complete legal health record.[facility]
--- OUTSIDE RECORDS SUMMARY | 2025-08-13 11:52 | XMS_ITS | Encounter Summary ---
Author Organization [facility] Address [address] [place] [address] Phone Care Team Providers Care Dental Surgery Doctor Name Role Phone Carmen Flores NP Unavailable Priscila Grimm TABLE INSPECTOR Unavailable Veronica Vega MD Unavailable Selam Flower MD Unavailable [phone] Pedro Valente MD Unavailable Pcp, Unknown Primary Care Provider Unavailabl e Selam Flower MD Primary Care Provider Scarlett Baird PA-C Primary Care Provider Maria Del Rosario Oleary INSPECTOR Primary Care Provider + Ashwin Zurita INSPECTOR Primary Care Provide r Reason for Referral * MRI/CAT Scan - Closed Specialty Diagnoses / Procedures Referred By Contac t Referred To Contact Radiology Diagnoses Acute left ankle pain Procedures MRI Ankle (Left) Saurav Shahid MD Phone: tel: fax: [email or web address] Referral ID Status Reason Start Date Expiration Date Visits Re quested Visits Authorized [id number] Closed 10/18/2017 12/17/2017 1 1 Encounter Details Date Type Department Care Team (Late st Contact Info) Description 10/18/2017 Ancillary Orders Virtual Department [address] [place] [address] Saurav Shahid MD [address] [place] [address] [email or web address] Acute left ankle pain Social History Tobacco [...] No other regional disruptions identified. POS - [id number] Edited by: Sylwia Michael on 10/24/2017 2:14 PM Narrative 10/24/2017 2:16 PM EST HISTORY: Inversion injury. Pain anterolaterally. COMPARISON: Radiographs October 02 TECHNIQUE: Exam performed on a 1.5 Constanza high-field MRI scanner. Axial T1, T2 and STIR; coronal proton density with fat suppression, sagittal T1 and STIR sequences were obtained. FINDINGS: There is abnormal thickening and low signal in the anterior talofibular ligament consistent with acute or subacute sprain of intermediate grade. Calcaneofibular [...] No other regional disruptions identified. POS - [id number] Edited by: Sylwia Michael on 10/24/2017 2:14 PM Saurav Shahid MD [facility] MR EXTREMITY Final Result documented in this encounter Visit Diagnoses Diagnosis Acute left ankle pain Acute left ankle pain documented in this encounter Additional Health Concerns Infection Onset Date Last Indicated Resolved Time CoV-Risk 01/21/2025 01/21/2025 02/01/2025 1:21 AM EDT documented as of this encounter Care Teams Dental Surgery Doctor Relationship Specialty Start Date End Date Pcp, Unknown PCP - General 10/18/17 11/22/17 Selam Flower MD PCP - General 11/23/17 05/02/18 Scarlett Baird PA-C [address] [place] [address] PCP - General Family Medicine 05/03/18 07/08/19 Maria Del Rosario Oleary, INSPECTOR [address] [place] [address] PCP - General Family Medicine 07/09/19 06/18/25 Ashwin Zurita, INSPECTOR [address] [place] [address] PCP - General Nurse Practitioner 06/19/25 Carmen Flores, JOAQUIN [address] [place] [address] [email or web address] Historical LMR Provider 09/06/17 Priscila Grimm FNP [address] [facility] [address], [address] [place] [address] [email or web address] Historical LMR Provider 09/06/17 11/27/21 Veronica Vega MD [address] [facility] [address], [address] [place] [address] Historical LMR Provider 09/06/17 11/27/21 Selam Flower MD [address] [place] [address] Historical LMR Provider 09/06/17 Pedro Cason MD [address] [place] [address] Historical LMR Provider 09/06/17 2 documented as of this encounter Additional Source Comments The information contained in this document represents components of the legal health record. It is not the complete legal health record.[facility]
--- OUTSIDE RECORDS SUMMARY | 2025-08-13 11:52 | XMS_ITS | Encounter Summary ---
Author Organization [facility] Address [address] [place] [address] [address] [place] [address] Phone Care Team Providers Care English Division Chair Name Role Phone Carmen Flores NP Unavailable [phone] Priscila Grimm ENVIRONMENTAL COMPLIANCE TECHNICIAN Unavailable Veronica Vega MD Unavailable Selam Flower MD Unavailable Pedro Valente MD Unavailable Pcp, Unknown Primary Care Provider Unavailabl e Pcp, Unknown Primary Care Provider Unavailabl e Selam Flower MD Primary Care Provider Scarlett BairdC Primary Care Provider [phone] Maria Del Rosario Oleary ORTHODONTIC TECHNICIAN ASSISTANT Primary Care Provider + Ashwin Zurita ORTHODONTIC TECHNICIAN ASSISTANT Primary Care Provide r Encounter Details Date Type Department Care Team (Late st Contact Info) Description 10/02/2017 Ancillary Orders [facility], X-Ray - [address] [place] [address] Kassandra Laura PA-C [address] [facility], [address] [place] [address] Pain Social History Tobacco Use Types Packs/Day [...] EST No evidence of fractures. POS - [id number] Narrative 10/02/2017 2:43 PM EST HISTORY: Lateral pain, multiple recent injuries. COMPARISON: None. FINDINGS: Three views. No evidence of fractures, subluxations or dislocations. Joint spaces well-maintained. No significant arthritic changes. Small plantar calcaneal spur. Procedure Note Mango Davis MD - 10/02/2017 HISTORY: Lateral pain, multiple recent injuries. COMPARISON: None. FINDINGS: Three views. No evidence of fractures, subluxations or dislocations. Joint spaceswell- maintained. No significant arthritic changes. Small plantarcalcaneal spur. IMPRESSION: No evidence of fractures. POS - [id number] Kassandra Laura PA-C IMG XR LOWER EXTREMITY Final Result * XR Tibia Fibula 2 Views (Left) (10/02/2017 2:24 PM EST) Anatomical Region Laterality Modality Leg Left Radiographic Zelda ging 10/02/2017 2:43 PM EST Impressions 10/02/2017 2:45 PM EST No evidence of fractures. POS - [id number] Narrative 10/02/2017 2:45 PM EST HISTORY: Bilateral pain, multiple recent injuries. COMPARISON: None. FINDINGS: AP and lateral views. No evidence of acute fractures. No subluxations or dislocations. No suspicious lytic or blastic lesions within the bones. Procedure Note Mango Davis MD - 10/02/2017 HISTORY: Bilateral pain, multiple recent injuries. COMPARISON: None. FINDINGS: AP and lateral views. No evidence of acute fractures. No subluxations or dislocations. Nosuspicious lytic or blastic lesions within the bones. IMPRESSION: No evidence of fractures. POS - [id number] Kassandra Laura PA-C IMG XR LOWER EXTREMITY Final Result documented in this encounter Visit Diagnoses Diagnosis Pain Generalized pain Pain Generalized pain Pain Generalized pain documented in this encounter Additional Health Concerns Infection Onset Date Last Indicated Resolved Time CoV-Risk 01/21/2025 01/21/2025 02/01/2025 1:21 AM EDT documented as of this encounter Care Teams English Division Chair Relationship Specialty Start Date End Date Pcp, Unknown PCP - General 02/18/11 10/17/17 Pcp, Unknown PCP - General 10/18/17 11/22/17 Selam Flower MD PCP - General 11/23/17 05/02/18 Scarlett Baird PA-C [address] [place] [address] [email or web address] PCP - General Family Medicine 05/03/18 07/08/19 Maria Del Rosario Oleary NP [address] [place] [address] PCP - General Family Medicine 07/09/19 06/18/25 Ashwin Zurita NP [address] [place] [address] PCP - General Nurse Practitioner 06/19/25 Carmen Flores, JOAQUIN [address] [place] [address] [email or web address] Historical LMR Provider 09/06/17 Priscila Grimm FNP [address] [facility]. [address], [address] [place] [address] [email or web address] Historical LMR Provider 09/06/17 11/27/21 Veronica Vega MD [address] [facility]. [address], [address] [place] [address] [email or web address] Historical LMR Provider 09/06/17 11/27/21 Selam Flower MD [address] [place] [address] Historical LMR Provider 09/06/17 2 Pedro Valente MD [address] [place] [address] Historical LMR Provider 09/06/17 2 documented as of this encounter Additional Source Comments The information contained in this document represents components of the legal health record. It is not the complete legal health record.[facility]
--- OUTSIDE RECORDS SUMMARY | 2025-08-13 11:52 | XMS_ITS | Encounter Summary ---
Author Organization [facility] Address [address] [place] [address] [place] [address] Phone Care Team Providers Care Clinical Support Nurse Name Role Phone Maria Del Rosario Oleary SUBSYSTEMS ENGINEER Primary Care Provider + Ashwin Zuirta SUBSYSTEMS ENGINEER Primary Care Provide r Encounter Details Date Type Department Care Team (Late st Contact Info) Description 11/22/2023 Transcribe Orders Virtual Department [address] [place] [address] Maria Del Rosario Oleary NP [address] [place], [place] [id number] Right knee pain, unspecified chronicity (Primary Dx) [...] clinician's provided indication for this examination in Epic: Outside Radiology Order; RIGHT KNEE PAIN COMPARISON: [...] clinician's provided indication for this examination in Epic:Outside Radiology Order; RIGHT KNEE PAIN COMPARISON: XR [...] patellofemoral component dysfunction. Maria Del Rosario Oleary SUBSYSTEMS ENGINEER IMG XR LOWER EXTREMITY F inal Result documented in this encounter Visit Diagnoses Diagnosis Right knee pain, unspecified chronicity- Primary Right knee pain, unspecified chronicity documented in this encounter Additional Health Concerns Infection Onset Date Last Indicated Resolved Time CoV-Risk 01/21/2025 01/21/2025 02/01/2025 1:21 AM EDT documented as of this encounter Care Teams Clinical Support Nurse Relationship Specialty Start Date End Date Maria Del Rosario Oleary NP [address] [place] [address] PCP - General Family Medicine 07/09/19 06/18/25 Ashwin Zurita NP [address] [place] [address] PCP - General Nurse Practitioner 06/19/25 documented as of this encounter Additional Source Comments The information contained in this document represents components of the legal health record. It is not the complete legal health record.[facility]
== END 2025-08-13 10:22 | disposition home or self-care (01) ==
LOC: HO.HKA 09:47
PROVIDERS: PCP Internal Medicine; Visit Provider Internal Medicine Nephrology
DX: N20.0 Calculus of kidney (principal); R80.8 Other proteinuria
CPT/HCPCS: 99214

== ENCOUNTER → 2025-08-13 09:47 | Outpatient (BNVA) | payer MEDICAID, SELFPAY | PROVIDERS: PCP Registered Nurse; Visit Provider Internal Medicine Nephrology | DX: N20.0 Calculus of kidney (principal); R80.8 Other proteinuria | CPT/HCPCS: 99212 ==

== ENCOUNTER 2025-11-05 15:10 | Outpatient (AMB) | payer MEDICAID, SELFPAY ==
--- OUTSIDE RECORDS SUMMARY | 2010-03-08 23:00 | XMS_ITS | Encounter Summary ---
Author Organization [facility] Address [facility] hospital [employer] [facility] [address] [place] [phone] Phone Care Team Providers Care Claims Vice President Name Role Phone Unavailable Primary Care Provider Unavailabl e Encounter Details Date Type Department Care Team (Late st Contact Info) Description 03/09/2010 Hospital Encounter [facility],Outside Imaging [address] [place] [address] System, Provider Not In, PhD [address] [address] Social History Tobacco Use Types Packs/Day Years Used Date Smoking Tobacco: Former Cigarettes 0.3 16 0 08/01/2003 - 08/01/2019 Smokeless Tobacco: Never Alcohol Use Standard Drinks/Week Comments Not Currently 0 (1 standard drink = 0.6 oz pur e alcohol) Education Answer Date Recorded Are you interested in more education? Not on praveen e 03/17/2023 Are you concerned about learning? Not on file 03/17/2023 No 03/17/2023 No 03/17/2023 Digital Access Answer Date Recorded No 04/17/2023 No 04/17/2023 Reliable internet access at home? Not on file 04/17/2023 Device with a working camera? Not on file Comments No Sex and Gender Information Value Date Recorded Sex Assigned at Female 05/03/2018 10:11 AM EDT Legal Sex Female 9:37 PM EDT Gender Identity Female 05/03/2018 10:11 AM EDT Sexual Orientation Not on file documented as of this encounter Plan of Treatment Upcoming Encounters Date Type Department Care Team (Late st Contact Info) Description 11/27/2025 9:00 AM EST Office Visit [facility] [address] [place] [address] Sarai Azar PA-C [address] [place] [address] [email or web address] documented as of this encounter Procedures Procedure Name Priority Date/Time Associated Diagnosis Comments BI MAMMOGRAM OUTSIDE (NO INTERPRETATION) Routine 03/09/2010 12:00 AM EDT documented in this encounter Results * Mammogram Outside (No Interpretation) (03/09/2010 12:00 AM EDT) Narrative SYSTEMGENERATED, DOCUMENTATION - 04/20/2018 10:35 AM EDT This study is for PACS storage only and not for interpretation. us Provider Not In System PhD IMG OUTSIDE IMAGING W /OUT INTERPRETATION Final Result documented in this encounter Visit Diagnoses Not on filedocumented in this encounter Additional Health Concerns Infection Onset Date Last Indicated Resolved Time CoV-Risk 01/21/2025 01/21/2025 02/01/2025 1:21 AM EDT documented as of this encounter Additional Source Comments The information contained in this document represents components of the legal health record. It is not the complete legal health record.[facility]
--- OUTSIDE RECORDS SUMMARY | 2011-03-13 23:00 | XMS_ITS | Encounter Summary ---
Author Organization [facility] Address [facility] [address] [place] [address] Phone Care Team Providers Care Ergonomics Technician Name Role Phone Pcp, Unknown Primary Care Provider Unavailabl e Encounter Details Date Type Department Care Team (Late st Contact Info) Description 03/14/2011 Hospital Encounter [facility],Outside Imaging [address] [place] [address] System, Provider Not In, PhD [address] [address] Unknown, Unknown, Social History Tobacco Use Types Packs/Day Years [...] Description 11/27/2025 9:00 AM EST Office Visit [facility] [address] [place] [address] Sarai Azar PA-C [address] [place] [address] [email or web address] documented as of this encounter Procedures Procedure Name Priority Date/Time Associated Diagnosis Comments BI MAMMOGRAM OUTSIDE (NO INTERPRETATION) Routine 03/14/2011 12:00 AM EDT documented in this encounter Results * Mammogram Outside (No Interpretation) (03/14/2011 12:00 AM EDT) Narrative SYSTEMGENERATED, DOCUMENTATION - 04/20/2018 10:14 AM EDT This study is for PACS storage only and not for interpretation. us Provider Not In System PhD IMG OUTSIDE IMAGING W /OUT INTERPRETATION Final Result documented in this encounter Visit Diagnoses Not on filedocumented in this encounter Additional Health Concerns Infection Onset Date Last Indicated Resolved Time CoV-Risk 01/21/2025 01/21/2025 02/01/2025 1:21 AM EDT documented as of this encounter Care Teams Ergonomics Technician Relationship Specialty Start Date End Date Pcp, Unknown PCP - General 02/18/11 10/17/17 documented as of this encounter Additional Source Comments The information contained in this document represents components of the legal health record. It is not the complete legal health record.[facility]
--- OUTSIDE RECORDS SUMMARY | 2011-03-15 23:00 | XMS_ITS | Encounter Summary ---
Author Organization [facility] Address [facility] [address] [place] [phone] Phone Care Team Providers Care Senior Systems Engineer Name Role Phone Pcp, Unknown Primary Care Provider Unavailabl e Encounter Details Date Type Department Care Team (Late st Contact Info) Description 03/16/2011 Hospital Encounter [facility],Outside Imaging [address] [place] [address] System, Provider Not In, PhD [address] [address] Unknown, Unknown, Social History Tobacco Use Types [...] Description 11/27/2025 9:00 AM EST Office Visit [facility] [address] [place] [address] Sarai Azar PA-C [address] [place] [address] [email or web address] documented as of this encounter Procedures Procedure Name Priority Date/Time Associated Diagnosis Comments BI MAMMOGRAM OUTSIDE (NO INTERPRETATION) Routine 03/16/2011 12:00 AM EDT documented in this encounter Results * Mammogram Outside (No Interpretation) (03/16/2011 12:00 AM EDT) Narrative SYSTEMGENERATED, DOCUMENTATION - 04/20/2018 10:13 AM EDT This study is for PACS storage only and not for interpretation. us Provider Not In System PhD IMG OUTSIDE IMAGING W /OUT INTERPRETATION Final Result documented in this encounter Visit Diagnoses Not on filedocumented in this encounter Additional Health Concerns Infection Onset Date Last Indicated Resolved Time CoV-Risk 01/21/2025 01/21/2025 02/01/2025 1:21 AM EDT documented as of this encounter Care Teams Senior Systems Engineer Relationship Specialty Start Date End Date Pcp, Unknown PCP - General 02/18/11 10/17/17 documented as of this encounter Additional Source Comments The information contained in this document represents components of the legal health record. It is not the complete legal health record.[facility]
--- OUTSIDE RECORDS SUMMARY | 2012-03-14 23:00 | XMS_ITS | Encounter Summary ---
Author Organization [facility] Address [facility] [employer] [facility] [address] [place] [phone] Phone Care Team Providers Care Financial Analysis Advisor Name Role Phone Pcp, Unknown Primary Care Provider Unavailabl e Encounter Details Date Type Department Care Team (Late st Contact Info) Description 03/15/2012 Hospital Encounter [facility],Outside Imaging [address] [place] [address] System, Provider Not In, PhD [address] [address] Unknown, Unknown, Social History Tobacco Use Types [...] Description 11/27/2025 9:00 AM EST Office Visit [facility] [address] [place] [address] Sarai Azar PA-C [address] [place] [address] [email or web address] documented as of this encounter Procedures Procedure Name Priority Date/Time Associated Diagnosis Comments BI MAMMOGRAM OUTSIDE (NO INTERPRETATION) Routine 03/15/2012 12:00 AM EDT documented in this encounter Results * Mammogram Outside (No Interpretation) (03/15/2012 12:00 AM EDT) Narrative SYSTEMGENERATED, DOCUMENTATION - 04/20/2018 10:15 AM EDT This study is for PACS storage only and not for interpretation. us Provider Not In System PhD IMG OUTSIDE IMAGING W /OUT INTERPRETATION Final Result documented in this encounter Visit Diagnoses Not on filedocumented in this encounter Additional Health Concerns Infection Onset Date Last Indicated Resolved Time CoV-Risk 01/21/2025 01/21/2025 02/01/2025 1:21 AM EDT documented as of this encounter Care Teams Financial Analysis Advisor Relationship Specialty Start Date End Date Pcp, Unknown PCP - General 02/18/11 10/17/17 documented as of this encounter Additional Source Comments The information contained in this document represents components of the legal health record. It is not the complete legal health record.[facility]
--- OUTSIDE RECORDS SUMMARY | 2013-03-18 23:00 | XMS_ITS | Encounter Summary ---
Author Organization [facility] Address [address] [place] [address] [place] [phone] Phone Care Team Providers Care Precision Machine Operator Name Role Phone Pcp, Unknown Primary Care Provider Unavailabl e Encounter Details Date Type Department Care Team (Late st Contact Info) Description 03/19/2013 Hospital Encounter [facility],Outside Imaging [address] [place] [address] System, Provider Not In, [place] [address] Social History Tobacco Use Types Packs/Day Years [...] Description 11/27/2025 9:00 AM EST Office Visit [facility] [address] [place] [address] Sarai Azar PA-C [address] [place] [address] [email or web address] documented as of this encounter Procedures Procedure Name Priority Date/Time Associated Diagnosis Comments BI MAMMOGRAM OUTSIDE (NO INTERPRETATION) Routine 03/19/2013 12:00 AM EDT documented in this encounter Results * Mammogram Outside (No Interpretation) (03/19/2013 12:00 AM EDT) Narrative SYSTEMGENERATED, DOCUMENTATION - 04/20/2018 10:26 AM EDT This study is for PACS storage only and not for interpretation. us Provider Not In System PhD IMG OUTSIDE IMAGING W /OUT INTERPRETATION Final Result documented in this encounter Visit Diagnoses Not on filedocumented in this encounter Additional Health Concerns Infection Onset Date Last Indicated Resolved Time CoV-Risk 01/21/2025 01/21/2025 02/01/2025 1:21 AM EDT documented as of this encounter Care Teams Precision Machine Operator Relationship Specialty Start Date End Date Pcp, Unknown PCP - General 02/18/11 10/17/17 documented as of this encounter Additional Source Comments The information contained in this document represents components of the legal health record. It is not the complete legal health record.[facility]
--- NOTE | 2025-11-05 15:30 | HO.NEPHOV ---
Vital Signs 11/05/25 15:36 Height 5 ft 6 in Weight 229 lb 6 oz BMI 37.0 BP 120/70 Blood Pressure Location Rt brachial Position Sitting Pulse 89 Pulse Source Pulse Oximeter Pulse Oximetry (%) 95 Oxygen Delivery Method Room Air Intake Visit Reasons: Per MD- Leg swelling Substation Maintenance Technician Required: No Accompanied by: Other Relationship Allergies amoxicillin Allergy (Mild, Verified 11/05/25 15:36) unknown cat dander Allergy (Mild, Verified 11/05/25 15:36) Unknown pollen extracts Allergy (Mild, Verified 11/05/25 15:36) unknown cephalexin (From Keflex) Allergy (Verified 11/05/25 15:36) Nausea and Vomiting erythromycin base Allergy (Verified 11/05/25 15:36) Nausea and Vomiting Penicillins Allergy (Verified 11/05/25 15:36) Itching NSAIDS (Non-Steroidal Anti-Inflamma Adverse Reaction (Mild, Verified 11/05/25 15:36) effects kidneys HPI Comments Details: Padmaja was seen in follow-up for her nephrolithiasis. She has been on prednisone but currently is on 2.5 mg daily. She has history of complex regional pain syndrome. She had a spinal cord stimulator put in. Her arthralgias are better. She does not have any blood in the urine, fever, loin pain, chills, rigor or dysuria. She has not passed any later gravel in the urine. She maintains good hydration. She tries to minimize his salt in the diet.She had proteinuria and marginally high MPO antibody. She has been having edema B/L R>L [facility] Medical History (Updated 01/10/25 @ 09:55 by Amauri Vasquez MD) Primary insomnia Osteoarthritis Nerve injury Nephrolithiasis Migraine Fibromyositis Fibromyalgia Depressive disorder Anxiety Smoker Chronic knee pain GERD (gastroesophageal reflux disease) Closed left ankle fracture Surgical History Hx of repair of left rotator cuff Hx of repair of right rotator cuff History of total right knee replacement S/P rotator cuff repair History of hysterectomy Social History Alcohol intake: never Patient Tobacco Use Status: Former Tobacco user Review of Systems Const All systems reviewed & are unremarkable except as noted in HPI and below Physical Exam Vital Signs: Last Vital Signs Pulse 89 11/05/25 15:36 BP 120/70 11/05/25 15:36 Pulse Ox 95 11/05/25 15:36 Oxygen Delivery Method Room Air 11/05/25 15:36 BMI result Body Mass Index 37.0 Const General: comfortable and no acute distress Orientation/consciousness: patient oriented x3 HEENT Head: Yes normocephalic Mouth: Normal oral and palatal mucosa present Eyes EOM: EOMs intact bilaterally Neck Neck: Yes supple Resp Auscultation: clear to auscultation bilaterally Cardio Jugular venous distension: no JVD Rate: regular rate GI Palpation (GI): Soft to palpation Auscultation: normal bowel sounds General: Yes no CVA tenderness Back/Spine/Pelvis Back: no CVA tenderness Skin General skin exam: no rashes or lesions noted Neuro General: patient oriented x3 and moves all extremities Extrem General: Yes edema Results Reviewed Nephrology Results: Hgb, (12.0-16.0) 13.1 g/dl 01/10/25 WBC, (4.8-10.8) 8.3 X10*3/uL 01/10/25 Plt Count, (160-400) 297 X10*3/uL 01/10/25 Sodium, (135-145) 139 mmol/L 01/10/25 Potassium, (3.3-5.1) 5.0 mmol/L 01/10/25 Chloride, (96-108) 105 mmol/L 01/10/25 Carbon Dioxide, (22-29) 28 mmol/L 01/10/25 BUN, (9-16) 16 mg/dL 01/10/25 Creatinine, (0.5-1.4) 0.91 mg/dL 01/10/25 Calcium, (8.4-10.2) 9.4 mg/dL 01/10/25 Assessment & Plan Assessment & Plan (1) Edema: Code(s): R60.9 - Edema, unspecified Category: Medical Qualifiers: Edema type: localized Qualified Code(s): R60.0 - Localized edema (2) Proteinuria: Code(s): R80.9 - Proteinuria, unspecified Category: Medical Qualifiers: Proteinuria type: other Qualified Code(s): R80.8 - Other proteinuria (3) Nephrolithiasis: Code(s): N20.0 - Calculus of kidney Category: Medical Plan Padmaja has longstanding nephrolithiasis. She has family history of renal calculus. She claims to be taking adequate amount of fluid. Her 24 hour urine collection in the past has shown a low citrate. She is on potassium citrate. She should minimize sodium in the diet and continue to maintain good hydration. She should cut back animal protein, increase fruits and vegetables in the diet. She should avoid nonsteroidal inflammatory medications. She has proteinuria. Her last 24 hour urine protein showed less than 224 Gram. I increased her hydrochlorothiazide to 25 mg daily. She is on potassium citrate. I ordered ECHO, LFT's, UP/CR.She may need renal biopsy if she continues to have urine protein and MPO positivity . I plan to start losartan/lisinopril daily with time, if needed. Answered all questions Orders: Orders Aspartate Amino Transferase 2 Months N20.0 - Calculus of kidney, R60.0 - Localized edema, R80.8 - Other proteinuria Protein Creatinine Ratio, Ur 2 Months N20.0 - Calculus of kidney, R60.0 - Localized edema, R80.8 - Other proteinuria Electrolytes 2 Months N20.0 - Calculus of kidney, R60.0 - Localized edema, R80.8 - Other proteinuria Myeloperoxidase Antibody 2 Months N20.0 - Calculus of kidney, R60.0 - Localized edema, R80.8 - Other proteinuria TSH reflex Free T4 2 Months N20.0 - Calculus of kidney, R60.0 - Localized edema, R80.8 - Other proteinuria Albumin Level 2 Months N20.0 - Calculus of kidney, R60.0 - Localized edema, R80.8 - Other proteinuria Alanine Aminotransferase 2 Months N20.0 - Calculus of kidney, R60.0 - Localized edema, R80.8 - Other proteinuria Blood Urea Nitrogen 2 Months N20.0 - Calculus of kidney, R60.0 - Localized edema, R80.8 - Other proteinuria Creatinine 2 Months N20.0 - Calculus of kidney, R60.0 - Localized edema, R80.8 - Other proteinuria CA echo transthoracic complete 2 Months N20.0 - Calculus of kidney, R60.0 - Localized edema, R80.8 - Other proteinuria Proteinase 3 PR3 Antibodies 2 Months N20.0 - Calculus of kidney, R60.0 - Localized edema, R80.8 - Other proteinuria Medications: Changed From hydrochlorothiazide 12.5 mg PO DAILY 90 tabs 6RF To hydrochlorothiazide 25 mg PO DAILY 90 tabs 6RF Coding Level of Care Code Est Pt Level 4 (96737) Diagnoses Localized edema R60.0 Edema type: localized Other proteinuria R80.8 Proteinuria type: other Nephrolithiasis N20.0
[2025-11-05 15:36] VITALS: BP 120/70; PULSE 89; O2SAT 95; BMI 37.0
--- OUTSIDE RECORDS SUMMARY | 2025-11-05 20:11 | XMS_ITS | Encounter Summary ---
Author Organization [facility] Address [address] [place] [address] Phone Care Team Providers Care Fixture Builder Name Role Phone Carmen Flores NP Unavailable Priscila Grimm POOL SERVICER Unavailable Veronica Vega MD Unavailable [phone] Selam Flower MD Unavailable Pedro Valente MD Unavailable Selam Flower MD Primary Care Provider Scarlett Baird PA-C Primary Care Provider [phone] Maria Del Rosario Oleary PREKINDERGARTEN TEACHER Primary Care Provider + Ashwin Zurita PREKINDERGARTEN TEACHER Primary Care Provide r Encounter Details Date Type Department Care Team (Late st Contact Info) Description 04/20/2018 Ancillary Orders [facility],Outside Imaging [address] [place] [address] System, Provider Not In, [facility] [address] [address] Social History Tobacco Use Types Packs/Day Years [...] Description 11/27/2025 9:00 AM EST Office Visit [facility] [address] [place] [address] Sarai Azar PA-C [address] [place] [address] [email or web address] documented as of this encounter Results * [...] documented as of this encounter Care Teams Fixture Builder Relationship Specialty Start Date End Date Selam Flower MD [address] [place] [address] PCP - General 11/23/17 05/02/18 Scarlett Baird PA-C [address] [place] [address] [facility] [place] [address] PCP - General Family Medicine 05/03/18 07/08/19 Maria Del Rosario Oleary NP [address] [place] [address] PCP - General Family Medicine 07/09/19 06/18/25 Ashwin Zurita, JOAQUIN [address] [place] [address] PCP - General Nurse Practitioner 06/19/25 Carmen Flores, JOAQUIN [address] [place] [address] [email or web address] Historical LMR Provider 09/06/17 Priscila Grimm FNP [address] [facility] [address], [address] [place] [address] [email or web address] Historical LMR Provider 09/06/17 11/27/21 Veronica Vega MD 38 [facility] [address], [address] [place] [address] Historical LMR Provider 09/06/17 11/27/21 Selam Flower MD [address] [place] [address] Historical LMR Provider 09/06/17 2 Pedro Valente MD [address] [place] [address] Historical LMR Provider 09/06/17 2 documented as of this encounter Additional Source Comments The information contained in this document represents components of the legal health record. It is not the complete legal health record.[facility]
--- OUTSIDE RECORDS SUMMARY | 2025-11-05 20:11 | XMS_ITS | Clinical Summary ---
Author Organization [facility] Address [address] [facility] [address] [facility] [address] [place] [address] Phone Care Team Providers Care Auricular Therapist Name Role Phone Maria Del Rosario Oleary [...] Revision from patellofemoral unicompartmental arthroplasty done at [facility] Revision from patellofemoral unicompartmental arthroplasty done at [facility] Generalized anxiety disorder 02/05/2014 07/18/2022 Primary [...] (6 to 49 Years) Discontinued 05/18/2011 Insurance [facility] Medicaid [place] [facility] [place] Care Teams Auricular Therapist Relationship Specialty Start Date End Date Maria Del Rosario Oleary DNP [address] [place] [address], [facility] [address] [place] [address] PCP - General Nurse Practitioner 07/18/22
--- OUTSIDE RECORDS SUMMARY | 2025-11-05 20:11 | XMS_ITS | Encounter Summary ---
Author Organization [facility] Address [address] [place] [address] Phone Care Team Providers Care Dog Boarder Name Role Phone Carmen Flores NP Unavailable Priscila Grimm MIX HOUSE OPERATOR Unavailable Veronica Vega MD Unavailable [phone] Selam Flower MD Unavailable [phone] Pedro Valente MD Unavailable Selam Flower MD Primary Care Provider Scarlett Baird PA-C Primary Care Provider Maria Del Rosario Oleary INTAKE RN Primary Care Provider + Ashwin Zurita INTAKE RN Primary Care Provide r Encounter Details Date Type Department Care Team (Late st Contact Info) Description 04/20/2018 Ancillary Orders [facility],Outside Imaging [address] [place] [address] System, Provider Not In, PhD Partners [address] [address] Social History Tobacco Use Types Packs/Day Years [...] Description 11/27/2025 9:00 AM EST Office Visit [facility] 40 [place] [address] Sarai Azar PA-C 40 [place] [address] [email or web address] documented as of this encounter Results * [...] documented as of this encounter Care Teams Dog Boarder Relationship Specialty Start Date End Date Selam Flower MD [address] [place] [address] PCP - General 11/23/17 05/02/18 Scarlett Baird PA-C [address] [place] [address] [facility] [place] [address] PCP - General Family Medicine 05/03/18 07/08/19 Maria Del Rosario Oleary NP [address] [place] [address] PCP - General Family Medicine 07/09/19 06/18/25 Ashwin Zurita, JOAQUIN [address] [place] [address] PCP - General Nurse Practitioner 06/19/25 Carmen Flores, JOAQUIN [address] [place] [address] [email or web address] Historical LMR Provider 09/06/17 Priscila Grimm FNP [address] [facility] [address] [place] [address] [email or web address] Historical LMR Provider 09/06/17 11/27/21 Veronica Vega MD [address] [facility] [address] [place] [address] Historical LMR Provider 09/06/17 11/27/21 eSlam Flower MD [address] [place] [address] Historical LMR Provider 09/06/17 2 Pedro Valente MD [address] [place] [address] Historical LMR Provider 09/06/17 2 documented as of this encounter Additional Source Comments The information contained in this document represents components of the legal health record. It is not the complete legal health record.[facility]
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
--- OUTSIDE RECORDS SUMMARY | 2025-11-05 20:11 | XMS_ITS | Encounter Summary ---
Author Organization [facility] Address [address] [place] [address] Phone Care Team Providers Care Hand Glove Cleaner Name Role Phone Carmen Flores NP Unavailable Priscila Grimm DIETARY INTERNSHIP Unavailable Veronica Vega MD Unavailable [phone] Selam Flower MD Unavailable [phone] Pedro Valente MD Unavailable Selam Flower MD Primary Care Provider Scarlett Baird PA-C Primary Care Provider Maria Del Rosario Oleary TELESCOPE REPAIRER Primary Care Provider + Ashwin Zurita TELESCOPE REPAIRER Primary Care Provide r Encounter Details Date Type Department Care Team (Late st Contact Info) Description 04/20/2018 Ancillary Orders [facility],Outside Imaging [address] [place] [address] System, Provider Not In, PhD Partners [address] [address] Social History Tobacco Use Types Packs/Day Years [...] Description 11/27/2025 9:00 AM EST Office Visit [facility] 40 [place] [address] Sarai Azar PA-C 40 [place] [address] [email or web address] documented as of this encounter Results * [...] documented as of this encounter Care Teams Hand Glove Cleaner Relationship Specialty Start Date End Date Selam Flower MD [address] [place] [address] PCP - General 11/23/17 05/02/18 Scarlett Baird PA-C [address] [place] [address] [facility] [place] [address] PCP - General Family Medicine 05/03/18 07/08/19 Maria Del Rosario Oleary NP [address] [place] [address] PCP - General Family Medicine 07/09/19 06/18/25 Ashwin Zurita, JOAQUIN [address] [place] [address] PCP - General Nurse Practitioner 06/19/25 Carmen Flores, JOAQUIN [address] [place] [address] [email or web address] Historical LMR Provider 09/06/17 Priscila Grimm FNP 38 [facility] [address] [place] [address] [email or web address] Historical LMR Provider 09/06/17 11/27/21 Veronica Vega MD 38 [facility] [address], [address] [place] [address] Historical LMR Provider 09/06/17 11/27/21 Selam Flower MD [address] [place] [address] Historical LMR Provider 09/06/17 2 Pedro Valente MD [address] [place] [address] Historical LMR Provider 09/06/17 2 documented as of this encounter Additional Source Comments The information contained in this document represents components of the legal health record. It is not the complete legal health record.[facility]
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
--- OUTSIDE RECORDS SUMMARY | 2025-11-05 20:11 | XMS_ITS | Encounter Summary ---
Author Organization [facility] Address [address] [place] [address] Phone Care Team Providers Care Software Test Analyst Name Role Phone Carmen Flores ENGINEERING OPERATOR Unavailable Priscila Grimm RAW SCALES OPERATOR Unavailable Veronica Vega MD Unavailable Selam Flower MD Unavailable Pedro Valente MD Unavailable Scarlett Baird PA-C Primary Care Provider Maria Del Rosario Oleary ENGINEERING OPERATOR Primary Care Provider + Ashwin Zurita ENGINEERING OPERATOR Primary Care Provide r Encounter Details Date Type Department Care Team (Late st Contact Info) Description 07/16/2018 Procedure Pass [address] [place] [address] Social History Tobacco Use Types Packs/Day Years [...] Description 11/27/2025 9:00 AM EST Office Visit [facility] 40 [place] [address] Sarai Azar PA-C 40 [place] [address] [email or web address] documented as of this encounter Visit Diagnoses Not on filedocumented in this encounter Additional Health Concerns Infection Onset Date Last Indicated Resolved Time CoV-Risk 01/21/2025 01/21/2025 02/01/2025 1:21 AM EDT documented as of this encounter Care Teams Software Test Analyst Relationship Specialty Start Date End Date Scarlett Baird PA-C [address] [place] [address] [facility] [place] [address] [email or web address] PCP - General Family Medicine 05/03/18 07/08/19 Maria Del Rosario Oleary NP [address] [place] [address] PCP - General Family Medicine 07/09/19 06/18/25 Ashwin Zurita, JOAQUIN [address] [place] [address] PCP - General Nurse Practitioner 06/19/25 Carmen Flores, JOAQUIN [address] [place] [address] [email or web address] Historical LMR Provider 09/06/17 Priscila Grimm FNP 38 [facility] [address], [address] [place] [address] Historical LMR Provider 09/06/17 11/27/21 Veronica Vega MD 38 [facility] 204, [address] [place] [address] [email or web address] Historical LMR Provider 09/06/17 11/27/21 Selam Flower MD [address] [place] [address] Historical LMR Provider 09/06/17 2 Pedro Valente MD 41 [place] [address] Historical LMR Provider 09/06/17 2 documented as of this encounter Additional Source Comments The information contained in this document represents components of the legal health record. It is not the complete legal health record.[facility]
--- OUTSIDE RECORDS SUMMARY | 2025-11-05 20:11 | XMS_ITS | Clinical Summary ---
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 done at [facility] Resolved Problems Problem Noted Date Diagnosed Date Resolved Date Aftercare following right kn ee joint replacement surgery 08/26/2019 10/22/2019 Knee effusion, right 07/05/2019 019 Pain due to total right knee replacement 07/04/2019 10/22/2019 Overview (07/04/2019): Partial PFJ right knee replacement - not total Encounters Date Type Department Care Team Description 11/05/2025 Orders Only [facility] [address] [place] [address] ProviderLisandra MD 10/29/2025 Telephone [facility] [address] [place] [address] Sarai Azar PA-C Establish Care from Last 3 Months Immunizations Immunization Administration Dates Next Due Flu H1n1 Tiv Preservative Free 01/22/2010 INFLUENZA, SPLIT VIRUS, TRIV ALENT W/ PRESERVATIVE IM 11/23/2013,12/04/2012,09/09/2011 Influenza Recombinant Aries valent Preservative Free IM 09/09/2020 Influenza, Unspecified Formulation 09/09/2020 Pneumococcal polysaccharide PPSV23 05/18/2011 Td, unspecified formulation 05/26/2003 Tdap 07/10/2012 Family History Medical History Relation Comments Diabetes [...] 01/21/2025 12:06 PM EST Plan of Treatment Upcoming Encounters Date Type Department Care Team (Late st Contact Info) Description 11/27/2025 9:00 AM EST Office Visit [facility] [address] [place], [place] [phone] Sarai Azar PA-C 40 [place] [address] [email or web address] Health Maintenance Due Date Last Done Comments DEPRESSION SCREENING 1981 HEPATITIS C SCREENING 1987 HIV ONE-TIME SCREENING (18-65 YEARS) 1987 PAP SMEAR 1990 COLOGUARD 2014 COLONOSCOPY 2014 COLORECTAL CANCER SCREENING 2014 FIT TEST 2014 FOBT 2014 SIGMOIDOSCOPY 2014 VIRTUAL COLONOSCOPY 2014 PNEUMOCOCCAL VACCINES (50+ years) (2 of 2 - PCV) 2019 05/18/2011 ZOSTER VACCINES (1 of 2) 2019 LIPID PANEL 04/10/2019 04/10/2014 POTASSIUM LEVEL 08/27/2020 08/27/2019, 07/09/2019 Adult Td,Tdap Booster 07/10/2022 07/10/2012, 003 SCREENING FOR DIABETES 08/27/2022 08/27/2019 INFLUENZA VACCINE (#1) 2025 0, 09/09/2020, 11/23/2013, Additional history exists COVID-19 VACCINE ( season) 2025 03/02/2021, 02/09/2021 MAMMOGRAM 06/03/2027 06/03/2025, 04/20, 05/22/2014, Additional history exists SMOKING STATUS SCREENING (Every 5 Years) 01/21/2030 01/21/2025 RSV VACCINE (1 - 1-dose 75+ series) 02/16/2044 HEPATITIS A VACCINES Aged Out No long [...] this topic Medical Devices Implanted Type Area Header Operator Device Identifier Shelf Expiration Date Model / Serial / Lot Knee Stem 65mm Vanguard Ssk 360 Revision Sy Right - [id number] Implanted:Qty: 1 on 08/26/2019 by Zach Grant MD at [facility] Right: Knee [employer] 05/20/2029 [id number] / [id number] / [id number] Right Shoulder Hardware Tray Beam 67mm Tibial Primary Vanguard [place] I Revision Interlock Cemented - [id number] Implanted:Qty: 1 on 08/26/2019 by Zach Grant MD at [facility] Right: Knee [employer] 02/02/2029 [id number] / [id number] / [id number] Cement Bone Biomet Standard R 1x40 - [id number] Implanted:Qty: 2 on 08/26/2019 by Zach Grant MD at [facility] Knee [employer] 05/19/2021 [id number] / [id number] / [id number] Knee Bearing 10x63 To 67mm Vanguard Ssk Stabilized - [id number] Implanted:Qty: 1 on 08/26/2019 by Zach Grant MD at [facility] Right: Knee [employer] 04/04/2021 [id number] / [id number] / [id number] Implanted - Out of Service Type Area Header Operator Device Identifier Shelf Expiration Date Model / Serial / Lot Right Partial Knee Replacement Procedures Procedure Name Priority Date/Time Associated Diagnosis Comments HM MAMMOGRAPHY Routine 06/03/2025 3:01 PM EDT BASIC METABOLIC PANEL (BMP) Routine 08/27/2019 6:09 AM EDT OUTSIDE LDL Routine 04/10/2014 from Last 3 Months or Most Recently Relevant to Health Maintenance Results * MAMMOGRAPHY FOR RESULT ENTRY ONLY (06/03/2025 3:01 PM EDT) Historical Provider HEALTH MAINTENANCE Final Result EXTERNAL NON-INTERFACED REF LAB * Basic metabolic panel (08/27/2019 6:09 AM EDT) SODIUM 139 133 - 146 mmol/L [facility] CHLORIDE 104 96 - 108 mmol/L [facility] POTASSIUM 4.3 3.3 - 5.1 mmol/L [facility] CO2 26 21 - 35 mmol/L [facility] BUN 17 6 - 19 mg/dL [facility] CREATININE 0.90 0.5 - 1.5 mg/dL [facility] GLUCOSE 94 70 - 99 mg/dL [facility] CALCIUM 8.7 8.4 - 10.3 mg/dL [facility] EGFR 75 >59 mL/min/1.7 3m2 [facility] Comment:If patient is black, multiply result by 1.159. Estimated glomerular filtration rate calculated using the CKD-EPI equation. ANION GAP 13 10 - 20 mmol/L [facility] Blood 08/27/2019 6:09 AM EDT 08/27/2019 6:30 AM EDT Zach Grant MD LAB BLOOD BKR ORDERABLES Fin al Result Performing Organization Address City/[facility]/ZIP Co de Phone Number [facility] [address] [place] [address] * Outside LDL (04/10/2014) LDL - External 119 50 - 250 mg/ml Lisandra Juarez MD LAB BLOOD ORDERABLES Jessy l Result from Last 3 Months or Most Recently Relevant to Health Maintenance Insurance [facility] [facility] [facility] ACO Member Subscriber Plan / Payer (Ef fective 2025-Present) Name:Carterdavid Monika Relation to Subscriber:Self Name:CarterrameshFernanda nesbittne Payer ID:Not on file Type:Medicaid Address: [address] [place] [address] ACO Member Subscriber Plan / Payer (Ef fective 2025-Present) Name:Monika Corcoran Relation to Subscriber:Self Name:CarterrameshFernanda nesbittne Payer ID:Not on file Type:Medicaid Address: [address] A[place] ACO Member Subscriber Plan / Payer (Ef fective 2025-Present) Name:CarterrameshFernanda nesbittne Relation to Subscriber:Self Name:CarterrameshMonika nesbitt Payer ID:Not on file Type:Medicaid Address: [place] [id number] [facility] [place] [address] ACO Member Subscriber Plan / Payer (Ef fective 2025-Present) Name:Carterrameshlaz Monika Relation to Subscriber:Self Name:Monika Corcoran Payer ID:Not on file Type:Medicaid Address: [address] [place] [address] Advance Directives For more information, please contact: [phone] (9AM - 5PM [place]/[facility], Monday-Monday) * Full Code (Presumed) (Latest Code Status on File) Date Activated Date Inactivated Comments 08/26/2019 1:56 PM 08/28/2019 3:22 PM * Full Code (Presumed) Date Activated Date Inactivated Comments 08/26/2019 6:12 AM 08/26/2019 1:56 PM Care Teams Jockey Valet Relationship Specialty Start Date End Date Aswhin Zurita NP [address] [place] [address] PCP - General Nurse Practitioner 06/19/25 Additional Source Comments The information contained in this document represents components of the legal health record. It is not the complete legal health record.[facility]
--- OUTSIDE RECORDS SUMMARY | 2025-11-05 20:11 | XMS_ITS | Encounter Summary ---
Author Organization [facility] Address [address] [place] [address] Phone Care Team Providers Care Ocularist Name Role Phone Maria Del Rosario Oleary TRIAL EXAMINER Primary Care Provider + Ashwin Zurita TRIAL EXAMINER Primary Care Provide r Encounter Details Date Type Department Care Team (Late st Contact Info) Description 11/22/2023 Transcribe Orders Virtual Department [address] [place] [address] Maria Del Rosario Oleary NP [address] [place] [address] Right knee pain, unspecified chronicity (Primary Dx) [...] [facility] [address] [place] [address] Sarai Azar PA-C [address] [place] [address] [email or web address] documented as of this encounter Results * [...] clinician's provided indication for this examination in [facility]: Outside Radiology Order; RIGHT KNEE PAIN [...] clinician's provided indication for this examination in [facility]:Outside Radiology Order; RIGHT KNEE PAIN COMPARISON: [...] patellofemoral component dysfunction. Maria Del Rosario Oleary TRIAL EXAMINER IMG XR LOWER EXTREMITY F inal Result documented in this encounter Visit Diagnoses Diagnosis Right knee pain, unspecified chronicity- Primary Right knee pain, unspecified chronicity documented in this encounter Additional Health Concerns Infection Onset Date Last Indicated Resolved Time CoV-Risk 01/21/2025 01/21/2025 02/01/2025 1:21 AM EDT documented as of this encounter Care Teams Ocularist Relationship Specialty Start Date End Date Maria Del Rosario Oleary NP [address] [place] [address] PCP - General Family Medicine 07/09/19 06/18/25 Ashwin Zurita NP [address] [place] [address] PCP - General Nurse Practitioner 06/19/25 documented as of this encounter Additional Source Comments The information contained in this document represents components of the legal health record. It is not the complete legal health record.[facility]
--- OUTSIDE RECORDS SUMMARY | 2025-11-05 20:11 | XMS_ITS | Encounter Summary ---
Author Organization [facility] Address [address] [place] [address] Phone Care Team Providers Care Computer Field Technician Name Role Phone Carmen Flores NP Unavailable Priscila Grimm INSIDE SALES DIRECTOR Unavailable [phone] Veronica Vega MD Unavailable [phone] Selam Flowre MD Unavailable [phone] Pedro Valente MD Unavailable Selam Flower MD Primary Care Provider Scarlett Baird PA-C Primary Care Provider Maria Del Rosario Oleary WAX PUMPER Primary Care Provider + Ashwin Zurita WAX PUMPER Primary Care Provide r Encounter Details Date Type Department Care Team (Late st Contact Info) Description 04/20/2018 Ancillary Orders [facility],Outside Imaging 30 [place] [address] System, Provider Not In, PhD Partners [address] [address] Social History Tobacco Use Types Packs/Day Years [...] [facility] 40 [place] [address] Sarai Azar PA-C 40 [place] [address] [email or web address] documented as of this encounter Results * [...] documented as of this encounter Care Teams Computer Field Technician Relationship Specialty Start Date End Date Selam Flower MD [address] [place] [address] PCP - General 11/23/17 05/02/18 Scarlett Baird PA-C [address] [place] [address] [facility] [place] [address] PCP - General Family Medicine 05/03/18 07/08/19 Maria Del Rosario Oleary NP [address] [place] [address] PCP - General Family Medicine 07/09/19 06/18/25 Ashwin Zurita, JOAQUIN [address] [place] [address] PCP - General Nurse Practitioner 06/19/25 Carmen Flores, JOAQUIN [address] [place] [address] [email or web address] Historical LMR Provider 09/06/17 Priscila Grimm FNP 38 [facility] [address], [address] [place] [address] [email or web address] Historical LMR Provider 09/06/17 11/27/21 Veronica Vega MD 38 [facility] [address], [address] [place] [address] Historical LMR Provider 09/06/17 11/27/21 Selam Flower MD [address] [place] [address] Historical LMR Provider 09/06/17 2 Pedro Valente MD [address] [place] [address] Historical LMR Provider 09/06/17 2 documented as of this encounter Additional Source Comments The information contained in this document represents components of the legal health record. It is not the complete legal health record.[facility]
--- OUTSIDE RECORDS SUMMARY | 2025-11-05 20:11 | XMS_ITS | Encounter Summary ---
Author Organization [facility] Address [address] [address] Phone Care Team Providers Care Shuttle Spotter Name Role Phone Carmen Flores CAN BANDER OPERATOR Unavailable [phone] Priscila Grimm ORIENTATION AND MOBILITY SPECIALIST Unavailable [phone] Veronica Vega MD Unavailable Selam Flower MD Unavailable Pedro Valente MD Unavailable Scarlett Baird PA-C Primary Care Provider Maria Del Rosario Oleary CAN BANDER OPERATOR Primary Care Provider + Ashwin Zurita CAN BANDER OPERATOR Primary Care Provide r Encounter Details Date Type Department Care Team (Late st Contact Info) Description 05/07/2018 Ancillary Orders [facility] External Provider Virtual Department 30 [place], [place] [id number] Radha Kurtz MD [address] [place] [address] [email or web address] Abnormal mammogram Social History Tobacco Use Types [...] Description 11/27/2025 9:00 AM EST Office Visit [facility] 40 [place] [address] Sarai Azar PA-C 40 [place] [address] [email or web address] documented as of this encounter Results * [...] Patient is recalled from a screening mammogram lhaocvjor11/14/2018 for additional imaging on the left. Magnification [...] documented as of this encounter Care Teams Shuttle Spotter Relationship Specialty Start Date End Date Scarlett Baird PA-C [address] [place] [address] [facility] [place] [address] [email or web address] PCP - General Family Medicine 05/03/18 07/08/19 Maria Del Rosario Oleary, CAN BANDER OPERATOR [address] [place] [address] PCP - General Family Medicine 07/09/19 06/18/25 Ashwin Zurita, CAN BANDER OPERATOR [address] [place] [address] PCP - General Nurse Practitioner 06/19/25 Carmen Flores, JOAQUIN [address] [place] [address] [email or web address] Historical LMR Provider 09/06/17 Priscila Grimm FNP [address] [place] [address] [address], [address] [place] [address] [email or web address] Historical LMR Provider 09/06/17 11/27/21 Veronica Vega MD 38 [facility] 204, [address] [place] [address] [email or web address] Historical LMR Provider 09/06/17 11/27/21 Selam Flower MD 143 [place] [address] Historical LMR Provider 09/06/17 2 Pedro Valente MD 41 [place] [address] Historical LMR Provider 09/06/17 2 documented as of this encounter Additional Source Comments The information contained in this document represents components of the legal health record. It is not the complete legal health record.[facility]
--- OUTSIDE RECORDS SUMMARY | 2025-11-05 20:11 | XMS_ITS | Encounter Summary ---
Author Organization [facility] Address [address] [place] [address] Phone Care Team Providers Care Courseware Developer Name Role Phone Carmen Flores NP Unavailable Priscila Grimm REEL AND REWINDER OPERATOR Unavailable Veronica Vega MD Unavailable [phone] Selam Flower MD Unavailable [phone] Pedro Valente MD Unavailable [phone] Scarlett Baird PA-C Primary Care Provider [phone] Maria Del Rosario Oleary GEOSPATIAL INFORMATION SCIENTIST Primary Care Provider + Ashwin Zurita GEOSPATIAL INFORMATION SCIENTIST Primary Care Provide r Reason for Referral * MRI/CAT Scan - Closed Specialty Diagnoses / Procedures Referred By Monica t Referred To Contact Radiology Diagnoses Dizziness Abnormal head movements Paresthesia of skin Procedures MRI Brain Scarlett Baird PA-C Phone: tel: fax: mailto: Referral ID Status Reason Start Date Expiration Date Visits Re quested Visits Authorized [id number] Closed 08/09/2018 10/08/2018 1 1 Encounter Details Date Type Department Care Team (Late st Contact Info) Description 08/09/2018 Ancillary Orders Virtual Department 30 [place] [address] Scarlett Baird PA-C 1 [facility] [place] [address] [email or web address] Dizziness; Abnormal head movements; Paresthesia of skin [...] Encounters Date Type Department Care Team (Late Contact Info) Description 11/27/2025 9:00 AM EST Office Visit [facility] 40 [place] [address] Sarai Azar PA-C 40 [place] [address] [email or web address] documented as of this encounter Results * MRI BRAIN WITH AND WITHOUT CONTRAST (08/21/2018 9:40 AM EDT) Anatomical Region Laterality Modality Head Magnetic Resonan ce 08/21/2018 9:14 AM EDT Impressions 08/21/2018 9:49 AM EDT No findings to account for the patient's symptoms. POS [id number] Narrative 08/21/2018 9:49 AM EDT COMPARISON: 12/10/2015. [...] mm right frontal parietal lobe white matter [id number] lesion which is of doubtful significance. No new lesions.No abnormal enhancement. No hydrocephalus. Normal vascular flow- voids.Orbits are normal. Mastoids and paranasal sinuses are clear. Soft tissueand bone marrow are within normal limits. IMPRESSION: No findings to account for the patient's symptoms. POS [id number] Scarlett Baird PA-C IMG MR HEAD/NECK Final [...] documented as of this encounter Care Teams Courseware Developer Relationship Specialty Start Date End Date Scarlett Baird PA-C 881 [facility] [place] [address] PCP - General Family Medicine 05/03/18 07/08/19 Maria Del Rosario Oleary, GEOSPATIAL INFORMATION SCIENTIST [address] [place] [address] PCP - General Family Medicine 07/09/19 06/18/25 Ashwin Zurita, GEOSPATIAL INFORMATION SCIENTIST [address] [place] [address] PCP - General Nurse Practitioner 06/19/25 Carmen Flores, JOAQUIN [address] [place] [address] [email or web address] Historical LMR Provider 09/06/17 Priscila Grimm FNP [address] [place] [address] 204, [address] [place] [address] [email or web address] Historical LMR Provider 09/06/17 11/27/21 Veronica Vega MD 38 [facility] 204, [address] [place] [address] Historical LMR Provider 09/06/17 11/27/21 Selam Flower MD [address] [place] [address] Historical LMR Provider 09/06/17 2 Pedro Valente MD 41 [place] [address] Historical LMR Provider 09/06/17 2 documented as of this encounter Additional Source Comments The information contained in this document represents components of the legal health record. It is not the complete legal health record.[facility]
--- OUTSIDE RECORDS SUMMARY | 2025-11-05 20:11 | XMS_ITS | Encounter Summary ---
Author Organization [facility] Address [address] [place] [address] Phone Care Team Providers Care Crap Shooter Name Role Phone Carmen Flores ASSOCIATE BUSINESS ANALYST Unavailable Priscila Grimm BOX LINER Unavailable [phone] Veronica Vega MD Unavailable Selam Flower MD Unavailable [phone] Pedro Valente MD Unavailable [phone] Scarlett Baird PA-C Primary Care Provider Maria Del Rosario Oleary ASSOCIATE BUSINESS ANALYST Primary Care Provider + Ashwin Zurita ASSOCIATE BUSINESS ANALYST Primary Care Provide r Encounter Details Date Type Department Care Team (Late st Contact Info) Description 08/09/2018 Procedure Pass [address] [place] [address] Social History Tobacco Use Types Packs/Day Years [...] Description 11/27/2025 9:00 AM EST Office Visit [facility] 40 [place] [address] Sarai Azar PA-C 40 [place] [address] [email or web address] documented as of this encounter Visit Diagnoses Not on filedocumented in this encounter Additional Health Concerns Infection Onset Date Last Indicated Resolved Time CoV-Risk 01/21/2025 01/21/2025 02/01/2025 1:21 AM EDT documented as of this encounter Care Teams Crap Shooter Relationship Specialty Start Date End Date Scarlett Baird PA-C [address] [place] [address] [facility] [place] [address] [email or web address] PCP - General Family Medicine 05/03/18 07/08/19 Maria Del Rosario Oleary NP [address] [place] [address] PCP - General Family Medicine 07/09/19 06/18/25 Ashwin Zurita, JOAQUIN [address] [place] [address] PCP - General Nurse Practitioner 06/19/25 Carmen Flores, JOAQUIN [address] [place] [address] [email or web address] Historical LMR Provider 09/06/17 Priscila Grimm FNP 38 [facility] [address], [address] [place] [address] Historical LMR Provider 09/06/17 11/27/21 Veronica Vega MD 38 [facility] 204, [address] [place] [address] [email or web address] Historical LMR Provider 09/06/17 11/27/21 Selam Flower MD 143 [place] [address] Historical LMR Provider 09/06/17 2 Pedro Valente MD 41 [place] [address] Historical LMR Provider 09/06/17 2 documented as of this encounter Additional Source Comments The information contained in this document represents components of the legal health record. It is not the complete legal health record.[facility]
--- OUTSIDE RECORDS SUMMARY | 2025-11-05 20:11 | XMS_ITS | Encounter Summary ---
Author Organization [facility] Address [address] [place] [address] Phone Care Team Providers Care B2B Sales Consultant Name Role Phone Carmen Flores NP Unavailable [phone] Priscila Grimm MANAGER REGULATORY Unavailable [phone] Veronica Vega MD Unavailable [phone] Selam Flower MD Unavailable Pedro Valente MD Unavailable Selam Flower MD Primary Care Provider Scarlett Baird PA-C Primary Care Provider [phone] Maria Del Rosario Oleary RADAR REPAIRER Primary Care Provider + Ashwin Zurita RADAR REPAIRER Primary Care Provide r Encounter Details Date Type Department Care Team (Late st Contact Info) Description 04/20/2018 Ancillary Orders [facility],Outside Imaging [address] [place] [address] System, Provider Not In, PhD Partners [address] [address] Social History Tobacco Use Types Packs/Day Years [...] Description 11/27/2025 9:00 AM EST Office Visit [facility] 40 [place] [address] Sarai Azar PA-C 40 [place] [address] [email or web address] documented as of this encounter Care Teams B2B Sales Consultant Relationship Specialty Start Date End Date Selam Flower MD [address] [place] [address] PCP - General 11/23/17 05/02/18 Scarlett Baird PA-C [address] [place] [address] [facility] [place] [address] PCP - General Family Medicine 05/03/18 07/08/19 Maria Del Rosario Oleary NP [address] [place] [address] PCP - General Family Medicine 07/09/19 06/18/25 Ashwin Zurita, JOAQUIN [address] [place] [address] PCP - General Nurse Practitioner 06/19/25 Carmen Flores, JOAQUIN [address] [place] [address] [email or web address] Historical LMR Provider 09/06/17 Priscila Grimm FNP [address] [facility] [address], [address] [place] [address] [email or web address] Historical LMR Provider 09/06/17 11/27/21 Veronica Vega MD [address] [facility] [address], [address] [place] [address] Historical LMR Provider 09/06/17 11/27/21 Selam Flower MD [address] [place] [address] Historical LMR Provider 09/06/17 2 Pedro Valente MD [address] [place] [address] Historical LMR Provider 09/06/17 2 documented as of this encounter Additional Source Comments The information contained in this document represents components of the legal health record. It is not the complete legal health record.[facility]
--- OUTSIDE RECORDS SUMMARY | 2025-11-05 20:11 | XMS_ITS | Encounter Summary ---
Author Organization [facility] Address [address] [place] [address] Phone Care Team Providers Care Data Librarian Name Role Phone Carmen Flores NP Unavailable Priscila Grimm SNOWMOBILE MECHANIC Unavailable [phone] Veronica Vega MD Unavailable [phone] Selam Flower MD Unavailable Pedro Valente MD Unavailable [phone] Maria Del Rosario Oleary HOME COMPANION Primary Care Provider + Ashwin Zurita HOME COMPANION Primary Care Provide r Reason for Referral * MRI/CAT Scan - Closed Specialty Diagnoses / Procedures Referred By Contac t Referred To Contact Radiology Diagnoses Right knee pain, unspecified chronicity Radiculopathy, lumbar region Complex regional pain syndrome i of right lower limb Procedures MRI Lumbar Spine Rach Denise PA Phone: tel: fax: mailto:[email or web address] Referral ID Status Reason Start Date Expiration Date Visits Re quested Visits Authorized [id number] Closed 11/04/2020 05/03/2021 1 1 Encounter Details Date Type Department Care Team (Late st Contact Info) Description 11/05/2020 Transcribe Orders Virtual Department 30 [place] [address] Chantel Denise MD [address] [place] [address] Right knee pain, unspecified chronicity (Primary Dx); [...] Description 11/27/2025 9:00 AM EST Office Visit [facility] 40 [place] [address] Sarai Azar PA-C 40 [place] [address] [email or web address] documented as of this encounter Results * [...] documented as of this encounter Care Teams Data Librarian Relationship Specialty Start Date End Date Maria Del Rosario Oleary NP [address] [place] [address] PCP - General Family Medicine 07/09/19 06/18/25 Ashwin Zurita, JOAQUIN [address] [place] [address] PCP - General Nurse Practitioner 06/19/25 Carmen Flores NP [address] [place] [address] [email or web address] Historical LMR Provider 09/06/17 Priscila Grimm FNP 38 [facility] 204, [address] [place] [address] Historical LMR Provider 09/06/17 11/27/21 Veronica Vega MD 38 [facility] 204, [address] [place] [address] [email or web address] Historical LMR Provider 09/06/17 11/27/21 Selam Flower MD 143 [place] [address] Historical LMR Provider 09/06/17 2 Pedro Valente MD 41 [place] [address] Historical LMR Provider 09/06/17 2 documented as of this encounter Additional Source Comments The information contained in this document represents components of the legal health record. It is not the complete legal health record.[facility]
--- OUTSIDE RECORDS SUMMARY | 2025-11-05 20:11 | XMS_ITS | Encounter Summary ---
Author Organization [facility] Address [address] [place] [address] 9[address] [place] [address] Phone Care Team Providers Care Curam Developer Name Role Phone Carmen Flores HOURLY MANAGER Unavailable Priscila Grimm SHOP STEWARD Unavailable [phone] Veronica Vega MD Unavailable Selam Flower MD Unavailable [phone] Pedro Valente MD Unavailable Scarlett Baird PA-C Primary Care Provider [phone] Maria Del Rosario Oleary HOURLY MANAGER Primary Care Provider + Ashwin Zurita HOURLY MANAGER Primary Care Provide r Encounter Details Date Type Department Care Team (Late st Contact Info) Description 07/16/2018 Ancillary Orders Virtual Department 30 [place] [address] Radha Kurtz MD [address] [place] [address] [email or web address] Right [...] Description 11/27/2025 9:00 AM EST Office Visit [facility] 40 [place] [address] Sarai Azar PA-C 40 [place] [address] [email or web address] documented as of this encounter Results * [...] meniscal or ligamentous tears apparent.. POS - [id number] Narrative 07/26/2018 2:39 PM EDT TECHNIQUE: Exam [...] No meniscal orligamentous tears apparent.. POS - [id number] us Radha Kurtz MD IMG MR EXTREMITY Final R esult documented in this encounter Visit Diagnoses Diagnosis Right knee pain, unspecified chronicity Other instability, right knee Right knee pain, unspecified chronicity Other instability, right knee documented in this encounter Additional Health Concerns Infection Onset Date Last Indicated Resolved Time CoV-Risk 01/21/2025 01/21/2025 02/01/2025 1:21 AM EDT documented as of this encounter Care Teams Curam Developer Relationship Specialty Start Date End Date Scarlett Baird PA-C [address] [place] [address] [facility] [place] [address] [email or web address] PCP - General Family Medicine 05/03/18 07/08/19 Maria Del Rosario Oleary, HOURLY MANAGER [address] [place] [address] PCP - General Family Medicine 07/09/19 06/18/25 Ashwin Zurita, JOAQUIN [address] [place] [address] PCP - General Nurse Practitioner 06/19/25 Carmen Flores, JOAQUIN [address] [place] [address] [email or web address] Historical LMR Provider 09/06/17 Priscila Grimm FNP 38 [facility] [address], [address] [place] [address] Historical LMR Provider 09/06/17 11/27/21 Veronica Vega MD 38 [facility]. 204, [address] [place] [address] [email or web address] Historical LMR Provider 09/06/17 11/27/21 Selam Flower MD 143 [place] [address] Historical LMR Provider 09/06/17 2 Pedro Valente MD 41 [place] [address] Historical LMR Provider 09/06/17 2 documented as of this encounter Additional Source Comments The information contained in this document represents components of the legal health record. It is not the complete legal health record.[facility]
--- OUTSIDE RECORDS SUMMARY | 2025-11-05 20:11 | XMS_ITS | Encounter Summary ---
Author Organization [facility] Address [address] [place] [address] Phone Care Team Providers Care Medical Receptionist Assistant Name Role Phone Carmen Flores CIRCULATION CREW LEADER Unavailable [phone] Priscila Grimm CLOTH INSPECTOR Unavailable Veronica Vega MD Unavailable [phone] Selam Flower MD Unavailable Pedro Valente MD Unavailable Maria Del Rosario Oleary CIRCULATION CREW LEADER Primary Care Provider + Ashwin Zurita CIRCULATION CREW LEADER Primary Care Provide r Encounter Details Date Type Department Care Team (Late st Contact Info) Description 11/05/2020 Procedure Pass [facility], [facility] - [address] [place] [address] Social History Tobacco Use Types Packs/Day Years [...] 11/27/2025 9:00 AM EST Office Visit [facility] 40 [place] [address] Sarai Azar PA-C 40 [place] [address] [email or web address] documented as of this encounter Visit Diagnoses Not on filedocumented in this encounter Additional Health Concerns Infection Onset Date Last Indicated Resolved Time CoV-Risk 01/21/2025 01/21/2025 02/01/2025 1:21 AM EDT documented as of this encounter Care Teams Medical Receptionist Assistant Relationship Specialty Start Date End Date Maria Del Rosario Oleary NP [address] [place] [address] PCP - General Family Medicine 07/09/19 06/18/25 Ashwin Zurita NP [address] [place] [address] PCP - General Nurse Practitioner 06/19/25 Carmen Flores NP [address] [place] [address] [email or web address] Historical LMR Provider 09/06/17 Priscila GrimmhDAPHNIE 38 [facility] [address], [address] [place] [address] [email or web address] Historical LMR Provider 09/06/17 11/27/21 Veronica Vega MD 38 [facility]. 204, [address] [place] [address] [email or web address] Historical LMR Provider 09/06/17 11/27/21 Selam Flower MD [address] [place] [address] Historical LMR Provider 09/06/17 2 Pedro Valente MD [address] [place] [address] Historical LMR Provider 09/06/17 2 documented as of this encounter Additional Source Comments The information contained in this document represents components of the legal health record. It is not the complete legal health record.[facility]
--- OUTSIDE RECORDS SUMMARY | 2025-11-05 20:11 | XMS_ITS | Encounter Summary ---
Author Organization [facility] Address [address] [place] [address] Phone Care Team Providers Care Jordan Man Name Role Phone Carmen Flores NP Unavailable Priscila Grimm SALES TEAM MEMBER Unavailable [phone] Veronica Vega MD Unavailable [phone] Selam Flower MD Unavailable [phone] Pedro Valente MD Unavailable Selam Flower MD Primary Care Provider Scarlett Baird PA-C Primary Care Provider [phone] Maria Del Rosario Oleary CONTENT EDITOR Primary Care Provider + Ashwin Zurita CONTENT EDITOR Primary Care Provide r Encounter Details Date Type Department Care Team (Late st Contact Info) Description 04/20/2018 Ancillary Orders [facility],Outside Imaging [address] [place] [address] System, Provider Not In, PhD Partners [address] [address] Social History Tobacco Use Types Packs/Day Years [...] [facility] 40 [place] [address] Sarai Azar PA-C 40 [place] [address] [email or web address] documented as of this encounter Results [...] documented as of this encounter Care Teams Jordan Man Relationship Specialty Start Date End Date Selam Flower MD [address] [place] [address] PCP - General 11/23/17 05/02/18 Scarlett Baird PA-C [address] [place] [address] [facility] [place] [address] PCP - General Family Medicine 05/03/18 07/08/19 Maria Del Rosario Oleary NP [address] [place] [address] PCP - General Family Medicine 07/09/19 06/18/25 Ashwin Zurita, JOAQUIN [address] [place] [address] PCP - General Nurse Practitioner 06/19/25 Carmen Flores, JOAQUIN [address] [place] [address] [email or web address] Historical LMR Provider 09/06/17 Priscila Grimm FNP 38 [facility] R[address]h. [address], [address] [place] [address] [email or web address] Historical LMR Provider 09/06/17 11/27/21 Veronica Vega MD 38 [facility] [address], [address] [place] [address] Historical LMR Provider 09/06/17 11/27/21 Selam Flower MD [address] [place] [address] Historical LMR Provider 09/06/17 2 Pedro Valente MD [address] [place] [address] Historical LMR Provider 09/06/17 2 documented as of this encounter Additional Source Comments The information contained in this document represents components of the legal health record. It is not the complete legal health record.[facility]
--- OUTSIDE RECORDS SUMMARY | 2025-11-05 20:11 | XMS_ITS | Encounter Summary ---
Author Organization [facility] Address [address] [place] [address] Phone Care Team Providers Care Client Services Specialist Name Role Phone Ashwin Zurita MOTOR MAN Primary Care Provide r Encounter Details Date Type Department Care Team (Late st Contact Info) Description 11/05/2025 Orders Only [facility] [address] [place] [address] Provider, MD Lisandra [address] [place] [address] Social History Tobacco Use Types Packs/Day Years [...] Description 11/27/2025 9:00 AM EST Office Visit [facility] 40 [place] [address] Sarai Azar PA-C 40 [place] [address] documented as of this encounter Procedures Procedure Name Priority Date/Time Associated Diagnosis Comments OUTSIDE LAB Routine 07/30/2025 2:51 PM EDT HEMOGLOBIN A1C Routine 07/30/2025 2:51 PM EDT HM MAMMOGRAPHY Routine 06/03/2025 3:01 PM EDT HM DEXA SCAN Routine 11/07/2024 3:02 PM EST documented in this encounter Results * Outside Lab (Non-MGB) (07/30/2025 2:51 PM EDT) Historical Provider MD LAB BLOOD BKR ORDERABLES Final Result * Hemoglobin A1c (07/30/2025 2:51 PM EDT) Blood (Blood) Historical Provider MD LAB BLOOD BKR ORDERABLES Final Result * HM MAMMOGRAPHY FOR RESULT ENTRY ONLY (06/03/2025 3:01 PM EDT) Historical Provider HEALTH MAINTENANCE Final Result EXTERNAL NON-INTERFACED REF LAB * HM DEXA SCAN (11/07/2024 3:02 PM EST) Historical Provider HEALTH MAINTENANCE Final Result documented in this encounter Visit Diagnoses Not on filedocumented in this encounter Care Teams Client Services Specialist Relationship Specialty Start Date End Date Ashwin Zurita NP [address] [place] [address] PCP - General Nurse Practitioner 06/19/25 documented as of this encounter Additional Source Comments The information contained in this document represents components of the legal health record. It is not the complete legal health record.[facility]
--- OUTSIDE RECORDS SUMMARY | 2025-11-05 20:11 | XMS_ITS | Encounter Summary ---
Author Organization [facility] Address [address] [place] [address] Phone Care Team Providers Care Electrolysis Engineer Name Role Phone Carmen Flores USER SUPPORT ANALYST SUPERVISOR Unavailable Priscila Grimm PORCELAIN ENAMEL INSTALLER Unavailable Veronica Vega MD Unavailable Selam Flower MD Unavailable Pedro Valente MD Unavailable Scarlett Baird PA-C Primary Care Provider Maria Del Rosario Olaery USER SUPPORT ANALYST SUPERVISOR Primary Care Provider + Ashwin Zurita USER SUPPORT ANALYST SUPERVISOR Primary Care Provide r Encounter Details Date Type Department Care Team (Late st Contact Info) Description 06/10/2019 Ancillary Orders [facility], X-Ray - [address] [place] [address] Maria Del Rosario Oleary, JOAQUIN [address] [place] [address] [id number] Right knee pain, unspecified chronicity Social History [...] Description 11/27/2025 9:00 AM EST Office Visit [facility] 40 [place] [address] Sarai Azar PA-C [address] [place] [address] [email or web address] documented as of this encounter Results * XR KNEE 4 OR MORE VIEWS (RIGHT) (06/10/2019 5:08 PM EDT) Anatomical Region Laterality Modality Knee Right Radiographic Zelda ging 06/10/2019 5:16 PM EDT Impressions 06/10/2019 5:18 PM EDT 1. Moderate size joint effusion. 2. Mild osteoarthritis and postoperative changes. POS - [id number] Narrative 06/10/2019 5:18 PM EDT HISTORY: As [...] COMPARISON: MRI right knee 07/26/2018. Right knee [id number]/04/2013. RIGHT KNEE RADIOGRAPH FINDINGS: Four views obtained including weightbearing. There is a new anteriormedial femoral condyle hardware. No evidence of loosening. No fractureor malalignment. Mild medial compartment joint space narrowing andspurring. No bone lesions. Moderate size suprapatellar joint effusion.No soft tissue gas. IMPRESSION: 1. Moderate size joint effusion. 2. Mild osteoarthritis and postoperative changes. POS - [id number] Maria Del Rosario Oleary USER SUPPORT ANALYST SUPERVISOR IMG XR LOWER EXTREMITY F inal Result documented in this encounter Visit Diagnoses Diagnosis Right knee pain, unspecified chronicity Right knee pain, unspecified chronicity documented in this encounter Additional Health Concerns Infection Onset Date Last Indicated Resolved Time CoV-Risk 01/21/2025 01/21/2025 02/01/2025 1:21 AM EDT documented as of this encounter Care Teams Electrolysis Engineer Relationship Specialty Start Date End Date Scarlett Baird PA-C [address] [place] [address] [facility] [place] [address] [email or web address] PCP - General Family Medicine 05/03/18 07/08/19 Maria Del Rosario Oleary, JOAQUIN [address] [place] [address] PCP - General Family Medicine 07/09/19 06/18/25 Ashwin Zurita, JOAQUIN [address] [place] [address] PCP - General Nurse Practitioner 06/19/25 Carmen Flores NP [address] [place] [address] [email or web address] Historical LMR Provider 09/06/17 Priscila Grimm FNP [address] [place] [address] [address], [address] [place] [address] Historical LMR Provider 09/06/17 11/27/21 Veronica Vega MD 38 [facility] 204, [address] [place] [address] [email or web address] Historical LMR Provider 09/06/17 11/27/21 Selam Flower MD 143 [place] [address] Historical LMR Provider 09/06/17 2 Pedro Valente MD 41 [place] [address] Historical LMR Provider 09/06/17 2 documented as of this encounter Additional Source Comments The information contained in this document represents components of the legal health record. It is not the complete legal health record.[facility]
--- OUTSIDE RECORDS SUMMARY | 2025-11-05 20:11 | XMS_ITS | Encounter Summary ---
Author Organization [facility] Address [address] [place] [address] Phone Care Team Providers Care Machine Repairer Name Role Phone Carmen Flores NP Unavailable Priscila Grimm OVERHAULER HELPER Unavailable [phone] Veronica Vega MD Unavailable Selam Flower MD Unavailable Pedro Valente MD Unavailable Selam Flower MD Primary Care Provider Scarlett Baird PA-C Primary Care Provider [phone] Maria Del Rosario Oleary YARN WINDER Primary Care Provider + Ashwin Zurita YARN WINDER Primary Care Provide r Encounter Details Date Type Department Care Team (Late st Contact Info) Description 04/12/2018 Ancillary Orders Virtual Department 30 [place] [address] Scarlett Baird PA-C [address] [place] [address] [facility] [place] [address] [email or web address] Breast screening Social History Tobacco Use Types [...] [facility] 40 [place], [place] 2012[address] Sarai Azar PA-C 40 [place], [place] [id number] [email or web address] documented as of this encounter Results * [...] Screening POS - [id number] Scarlett Baird PA-C [facility] MG EXAMS Final Result documented in this encounter Visit Diagnoses Diagnosis Breast screening Breast screening, unspecified Breast screening Breast screening, unspecified documented in this encounter Additional Health Concerns Infection Onset Date Last Indicated Resolved Time CoV-Risk 01/21/2025 01/21/2025 02/01/2025 1:21 AM EDT documented as of this encounter Care Teams Machine Repairer Relationship Specialty Start Date End Date Selam Flower MD 41 [place] [address] PCP - General 11/23/17 05/02/18 Scarlett Baird PA-C [address] [place] [address] [facility] [place] [address] [email or web address] PCP - General Family Medicine 05/03/18 07/08/19 Maria Del Rosario Oleary NP [address] [place] [address] PCP - General Family Medicine 07/09/19 06/18/25 Ashwin Zurita, JOAQUIN [address] [place] [address] PCP - General Nurse Practitioner 06/19/25 Carmen Flores, JOAQUIN [address] [place] [address] [email or web address] Historical LMR Provider 09/06/17 Priscila Grimm FNP 38 [facility]. 204, [address] [place] [address] [email or web address] Historical LMR Provider 09/06/17 11/27/21 Veronica Vega MD 38 [facility] [address], [address] [place] [address] Historical LMR Provider 09/06/17 11/27/21 Selam Flower MD [address] [place] [address] Historical LMR Provider 09/06/17 2 Pedro Valente MD [address] [place] [address] Historical LMR Provider 09/06/17 2 documented as of this encounter Additional Source Comments The information contained in this document represents components of the legal health record. It is not the complete legal health record.[facility]
--- OUTSIDE RECORDS SUMMARY | 2025-11-05 20:11 | XMS_ITS | Encounter Summary ---
Author Organization [facility] Address [address] [place] [address] Phone Care Team Providers Care Pump Stitcher Name Role Phone Carmen Flores NP Unavailable Priscila Grimm GLASS DESIGNER Unavailable Veronica Vega MD Unavailable [phone] Selam Flower MD Unavailable Pedro Valente MD Unavailable Selam Flower MD Primary Care Provider Scarlett Baird PA-C Primary Care Provider Maria Del Rosario Oleary OCCUPATIONAL THERAPIST Primary Care Provider + Ashwin Zurita OCCUPATIONAL THERAPIST Primary Care Provide r Encounter Details Date Type Department Care Team (Late st Contact Info) Description 04/20/2018 Ancillary Orders [facility],Outside Imaging 30 [place] [address] System, Provider Not In, PhD Partners [address] [address] Social History Tobacco Use Types Packs/Day Years [...] Description 11/27/2025 9:00 AM EST Office Visit [facility] 40 [place] [address] Sarai Azar PA-C 40 [place] [address] [email or web address] documented as of this [...] documented as of this encounter Care Teams Pump Stitcher Relationship Specialty Start Date End Date Selam Flower MD [address] [place] [address] PCP - General 11/23/17 05/02/18 Scarlett Baird PA-C [address] [place] [address] [facility] [place] [address] PCP - General Family Medicine 05/03/18 07/08/19 Maria Del Rosario Oleary NP [address] [place] [address] PCP - General Family Medicine 07/09/19 06/18/25 Ashwin Zurita, JOAQUIN [address] [place] [address] PCP - General Nurse Practitioner 06/19/25 Carmen Flores, JOAQUIN [address] [place] [address] [email or web address] Historical LMR Provider 09/06/17 Priscila Grimm FNP 38 [facility] [address], [address] [place] [address] [email or web address] Historical LMR Provider 09/06/17 11/27/21 Veronica Vega MD 38 [facility] [address], [address] [place] [address] Historical LMR Provider 09/06/17 11/27/21 Selam Flower MD [address] [place] [address] Historical LMR Provider 09/06/17 2 Pedro Valente MD [address] [place] [address] Historical LMR Provider 09/06/17 2 documented as of this encounter Additional Source Comments The information contained in this document represents components of the legal health record. It is not the complete legal health record.[facility]
--- OUTSIDE RECORDS SUMMARY | 2025-11-05 20:11 | XMS_ITS | Encounter Summary ---
Author Organization [facility] Address [address] [place] [address] Phone Care Team Providers Care Center Administrator Name Role Phone Carmen Flores DIRECTOR REPORT Unavailable [phone] Priscila Grimm EXPERIMENTAL MACHINIST Unavailable [phone] Veronica Vega MD Unavailable Selam Flower MD Unavailable [phone] Pedro Valente MD Unavailable Maria Del Rosario Oleary DIRECTOR REPORT Primary Care Provider + Ashwin Zurita DIRECTOR REPORT Primary Care Provide r Encounter Details Date Type Department Care Team (Late st Contact Info) Description 08/26/2019 Procedure Pass [place] Admitting Dept - Virtual Department 30 [place] [address] Social History Tobacco Use Types Packs/Day Years [...] Description 11/27/2025 9:00 AM EST Office Visit [facility] 40 [place] [address] Sarai Azar PA-C 40 [place], [place] [email or web address] documented as of this encounter Visit Diagnoses Not on filedocumented in this encounter Additional Health Concerns Infection Onset Date Last Indicated Resolved Time CoV-Risk 01/21/2025 01/21/2025 02/01/2025 1:21 AM EDT documented as of this encounter Care Teams Center Administrator Relationship Specialty Start Date End Date Maria Del Rosario Oleary NP [address] [place] [address] PCP - General Family Medicine 07/09/19 06/18/25 Ashwin Zurita NP [address] [place] [address] PCP - General Nurse Practitioner 06/19/25 Carmen Flores NP [address] [place] [address] [email or web address] Historical LMR Provider 09/06/17 Priscila Grimm FNP [address] [place] [address] [address], [address] [place] [address] Historical LMR Provider 09/06/17 11/27/21 Veronica Vega MD 38 [facility]. 204, [address] [place] [address] [email or web address] Historical LMR Provider 09/06/17 11/27/21 Selam Flower MD 143 [place] [address] Historical LMR Provider 09/06/17 2 Pedro Valente MD 41 [place] [address] Historical LMR Provider 09/06/17 2 documented as of this encounter Additional Source Comments The information contained in this document represents components of the legal health record. It is not the complete legal health record.[facility]
--- OUTSIDE RECORDS SUMMARY | 2025-11-05 20:12 | XMS_ITS | Encounter Summary ---
Author Organization [facility] Address [address] [place] [address] [address] [place] [address] Phone Care Team Providers Care Banjo Repair Person Name Role Phone Carmen Flores NP Unavailable Priscila Grimm OBSTETRICS TECH Unavailable Veronica Vega MD Unavailable Selam Flower MD Unavailable Pedro Valente MD Unavailable Pcp, Unknown Primary Care Provider Unavailabl e Pcp, Unknown Primary Care Provider Unavailabl e Selam Flower MD Primary Care Provider Scarlett Baird PA-C Primary Care Provider Maria Del Rosario Oleary LIQUOR TESTER Primary Care Provider + Ashwin Zurita LIQUOR TESTER Primary Care Provide r Encounter Details Date Type Department Care Team (Late st Contact Info) Description 10/02/2017 Ancillary Orders [facility], X-Ray - [address] [place] [address] Kassandra Laura, PA-C [address] [facility], [address] [place] [address] [email or web address] Pain Social History Tobacco Use Types Packs/Day [...] Description 11/27/2025 9:00 AM EST Office Visit [facility] 40 [place], [place] [phone] Sarai Azar PA-C 40 [place] [address] [email or web address] documented as of this encounter Results * XR ANKLE 3 OR MORE VIEWS (LEFT) (10/02/2017 2:26 PM EST) Anatomical Region Laterality Modality Ankle Left Radiographic Zelda ging 10/02/2017 2:42 PM EST Impressions 10/02/2017 2:43 PM EST No evidence of fractures. POS - [id number] Narrative 10/02/2017 2:43 PM EST HISTORY: Lateral [...] IMPRESSION: No evidence of fractures. POS - [id number] us Kassandra MCNAIR-C IMG XR LOWER EXTREMITY Final Result * XR Tibia Fibula 2 Views (Left) (10/02/2017 2:24 PM EST) Anatomical Region Laterality Modality Leg Left Radiographic Zelda ging 10/02/2017 2:43 PM EST Impressions 10/02/2017 2:45 PM EST No evidence of fractures. POS - [id number] Narrative 10/02/2017 2:45 PM EST HISTORY: Bilateral [...] IMPRESSION: No evidence of fractures. POS - [id number] us Kassandra Laura PA-C IMG XR LOWER EXTREMITY Final Result documented in this encounter Visit Diagnoses Diagnosis Pain Generalized pain Pain Generalized pain Pain Generalized pain documented in this encounter Additional Health Concerns Infection Onset Date Last Indicated Resolved Time CoV-Risk 01/21/2025 01/21/2025 02/01/2025 1:21 AM EDT documented as of this encounter Care Teams Banjo Repair Person Relationship Specialty Start Date End Date Pcp, Unknown PCP - General 02/18/11 10/17/17 Pcp, Unknown PCP - General 10/18/17 11/22/17 Selam Flower MD PCP - General 11/23/17 05/02/18 Scarlett Baird PA-C [address] [place] [address] [facility] [place] [address] [email or web address] PCP - General Family Medicine 05/03/18 07/08/19 Maria Del Rosario Oleary, LIQUOR TESTER [address] [place] [address] PCP - General Family Medicine 07/09/19 06/18/25 Ashwin Zurita, LIQUOR TESTER [address] [place] [address] PCP - General Nurse Practitioner 06/19/25 Carmen Flores, JOAQUIN [address] [place] [address] [email or web address] Historical LMR Provider 09/06/17 Priscila Grimm FNP 38 [facility]. 204, [address] [place] [address] [email or web address] Historical LMR Provider 09/06/17 11/27/21 Veronica Vega MD 38 [facility]. 204, [address] [place] [address] [email or web address] Historical LMR Provider 09/06/17 11/27/21 Selam Flower MD [address] [place] [address] Historical LMR Provider 09/06/17 2 Pedro Valente MD [address] [place] [address] Historical LMR Provider 09/06/17 2 documented as of this encounter Additional Source Comments The information contained in this document represents components of the legal health record. It is not the complete legal health record.[facility]
--- OUTSIDE RECORDS SUMMARY | 2025-11-05 20:12 | XMS_ITS | Encounter Summary ---
Author Organization [facility] Address [address] [place] [address] Phone Care Team Providers Care Casting Room Operator Name Role Phone Carmen Flores NP Unavailable Priscila Grimm MAIL HANDLER ASSISTANT Unavailable Veronica Vega MD Unavailable Selam Flower MD Unavailable Pedro Valente MD Unavailable Pcp, Unknown Primary Care Provider Unavailabl e Selam Flower MD Primary Care Provider Scarlett Baird PA-C Primary Care Provider Maria Del Rosario Oleary CHAUFFEUR Primary Care Provider + Ashwin Zurita CHAUFFEUR Primary Care Provide r Encounter Details Date Type Department Care Team (Late st Contact Info) Description 10/18/2017 Procedure Pass [facility], [address] [place] [address] Social History Tobacco Use Types Packs/Day Years [...] Description 11/27/2025 9:00 AM EST Office Visit [facility] 40 [place] [address] Sarai Azar PA-C 40 [place] [address] [email or web address] documented as of this encounter Visit Diagnoses Not on filedocumented in this encounter Additional Health Concerns Infection Onset Date Last Indicated Resolved Time CoV-Risk 01/21/2025 01/21/2025 02/01/2025 1:21 AM EDT documented as of this encounter Care Teams Casting Room Operator Relationship Specialty Start Date End Date Pcp, Unknown PCP - General 10/18/17 11/22/17 Selam Flower MD PCP - General 11/23/17 05/02/18 Scarlett Baird PA-C [address] [place] [address] [facility] [place] [address] PCP - General Family Medicine 05/03/18 07/08/19 Maria Del Rosario Oleary NP [address] [place] [address] PCP - General Family Medicine 07/09/19 06/18/25 Ashwin Zurita, JOAQUIN [address] [place] [address] PCP - General Nurse Practitioner 06/19/25 Carmen Flores, JOAQUIN [address] [place] [address] [email or web address] Historical LMR Provider 09/06/17 Priscila Grimm FNP 38 [facility] 204, [address] [place] [address] [email or web address] Historical LMR Provider 09/06/17 11/27/21 Veronica Vega MD 38 [facility] Ramesh[address], [address] [place] [address] Historical LMR Provider 09/06/17 11/27/21 Selam Flower MD [address] [place] [address] Historical LMR Provider 09/06/17 2 Pedro Valente MD [address] [place] [address] Historical LMR Provider 09/06/17 2 documented as of this encounter Additional Source Comments The information contained in this document represents components of the legal health record. It is not the complete legal health record.[facility]
--- OUTSIDE RECORDS SUMMARY | 2025-11-05 20:12 | XMS_ITS | Encounter Summary ---
Author Organization [facility] Address [address] [place] [phone] Phone Care Team Providers Care Fuel Technician Name Role Phone Carmen Flores NP Unavailable Priscila Grimm PURSE FRAMER Unavailable Veronica Vega MD Unavailable Selam Flower MD Unavailable Pedro Valente MD Unavailable Pcp, Unknown Primary Care Provider Unavailabl e Selam Flower MD Primary Care Provider Scarlett Baird PA-C Primary Care Provider Maria Del Rosario Oleary FAMILY LIFE EDUCATOR Primary Care Provider + Ashwin Zurita FAMILY LIFE EDUCATOR Primary Care Provide r Reason for Referral * MRI/CAT Scan - Closed Specialty Diagnoses / Procedures Referred By Contac t Referred To Contact Radiology Diagnoses Acute left ankle pain Procedures MRI Ankle (Left) Saurav Shahid MD Phone: tel: fax: [email or web address]:[email or web address] Referral ID Status Reason Start Date Expiration Date Visits Re quested Visits Authorized [id number] Closed 10/18/2017 12/17/2017 1 1 Encounter Details Date Type Department Care Team (Late st Contact Info) Description 10/18/2017 Ancillary Orders Virtual Department [address] [place] [address] Saurav Shahid MD [address] [place] [phone] [email or web address] Acute left ankle pain Social History Tobacco [...] Description 11/27/2025 9:00 AM EST Office Visit [facility] [address] [place], [place] [phone] Sarai Azar PA-C [address] [place] [address] [email or web address] documented as of this encounter Results * MRI ANKLE WITHOUT CONTRAST (LEFT) (10/24/2017 1:13 PM EST) Anatomical Region Laterality Modality Ankle Left Magnetic Resonan ce 10/24/2017 1:55 PM EST Impressions 10/24/2017 2:16 PM EST Intermediate grade anterior talofibular ligament sprain with associated predominantly lateral edema as well as posterior effusion. This may indicate recurrent sprains. No other regional disruptions identified. POS - [id number] Edited by: Sylwia Michael on 10/24/2017 2:14 [...] No other regional disruptions identified. POS - [id number] Edited by: Sylwia Michael on 10/24/2017 2:14 PM us Saurav Shahid MD IMG MR EXTREMITY Final Result documented in this encounter Visit Diagnoses Diagnosis Acute left ankle pain Acute left ankle pain documented in this encounter Additional Health Concerns Infection Onset Date Last Indicated Resolved Time CoV-Risk 01/21/2025 01/21/2025 02/01/2025 1:21 AM EDT documented as of this encounter Care Teams Fuel Technician Relationship Specialty Start Date End Date Pcp, Unknown PCP - General 10/18/17 11/22/17 Selam Flower MD PCP - General 11/23/17 05/02/18 Scarlett Baird PA-C [address] [place] [address] [facility] [place] [address] [email or web address] PCP - General Family Medicine 05/03/18 07/08/19 Maria Del Rosario Oleary NP [address] [place] [id number] PCP - General Family Medicine 07/09/19 06/18/25 Ashwin Zurita, JOAQUIN [address] [place] [id number] PCP - General Nurse Practitioner 06/19/25 Carmen Flores NP [address] [place] [phone] [email or web address] Historical LMR Provider 09/06/17 Priscila Grimm FNP [address] [place] [address], [address] [place] [address] [email or web address] Historical LMR Provider 09/06/17 11/27/21 Veronica Vega MD [address] [facility] 204, [address] [place] [address] [email or web address] Historical LMR Provider 09/06/17 11/27/21 Selam Flower MD [address] [place] [address] Historical LMR Provider 09/06/17 2 Pedro Valente MD [address] [place] [address] Historical LMR Provider 09/06/17 2 documented as of this encounter Additional Source Comments The information contained in this document represents components of the legal health record. It is not the complete legal health record.[facility]
--- OUTSIDE RECORDS SUMMARY | 2025-11-05 20:12 | XMS_ITS | Encounter Summary ---
Author Organization [facility] Address [address] [facility] [address] [place] [address] Phone Care Team Providers Care Sand Cutting Machine Operator Name Role Phone Maria Del Rosario Oleary DNP Primary Care Provider Reason for Visit * Reason Comments Med Refill Encounter Details Date Type Department Care Team (Late st Contact Info) Description 03/31/2023 Refill [facility] [address] [facility] [address] [place] [phone] Amauri Vasquez MD [address] [place] [phone] Social History Tobacco Use Types Packs/Day Years [...] on filedocumented in this encounter Care Teams Sand Cutting Machine Operator Relationship Specialty Start Date End Date Maria Del Rosario Oleary DNP [address] [facility] [address] [place] [address] PCP - General Nurse Practitioner 07/18/22 documented as of this encounter
== END 2025-11-05 16:00 | disposition home or self-care (01) ==
LOC: HO.HKA 15:10
PROVIDERS: PCP Internal Medicine; Visit Provider Internal Medicine Nephrology
DX: R60.0 Localized edema (principal); R80.8 Other proteinuria; N20.0 Calculus of kidney
CPT/HCPCS: 99214

== ENCOUNTER → 2025-11-05 15:10 | Outpatient (BNVA) | payer MEDICAID, SELFPAY | PROVIDERS: PCP Internal Medicine; Visit Provider Internal Medicine Nephrology | DX: N20.0 Calculus of kidney (principal); R60.9 Edema, unspecified; R80.9 Proteinuria, unspecified; Z79.899 Other long term (current) drug therapy; Z87.891 Personal history of nicotine dependence | CPT/HCPCS: 99212 ==